=== PATIENT | male | born 1985 | race Caucasian/White ===

== ENCOUNTER 2018-08-09 11:41 | Outpatient (CLI) | payer MEDICAID, SELFPAY ==
--- NOTE | 2018-08-09 12:56 | DI.RAD_ITS ---
SYMPTOMS/DIAGNOSIS: ACUTE BRONCHITIS WITH MILD BRONCHOSPASM, J20.9 PA AND LATERAL CHEST: The heart is normal in size. The lungs are clear. The mediastinal structures and pleura appear intact. CONCLUSION: Normal chest.
== END 2018-08-09 12:01 ==
PROVIDERS: PCP Family Medicine; Visit Provider Nurse Practitioner Family
DX: J20.9 Acute bronchitis, unspecified (principal)
CPT/HCPCS: 71046

== ENCOUNTER 2018-08-10 04:05 | Emergency (ER) | payer MEDICAID, SELFPAY ==
[2018-08-10] VITALS (25 sets, daily range): BP systolic 89–186; BP diastolic 42–112; PULSE 75–117; RESP 13–47; TEMP 35.4–36.6; O2SAT 69–100
--- NOTE | 2018-08-10 04:15 | DI.COMBO_ITS ---
SYMPTOM/DIAGNOSIS: SOB, SEVERE RESP DISTRESS PE CHEST CT: CT angiography was performed with multi slice acquisition and multi planar and 3D reconstruction. CT scan of the chest was performed according to the pulmonary embolus protocol. No priors for comparison. There is no evidence of a pulmonary embolus. The thoracic aorta is of normal caliber. No evidence of thoracic aortic dissection or aneurysm. Heart size is within normal limits. No significant pericardial effusion is seen. No evidence of right ventricular dysfunction is present. No significant mediastinal or hilar adenopathy, pleural effusion or pneumothorax is identified. Note is made of pneumomediastinum. There is an endotracheal tube in good position above the lyric. There is a nasogastric tube which is coiled in the distal esophagus, the tip of the catheter is directed cephalad and lies at the level of the thoracic inlet. There is a reticular nodular infiltrate seen in the right lower lobe. Upper abdominal images are unremarkable. The bones are intact. IMPRESSION: 1. No evidence of a pulmonary embolus, thoracic aortic dissection or aneurysm. 2. Pneumomediastinum. 3. Nasogastric tube coiled in the distal stomach with the tip at the level of the thoracic inlet. 4. Reticular nodular infiltrate seen in the right lower lobe. This may represent small airway disease, infection or inflammation. PORTABLE AP CHEST: Comparison is made with 08/09/18. Heart size is within normal limits as are the pulmonary vasculature. There is a small amount of air seen around the cardiac silhouette consistent with pneumopericardium. The lungs are clear. No effusions or pneumothoraces are identified. IMPRESSION: Pneumopericardium. Please refer to the CT scan of the chest performed the same day.
[2018-08-10] MEDS: Albuterol 2.5 MG/3 ML INH SOLN VIAL UPD ×2 (04:16→05:18)
[2018-08-10 04:39] LABS: ALT 120 U/L (12-78); AST 35 U/L (15-37); Alkaline Phosphatase 77 U/L (46-116); Anion Gap 11.5 mmol/L (3-11); BUN 6 mg/dL (7-18); Bilirubin, Total 0.5 mg/dL (0.2-1.0); CO2 28.5 mmol/L (21.0-32.0); CREATININE 1.07 mg/dL (0.70-1.30); Calcium 8.5 mg/dL (8.5-10.1); Chloride 101 mmol/L (98-107); Glucose 338 mg/dL (70-100); Lactate-non-spesis 3.2 mmol/L (0.6-1.4); Potassium 3.6 mmol/L (3.5-5.1); Sodium 141 mmol/L (136-145); Total Protein 7.8 g/dL (6.4-8.2)
[2018-08-10 04:40] LABS: Troponin I < 0.02 ng/mL (0.00-0.06)
[2018-08-10 04:45] LABS: Abs Immature Grans 0.11 k/cumm (0.0-0.09); Basophils % 0.3; Eosinophils % 2.9; HCT 37.4 % (40.0-50.0); HGB 13.8 g/dL (13.5-17.5); Immature Grans % 0.5; Lymphocytes % 19.9; Mean Corpuscular Hemoglobin 32.7 pg (27.0-33.0); Mean Corpuscular Volume 88.6 fL (80-95); Mean Platelet Volume 10.3 fL (8.0-11.0); Monocytes % 7.5; Neutrophils % 68.9; Platelet Count 497 x1000/uL (130-400); RBC 4.22 m/cumm (4.50-6.00); White Blood Cell Count 22.72 k/cumm (4.4-10.8)
[2018-08-10] MEDS: Ketamine 500 MG/10 ML VIAL 110 MG IVP (04:45)
[2018-08-10] MEDS: PROPOFOL 1,000 MG/100 ML BTL 8 MG (04:46)
[2018-08-10 04:48] LABS: Absolute Basophil Count 0.07 k/cumm (0.0-0.2); Absolute Eosinophil Count 0.66 k/cumm (0.0-0.7); Absolute Lymphocyte Count 4.52 k/cumm (1.2-3.4); Absolute Neutrophil Count 15.65 k/cumm (1.2-6.7)
[2018-08-10 04:49] LABS: Mean Corp. HGB Concentration 36.9 g/dL (32.0-36.0)
[2018-08-10] MEDS: Normal Saline Flush 10 ML SYR (05:03)
[2018-08-10] MEDS: methylPREDNISolone SUCC 125 MG VIAL (05:04)
[2018-08-10 05:06] LABS: NT-proBNP 117 pg/mL; TSH (W/Ref FT4) 0.27 uIU/mL (0.358-3.74)
[2018-08-10] MEDS: Albuterol HFA 8 GM 60 PUFF INH IH (05:20)
[2018-08-10 05:21] LABS: FREE T4 1.09 ng/dL (0.76-1.46)
--- NOTE | 2018-08-10 05:28 | DI.VRAD_ITS ---
EXAM: XR Chest, 1 View CLINICAL HISTORY: 33 years old, male; Signs and symptoms; Shortness of breath TECHNIQUE: Frontal view of the chest. COMPARISON: CR XR CHEST 2V PA LATERAL 08/09/2018 12:56 PM FINDINGS: Lungs: Unremarkable. No consolidation. Pleural space: Unremarkable. No pneumothorax. Heart: Unremarkable. No cardiomegaly. Mediastinum: Unremarkable. Bones/joints: Unremarkable. IMPRESSION: Normal chest x-ray. Dictated and Authenticated by: Prakash Fernández MD. Ordering:INO PENA MD
[2018-08-10] MEDS: CEFEPIME 2 GM in Normal Saline 100 ML IVPB (05:44)
--- NOTE | 2018-08-10 05:50 | ED.GENADUL_ITS ---
Discharge Plan Disposition Patient Disposition: [facility] Condition: Critical Discharge Details Chief Complaint: SOB Clinical Impression: Mediastinitis, Acute hypercapnic respiratory failure Primary Care Provider: Raghav Rojo ED Provider: Jose Luis Polk Home Meds and New Rx's Prescriptions: No Action azithromycin 250 mg Tablet 250 mg PO DAILY RF: 0 prednisone 20 mg Tablet 20 mg PO DAILY RF: 0 albuterol sulfate [ProAir HFA] 90 mcg/actuation Hfa Aerosol Inhaler 2 puff INHALATION Q6H PRNRF: 0 lisinopril 40 mg Tablet 40 mg PO DAILY RF: 0 kskvykuyralh-ytmc-gegof acid [Centrum] 18-400 mg-mcg Tablet 1 tab PO DAILY RF: 0 omega 6-oda-ios-fish oil [Fish Oil] 1,000 mg (120 mg-180 mg) Capsule 2 cap PO DAILY RF: 0 Discharge Data Discharge Date/Time-TO BE ENTERED AT DEPARTURE: 08/10/18 07:14 Medical Decision Making 33-year-old male seen immediately on arrival. Patient arrives in critical condition, in respiratory distress. Patient noted to be tachypneic and hypoxic and cyanotic. Tachycardic and hypertensive. Patient complaining of severe shortness of breath as well as some chest discomfort. Lung sounds tight without wheeze. Patient noted recent bronchitis being treated with azithromycin, albuterol inhaler, and prednisone. Oxygen administered by nonrebreather and IV access obtained. Oxygenation improved to the low 90s, but the patient became quickly more obtunded and responsive only to deep painful stimuli. Patient not protecting airway. Patient intubated to protect airway and given respiratory failure. Patient intubated with ketamine and rocuronium using direct layer laryngoscopy on first attempt easily and without complication. Portable chest x-ray reviewed and interpreted by me: Question curly B-lines, radiology interpreted as negative. ECG was reviewed and interpreted by me: Sinus rhythm 93 bpm, frequent ectopic ventricular beats, nondiagnostic. RT consulted. Continued albuterol inline nebs. Solumedrol 125mg given given. Labs reviewed and leukocytosis noted, lactate elevated, suspect sepsis. Will give cefepime 2g. Vent adjusted adjusted 600/15/100/10peep. I called and spoke with [facility] [place] Dr. Roman will accept patient. CT of the chest to assess for PE while awaiting [facility] transport. 6:30 -- VBG at 4:40 pH7.06. CO2 92. Will obtain ABG. CT of the chest interpreted by radiology: Pneumomediastinum, NG tube curled in distal esophagus with tip extending cranially to the level of the thoracic inlet. Minimal micronodular infiltrates in the right lower lobe suspicious for small airway disease spot infectious etiology. Will remove NG. 6:45 --Suspected diagnosis of acute mediastinitis with hypercarbic respiratory failure I called and updated Dr. Roman re: course. He recommended broadening antibiotic coverage to include vancomycin and Zosyn. HPI General Mode of arrival: ambulatory . Date/Time Provider Initiated Documentation: 08/10/18 04:10 . Limitations to Documentation: no limitations . Information obtained by: patient . HPI Narrative: Patient arrives by private vehicle, ambulating into the emergency department with respiratory distress. History and review of systems Limited secondary to acuity of condition and respiratory distress. Pa Patient does note he was recently being treated for bronchitis with albuterol, azithromycin, and prednisone. Patient noted chest discomfort and nursing. Related Data Home Medications Medication Instructions Recorded Confirmed albuterol sulfate [ProAir HFA] 2 puff INHALATION Q6H PRN 08/10/18 08/10/18 azithromycin 250 mg PO DAILY 08/10/18 08/10/18 lisinopril 40 mg PO DAILY 08/10/18 08/10/18 uyplpmubnixm-icvc-imtra acid 1 tab PO DAILY 08/10/18 08/10/18 [Centrum] omega 3-mip-zlv-fish oil [Fish Oil] 2 cap PO DAILY 08/10/18 08/10/18 prednisone 20 mg PO DAILY 08/10/18 08/10/18 Allergies Allergy/AdvReac Type Severity Reaction Status Date / Time No Known Allergies Allergy Unverified 08/10/18 05:29 General Stated Complaint: SOB AMRITA: 1 Review of Systems Review of Systems Unable to obtain a complete review of systems secondary to the acuity of condition and respiratory distress. Patient does note shortness of breath and some chest discomfort Exam Const General: in distress severe and respiratory Nutritional Appearance: obese Orientation: confused Limitations: altered mental status [facility] Head: normocephalic and atraumatic Mouth: moist mucous membranes Eyes Conjunctivae: normal conjunctivae Sclera: normal sclerae Pupils: PERRL and pupil size (4mm) bilaterally Neck Neck: trachea midline and supple Resp Effort & Inspection: labored, respiratory distress, retractions and tachypneic Auscultation: diminished lung sounds bilaterally and wheezes expiratory wheezes (faint) Cardio Jugular venous pressure: no JVD Rate: tachycardic Rhythm: regular rhythm GI Palpation: soft, not firm, no guarding, no masses, not rigid and nontender Skin General skin exam: other (cyanosis face) Neuro General: alert, awake and confused Extrem General: no edema Course Vital Signs Temperature 35.4 C L 08/10/18 04:18 Pulse 117 H 08/10/18 04:18 Respiratory Rate 32 H 08/10/18 04:18 Pulse Oximetry 69 L 08/10/18 04:18 Temperature 35.4 C L 08/10/18 04:18 Pulse 117 H 08/10/18 04:18 Respiratory Rate 32 H 08/10/18 04:18 Pulse Oximetry 69 L 08/10/18 04:18 Oxygen Delivery Method Room Air 08/10/18 04:18 Oxygen Flow Rate 0 08/10/18 04:18 Pain Level 0 08/10/18 04:18 Comment 08/10/18 04:18 Lab/Test Results Lab/Test Results: Laboratory Tests Range/Units 08/10/18 08/10/18 08/10/18 04:16 04:16 04:16 WBC (4.4-10.8) k/cumm 22.72 H RBC (4.50-6.00) m/cumm 4.22 L Hgb (13.5-17.5) g/dL 13.8 Hct (40.0-50.0) % 37.4 L MCV (80-95) fL 88.6 MCH (27.0-33.0) pg 32.7 MCHC (32.0-36.0) g/dL 36.9 H RDW (11.8-14.1) % 17.0 H Plt Count (130-400) x1000/uL 497 H MPV (8.0-11.0) fL 10.3 Immature Gran % 0.5 Neutrophils % 68.9 Lymphocytes % 19.9 Monocytes % 7.5 Eosinophils % 2.9 Basophils % 0.3 Absolute Neutrophils (1.2-6.7) k/cumm 15.65 H Absolute Lymphocytes (1.2-3.4) k/cumm 4.52 H Absolute Monocytes (0.11-0.7) k/cumm 1.70 H Absolute Eosinophils (0.0-0.7) k/cumm 0.66 Absolute Basophils (0.0-0.2) k/cumm 0.07 Sodium (136-145) mmol/L 141 Potassium (3.5-5.1) mmol/L 3.6 Chloride (98-107) mmol/L 101 Carbon Dioxide (21.0-32.0) mmol/L 28.5 Anion Gap (3-11) mmol/L 11.5 H BUN (7-18) mg/dL 6 L Creatinine (0.70-1.30) mg/dL 1.07 Estimated GFR/1.73 m2 (mL/min/1.73m2) >= 60.00 Glucose (70-100) mg/dL 338 H Lactate (0.6-1.4) mmol/L Calcium (8.5-10.1) mg/dL 8.5 Total Bilirubin (0.2-1.0) mg/dL 0.5 AST (15-37) U/L 35 ALT (12-78) U/L 120 H Alkaline Phosphatase (46-116) U/L 77 Troponin I (0.00-0.06) ng/mL < 0.02 NT-Pro-B Natriuret Pep ( - 299) pg/mL 117 Total Protein (6.4-8.2) g/dL 7.8 Albumin (3.4-5.0) g/dL 4.0 TSH (0.358-3.74) uIU/mL 0.27 L Range/Units 08/10/18 04:16 WBC (4.4-10.8) k/cumm RBC (4.50-6.00) m/cumm Hgb (13.5-17.5) g/dL Hct (40.0-50.0) % MCV (80-95) fL MCH (27.0-33.0) pg MCHC (32.0-36.0) g/dL RDW (11.8-14.1) % Plt Count (130-400) x1000/uL MPV (8.0-11.0) fL Immature Gran % Neutrophils % Lymphocytes % Monocytes % Eosinophils % Basophils % Absolute Neutrophils (1.2-6.7) k/cumm Absolute Lymphocytes (1.2-3.4) k/cumm Absolute Monocytes (0.11-0.7) k/cumm Absolute Eosinophils (0.0-0.7) k/cumm Absolute Basophils (0.0-0.2) k/cumm Sodium (136-145) mmol/L Potassium (3.5-5.1) mmol/L Chloride (98-107) mmol/L Carbon Dioxide (21.0-32.0) mmol/L Anion Gap (3-11) mmol/L BUN (7-18) mg/dL Creatinine (0.70-1.30) mg/dL Estimated GFR/1.73 m2 (mL/min/1.73m2) Glucose (70-100) mg/dL Lactate (0.6-1.4) mmol/L 3.2 H Calcium (8.5-10.1) mg/dL Total Bilirubin (0.2-1.0) mg/dL AST (15-37) U/L ALT (12-78) U/L Alkaline Phosphatase (46-116) U/L Troponin I (0.00-0.06) ng/mL NT-Pro-B Natriuret Pep ( - 299) pg/mL Total Protein (6.4-8.2) g/dL Albumin (3.4-5.0) g/dL TSH (0.358-3.74) uIU/mL Critical Care Time Critical Care Time: Yes Total Critical Care Time: 85 Attestation: I spent greater than 85 minutes addressing this patient's immediate life threats
[2018-08-10 06:19] LABS: *AMPHETAMINES SCREEN URINE Negative (Negative); *BARBITURATES SCREEN URINE Negative (Negative); *BENZODIAZEPINES SCREEN URINE Negative (Negative); Cannabinoids THC POSITIVE (Negative); Cocaine Screen,Urine Negative (Negative); METHADONE URINE SCREEN Negative (Negative); OPIATES URINE SCREEN Negative (Negative)
[2018-08-10] MEDS: Omnipaque 350 MG/ML 100 ML BTL IJ (06:19)
[2018-08-10 06:22] LABS: Tricyclic Antidepressants Negative (Negative)
[2018-08-10 06:23] LABS: pO2 (Venous) 87 mm/Hg (28-44)
[2018-08-10 06:24] LABS: HCO3 (Venous) 26 mmol/L (22-28)
[2018-08-10 06:26] LABS: O2 Sat (Venous) 93 % (70-80); TCO2 (Venous) 25 mmol/L (22-29)
[2018-08-10 06:29] LABS: pH (Venous) 7.06 (7.32-7.43)
--- NOTE | 2018-08-10 06:29 | DI.VRAD_ITS ---
EXAM: CT Angiography Chest With Intravenous Contrast CLINICAL HISTORY: 33 years old, male; Signs and symptoms; Other: Severe resp distress; Patient HX: Unknown history TECHNIQUE: Axial computed tomographic angiography images of the chest with intravenous contrast using pulmonary embolism protocol. All CT scans at this facility use at least one of these dose optimization techniques: automated exposure control; mA and/or kV adjustment per patient size (includes targeted exams where dose is matched to clinical indication); or iterative reconstruction. MIP reconstructed images were created and reviewed. Coronal and sagittal reformatted images were created and reviewed. CONTRAST: 100 mL of Omnipaque 350 administered intravenously. COMPARISON: SC XR PORTABLE CHEST AP 08/10/2018 4:19 AM FINDINGS: Pulmonary arteries: Unremarkable. No pulmonary embolism. Aorta: No acute findings. No thoracic aortic aneurysm. Lungs: Minimal micronodular infiltrates of the right lower lobe, suspicious for small airway disease spot infectious etiology. No mass. Pleural space: Unremarkable. No significant effusion. No pneumothorax. Heart: Unremarkable. No cardiomegaly. No significant pericardial effusion. No evidence of RV dysfunction. Mediastinum: Pneumomediastinum. Bones/joints: No acute fracture. No dislocation. Soft tissues: Unremarkable. Lymph nodes: Unremarkable. No enlarged lymph nodes. Liver: No hepatic steatosis. Tubes, lines and devices: NG tube curled in distal esophagus with tip extending cranially to the level of the thoracic inlet. IMPRESSION: 1. Pneumomediastinum. 2. NG tube curled in distal esophagus with tip extending cranially to the level of the thoracic inlet. 3. Minimal micronodular infiltrates of the right lower lobe, suspicious for small airway disease spot infectious etiology. Dictated and Authenticated by: Prakash Fernández MD. Ordering:INO PENA MD
[2018-08-10 06:30] LABS: pCO2 (Venous) 92 mm/Hg (34-47)
[2018-08-10] MEDS: PIPERACILLIN/TAZO 4.5 GM in Normal Saline 100 ML IVPB (06:40)
[2018-08-10] MEDS: fentaNYL 250 MCG/5 ML VIAL (06:44)
[2018-08-10 06:47] LABS: BE -3.4 mmol/L (-3-3); HCO3 25 mmol/L (22-28); pO2 103 mmHg (83-108); sO2 98 % (94-98); tCO2 24 mmol/L (22-29)
[2018-08-10 06:48] LABS: pCO2 64 mmHg (34-47)
[2018-08-10 06:49] LABS: Site Right Radial
--- NOTE | 2018-08-10 07:13 | NUR.NOTE ---
Nursing Note: left message for Adiranne Orellana- mother listed on demographics. VM left to call hospital. [facility] has left pt's belongings which are bagged and labeled, including wallet with DL and CCards- no perales present. Additionally, pants, brown t shirt, black sweatshirt , cell phone, 3 rx bottles, 1 inhaler. Will secure behind desk.
--- NOTE | 2018-08-10 07:29 | NUR.NOTE ---
Nursing Note: 0450: Rocuronium 100mg given IVP Left AC Ketamine 110mg given IVP left AC
--- NOTE | 2018-08-10 08:04 | NUR.NOTE ---
Nursing Note: Pt arrived, was roomed in room 2- found at 69% RA. Began high flow O2 via NRB. in room. ECG obtained- reviewed by MD. IV x 2 placed (LAC, RAC #18 each). Pt's SaO2 levels increased, though pt became unresponsive. In order to protect airway, pt was intubated at approx 0445 by MD Polk with respiratory and 2 RN assist. Ventilator utilized and managed by RT. Intubation as described by MN RN - 110 mg Ketamine and 100 mg Rocuronium. Started on propofol after successful insertion of 7.5 ETT 22@ teeth. Pt maintained on this, managed by RT for vent and anesthesia (responded to call in). [facility] Report given, pt transferred.
== END 2018-08-10 07:14 | disposition short-term general hospital (02) ==
PROVIDERS: Emergency Provider Student in an Organized Health Care Education/Training Program; PCP Family Medicine
DX: J98.51 Mediastinitis (principal); J96.02 Acute respiratory failure with hypercapnia; I10 Essential (primary) hypertension
CPT/HCPCS: 31500; 36415; 71275; 80053; 80307; 82805; 93005; 94640; 96365; 96367; 96375; 99291; 99292; 71045; 83605; 83880; 84439; 84443; 84484; 85025; 93010; J2543; J2930; J3010; J3490; J7613

== ENCOUNTER 2018-09-03 08:59 | Emergency (ER) | payer MEDICAID, SELFPAY ==
[2018-09-03 09:33] VITALS: BP 145/106; PULSE 92; RESP 18; TEMP 36.7; O2SAT 96
--- NOTE | 2018-09-03 10:13 | DI.RAD_ITS ---
SYMPTOM/DIAGNOSIS: COUGH, SHORTNESS OF BREATH PA AND LATERAL CHEST: The heart is normal in size. The lungs are clear. The mediastinal structures and pleura appear intact. CONCLUSION: Normal chest. No evidence of acute cardiopulmonary disease.
--- NOTE | 2018-09-03 10:13 | W.ED.GENAD ---
Discharge Plan Disposition Patient Disposition: HOME Condition: Good Discharge Details Chief Complaint: RespSymp Clinical Impression: Bilateral wheezing Primary Care Provider: Nataly Conklin ED Provider: Prakash Garcia Home Meds and New Rx's Prescriptions: New prednisone 20 mg tablet 60 mg PO DAILY 4 Days Qty: 12 RF: 0 Continue albuterol sulfate [ProAir HFA] 90 mcg/actuation Hfa Aerosol Inhaler 2 puff INHALATION Q6H PRNRF: 0 lisinopril 40 mg Tablet 40 mg PO DAILY RF: 0 budesonide-formoterol [Symbicort] 160-4.5 mcg/actuation Hfa Aerosol Inhaler 2 puff Inhalation BID RF: 0 Discharge Instructions Additional Instructions: you had wheezing on exam and were treated with steoids and a nebulizer. Follow up with your primary care provider next week especially if symptoms continue return to the emergency department for severe pain or worsening difficulty breathing Medical Decision Making 33 yo male with hx of htn who required intubation and transfer to [facility] [place] for undiagnosed asthma exacerbation and pneumonedistinum at the end of jul, comes in with shortness of breath and dry cough for a week. Denies fevers or chest pain, is in no distress on exam speaking in full sentences. Has no crepitus of chest wall, does have bilateral wheezing. No hypoxia or tachycardia, wells low and perc negative so odubt PE. Will treat as asthma exacerbation and obtain xray patient feels much better after neb and steroids, speaking in full sentences, awaiting xray xray negative on my read, remains stable and only has mild wheezing at the bases bilaterally. will d/c with prednisone, advised f/u with pcp next week and return precautions given Differential Diagnosis asthma, pneumonia, bronchitis Medical Records Medical records reviewed: Yes I reviewed the patient's medical records. Imaging Data Radiologic Study: Attestation: I personally reviewed and interpreted this imaging study as follows: Imaging: X-Ray My impression: no acute findings HPI General Mode of arrival: ambulatory. Date/Time Provider Initiated Documentation: 09/03/18 10:07. Limitations to Documentation: no limitations. Information obtained by: patient. History of Present Illness 33 year old M presents to the emergency department with the chief complaint of shortness of breath, described as mild, Patient started experiencing this week(s) (1) and it has been constant. No relieving factors improve symptom(s), No exacerbating factors reported . Patient did receive the following treatments prior to arrival, none Related Data Home Medications Medication Instructions Recorded Confirmed albuterol sulfate [ProAir HFA] 2 puff INHALATION Q6H PRN 08/10/18 09/03/18 lisinopril 40 mg PO DAILY 08/10/18 09/03/18 budesonide-formoterol [Symbicort] 2 puff INHALATION BID 09/03/18 09/03/18 prednisone 60 mg PO DAILY 4 Days #12 tab 09/03/18 Previous Rx's Medication Instructions Recorded prednisone 60 mg PO DAILY 4 Days #12 tab 09/03/18 Allergies Allergy/AdvReac Type Severity Reaction Status Date / Time No Known Allergies Allergy Unverified 09/03/18 09:40 General Stated Complaint: RespSymp AMRITA: 3 Review of Systems Review of Systems All systems reviewed & are unremarkable except as noted in HPI and below Constitutional Denies chills, Denies fever(s) and Denies weakness Eyes Denies loss of vision ENT Denies change in voice Cardiovascular Denies chest pain Gastrointestinal Denies abdominal pain, Denies nausea and Denies vomiting Genitourinary Denies dysuria Musculoskeletal Denies joint swelling Integumentary/Breasts Denies rash Neurologic Denies loss of vision and Denies weakness Psychiatric Denies depression Endocrine Denies cold intolerance and Denies heat intolerance Allergic/Immunologic Denies urticaria [facility] Social History Smoking/Tobacco Use Status: Never Exam Const General: no acute distress Orientation: alert HENMT Head: normal to inspection Ears: external ears normal General nose exam: external nose normal Mouth: moist mucous membranes Eyes General: appearance normal, both eyes and all related structures Neck Neck: normal visual inspection Resp Effort & Inspection: normal respiratory effort, able to speak in complete sentences and audible wheezes Cardio Rate: regular rate Skin General skin exam: no rashes or lesions noted Neuro General: alert and oriented x3 Extrem General: normal to inspection Psych Mental Status: mental status grossly normal Course Vital Signs Temperature 36.7 C 09/03/18 09:33 Pulse 92 H 09/03/18 09:33 Respiratory Rate 18 09/03/18 09:33 Blood Pressure 145/106 H 09/03/18 09:33 Pulse Oximetry 96 09/03/18 09:33 Temperature 36.7 C 09/03/18 09:33 Temperature Source Skin 09/03/18 09:33 Pulse 92 H 09/03/18 09:33 Respiratory Rate 18 09/03/18 09:33 Respiratory Effort 09/03/18 09:36 Respiratory Depth Normal 09/03/18 09:36 Blood Pressure 145/106 H 09/03/18 09:33 Blood Pressure Position Sitting 09/03/18 09:33 Pulse Oximetry 96 09/03/18 09:33 Oxygen Delivery Method Room Air 09/03/18 09:33 Oxygen Flow Rate 0 09/03/18 09:33 Pain Level 0 09/03/18 09:33
[2018-09-03] MEDS: predniSONE 20 MG TAB 60 MG PO (10:31)
--- NOTE | 2018-09-03 10:32 | ED.GENADUL_ITS ---
Discharge Plan Disposition Patient Disposition: HOME Condition: Good Discharge Details Chief Complaint: RespSymp Clinical Impression: Bilateral wheezing Primary Care Provider: Nataly Conklin ED Provider: Prakash Garcia Home Meds and New Rx's Prescriptions: New prednisone 20 mg tablet 60 mg PO DAILY 4 Days Qty: 12 RF: 0 Continue albuterol sulfate [ProAir HFA] 90 mcg/actuation Hfa Aerosol Inhaler 2 puff INHALATION Q6H PRNRF: 0 lisinopril 40 mg Tablet 40 mg PO DAILY RF: 0 budesonide-formoterol [Symbicort] 160-4.5 mcg/actuation Hfa Aerosol Inhaler 2 puff Inhalation BID RF: 0 Discharge Instructions Additional Instructions: you had wheezing on exam and were treated with steoids and a nebulizer. Follow up with your primary care provider next week especially if symptoms continue return to the emergency department for severe pain or worsening difficulty breathing Medical Decision Making 33 yo male with hx of htn who required intubation and [place] [facility] [place]iagnosed asthma exacerbation and pneumonedistinum at the end of jul, comes in with shortness of breath and dry cough for a week. Denies fevers or chest pain, is in no distress on exam speaking in full sentences. Has no crepitus of chest wall, does have bilateral wheezing. No hypoxia or tachycardia, wells low and perc negative so odubt PE. Will treat as asthma exacerbation and obtain xray patient feels much better after neb and steroids, speaking in full sentences, awaiting xray xray negative on my read, remains stable and only has mild wheezing at the bases bilaterally. will d/c with prednisone, advised f/u with pcp next week and return precautions given Differential Diagnosis asthma, pneumonia, bronchitis Medical Records Medical records reviewed: Yes I reviewed the patient's medical records. Imaging Data Radiologic Study: Attestation: I personally reviewed and interpreted this imaging study as follows: Imaging: X-Ray My impression: no acute findings HPI General Mode of arrival: ambulatory . Date/Time Provider Initiated Documentation: 09/03/18 10:07 . Limitations to Documentation: no limitations . Information obtained by: patient . History of Present Illness 33 year old M presents to the emergency department with the chief complaint of shortness of breath, described as mild, Patient started experiencing this week(s) (1) and it has been constant. No relieving factors improve symptom(s ), No exacerbating factors reported . Patient did receive the following treatments prior to arrival, none Related Data Home Medications Medication Instructions Recorded Confirmed albuterol sulfate [ProAir HFA] 2 puff INHALATION Q6H PRN 08/10/18 09/03/18 lisinopril 40 mg PO DAILY 08/10/18 09/03/18 budesonide-formoterol [Symbicort] 2 puff INHALATION BID 09/03/18 09/03/18 prednisone 60 mg PO DAILY 4 Days #12 tab 09/03/18 Previous Rx's Medication Instructions Recorded prednisone 60 mg PO DAILY 4 Days #12 tab 09/03/18 Allergies Allergy/AdvReac Type Severity Reaction Status Date / Time No Known Allergies Allergy Unverified 09/03/18 09:40 General Stated Complaint: RespSymp AMRITA: 3 Review of Systems Review of Systems All systems reviewed & are unremarkable except as noted in HPI and below Constitutional Denies chills, Denies fever(s) and Denies weakness Eyes Denies loss of vision ENT Denies change in voice Cardiovascular Denies chest pain Gastrointestinal Denies abdominal pain, Denies nausea and Denies vomiting Genitourinary Denies dysuria Musculoskeletal Denies joint swelling Integumentary/Breasts Denies rash Neurologic Denies loss of vision and Denies weakness Psychiatric Denies depression Endocrine Denies cold intolerance and Denies heat intolerance Allergic/Immunologic Denies urticaria [facility] Social History Smoking/Tobacco Use Status: Never Exam Const General: no acute distress Orientation: alert HENMT Head: normal to inspection Ears: external ears normal General nose exam: external nose normal Mouth: moist mucous membranes Eyes General: appearance normal, both eyes and all related structures Neck Neck: normal visual inspection Resp Effort & Inspection: normal respiratory effort, able to speak in complete sentences and audible wheezes Cardio Rate: regular rate Skin General skin exam: no rashes or lesions noted Neuro General: alert and oriented x3 Extrem General: normal to inspection Psych Mental Status: mental status grossly normal Course Vital Signs Temperature 36.7 C 09/03/18 09:33 Pulse 92 H 09/03/18 09:33 Respiratory Rate 18 09/03/18 09:33 Blood Pressure 145/106 H 09/03/18 09:33 Pulse Oximetry 96 09/03/18 09:33 Temperature 36.7 C 09/03/18 09:33 Temperature Source Skin 09/03/18 09:33 Pulse 92 H 09/03/18 09:33 Respiratory Rate 18 09/03/18 09:33 Respiratory Effort 09/03/18 09:36 Respiratory Depth Normal 09/03/18 09:36 Blood Pressure 145/106 H 09/03/18 09:33 Blood Pressure Position Sitting 09/03/18 09:33 Pulse Oximetry 96 09/03/18 09:33 Oxygen Delivery Method Room Air 09/03/18 09:33 Oxygen Flow Rate 0 09/03/18 09:33 Pain Level 0 09/03/18 09:33
[2018-09-03 10:33] VITALS: RESP 4
[2018-09-03] MEDS: Albuterol/Ipratropium 3 ML UPD VIAL UPD (10:33)
[2018-09-03 12:03] VITALS: BP 151/83; PULSE 92; RESP 18; TEMP 36.7; O2SAT 96
== END 2018-09-03 12:04 | disposition home or self-care (01) ==
PROVIDERS: Emergency Provider Emergency Medicine; PCP Nurse Practitioner Family
DX: J45.901 Unspecified asthma with (acute) exacerbation (principal); I10 Essential (primary) hypertension
CPT/HCPCS: 94640; 99283; 71046; J7512; J7620

== ENCOUNTER 2019-01-07 07:56 | Outpatient (REF) | payer MEDICAID, SELFPAY ==
[2019-01-07 13:18] LABS: Anion Gap 9.3 mmol/L (3-11); BUN 15 mg/dL (7-18); CO2 28.7 mmol/L (21.0-32.0); CREATININE 0.84 mg/dL (0.70-1.30); Chloride 104 mmol/L (98-107); Cholesterol 159 mg/dL (50-200); Glucose 104 mg/dL (70-100); HDL Cholesterol 54 mg/dL (40-60); LDL CHOLESTEROL 94 mg/dL (<100); Potassium 4.9 mmol/L (3.5-5.1); Sodium 142 mmol/L (136-145); Triglyceride 54 mg/dL (30-150)
[2019-01-07 13:23] LABS: Calcium 9.2 mg/dL (8.5-10.1)
== END 2019-01-07 08:16 ==
LOC: NCHCN 07:56
PROVIDERS: PCP Nurse Practitioner Family; Visit Provider Nurse Practitioner Family
DX: I10 Essential (primary) hypertension (principal); E78.5 Hyperlipidemia, unspecified
CPT/HCPCS: 80048; 80061; 83721

== ENCOUNTER 2021-02-01 23:14 | Outpatient (REF) | payer MEDICAID, SELFPAY ==
[2021-02-01 19:13] LABS: Anion Gap 11.1 mmol/L (3-11); BUN 15 mg/dL (7-18); CO2 24.9 mmol/L (21.0-32.0); CREATININE 0.9 mg/dL (0.70-1.30); Calcium 8.8 mg/dL (8.5-10.1); Calculated LDL 110 mg/dL (<100); Chloride 106 mmol/L (98-107); Cholesterol 177 mg/dL (<200); Glucose 95 mg/dL (74-106); HDL Cholesterol 49 mg/dL (40-60); Potassium 4.3 mmol/L (3.5-5.1); Sodium 142 mmol/L (136-145); TSH (W/Ref FT4) 0.76 uIU/mL (0.36-3.74); Triglyceride 93 mg/dL (<150)
== END 2021-02-01 23:15 | disposition home or self-care (01) ==
LOC: NCHCN 23:14
PROVIDERS: PCP Nurse Practitioner Family; Visit Provider Nurse Practitioner Family
DX: I10 Essential (primary) hypertension (principal); F43.23 Adjustment disorder with mixed anxiety and depressed mood
CPT/HCPCS: 80048; 80061; 84443

== ENCOUNTER 2021-03-03 03:28 | Outpatient (CLI) | payer MEDICAID, SELFPAY ==
--- NOTE | 2021-03-03 14:00 | NS.NUTBLAN_ITS ---
Efraín was referred to Medical Nutrition Therapy for weight management. 6'2 330 lbs BMI 42. Goal wt: 290-300 lbs. Diet recall indicates skips breakfast and lunch and tends to eat a big meal at night. Very active during day, Does cardio and weight lifting 3-4 times weekly. Most recent labs indicate mildly elevated LDL (110 mg/dl). Session today focused on how to follow a lower carb, higher protein meal plan for weight loss. Reviewed strategies to increase metabolic rate and burn body fat while building muscle mass. Encouraged Efraín to eat 3-4 times daily and to focus on lean protein, complex carbs and non starchy vegetables. Encouraged 5 days of cardio for 30 min, 3 days of weight lifting 30 min. Provided macronutrient goals and meal plans. Goal: 4-5 lbs weight loss per month until goal weight. No follow up planned at this time. Will follow up prn.
== END 2021-03-03 03:29 | disposition home or self-care (01) ==
LOC: DS 03:29
PROVIDERS: PCP Nurse Practitioner Family; Visit Provider Dietitian, Registered
DX: E66.3 Overweight (principal); Z68.41 Body mass index [BMI] 40.0-44.9, adult; Z71.3 Dietary counseling and surveillance
CPT/HCPCS: 97802

== ENCOUNTER 2022-01-05 15:15 | Outpatient (REF) | payer MEDICAID, SELFPAY ==
[2022-01-05 17:06] LABS: Anion Gap 8.7 mmol/L (3-11); BUN 15 mg/dL (7-18); CO2 25.3 mmol/L (21.0-32.0); CREATININE 0.9 mg/dL (0.70-1.30); Calcium 8.8 mg/dL (8.5-10.1); Chloride 106 mmol/L (98-107); Glucose 99 mg/dL (74-106); Potassium 4.7 mmol/L (3.5-5.1); Sodium 140 mmol/L (136-145)
== END 2022-01-05 15:16 | disposition home or self-care (01) ==
LOC: NCHCN 15:15
PROVIDERS: PCP Nurse Practitioner Family; Visit Provider Nurse Practitioner Family
DX: Z00.00 Encounter for general adult medical examination without abnormal findings (principal)
CPT/HCPCS: 80048

== ENCOUNTER 2022-10-24 19:54 | Outpatient (REF) | payer MEDICAID, SELFPAY ==
[2022-10-24 20:19] LABS: Anion Gap 8.1 mmol/L (3-11); BUN 16 mg/dL (7-18); CO2 27.9 mmol/L (21.0-32.0); CREATININE 0.9 mg/dL (0.70-1.30); Calcium 8.9 mg/dL (8.5-10.1); Calculated LDL 140 mg/dL (<100); Chloride 102 mmol/L (98-107); Cholesterol 212 mg/dL (<200); Estimated GFR 114.22 (mL/min/1.73m2); Glucose 108 mg/dL (74-106); HDL Cholesterol 53 mg/dL (40-60); Potassium 4.5 mmol/L (3.5-5.1); Sodium 138 mmol/L (136-145); TSH (W/Ref FT4) 0.82 uIU/mL (0.36-3.74); Triglyceride 95 mg/dL (<150)
== END 2022-10-24 19:55 | disposition home or self-care (01) ==
LOC: NCHCN 19:54
PROVIDERS: PCP Nurse Practitioner Family; Visit Provider Nurse Practitioner Family
DX: I10 Essential (primary) hypertension (principal); Z83.49 Family history of other endocrine, nutritional and metabolic diseases
CPT/HCPCS: 80048; 80061; 84443

== ENCOUNTER → 2023-11-14 15:53 | Outpatient (CLI) | payer MEDICAID, SELFPAY ==
--- NOTE | 2023-11-14 15:44 | DI.RAD_ITS ---
Exam(s) XR ANKLE RT COMPLETE XR FOOT RT COMPLETE EXAM: XR ANKLE RT COMPLETE and XR foot RT complete CLINICAL HISTORY: PAIN RT ANKLE JOINT, M25.571. TECHNIQUE: 2D digital imaging was performed of the right foot and ankle. Six images were obtained. AP, lateral and oblique views were obtained. COMPARISON: No priors for comparison. FINDINGS: BONES: No acute fracture is present. No bony destructive lesion is seen. JOINTS: The ankle mortise is normally aligned. There is mild spurring anteriorly at the ankle joint. There are mild degenerative changes seen in the tarsal bones. There is a small spur at the dorsal a spect of the head of the 1st metatarsal bone. SOFT TISSUE: There are tiny well corticated density seen around the ankle and on the dorsum of the hi ndfoot which appear chronic. There is mild soft tissue swelling around the ankle. IMPRESSION: 1. Degenerative changes of the foot and ankle as described. 2. Soft tissue swelling around the ankle. DATA REPOSITORY: RADIATION DOSE DELIVERED:
== END ==
PROVIDERS: PCP Nurse Practitioner Family; Visit Provider Nurse Practitioner Family
DX: M25.571 Pain in right ankle and joints of right foot (principal)
CPT/HCPCS: 73610; 73630

== ENCOUNTER 2024-01-17 15:47 | Outpatient (CLI) | payer BC, SELFPAY ==
--- NOTE | 2024-01-17 09:57 | DI.RAD_ITS ---
Exam(s) XR ANKLE RT 2V EXAM: XR ANKLE RT 2V CLINICAL HISTORY: Right ankle pain. TECHNIQUE: 2D digital imaging was performed. Three views. COMPARISON: CR XR ANKLE RT COMPLETE from 11/14/2023 FINDINGS: BONES: No acute fracture is present. No bony destructive lesion is seen. Plantar calcaneal spur. Sp urring at anterior aspect of the distal tibia as well as posterior talus. Spurring at medial talus b eneath the level of the malleolus. JOINTS: The ankle mortise is normally aligned. Spurring at the talonavicular joint. SOFT TISSUE: Home multiple small calcifications are again noted posterior to the tibiotalar joint. D ensities also seen beneath the lateral malleolus and dorsal to talus. IMPRESSION: Stable degenerative changes. DATA REPOSITORY: RADIATION DOSE DELIVERED:
== END 2024-01-17 15:48 | disposition home or self-care (01) ==
LOC: DIORS 15:48
PROVIDERS: PCP Nurse Practitioner Family; Visit Provider Student in an Organized Health Care Education/Training Program
DX: M25.571 Pain in right ankle and joints of right foot (principal)
CPT/HCPCS: 73600

== ENCOUNTER → 2024-01-31 01:41 | Outpatient (CLI) | payer BC, SELFPAY ==
--- NOTE | 2024-01-31 08:00 | DI.MRI_ITS ---
Exam(s) MR LOWER JOINT RT WO EXAM: MR LOWER JOINT RT WO CLINICAL HISTORY: PAIN,impingement rt ankle joint, m25.871 TECHNIQUE: Multiplanar multisequence MRI was performed without intravenous contrast. COMPARISON: CR XR ANKLE RT COMPLETE from 11/14/2023 CR XR ANKLE RT 2V from 01/17/2024 FINDINGS: BONES/JOINTS: No fracture or contusion pattern. No bone lesions identified. There are degenerative ch anges seen at the tibial talar joint. There also degenerative changes seen at the articulation of th e sustentaculum megan and the medial talus. There is marrow edema and subchondral cysts seen in the rene stentacular megan. Small subchondral cysts and marrow edema is seen in the adjacent medial talus. Mi ld marrow edema is also seen at the talonavicular joint in the articulation of several of the tarsome tatarsal joints. There is an ankle joint effusion with synovial thickening. There are few small loos e bodies seen within the joint space posteriorly. LIGAMENTS: The tibiofibular and calcaneofibular ligaments are intact. The talofibular ligaments are i ntact. The deltoid ligament is intact. The syndesmosis is unremarkable. Sinus tarsi is normal. MUSCULOTENDINOUS STRUCTURES: Achilles tendon: Unremarkable. Plantar fascia: There is mild hyperintense signal seen in the plantar fascia near its insertion site onto the calcaneus consistent with fasciitis. Anterior Extensor tendons: Unremarkable. Posterior Tibialis: Unremarkable. Flexor Digitorum longus: Unremarkable. Flexor Hallucis longus: Unremarkable. Peroneus longus: Unremarkable. Peroneus brevis:Unremarkable. SOFT TISSUES: Unremarkable. OTHER FINDINGS: None. IMPRESSION: 1. Arthrosis of the ankle with the joint effusion and synovial thickening. There also appear to be so me loose bodies within the joint space posteriorly. 2. Degenerative changes seen in the foot and ankle with findings particularly seen at the articulatio n of the of sustentacular tale I and the medial talus. 3. Findings suggestive of plantar fasciitis. 4. No evidence of a tendon or ligament tear. DATA REPOSITORY:
== END ==
PROVIDERS: PCP Nurse Practitioner Family; Visit Provider Student in an Organized Health Care Education/Training Program
DX: M25.871 Other specified joint disorders, right ankle and foot (principal); M19.071 Primary osteoarthritis, right ankle and foot; M25.471 Effusion, right ankle
CPT/HCPCS: 73721

== ENCOUNTER 2024-02-21 15:48 | Outpatient (REF) | payer BC, SELFPAY ==
[2024-02-21 19:10] LABS: ALT 46 U/L (16-63); AST 25 U/L (15-37); Albumin 4.3 g/dL (3.4-5.0); Alkaline Phosphatase 57 U/L (46-116); Anion Gap 9.1 mmol/L (3-11); BUN 13 mg/dL (7-18); Bilirubin, Total 0.5 mg/dL (0.2-1.0); CO2 27.9 mmol/L (21.0-32.0); CREATININE 0.9 mg/dL (0.70-1.30); Calcium 9.5 mg/dL (8.5-10.1); Chloride 104 mmol/L (98-107); Estimated GFR 113.51 (mL/min/1.73m2); Glucose 98 mg/dL (74-106); Potassium 4.4 mmol/L (3.5-5.1); Sodium 141 mmol/L (136-145); Total Protein 7.6 g/dL (6.4-8.2)
== END 2024-02-21 15:49 | disposition home or self-care (01) ==
LOC: NCHCN 15:48
PROVIDERS: PCP Nurse Practitioner Family; Visit Provider Nurse Practitioner Family
DX: Z00.00 Encounter for general adult medical examination without abnormal findings (principal)
CPT/HCPCS: 80053

== ENCOUNTER 2024-08-10 13:44 | Emergency (ER) | payer BC, SELFPAY ==
[2024-08-10 13:46] VITALS: BP 153/106; PULSE 77; RESP 15; TEMP 37.1; O2SAT 97
[2024-08-10 13:49] VITALS: BP 153/106; PULSE 77; RESP 15; TEMP 37.1; O2SAT 97
--- NOTE | 2024-08-10 14:00 | DI.CT_ITS ---
Exam(s) CT ABDOMEN PELVIS W EXAM: CT ABDOMEN PELVIS W CLINICAL HISTORY: prostatic and rectal pain w/o external abnormality. TECHNIQUE: Imaging Protocol: Axial computed tomography images with coronal and sagittal reformatted images were created and reviewed CONTRAST MATERIAL: Intravenous: Omnipaque-350 100cc Oral: None FINDINGS: VISUALIZED LUNG BASES: No nodules nor pleural effusions evident. ABDOMEN: There is no ascites. LIVER: There are no focal hepatic lesions evident. No dilated intrahepatic ducts. GALLBLADDER/BILIARY: No obvious gallbladder pathology. CBD is not dilated. PANCREAS: No evidence of pancreatic mass nor dilatation of the pancreatic duct. SPLEEN: Spleen size upper normal. Craniocaudal length is 13 cm. Splenic lesions seen. Splenic and portal veins are patent. ADRENALS: There are no significant adrenal masses. KIDNEYS:No cysts evident. No solid renal masses. No calculi nor hydronephrosis.. ABDOMINAL AORTA: Abdominal aorta is not enlarged. LYMPH NODES:There is no retroperitoneal nor paraaortic adenopathy. ABDOMINAL WALL: There is a fat only containing umbilical hernia. GI: There is no evidence of bowel obstruction, free air, nor abscess. PELVIS: GI: No evidence of appendicitis.No evidence of sigmoid diverticular disease. Normal appearing fat pl anes in the perineum and around the rectum/rectosigmoid, as per request. LYMPH NODES: There is no intrapelvic nor inguinal adenopathy. REPRODUCTIVE: Prostate size normal. Seminal vesicles unremarkable. URINARY BLADDER: No calculi nor obvious masses evident OSSEOUS: No fractures nor significant osseous lesions. Multilevel Schmorl's node endplate invaginati on spur but no fractures IMPRESSION: 1. No significant findings in the abdomen pelvis. There is no perianal nor perirectal streaking, giv en the symptoms here. 2. No significant findings. RADIATION DOSE DELIVERED: 1,230.59mGy.cm Total DLP DATA REPOSITORY: All CT scans at this facility are submitted to the National Radiology Data Registry (NRDR) Dose Index Registry (DIR) with the [employer] (ACR). RADIATION OPTIMIZATION: All CT scans at this facility use at least one of these dose optimization te chniques: automated exposure control; mA and/or kV adjustment per patient size (includes targeted exa ms where dose is matched to clinical indication); or iterative reconstruction.
[2024-08-10 14:04] VITALS: RESP 20
[2024-08-10] MEDS: Ketorolac 15 MG/ML VIAL IVP (14:30)
--- NOTE | 2024-08-10 14:39 | ED.GENADUL_ITS ---
Discharge Plan Disposition Patient Disposition: Home Condition: Good Discharge Details Clinical Impression: Pain, rectal Primary Care Provider: RO GARDNER ED Provider: Emile Orozco Home Meds and New Rx's Prescriptions: New hydrocortisone acetate [Anusol-HC] 25 mg suppository 25 mg NV DAILY Qty: 12 0RF No Action dextroamphetamine-amphetamine [Adderall XR] 20 mg capsule,extended release 24hr 20 mg PO DAILY dextroamphetamine sulfate 15 mg tablet 15 mg PO DAILY valsartan 160 mg tablet 160 mg PO DAILY valsartan 40 mg tablet 40 mg PO DAILY Rx Instructions: to be taken with the 160mg tab valsartan 320 mg tablet 320 mg PO DAILY Patient Comments: TAKE ONE TABLET BY MOUTH EVERY DAY Discharge Instructions Instructions: Hemorrhoids ED Additional Instructions: At this time the CAT scan and laboratory workup does not show any evidence of infection. There is concern that there may be some hemorrhoids and they are causing the symptoms. I do not see any evidence of significant infection at this time. Please take the suppository as directed. Please take [id number] stool softeners or Colace daily. Please keep your stool soft and try to stay off the toilet for long periods of time. Please follow-up closely with surgery. We have placed a referral for them. They will contact you for an appointment time. If you notice any worsening of your symptoms, or any new symptoms such as vomiting, diarrhea, fever, chills, shortness of breath, chest pain, numbness, weakness, or fainting , please return immediately to the emergency department for reevaluation. Please follow up with your primary care provider as soon as possible for reassessment and reevaluation. As always, it was a pleasure participating in your medical care today. Referrals: RO GARDNER, ANILA [Primary Care Provider] - Toni Alcantara MD [ [facility] STAFF PHYSICIAN] - Mary Jane Chau DO [OSTEOPATHIC DOCTOR] - [facility] General Date/Time Provider Initiated Documentation: 08/10/24 13:59 . [facility] Narrative: 39-year-old male with a past medical history of hypertension was a prediabetic presents today for evaluation of rectal/prostate pain. Patient states 3 days ago he developed some mild achiness and discomfort just between his rectum and his scrotum. He did have some chills but denies fever. He states that the pain came on relatively suddenly and has gradually been getting worse. Minimally improved with NSAIDs. No burning with urination. No pain with bowel movements. He denies any pain or abnormalities with ejaculation. Last ejaculation was yesterday. He states that it feels like there is something of a golf ball size in that area. He denies any anal or rectal intercourse. He denies any urethral penetration. He denies any history of prostatic cancer. He denies any previous surgeries. No other complaints at this time. No other modifying factors. No history of STIs. Related Data Home Medications ?Medication ?Instructions ?Recorded ?Confirmed dextroamphetamine sulfate 15 mg 15 mg PO DAILY 12/04/23 08/10/24 tablet valsartan 160 mg tablet 160 mg PO DAILY 12/04/23 08/10/24 valsartan 40 mg tablet 40 mg PO DAILY 12/04/23 08/10/24 dextroamphetamine-amphetamine ER 20 mg PO DAILY 01/17/24 08/10/24 20 mg 24hr capsule,extend release (Adderall XR) hydrocortisone acetate 25 mg 25 mg NV DAILY #12 ea 08/10/24 rectal suppository (Anusol-HC) valsartan 320 mg tablet 320 mg PO DAILY 08/10/24 08/10/24 Previous Rx's ?Medication ?Instructions ?Recorded hydrocortisone acetate 25 mg 25 mg NV DAILY #12 ea 08/10/24 rectal suppository (Anusol-HC) Allergies Allergy/AdvReac Type Severity Reaction Status Date / Time No Known Allergies Allergy Unverified 08/10/24 13:50 General Stated Complaint: Urinary AMRITA: 3 Review of Systems All systems reviewed & are unremarkable except as noted in HPI and below Exam Narrative Exam Narrative: 1.Const: Well-nourished, Well-developed, appearing stated age 2.Eyes: PERRL, no conjunctival injection, and symmetrical lids. 3.ENT: Atraumatic external nose and ears. Moist MM. Neck: Symmetric, trachea midline, No thyromegaly. 4.CVS: +S1/S2, Peripheral pulses 2+ and equal in all extremities. Brisk capillary refill in all extremities. 5.RESP: Unlabored respiratory effort. Clear to auscultation bilaterally. No wheezes rales or rhonchi 6.GI: Soft, Nontender/Nondistended, No hepatosplenomegaly. No guarding or rebound. Rectal exam: Rectal and genital exam was performed with male nurse [place] at bedside. No testicular pain or tenderness. Normal cremasteric reflex. No urethral pain discharge or tenderness. No large hemorrhoids or perirectal abscess or palpable mass. 7.MSK: Normocephalic/Atraumatic, Extremities w/o deformity or ttp No cyanosis or clubbing, Normal movement of all extremities 8.Skin: Warm, Dry. No rashes or lesions. 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 Sensation grossly intact, no focal neurologic deficits. 10.Psych: (AAO) x3. Appropriate mood and affect Course Vital Signs Vital signs: Vital Signs Temperature 37.1 C 08/10/24 13:46 Pulse 77 08/10/24 13:46 Respiratory Rate 15 08/10/24 13:46 Blood Pressure 153/106 H 08/10/24 13:46 Pulse Oximetry 97 08/10/24 13:46 Temperature 37.1 C 08/10/24 13:49 Pulse 77 08/10/24 13:49 Respiratory Rate 20 08/10/24 14:04 Respiratory Effort Normal 08/10/24 14:04 Respiratory Depth Normal 08/10/24 14:04 Respiratory Pattern Normal 08/10/24 14:04 Blood Pressure 153/106 H 08/10/24 13:49 Blood Pressure Position Sitting 08/10/24 13:49 Pulse Oximetry 97 08/10/24 13:49 Oxygen Delivery Method Room Air 08/10/24 13:49 Oxygen Flow Rate 0 08/10/24 13:46 Pain Level 7 08/10/24 14:04 Lab/Test Results Lab/Test Results: 08/10/24 14:15 Blood Blood Culture - Pending 08/10/24 14:15 Blood Blood Culture - Pending Medical Decision Making 39-year-old male with a past medical history of hypertension was a prediabetic presents today for evaluation of rectal/prostate pain. Patient states 3 days ago he developed some mild achiness and discomfort just between his rectum and his scrotum. He did have some chills but denies fever. He states that the pain came on relatively suddenly and has gradually been getting worse. Minimally improved with NSAIDs. No burning with urination. No pain with bowel movements. He denies any pain or abnormalities with ejaculation. Last ejaculation was yesterday. He states that it feels like there is something of a golf ball size in that area. He denies any anal or rectal intercourse. He denies any urethral penetration. He denies any history of prostatic cancer. He denies any previous surgeries. No other complaints at this time. No other modifying factors. No history of STIs. Exam is very reassuring. No testicular or scrotal pain or tenderness. No penile pain or tenderness. Rectal exam demonstrates no perirectal abscess mass inflammation or redness. Patient states that the pain is much deeper. Differential includes prostatic mass, prostatitis, potential rectal mass. I am hesitant to perform palpated prostate exam out of concern for potential infectious prostatitis and the concern for seeding. We will get CT imaging to rule out mass cancer or abscess. We will get a UA, check blood work and blood cultures, give NSAID therapy for pain control, monitor closely and reassess. Symptoms inconsistent at this time based on clinical assessment and history of Trace's gangrene, testicular torsion, testicular abscess. [address] scan negative for acute process. Laboratory workup is returned notably reassuring, no white count bandemia or left shift renal dysfunction or other abnormality on urinalysis. Inflammatory markers are otherwise negative. Symptoms appearing consistent with bacteremia secondary to prostatitis. I do feel that rectal exam is appropriate at this time. CT scan shows no perirectal or perianal inflammatory changes whatsoever. Rectal exam was performed with nurse at bedside. Notably tense internal anal sphincter. In the anterior component of the rectal wall there does feel to be a very small/minimal pouch versus 2 parallel hemorrhoids creating a small anterior vascular section. CT and labs do not show evidence suggestive of proctitis or other abnormality. Concern for potential hemorrhoids. Although it is slightly atypical. Will give Anusol suppository here and prescription. Recommend NSAID therapy and follow-up outpatient with surgery if symptoms are persistent. Patient otherwise stable. Discussed red flags which to return. I have extensively reviewed the treatment plan and discharge instructions with the patient. I have addressed all patient concerns at this time. The patient was made aware of what symptoms to monitor for that would warrant a return to the emergency department. Discussed the plan with the patient, they demonstrate verbal understanding and agreement with our assessment and plan at this time. The documentation in this chart was dictated using [employer] dictation software. Please excuse any dictation errors. FINDINGS: Liver: Normal. No mass. Gallbladder and biliary ducts: Normal. No calcified stones. No ductal dilation. Pancreas: Normal. No ductal dilation. Spleen: Normal. No splenomegaly. Adrenal glands: Normal. No mass. Kidneys and ureters: Normal. No hydronephrosis. Stomach and bowel: No perirectal or perianal inflammatory changes. No bowel wall thickening. Negative for bowel obstruction. Appendix: No evidence of appendicitis. Intraperitoneal space: Unremarkable. No free air. No significant fluid collection. Vasculature: Unremarkable. No abdominal aortic aneurysm. Lymph nodes: Unremarkable. No enlarged lymph nodes. Urinary bladder: Unremarkable as visualized. Reproductive: Unremarkable as visualized. Bones/joints: Unremarkable. No acute fracture. Soft tissues: Unremarkable. IMPRESSION: No perirectal or perianal inflammatory changes. No bowel wall thickening. Thank you for allowing us to participate in the care of your patient. 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 (Acute) Impingement of right ankle joint (Acute) Severe persistent asthma (Acute) Prediabetes (Acute) Medical History Essential hypertension ADHD Hyperlipidemia Social History Smoking/Tobacco Use Status: Never Smoking risk assessment performed?: Yes Drug use: Never Do you feel safe in your relationship?: Yes PAWSS Have you Been Recently Intoxicated or Drunk Within the Last 30 days?: No Have you Ever Experienced Previous Episodes of Alcohol Withdrawal?: No Have you ever Experienced Withdrawal Seizures?: No Have you ever Experienced Delirium Tremens(DT)s?: No Have you ever undergone Alcohol Rehabilitation Treatment (i.e, inpt ot outpatient treatment programs)?: No Have you ever Experienced Blackouts?: No Have you ever Combined Alcohol with other Downers within the last 90 days?: No Have you ever Combined Alcohol with any other Substance of Abuse during the last 90 days?: No Positive Blood Alcohol level on Presentation? [PCS.BAL]: No Evidence of Increased Autonomic Activity (i.e. HR>120, tremor, sweating, agitation, nausea)?: No Result: 0
[2024-08-10 14:49] LABS: Abs Immature Grans 0.01 10^3/uL (0.0-0.06); Absolute Basophil Count 0.03 10^3/uL (0.0-0.2); Absolute Eosinophil Count 0.07 10^3/uL (0.0-0.7); Absolute Lymphocyte Count 1.65 10^3/uL (1.2-3.4); Absolute Monocyte Count 0.41 10^3/uL (0.1-0.8); Absolute Neutrophil Count 5.82 10^3/uL (1.2-6.7); Basophils % 0.4 %; Eosinophils % 0.9 %; HCT 42.9 % (40.0-50.0); HGB 14.2 g/dL (13.5-17.5); Immature Grans % 0.1 %; Lymphocytes % 20.7 %; MCH 28.1 pg (27.0-33.0); MCHC 33.1 % (32.0-36.0); MCV 85 fL (80-95); MPV 10.2 fL (8.0-11.0); Monocytes % 5.1 %; Neutrophils % 72.8 %; Platelet Count 279 10^3/uL (130-400); RBC 5.05 10^6/uL (4.36-5.78); RDW 13.2 % (11.8-14.1); WBC 7.99 10^3/uL (4.4-10.8)
[2024-08-10 14:51] LABS: Bilirubin Negative (Negative); Blood Negative (Negative); Clarity Clear (Clear); Glucose Negative (Negative); Ketones Negative (Negative); Leukocyte Esterase Negative (Negative); Nitrite Negative (Negative); Specific Gravity 1.025 (1.005-1.025); Urobilinogen 0.2 mg/dL (Up to 0.2); pH 5.5 (5-8)
[2024-08-10] MEDS: Omnipaque 350 MG/ML 100 ML BTL IJ (15:02)
[2024-08-10] MEDS: Normal Saline - Diluent 50 ML VIAL IJ (15:03)
[2024-08-10 15:11] LABS: ALT 46 U/L (16-63); AST 24 U/L (15-37); Albumin 4.3 g/dL (3.4-5.0); Alkaline Phosphatase 67 U/L (46-116); Anion Gap 10.8 mmol/L (3-11); BUN 14 mg/dL (7-18); Bilirubin, Total 0.58 mg/dL (0.2-1.0); CO2 27.2 mmol/L (21.0-32.0); CREATININE 0.9 mg/dL (0.70-1.30); Calcium 9.3 mg/dL (8.5-10.1); Chloride 104 mmol/L (98-107); Estimated GFR 112.81 (mL/min/1.73m2); Glucose 94 mg/dL (74-106); Potassium 3.8 mmol/L (3.5-5.1); Sodium 142 mmol/L (136-145)
[2024-08-10 15:51] LABS: Procalcitonin < 0.1 ng/mL
--- NOTE | 2024-08-10 16:01 | DI.VRAD_ITS ---
PROCEDURE INFORMATION: Exam: CT Abdomen And Pelvis With Contrast Exam date and time: 08/10/2024 2:47 PM Age: 39 years old Clinical indication: Other: Prostatic and rectal pain w/o external abnormality TECHNIQUE: Imaging protocol: Computed tomography of the abdomen and pelvis with contrast. Radiation optimization: All CT scans at this facility use at least one of these dose optimization techniques: automated exposure control; mA and/or kV adjustment per patient size (includes targeted exams where dose is matched to clinical indication); or iterative reconstruction. Contrast material: OMNIPAQUE 350; Contrast volume: 100 ml; Contrast route: INTRAVENOUS (IV); COMPARISON: MR LOWER JOINT RT WO 01/31/2024 10:41 AM FINDINGS: Liver: Normal. No mass. Gallbladder and biliary ducts: Normal. No calcified stones. No ductal dilation. Pancreas: Normal. No ductal dilation. Spleen: Normal. No splenomegaly. Adrenal glands: Normal. No mass. Kidneys and ureters: Normal. No hydronephrosis. Stomach and bowel: No perirectal or perianal inflammatory changes. No bowel wall thickening. Negative for bowel obstruction. Appendix: No evidence of appendicitis. Intraperitoneal space: Unremarkable. No free air. No significant fluid collection. Vasculature: Unremarkable. No abdominal aortic aneurysm. Lymph nodes: Unremarkable. No enlarged lymph nodes. Urinary bladder: Unremarkable as visualized. Reproductive: Unremarkable as visualized. Bones/joints: Unremarkable. No acute fracture. Soft tissues: Unremarkable. IMPRESSION: No perirectal or perianal inflammatory changes. No bowel wall thickening. Dictated and Authenticated by: Varsha Elliott MD. Ordering:STEPHANIE Baptiste MD
[2024-08-10 17:08] VITALS: BP 143/84; PULSE 82; RESP 18; TEMP 36.6; O2SAT 98
[2024-08-10] MEDS: Hydrocortisone 25 MG SUPP PR (17:20)
--- NOTE | 2024-08-13 08:45 | NUR.NOTE ---
Access chart to determine PCP to send prior authorization for hydrocortisone acetate 25mg suppositories to them. Faxed to PCP. Nursing Note:
== END 2024-08-10 17:21 | disposition home or self-care (01) ==
PROVIDERS: Emergency Provider Student in an Organized Health Care Education/Training Program; PCP Nurse Practitioner Family
DX: K62.89 Other specified diseases of anus and rectum (principal)
CPT/HCPCS: 80053; 84145; 87040; 96374; 99285; 74177; 81003; 83605; 85025; 99284; J1885; J3490

== ENCOUNTER 2024-08-21 12:58 | Inpatient (IN) | payer BC, SELFPAY ==
[2024-08-21 13:00] VITALS: BP 153/101; PULSE 73; RESP 20; TEMP 36.7; O2SAT 100
--- NOTE | 2024-08-21 13:04 | W.PM.HP.N ---
Date of service: 08/21/24 Time of Service: 13:04 Assessment and Plan Assessment and plan (1) Prediabetes: Status: Acute Assessment and plan: a1c- pd (2) BMI 45.0-49.9, adult: Status: Acute (3) Tessa-rectal abscess: Status: Acute Assessment and plan: abx pain control supportive care I&D in the am 20 mins spent in direct pt care and 20 in non face to face time (4) Essential hypertension: (5) Hyperlipidemia: (6) ADHD: History of Present Illness Narrative: Pt is doing OK this evening. He is comfortable. we will plan surgery in am for I&D of abscess. we d/w what he could expect during the procedure/ recovery time and risks. Risks of surgery include but not limited to: Bleeding, infection, pneumonia, blood clots, complications of anesthesia, damage just to sphincters including stenosis or loss of control of bowels, need for continued dressing change and packing reaction to medications, need for repeat procedure, and other on for told complications. From clinic notes earlier today: The patient is a 39-year-old individual who is here today for a follow-up from the ER, complaining of rectal pain. They report experiencing rectal pain, which they describe as tolerable. They have had three bowel movements today but feel that they have not fully emptied their bowels. They noticed bright red blood in their stool yesterday, a symptom that began a day or two after their ER visit. This bleeding occurs every few days. Over the past year, they have been experiencing constipation and straining during bowel movements. Despite maintaining a diet rich in fruits and vegetables and drinking plenty of water, these symptoms persist. They are currently on Adderall and valsartan, the latter of which they started taking about a year ago after switching from lisinopril. They report no fever or chills. They have no known allergies to medications and occasionally use THC products. They had a broken arm when they were a child. Unsure if there is hardware present. No problems w/ anesthesia. ED Note: 08/10/24 13:59. HPI Narrative: 39-year-old male with a past medical history of hypertension was a prediabetic presents today for evaluation of rectal/prostate pain. Patient states 3 days ago he developed some mild achiness and discomfort just between his rectum and his scrotum. He did have some chills but denies fever. He states that the pain came on relatively suddenly and has gradually been getting worse. Minimally improved with NSAIDs. No burning with urination. No pain with bowel movements. He denies any pain or abnormalities with ejaculation. Last ejaculation was yesterday. He states that it feels like there is something of a golf ball size in that area. He denies any anal or rectal intercourse. He denies any urethral penetration. He denies any history of prostatic cancer. He denies any previous surgeries. No other complaints at this time. No other modifying factors. No history of STIs. 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 (Acute) Impingement of right ankle joint (Acute) Severe persistent asthma (Acute) Prediabetes (Acute) Medical History Essential hypertension ADHD Hyperlipidemia Social History Smoking/Tobacco Use Status: Never Smoking risk assessment performed?: Yes Drug use: Never Housing: house Do you feel safe in your relationship?: Yes Meds Allergies and Home Medications Allergies Allergy/AdvReac Type Severity Reaction Status Date / Time No Known Allergies Allergy Unverified 08/21/24 10:19 Home Medications ?Medication ?Instructions ?Recorded ?Confirmed ?Type valsartan 320 mg tablet 320 mg PO DAILY 08/10/24 08/21/24 History dextroamphetamine-amphetamine 10 10 mg PO DAILY PRN 08/21/24 08/21/24 History mg tablet (Adderall) dextroamphetamine-amphetamine ER 10 mg PO DAILY PRN 08/21/24 08/21/24 History 10 mg 24hr capsule,extend release Exam Const Other: L: cta b/l H: r/r/r rectal exam- purulent d/c area of fullness/redness at 12oclock position. Results Labs 08/21/24 13:43 Time Spent Time spent with Patient: 40-54 minutes Time was spent: preparing to see the patient(eg.review tests), obtaining and/or reviewing separately otained hiistory, ordering medications,tests, procedures, referring, communicating with other health home health care respiratory therapist, indepentently interpreting results, counseling the patient, care coordination and other
[2024-08-21 13:25] VITALS: BP 153/101; PULSE 73; RESP 16; TEMP 36.7; O2SAT 100
--- OUTSIDE RECORDS SUMMARY | 2024-08-21 13:27 | XMS_ITS | Encounter Summary ---
Author Organization [facility] [place] [address] Care Team Providers Care Front Line Supervisor Name Role Phone Nataly Conklin CHAVA Primary Care Provider [phone] Encounter Details Date Type Department Care Team (Late st Contact Info) Description 11/14/2023 12:05 AM EST Ancillary Procedure Radiology Library at [facility] [place] [id number] Radha Quiles APRN [address] [place] [address] [place] [address] Social History Tobacco Use Types Packs/Day Years Used Date Smoking Tobacco: Never Smokeless Tobacco: Never Alcohol Use Standard Drinks/Week Comments No 0 (1 standard drink = 0.6 oz pur e alcohol) Sex and Gender Information Value Date Recorded Sex Assigned at Not on file Gender Identity Not on file Sexual Orientation Not on file documented as of this encounter Plan of Treatment Not on file documented as of this encounter Procedures Procedure Name Priority Date/Time Associated Diagnosis Comments FILM LIBRARY STORAGE ONLY DX FOOT Routine 11/14/2023 12:05 AM EST documented in this encounter Results * Film Library- Storage Only DX Foot (11/14/2023 12:05 AM EST) Narrative JOSE F - 02/14/2024 3:31 PM EDT This exam is auto-finalizing. It's purpose is for storage only. Radha Quiles APRN [facility] FILM LIBRARY ORD ERABLES [place] [place] documented in this encounter Visit Diagnoses Not on filedocumented in this encounter Care Teams Front Line Supervisor Relationship Specialty Start Date End Date Nataly Conklin, ENTERPRISE ARCHITECT MANAGER [address] [place] [address] PCP - General Family Medicine 08/10/18 01/27/24 documented as of this encounter
--- OUTSIDE RECORDS SUMMARY | 2024-08-21 13:27 | XMS_ITS | Encounter Summary ---
Author Organization [facility] Address [facility] [place] [address] Care Team Providers Care Defensive Secondary Coach Name Role Phone Nataly Conklin APRN Primary Care Provider [phone] Reason for Visit * Reason Comments Referral * Consultation (Routine) - Closed Specialty Diagnoses / Procedures Referred By Tova munoz Referred To Contact Pulmonology Diagnoses Severe persistent asthma with status asthmaticus Toni Westbrook MD [facility] [place] [address] [facility] [address] [place] [address] Referral ID Status Reason Start Date Expiration Date V isits Requested Visits Authorized [id number] Closed Specialty Service Requested 08/13/2018 08/13/2019 1 1 Encounter Details Date Type Department Care Team (Late st Contact Info) Description 09/10/2018 10:00 AM EST Office [place] [address] Sarah Mejía MD [facility] [place] [address] Severe persistent asthma, unspecified whether complicated Social History Tobacco Use Types Packs/Day Years Used Date Smoking Tobacco: Never Smokeless Tobacco: Never Alcohol Use Standard Drinks/Week Comments No 0 (1 standard drink = 0.6 oz pur e alcohol) Sex and Gender Information Value Date Recorded Sex Assigned at Not on file Gender Identity Not on file Sexual Orientation Not on file documented as of this encounter Last Filed Vital Signs Vital Sign Reading Time Taken Comments Blood Pressure 138/86 09/10/2018 9:19 AM EST Pulse 76 09/10/2018 9:19 AM EST Temperature - - Respiratory Rate 18 09/10/2018 9:19 AM EST Oxygen Saturation 98% 09/10/2018 9:19 AM EST Inhaled Oxygen Concentration - - Weight 140.2 kg (309 lb) 09/10/2018 9:19 AM EST Height 186.7 cm (6' 1.5) 09/10/2018 9:19 AM EST Body Mass Index 40.21 09/10/2018 9:19 AM EST documented in this encounter Progress Notes * Sarah Mejía MD - 09/10/2018 10:00 AM EST Images from the original note were not included. Pulmonary Clinic Consult Note Reason for Consult: I was asked by Nataly Conklin APRN to evaluate this patient for asthma management I have personally interviewed and examined the patient, reviewed history, radiographic studies( if any) and laboratory data(if any). HPI: This is a 33 y.o. male, never smoker, was referred to me for management of asthma. He was hospitalized for hypoxemic/hypercarbic respiratory failure presumed to be status asthmaticusfrom 08/10/2018 to 08/13/2018. This event was preceded by, it appeared to be, viral upper respiratory illness for 2-3 weeks. Sx started as diarrhea and stomach upset. GI sx improved however, this wasfollowed by dyspnea, wheezing, some cough but not much sputum. Patient was having a cough, sputum pr oduction and dyspnea. He was first treated with albuterol, prednisone( startingat 40mg daily per patient) and azithromycin, however symptoms progressed and ultimately patient was hospitalized. Prior to this event, he did not have a diagnosis of asthma. During the hospitalization, he required endotracheal intubation and mechanical ventilation. Chest x-ray and CT scan of the chest showed a pneumomediastinum(note: To my eyes, the CT scan also demonstrated minor lung base bronchiolar infiltrate, heterogenous lung attenuation suggesting for air trapping in the lung base atelectasis.). He quickly weaned to room air after extubation. Respiratory PCR panel was all negative. A similar event, with chest congestion and wheezing x 2-3 days, happened again about a week ago, for which he went to [facility] ED and was treated with nebulizer and 60mg prednisone x 5 days with clear subjective benefit and resolution of sx. Currently, he is feeling OK, though does not think he has recovered yet. No h/o allergies or childhood asthma. No childhood respiratory illness. 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 Denies any inhalation of unusual substance. 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 The patient has AHR to cold air but not much to perfume, odor, sprays. The patient has nocturnal sx The patient has no h/o naso sinusal disorders. The patient has no significant family hx of lung diseases. He had a pulmonary function testing today. It demonstrated a normal spirometry and low FENO of 7. He has been on twice daily Symbicort 80/4.5 2 puffs without a spacer. Yes/No remark Past hospitalization Mechanical ventilation Environmental allergy Rhinitis/sinusitis Asa sensitivity smoking pets Childhood asthma Obesity Eosinophilia ( ) Eos > 0.3 IgE elevation ( ) IgE 30-700 FeNO elevation A1AT ANCA Asp F IgG CF sweat CL testing Family history of lung diseases Yes/No remark Nocturnal symptoms Exercise induced symptoms Frequent ANAHI use ( >2/wk) Rhinitis/sinusitis sx Airway sensitivity Prednisone in last 6 months yes note Albuterol MDI Combivent Respimat Duoneb Albuterol neb Budesonide neb Formoterol neb Asmanex Qvar Flovent Pulmicort Arnuity Ellipta Advair Symbicort Dulera Breo Ellipta Spiriva Tudorza Incruse Ellipta Anoro Ellipta Stiolto Problem List: Patient Active Problem List Diagnosis Date Noted ??? Acute respiratory failure 08/13/2018 ??? Pneumomediastinum 08/13/2018 ??? Essential hypertension 08/12/2018 ??? Asthma with status asthmaticus 08/10/2018 ??? 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 HTN (hypertension) FHx: Family History Problem Relation Age of Onset ??? Asthma Son Social Hx: Social History Tobacco Use ??? Smoking status: Never Smoker Substance Use Topics ??? Alcohol use: No Frequency: Never ??? 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 Cat and dog in the house. Allergy: No Known Allergies Medications: Outpatient Medications Marked as Taking for the 09/10/18 encounter (Office Visit) with Sarah Mejía MD Medication Sig Dispense Refill ??? albuterol 90 mcg/actuation HFA Aerosol Inhaler Inhale 2 puffs into the lungs every 4 hours as needed for Wheezing or Shortness of Breath. Use with spacer 1 Inhaler 1 ??? budesonide-formoterol (SYMBICORT) 80-4.5 mcg/actuation HFA Aerosol Inhaler Inhale 2 puffs into the lungs 2 times daily. 1 Inhaler 12 ??? lisinopril (PRINIVIL;ZESTRIL) 40 mg Tablet Take 40 mg by mouth daily. 0 ROS: x: positive. [ ] Shortness of breath [ ] Abdominal pain or bloating [ ] Frequent or chronic cough [ ] Weight gain or loss [ ] Coughing up blood [ ] Chest pain [ ] Nose, sinus, mouth, throat problems [ ] Palpitations or flutter [ ] Fevers or severe chills [ ] Swelling of hands feet ankles [ ] Night sweats [ ] Convulsions or seizures [ ] Enlarged or swollen lymph glands [ ] Frequent or severe headache [ ] Skin disease or rash [ ] Fainting or loss of consciousness [ ] Easy bruising or bleeding [ ] Extreme fatigue or weakness [ ] Significant joint pains or stiffness [ ] Depression [ ] Changes in bowel habits [ ] Changes in sleep pattern [ ] Changes in appetite [x ] All unmarked were reviewed and found negative. [ ] other system: Vitals and Physical Exam: BP 138/86 Pulse 76 Resp 18 Ht 186.7 cm (6' 1.5) Wt (!) 140.2 kg (309 lb) SpO2 98% BMI 40.21 kg/m?? Gen: comfortable. Normal breathing pattern and rate. HEENT: Pupils equal and round. EOMI, no pallor no icteric sclera on conjunctiva No thrush Neck: No stridor No cervical LAP Chest: CTA without wheezing/rhonchi/crackles Symmetric excursion. Cor: RRR, S1S2, No MRG. Abd: ND Extrem: no C/C/E. Labs/Tests: Diagnostic studies: -CXR: -CT: 08/10/2018 FINDINGS: Pulmonary arteries: The main pulmonary artery is normal in caliber. No filling defects seen in the pulmonary arteries. No septal bowing or reflux of contrast to suggest right heart strain. ?? Other cardiovascular structures: The heart is normal in size. No pericardial effusion. The thoracic aorta is normal in caliber. Motion artifact limits evaluation of the aortic root. The SMA and celiac origins are widely patent. ?? Pulmonary parenchyma: There are small nodular opacities seen in the dependent right lower lobe. Nonspecific hazy opacities are seen in the medial upper lobes. Airways: An endotracheal tube is seen in the midthoracic trachea. The large airways are clear. There is some mild distal small airway wall thickening. Pleura: No effusion or pneumothorax. Lymph nodes: No adenopathy by size criteria. Other mediastinal structures: An enteric tube is seen which has an acute angulation in the distal esophagus with the tip directed retrograde. There is pneumomediastinum with air extending craniad surrounding the trachea and esophagus to the level of the visualized thyroid. Air can be also seen extending to surround the left bronchi and the heart. Upper abdomen: No significant findings. Skeletal structures: No significant findings. ?? IMPRESSION 1. No pulmonary embolism identified. 2. There are nodular opacities seen in the right lower lobe concerning for a nonspecific infectious or inflammatory process. 3. There is some mild thickening of the distal airways which could be from an inflammatory or infectious bronchitis. 4. There is pneumomediastinum. 5. The enteric tube is positioned with the tip directed retrograde in the esophagus. Recommend repositioning. -PFTs: date FVC FEV1 FEV/FVC VC TLC RV RV/TLC Dsb SpO2 FENO 09/10/2018 5.57 92 4.37 89 79 7 -ECHO: -Serology: -PET: -Biopsy: -Other: Labs Summary: -suspected severe persistent asthma -recent acute exacerbation required mechanical ventilation in July 2018 Impression/recommendation: -33-year-old man never been a smoker, was referred to me for management of recently diagnosed presumed asthma. He had never had any respiratory problem until the past July, when he developed a presumed viral illness over a course of 2 weeks, started as GI symptoms followed by severe respiratory illness for which subsequently he developed chest congestion, dyspnea and wheezing resulted in hypercarbic hypoxemic respiratory failure, requiring mechanical ventilation with ICU admission. He was treated with bronchodilator (continuous albuterol neb) and systemic steroid with recovery. Note CT scan was negative for pulmonary emboli. It showed very mild bronchial infiltrate at the lung bases and some bronchial wall thickening, otherwise the lungs were unremarkable. Respiratory PCR panel was negative. -After discharge, he had been slowly recovering, however about a week ago, he developed another respiratory flare and he was treated at the local emergency room with a prednisone with relief of sx. -Pulmonary function testing was performed today, demonstrated a normal spirometry, SPO2 and a low FENO at 7. -My interview did not reveal any recent environmental changes to potentially trigger an asthma development. -Overall, I agree the sx and response to systemic steroid therapy, as well as CT and PFT findings are reasonably consistent with the diagnosis of asthma. 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 Gonzalez's lung also responds to steroid but I think this seems less likely the case. He has recently had systemic steroid therapy and this is probably not a great timing for any serological test. -For now, I will continue to treat him for suspected severe persistent asthma. He has been on Symbicort 80/4.5 2 puffs twice daily. He is very compliant, however unfortunately not using a proper technique with a spacer. Increasing dosage and improving the technique should give him a better control.If he does not respond to this properly, we will need to expand our differential diagnosis. Plan 1) increase Symbicort 160/4.5 2 puffs twice daily via spacer 2) comprehensive inhaler training by Mis Bourne RRT today. 3) Peak flow to see if he could catch a drop before start feeling any sx. 4) He will keep a supply of prednisone course. 5) f/u in 4-6 weeks. 70 mins were spent in a face to face conversation with the patient (and accompanying family members, if present) regarding my impressions and recommendations and providing counseling. All the questions were answered. . Separately, I have spent an additional time in reviewing charts/records/labs/tests, or discussion with other health care providers. This does NOT include the time spent in ( ) Smoking cessation counseling (x severe persistent asthma severe persistent asthma) inhaler technique demonstration and teaching. ( checked if applicable) - I personally reviewed ( x ) radiographic images. ( x ) pulmonary function testing DATA ( x ) Laboratory DATA ( apply if checked ) Thank you very much for participating in the care of this patient. Please contact us at [phone] for any further questions or requests. * Mis Bourne RT - 09/10/2018 10:00 AM EST MDI/DPI instruction for Efraín Sharma: Inspiratory Flows Resistance via Incheck dial Peak Inspiratory Flow Rate in LPM Low resistance ( MDI/Respimat): 1) 120+ -Instructed in MDI with valved holding chamber technique: Efraín Sharma Able to demonstrate technique correctly, Inspiratory flow after instruction: 40-60 lpm - Valved holding chamber provided to Efraín Sharma to utilize with Symbicort and albuterol HFA inhalers. Reviewed importance of priming initially and re-priming MDI HFA if not used within 2 weeks. Reviewed importance of rinsing the mouth after the Symbicort. Reviewed cleaning instructions for valved holding chamber. Reviewed order of inhalers: Albuterol HFA 90 mcg 2 puffs every 4-6 hours as needed Symbicort 160/4.5 mcg 2 puffs every 12 hours Reviewed difference between rescue and controller medications and he verbalized understanding. Peak Flow Monitoring: Introduced Peak Flow monitoring to Efraín Sharma Initial personal best peak flow: 470 lpm. Initial peak flow zones utilizing personal best peak flow of 470 lpm. Green zone> 375 lpm Yellow zone: 235-375 lpm = plan to start albuterol every 4-6 hours as needed, if notes that the peak flow is trending down despite utilizing albuterol HFA notify [facility] Pulmonary Red Zone: < 235 lpm, take prednisone and call [facility] pulmonary immediately. -reviewed initial peak flow zones and Efraín Sharma verbalized understanding. Plan to do peak flow monitoring ( 3 trials -recording the best of the 3 trials) in the morning after his inhalers And then in the evening after his inhalers. BREATHING EXERCISES: Introduced concept of Pursed lip breathing to Efraín Sharma He was able to demonstrate pursed lip breathing at rest. Plan to practice this at rest and then utilize when dyspneic. documented in this encounter Plan of Treatment Not on file documented as of this encounter Visit Diagnoses Diagnosis Severe persistent asthma, unspecified whether complicated documented in this encounter Care Teams Defensive Secondary Coach Relationship Specialty Start Date End Date Nataly Conklin, BAND TUMBLER [address] [place] [address] PCP - General Family Medicine 08/10/18 01/27/24 documented as of this encounter
--- OUTSIDE RECORDS SUMMARY | 2024-08-21 13:27 | XMS_ITS | Encounter Summary ---
Author Organization [facility] Address [facility] [place] [address] Care Team Providers Care Practice Director Name Role Phone Radha Quiles CHAVA Primary Care Provider [phone] Reason for Referral * Consultation (Routine) - Authorized Specialty Diagnoses / Procedures Referred By Tova munoz Referred To Contact Orthopaedics Diagnoses Pain in right ankle and joints of right foot Other specified joint disorders, right ankle and foot Flat foot (pes planus) (acquired), right foot OR Jason Tan MD [address] [place] [address] Casey Thomason MD [facility] [place] [address] Referral ID Status Reason Start Date Expiration Date Visits Requested Visits Authorized [id number] Authorized Consult, Test & Treat PCP Updated and/or Approved 01/22/2024 01/21/2025 6 6 Encounter Details Date Type Department Care Team (Latest Contact Info) Description 01/28/2024 Transcribe Orders eDH Incoming Referrals [phone] Jason Kan MD [address] [place], [place] [id number] Pain in right ankle and joints of right foot; Other specified joint disorders, right ankle and foot; Flat foot (pes planus) (acquired), right foot Social History Tobacco Use Types Packs/Day Years Used Date Smoking Tobacco: Never Smokeless Tobacco: Never Alcohol Use Standard Drinks/Week Comments No 0 (1 standard drink = 0.6 oz pur e alcohol) Sex and Gender Information Value Date Recorded Sex Assigned at Not on file Gender Identity Not on file Sexual Orientation Not on file documented as of this encounter Plan of Treatment Scheduled Referrals Name Type Priority Associated Diagnoses Order Schedule Referral to Orthopaedics Outpatient Referral Routine Pain in right ankle and joints of right foot Other specified joint disorders, right ankle and foot Flat foot (pes planus) (acquired), right foot Ordered: 01/28/2024 documented as of this encounter Visit Diagnoses Diagnosis Pain in right ankle and joints of right foot Other specified joint disorders, right ankle and foot Flat foot (pes planus) (acquired), right foot documented in this encounter Care Teams Practice Director Relationship Specialty Start Date End Date Radha Quiles, [employer] [address] [place] [address] PCP - General Family Medicine 01/28/24 documented as of this encounter
--- OUTSIDE RECORDS SUMMARY | 2024-08-21 13:27 | XMS_ITS | Data Portability ---
Author Organization [place] [facility], [facility] [place] [address] Care Team Providers Care Truss Driver Helper Name Role Phone JOSE RODRIGUEZ Dentist RO QUILES Primary Care Provider Assessment Encounter Date Assessment Date Assessment LastModified by Organization Details LastModified Time 11/14/2023 11/14/2023 Note - Harshil will be changing medical insurance providers. We may need to adjust medications based on insurance coverage. Not available 11/14/2023 17:22:02 Plan of Treatment Reminders Order Date Submit Date Provider Last Modified By Organization Details Last Modified Time Details Appointments Follow Up 2023 10:20A M Ro Quiles Not available Not available Not available Follow Up 2024 08:30A M Ro Quiles Not available Not available Not available Lab hemoglobi n A1C, fingersti ck 2023 024 [facility], [address], [place], [address], 02/23/2024 11:00:07 CMP, serum or plasma - 1 mint tube collected from right ac. pt tolerated well. 2023 024 [facility] (Registration ), [address] [place] [address] , [place], [address], 02/21/2024 20:46:18 Referral None recorded. Procedures None recorded. Surgeries None recorded. Imaging XR, ankle, 3 or more view - Right Ankle 2023 024 [facility] (Radiology), [address] [place] [address] [place], [address], 11/28/2023 11:51:20 XR, foot, 3 or more view - Right Foot 2023 024 [facility] (Radiology), [address] [place] [address] [place], [address], 11/28/2023 11:51:20 Medication Orders valsartan 320 mg tablet 2023 024 [id number], [address] [place], [address], 06/09/2024 13:50:03 Patient TargetsNo targets recorded. Patient Instructions Encounter Date Encounter Id Patient Instructions Last Modified By Organization Details Last Modified Time 11/14/2023 [id number] 6 month follow up for your annual exam. Ankle xray's today. Next step will be to consider Physical therapy vs podiatry vs ortho vs continued home strengthening. Protect from further injury. Keep me posted on prescription prices and we can adjust as needed. Follow up with sleep medicine. Let me know if refills of your Vyvanse. Call with questions. [email or web address] Not available 11/14/2023 14:49:24 02/21/2024 [id number] diet [email or web address] Not available 02/22 11:00:06 3 month follow up for blood pressure check and medication review. You may investigate GLP options - go to the manufacturers website for Wegovy and Zepbound. Let me know if you want a prescription. Work with Crystal on your medications - Investigate returning to generic Vyvanse? Trying Wellbutrin + naltrexone combination? If you're going to decrease adderall, do you start another non-stimulate therapy? Would help sending scripts to [facility]? Continue to maximize sleep. Do not eat distracted. Continue with exercise for strengthening and conditioning + mood. [email or web address] Not available 02/23/2024 11:00:20 06/09/2024 [id number] 6 month follow up for blood pressure check and medication review. VALSARTAN increased to 320 mg daily. Continue to monitor to monitor your blood pressure daily. Ideally, blood pressure goal = 120-140 systolic. You may investigate GLP options - go to the manufacturers website for Wegovy and Zepbound. Let me know if you want a prescription. Work with Crystal on your medications - Investigate returning to generic Vyvanse? Continue to maximize sleep. Do not eat distracted. Continue with exercise for strengthening and conditioning + mood. [email or web address] Not available 06/09/2024 13:59:06 Reason for Referral None Reported. Results Created Date Observation Date Name Description Value Unit Range Abnormal Flag Note LastModifiedBy Organization Detail LastModifiedTime 02/21/2002/21/2024 COMPR EHENS ASHIA METAB OLIC PANEL calcium 9.5 mg/dL 8.5-10 .1 normal Not Available [address] [place], [address] 02/21/2024 19:12:41 02/21/2002/21/2024 COMPR EHENS ASHIA METAB OLIC PANEL glucose 98 mg/dL 74-106 normal Not Available [facility] [address] [place], [address] 02/21/2024 19:12:41 02/21/2002/21/2024 COMPR EHENS ASHIA METAB OLIC PANEL BUN 13 mg/dL 7-18 normal Not Available Art [address] [place], [address] 02/21/2024 19:12:41 02/21/2002/21/2024 COMPR EHENS ASHIA METAB OLIC PANEL creatinine 0.9 mg/dL 0.70-1 .30 normal Not Available [address] [place], [address] 02/21/2024 19:12:41 02/21/2002/21/2024 COMPR EHENS ASHIA METAB OLIC PANEL estimated GFR 113.51 mL/min /1.73m 2 The eGFR is calcu lated from a serum creat inine using the CKD-E PI 2020 equat ion. Other varia bles requi red for the equat ion are gende r and age; this equat ion does not inclu de a race coeff icien t. This equat ion has simil ar overa ll perfo rmanc e to previ ous equat ions excep t value s may diffe r, in parti cular , in patie nts with highe r value s of eGFR and young er-ag ed adult s. Not Available [address] [place], [address] 02/21/2024 19:12:41 02/21/20 24 02/21/2024 COMPR EHENS ASHIA METAB OLIC PANEL total protein 7.6 g/dL 6.4-8. 2 normal Not Available [address] [place], [address] 02/21/2024 19:12:41 02/21/20 24 02/21/2024 COMPR EHENS ASHIA METAB OLIC PANEL albumin 4.3 g/dL 3.4-5. 0 normal Not Available [address] [place], [address] 02/21/2024 19:12:41 02/21/20 24 02/21/2024 COMPR EHENS ASHIA METAB OLIC PANEL bilirubin, total 0.5 mg/dL 0.2-1. 0 normal Not Available [address] [place], [address] 02/21/2024 19:12:41 02/21/20 24 02/21/2024 COMPR EHENS ASHIA METAB OLIC PANEL alk phos 57 U/L 46-116 normal Not Available [address] [place], [address] 02/21/2024 19:12:41 02/21/20 24 02/21/2024 COMPR EHENS ASHIA METAB OLIC PANEL sodium 141 mmol/ L 136-14 5 normal Not Available [address] [place], [address] 02/21/2024 19:12:41 02/21/20 24 02/21/2024 COMPR EHENS ASHIA METAB OLIC PANEL potassium 4.4 mmol/ L 3.5-5. 1 normal Not Available [address] [place], [address] 02/21/2024 19:12:41 02/21/20 24 02/21/2024 COMPR EHENS ASHIA METAB OLIC PANEL chloride 104 mmol/ L 98-107 normal Not Available [address] [place], [address] 02/21/2024 19:12:41 02/21/20 24 02/21/2024 COMPR EHENS ASHIA METAB OLIC PANEL CO2 27.9 mmol/ L 21.0-3 2.0 normal Not Available [address] [place], [address] 02/21/2024 19:12:41 02/21/20 24 02/21/2024 COMPR EHENS ASHIA METAB OLIC PANEL anion gap 9.1 mmol/ L 3-11 normal Not Available [address] [place], [address] 02/21/2024 19:12:41 02/21/20 24 02/21/2024 COMPR EHENS ASHIA METAB OLIC PANEL AST 25 U/L 15-37 normal Not Available [facility] [address] [place], [address] 02/21/2024 19:12:41 02/21/20 24 02/21/2024 COMPR EHENS ASHIA METAB OLIC PANEL ALT 46 U/L 16-63 normal Not Available [facility] [address] [place], [address] 02/21/2024 19:12:41 02/21/20 24 02/21/2024 hemog lobin A1C, finge rstic k hemoglobin A1C 5.5 % <5.7 colle cted in offic e Not Available [facility] [address], [place], [address], 02/21/2024 14:41:44 08/10/20 24 08/15/2024 BLOOD CULTU RE ( AGE => 12 YRS) blood culture ( age => 12 yrs) Blood Cultu re ( Age => 12 Yrs) NO GROWT H 120 HOURS Not Available [address] [place], [address] 08/15/2024 17:16:15 08/10/2007 0808/10/2024 PROCA LCITO ALEXANDRA procalcitoni n < 0.1 NG/mL PCT Value (ng/m L): Inter preta tion: <0.5 Low risk for sever e sepsi s/sep tic shock >or=0 .5 and <2.0 Sever e sepsi s/sep tic shock is possi ble >or=2 .0 High risk for sever e sepsi s/sep tic shock Note: Decis ions regar ding antib iotic thera py shoul d NOT be based solel y on proca lcito alexandra donald ntrat ions. A proca lcito alexandra donald ntrat ion of <0.5 ng/mL does not entir stephanie exclu de syste elisa bacte rial infec tion/ sepsi s. Corre latio n with the full clini shirley, imagi ng, and labor atory findi ngs is requi red for a compl ete sepsi s evalu ation . Addit ional ly, eleva veronica proca lcito alexandra donald ntrat ions may not alway s be relat ed to syste elisa bacte rial infec tion and can be seen in the setti ng of sever e balderrama , major traum a, major surge ry, pancr eatit is, bowel ische justyn, asept ic syste elisa shock (anap hylac tic, hemor rhagi c, or cardi ogeni c), renal insuf ficie ncy, medul rolando thyro id cance r, small cell lung cance r, drugs stimu latin g pro-i nflam mator y cytok luciano, invas ashia funga l infec tions , Kawas mitch disea se, among other cause s. Not Available [facility] [address] [place], [address] 08/10/2024 15:53:29 08/10/20 24 08/10/2024 COMPR EHENS ASHIA METAB OLIC PANEL calcium 9.3 mg/dL 8.5-10 .1 normal Not Available [facility] [address] [place], [address] 08/10/2024 15:14:25 08/10/20 24 08/10/2024 COMPR EHENS ASHIA METAB OLIC PANEL glucose 94 mg/dL 74-106 normal Not Available [facility] [address] [place], [address] 08/10/2024 15:14:25 08/10/2008/10/2024 COMPR EHENS ASHIA METAB OLIC PANEL BUN 14 mg/dL 7-18 normal Not Available [facility] [address] [place], [address] 08/10/2024 15:14:25 08/10/2008/10/2024 COMPR EHENS ASHIA METAB OLIC PANEL creatinine 0.9 mg/dL 0.70-1 .30 normal Not Available [address] [place], [address] 08/10/2024 15:14:25 08/10/2008/10/2024 COMPR EHENS ASHIA METAB OLIC PANEL estimated GFR 112.81 mL/min /1.73M 2 The eGFR is calcu lated from a serum creat inine using the CKD-E PI 2020 equat ion. Other varia bles requi red for the equat ion are gende r and age; this equat ion does not inclu de a race coeff icien t. This equat ion has simil ar overa ll perfo rmanc e to previ ous equat ions excep t value s may diffe r, in parti cular , in patie nts with highe r value s of eGFR and young er-ag ed adult s. Not Available [address] [place], [address] 08/10/2024 15:14:25 08/10/2008/10/2024 COMPR EHENS ASHIA METAB OLIC PANEL total protein 8.0 g/dL 6.4-8. 2 normal Not Available [address] [place], [address] 08/10/2024 15:14:25 08/10/20 24 08/10/2024 COMPR EHENS ASHIA METAB OLIC PANEL albumin 4.3 g/dL 3.4-5. 0 normal Not Available [address] [place], [address] 08/10/2024 15:14:25 08/10/20 24 08/10/2024 COMPR EHENS ASHIA METAB OLIC PANEL bilirubin, total 0.58 mg/dL 0.2-1. 0 normal Not Available [address] [place], [address] 08/10/2024 15:14:25 08/10/20 24 08/10/2024 COMPR EHENS ASHIA METAB OLIC PANEL alk phos 67 U/L 46-116 normal Not Available [address] [place], [address] 08/10/2024 15:14:25 08/10/20 24 08/10/2024 COMPR EHENS ASHIA METAB OLIC PANEL sodium 142 mmol/ L 136-14 5 normal Not Available [address] [place], [address] 08/10/2024 15:14:25 08/10/20 24 08/10/2024 COMPR EHENS ASHIA METAB OLIC PANEL potassium 3.8 mmol/ L 3.5-5. 1 normal Not Available [address] [place], [address] 08/10/2024 15:14:25 08/10/2008/10/2024 COMPR EHENS ASHIA METAB OLIC PANEL chloride 104 mmol/ L 98-107 normal Not Available [address] [place], [address] 08/10/2024 15:14:25 08/10/20 24 08/10/2024 COMPR EHENS ASHIA METAB OLIC PANEL CO2 27.2 mmol/ L 21.0-3 2.0 normal Not Available [address] [place], [address] 08/10/2024 15:14:25 08/10/20 24 08/10/2024 COMPR EHENS ASHIA METAB OLIC PANEL anion gap 10.8 mmol/ L 3-11 normal Not Available [address] [place], [address] 08/10/2024 15:14:25 08/10/20 24 08/10/2024 COMPR EHENS ASHIA METAB OLIC PANEL AST 24 U/L 15-37 normal Not Available [facility] [address] [place], [address] 08/10/2024 15:14:25 08/10/2008/10/2024 COMPR EHENS ASHIA METAB OLIC PANEL ALT 46 U/L 16-63 normal Not Available [facility] [address] [place], [address] 08/10/2024 15:14:25 08/10/20 24 08/10/2024 LACTA TE lactate 1.40 mmol/ L 0.9-1. 7 normal Not Available [address] [place], [address] 08/10/2024 14:55:25 08/10/2008/10/2024 COMPL ETE BLOOD COUNT W/DIF F WBC 7.99 10_3/ uL 4.4-10 .8 normal Not Available [address] [place], [address] 08/10/2024 14:55:23 08/10/2008/10/2024 COMPL ETE BLOOD COUNT W/DIF F RBC 5.05 10_6/ uL 4.36-5 .78 normal Not Available [address] [place], [address] 08/10/2024 14:55:23 08/10/2008/10/2024 COMPL ETE BLOOD COUNT W/DIF F HGB 14.2 g/dL 13.5-1 7.5 normal Not Available [address] [place], [address] 08/10/2024 14:55:23 08/10/2008/10/2024 COMPL ETE BLOOD COUNT W/DIF F HCT 42.9 % 40.0-5 0.0 normal Not Available [address] [place], [address] 08/10/2024 14:55:23 08/10/2008/10/2024 COMPL ETE BLOOD COUNT W/DIF F MCV 85 fL 80-95 normal Not Available [facility] [address] [place], [address] 08/10/2024 14:55:23 08/10/2008/10/2024 COMPL ETE BLOOD COUNT W/DIF F MCH 28.1 pg 27.0-3 3.0 normal Not Available [address] [place], [address] 08/10/2024 14:55:23 08/10/2008/10/2024 COMPL ETE BLOOD COUNT W/DIF F MCHC 33.1 % 32.0-3 6.0 normal Not Available [address] [place], [address] 08/10/2024 14:55:23 08/10/2008/10/2024 COMPL ETE BLOOD COUNT W/DIF F RDW 13.2 % 11.8-1 4.1 normal Not Available [address] [place], [address] 08/10/2024 14:55:23 08/10/20 24 08/10/2024 COMPL ETE BLOOD COUNT W/DIF F platelet count 279 10_3/ uL 130-40 0 normal Not Available [address] [place], [address] 08/10/2024 14:55:23 08/10/20 24 08/10/2024 COMPL ETE BLOOD COUNT W/DIF F MPV 10.2 fL 8.0-11 .0 normal Not Available [address] [place], [address] 08/10/2024 14:55:23 08/10/20 24 08/10/2024 COMPL ETE BLOOD COUNT W/DIF F neutrophils % 72.8 % Not Available [address] [place], [address] 08/10/2024 14:55:23 08/10/2008/10/2024 COMPL ETE BLOOD COUNT W/DIF F lymphocytes % 20.7 % Not Available [address] [place], [address] 08/10/2024 14:55:23 08/10/20 24 08/10/2024 COMPL ETE BLOOD COUNT W/DIF F monocytes % 5.1 % Not Available [address] [place], [address] 08/10/2024 14:55:23 08/10/20 24 08/10/2024 COMPL ETE BLOOD COUNT W/DIF F eosinophils % 0.9 % Not Available [address] [place], [address] 08/10/2024 14:55:23 08/10/20 24 08/10/2024 COMPL ETE BLOOD COUNT W/DIF F basophils % 0.4 % Not Available [address] [place], [address] 08/10/2024 14:55:23 08/10/20 24 08/10/2024 COMPL ETE BLOOD COUNT W/DIF F immature grans % 0.1 % Not Available [address] [place], [address] 08/10/2024 14:55:23 08/10/20 24 08/10/2024 COMPL ETE BLOOD COUNT W/DIF F nucleated RBC 0.0 % 0.0-0. 3 normal Not Available [address] [place], [address] 08/10/2024 14:55:23 08/10/20 24 08/10/2024 COMPL ETE BLOOD COUNT W/DIF F absolute neutrophil count 5.82 10_3/ uL 1.2-6. 7 normal Not Available [address] [place], [address] 08/10/2024 14:55:23 08/10/20 24 08/10/2024 COMPL ETE BLOOD COUNT W/DIF F absolute lymphocyte count 1.65 10_3/ uL 1.2-3. 4 normal Not Available [address] [place], [address] 08/10/2024 14:55:23 08/10/20 24 08/10/2024 COMPL ETE BLOOD COUNT W/DIF F absolute monocyte count 0.41 10_3/ uL 0.1-0. 8 normal Not Available [address] [place], [address] 08/10/2024 14:55:23 08/10/20 24 08/10/2024 COMPL ETE BLOOD COUNT W/DIF F absolute eosinophil count 0.07 10_3/ uL 0.0-0. 7 normal Not Available [address] [place], [address] 08/10/2024 14:55:23 08/10/20 24 08/10/2024 COMPL ETE BLOOD COUNT W/DIF F absolute basophil count 0.03 10_3/ uL 0.0-0. 2 normal Not Available [address] [place], [address] 08/10/2024 14:55:23 08/10/20 24 08/14/2024 BLOOD CULTU RE ( AGE => 12 YRS) blood culture ( age => 12 yrs) Blood Cultu re ( Age => 12 Yrs) NO GROWT H 96 HOURS Not Available [address] [place], [address] 08/14/2024 16:43:44 08/10/2008/13/2024 BLOOD CULTU RE ( AGE => 12 YRS) blood culture ( age => 12 yrs) Blood Cultu re ( Age => 12 Yrs) NO GROWT H 72 HOURS Not Available [address] [place], [address] 08/13/2024 16:43:27 08/10/20 24 08/12/2024 BLOOD CULTU RE ( AGE => 12 YRS) blood culture ( age => 12 yrs) Blood Cultu re ( Age => 12 Yrs) NO GROWT H 48 HOURS Not Available [address] [place], [address] 08/12/2024 16:42:57 08/10/2008/11/2024 BLOOD CULTU RE ( AGE => 12 YRS) blood culture ( age => 12 yrs) Blood Cultu re ( Age => 12 Yrs) NO GROWT H 24 HOURS Not Available [address] [place], [address] 08/11/2024 16:42:14 08/10/20 24 08/15/2024 BLOOD CULTU RE ( AGE => 12 YRS) blood culture ( age => 12 yrs) Blood Cultu re ( Age => 12 Yrs) NO GROWT H 120 HOURS Not Available [address] [place], [address] 08/15/2024 17:16:14 08/10/2008/14/2024 BLOOD CULTU RE ( AGE => 12 YRS) blood culture ( age => 12 yrs) Blood Cultu re ( Age => 12 Yrs) NO GROWT H 96 HOURS Not Available [address] [place], [address] 08/14/2024 16:43:42 08/10/2008/13/2024 BLOOD CULTU RE ( AGE => 12 YRS) blood culture ( age => 12 yrs) Blood Cultu re ( Age => 12 Yrs) NO GROWT H 72 HOURS Not Available [address] [place], [address] 08/13/2024 16:43:29 08/10/2008/12/2024 BLOOD CULTU RE ( AGE => 12 YRS) blood culture ( age => 12 yrs) Blood Cultu re ( Age => 12 Yrs) NO GROWT H 48 HOURS Not Available [address] [place], [address] 08/12/2024 16:43:52 08/10/2008/11/2024 BLOOD CULTU RE ( AGE => 12 YRS) blood culture ( age => 12 yrs) Blood Cultu re ( Age => 12 Yrs) NO GROWT H 24 HOURS Not Available [address] [place], [address] 08/11/2024 16:42:10 08/10/2008/10/2024 URINA LYSIS color Yellow yellow Not Available [facility] [address] [place], [address] 08/10/2024 15:05:24 08/10/2008/10/2024 URINA LYSIS clarity Clear clear Not Available [facility] [address] [place], [address] 08/10/2024 15:05:24 08/10/2008/10/2024 URINA LYSIS specific gravity 1.025 1.005- 1.025 normal Not Available [address] [place], [address] 08/10/2024 15:05:24 08/10/2008/10/2024 URINA LYSIS pH 5.5 5-8 normal Not Available [address] [place], [address] 08/10/2024 15:05:24 08/10/20 24 08/10/2024 URINA LYSIS leukocyte esterase Negati ve negati ve Not Available [address] [place], [address] 08/10/2024 15:05:24 08/10/2008/10/2024 URINA LYSIS nitrite Negati ve negati ve Not Available [address] [place], [address] 08/10/2024 15:05:24 08/10/20 24 08/10/2024 URINA LYSIS protein Negati ve mg/dL neg-tr lacie Not Available [address] [place], [address] 08/10/2024 15:05:24 08/10/2008/10/2024 URINA LYSIS glucose Negati ve mg/dL negati ve Not Available [address] [place], [address] 08/10/2024 15:05:24 08/10/20 24 08/10/2024 URINA LYSIS ketones Negati ve mg/dL negati ve Not Available [address] [place], [address] 08/10/2024 15:05:24 08/10/2008/10/2024 URINA LYSIS urobilinogen 0.2 mg/dL up to 0.2 Not Available [address] [place], [address] 08/10/2024 15:05:24 08/10/2008/10/2024 URINA LYSIS bilirubin Negati ve negati ve Not Available [address] [place], [address] 08/10/2024 15:05:24 08/10/20 24 08/10/2024 URINA LYSIS blood Negati ve negati ve Not Available [facility] [address], [place], [address] 08/10/2024 15:05:24 11/14/19 24 11/14/2023 x-ray imagi ng repor t Patigiovany munoz Name: Vijay Mendez Unit #: [id number] Loc: DI Orderi ng Provid er: RO QUILES ALLEY WORKER Accoun t #: [id number] Status : REG CLI Primar y Care Provid er: RO QUILES ALLEY WORKER Date of Exam: 10/17 11/07 Sex: M Admiss ion Date: : 1984 Age: 38 Exam(s ) XR ANKLE RT COMPLE TE XR FOOT RT COMPLE TE EXAM: XR ANKLE RT COMPLE TE and XR foot RT comple te CLINIC AL HISTOR Y: PAIN RT ANKLE JOINT, M25.57 1. TECHNI QUE: 2D digita l imagin g was perfor med of the right foot and ankle. Six images were obtain ed. AP, latera l and obliqu e views were obtain ed. COMPAR [place]ER[place]: No priors for compar berlin. FINDIN GS: BONES: No acute fractu re is presen t. No bony destru ctive lesion is seen. JOINTS : The ankle mortis e is normal ly aligne d. There is mild spurri ng anteri herberth at the ankle joint. There are mild degene rative change s seen in the tarsal bones. There is a small spur at the dorsal aspect of the head of the 1st metata rsal bone. SOFT TISSUE : There are tiny well cortic ated densit y seen around the ankle and on the dorsum of the hindfo ot which appear chroni c. There is mild soft tissue swelli ng around the ankle. IMPRES PRISCILA: 1. Degene rative change s of the foot and ankle as descri bed. 2. Soft tissue swelli ng around the ankle. DATA REPOSI TORY: RADIAT ION DOSE DELIVE RED: John Paule d By: RO QUILES NP CC: ------ ------ ------ ------ ------ ------ ------ ------ ------ ------ ------ ------ - Dictat ed By: Orlando Alcantara M.D. 1827 Transc ribed By: Orlando Alcantara 1827 This is privil eged, confid ential inform ation intend ed only for the provid er named. Any use or distri bution by any person other than this provid er is strict ly prohib ited. If you receiv e this report in error, please notify us immedi masterly at and return the origin al report to us at the addres s above. Thank- you. [facility] [address] [place], [address] 11/27/2023 09:43:47 11/14/1911/14/2023 x-ray imagi ng repor t Patien t Name: Vijay Mendez Unit #: [id number] Loc: DI Orderi ng Provid er: RO QUILES ALLEY WORKER Accoun t #: [id number] Status : REG CLI Primar y Care Provid er: RO QUILES ALLEY WORKER Date of Exam: 10/17 11/07 Sex: M Admiss ion Date: : 1984 Age: 38 Exam(s ) XR ANKLE RT COMPLE TE XR FOOT RT COMPLE TE EXAM: XR ANKLE RT COMPLE TE and XR foot RT comple te CLINIC AL HISTOR Y: PAIN RT ANKLE JOINT, M25.57 1. TECHNI QUE: 2D digita l imagin g was perfor med of the right foot and ankle. Six images were obtain ed. AP, latera l and obliqu e views were obtain ed. COMPAR [place]: No priors for compar berlin. FINDIN GS: BONES: No acute fractu re is presen t. No bony destru ctive lesion is seen. JOINTS : The ankle mortis e is normal ly aligne d. There is mild spurri ng anteri herberth at the ankle joint. There are mild degene rative change s seen in the tarsal bones. There is a small spur at the dorsal aspect of the head of the 1st metata rsal bone. SOFT TISSUE : There are tiny well cortic ated densit y seen around the ankle and on the dorsum of the hindfo ot which appear chroni c. There is mild soft tissue swelli ng around the ankle. IMPRES PRISCILA: 1. Degene rative change s of the foot and ankle as descri bed. 2. Soft tissue swelli ng around the ankle. DATA REPOSI TORY: RADIAT ION DOSE DELIVE RED: Ordere d By: RO [employer] WORK[employer] CC: ------ ------ ------ ------ ------ ------ ------ ------ ------ ------ ------ ------ - Dictat ed By: Orlando Alcantara M.D. 1827 Transc ribed By: Orlando Alcantara 1827 This is privil eged, confid ential inform ation intend ed only for the provid er named. Any use or distri bution by any person other than this provid er is strict ly prohib ited. If you receiv e this report in error, please notify us immedi ately at [phone] and return the origin al report to us at the addres s above. Thank- you. [facility] [id number] [facility] [address], [place], [address] 11/27/2023 09:43:48 01/07/20 24 12/20/2023 polys omnog brayan No observ ation record ed. [email or web address] [facility] [address] [place] [address] [address], [place], [address], 01/07/2024 10:37:08 01/18/20 24 01/17/2024 x-ray imagi ng repor t Pita t Name: Vijay Mendez isael Unit #: [id number] Loc: DIORS Orderi ng Provid er: Cameron Petty M.D. Accoun t #: [id number] Status : PRE CLI Primar y Care Provid er: RO QUILES ALLEY WORKER Date of Exam: 02/05 Sex: M Admiss ion Date: : 1984 Age: 38 Exam(s ) XR ANKLE RT 2V EXAM: XR ANKLE RT 2V CLINIC AL HISTOR Y: Right ankle pain. TECHNI QUE: 2D digita l imagin g was perfor med. Three views. COMPAR BERLIN: CR XR ANKLE RT COMPLE TE from 2023 FINDIN GS: BONES: No acute fractu re is presen t. No bony destru ctive lesion is seen. Planta r calcan eal spur. Spurri ng at anteri or aspect of the distal tibia as well as note specialist ior talus. Spurri ng at medial talus beneat h the level of the malleo lana. JOINTS : The ankle mortis e is normal ly aligne d. Spurri ng at the talona vicula r joint. SOFT TISSUE : Home multip le small calcif icatio ns are again noted note specialist ior to the tibiot alar joint. Densit ies also seen beneat h the latera l malleo lana and dorsal to talus. IMPRES PRISCILA: Stable degene rative change s. DATA REPOSI TORY: RADIAT ION DOSE DELIVE RED: Ordere d By: Janet smith,Cameron Magallanes M.D. CC: ------ ------ ------ ------ ------ ------ ------ ------ ------ ------ ------ ------ - Dictat ed By: Hamilton Silverman 1336 1336 Transc ribed By: Al Johnson 1336 This is privil eged, confid ential inform ation intend ed only for the provid er named. Any use or distri bution by any person other than this provid er is strict ly prohib ited. If you receiv e this report in error, please notify us immedi masterly at and return the origin al report to us at the addres s above. Thank- you. [email or web address] [facility] [address] [facility] [place], [address] 01/18/2024 11:08:24 01/31/20 24 01/31/2024 MRI imagi ng rhea t Pita munoz Name: Vijay Mendez Unit #: [id number] Loc: DI Orderi ng Provid er: Cameron Petty M.D. 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 COMPAR BERLIN: CR XR ANKLE RT COMPLE TE from 2023 CR XR ANKLE RT 2V from 2023 FINDIN GS: BONES/ JOINTS : No fractu re or contus ion patter n. No bone lesion s identi fied. There are degene rative change s seen at the tibial talar joint. There also degene rative change s seen at the articu lation of the susten taculu m megan and the medial talus. There is marrow edema and subcho ndral cysts seen in the susten tacula r megan. Small subcho ndral cysts and marrow edema is seen in the adjace nt medial talus. Mild marrow edema is also seen at the talona vicula r joint in the articu lation of severa l of the tarsom etatar kendra joints . There is an ankle joint effusi on with synovi al thicke johana. There are few small loose bodies seen within the joint space note specialist iorly. LIGAME NTS: The tibiof ibular and calcan eofibu lar ligame nts are intact . The talofi bular ligame nts are intact . The deltoi d ligame nt is intact . The syndes mosis is unrema rkable . Sinus tarsi is normal . MUSCUL OTENDI NOUS STRUCT URES: Achill es tendon : Unrema rkable . Planta r fascia : There is mild hyperi ntense signal seen in the planta r fascia near its insert ion site onto the calcan eus consis tent with fascii tis. Anteri or Extens or tendon s: Unrema rkable . Medical Record Technician ior Tibial is: Unrema rkable . Flexor Digito rum longus : Unrema rkable . Flexor Halluc is longus : Unrema rkable . Perone us longus : Unrema rkable . Perone us brevis :Unrem arkabl e. SOFT TISSUE S: Unrema rkable . OTHER FINDIN GS: None. IMPRES PRISCILA: 1. Arthro sis of the ankle with the joint effusi on and synovi al thicke johana. There also appear to be some loose bodies within the joint space note specialist iorly. 2. Degene rative change s seen in the foot and ankle with findin gs partic ularly seen at the articu lation of the of susten tacula r tale I and the medial talus. 3. Findin gs sugges tive of planta r fascii tis. 4. No eviden ce of a tendon or ligame nt tear. DATA REPOSI TORY: Ordere d By: Cameron Petty M.D. CC: LYRIC SOOD,ALICJA PIPER ------ ------ ------ ------ ------ ------ ------ ------ ------ ------ ------ ------ - Dictat ed By: Orlando Alcantara M.D. 1142 1142 Transc ribed By: Orlando Alcantara 1142 This is privil eged, confid ential inform ation intend ed only for the provid er named. Any use or distri bution by any person other than this provid er is strict ly prohib ited. If you receiv e this report in error, please notify us immedi ately at and return the origin al report to us at the addres s above. Thank- you. 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 Radiat ion optimi zation : All CT scans at this facili ty use at least one of these dose optimi zation techni ques: automa veronica exposu re contro l; mA and/or kV adjust ment per patien t size (inclu ban target ed exams where dose is matche d to clinic al indica tion); or iterat ashia recons tructi on. Contra st materi al: OMNIPA QUE 350; Contra st volume : 100 ml; Contra st route: INTRAV ENOUS (IV); COMPAR BERLIN: MR LOWER JOINT RT WO 024 10:41 AM FINDIN GS: Liver: Normal . No mass. Gallbl adder and biliar y ducts: Normal . No calcif ied stones . No ductal dilati on. Pancre as: Normal . No ductal dilati on. Spleen : Normal . No spleno megaly . Adrena l glands : Normal . No mass. Kidney s and ureter s: Normal . No hydron ephros is. Stomac h and bowel: No perire ctal or perian al inflam matory change s. No bowel wall thicke johana. Negati ve for bowel obstru ction. Append ix: No eviden ce of append icitis . Intrap eriton eal space: Unrema rkable . No free air. No signif icant fluid collec tion. Vascul ature: Unrema rkable . No abdomi nal aortic aneury sm. Lymph nodes: Unrema rkable . No enlarg ed lymph nodes. Urinar y bladde r: Unrema rkable as visual ized. Reprod uctive : Unrema rkable as visual ized. Bones/ joints : Unrema rkable . No acute fractu re. Soft tissue s: Unrema rkable . IMPRES PRISCILA: No perire ctal or perian al inflam matory change s. No bowel wall thicke johana. Dictat ed and Authen ticate d by: Katie kirkland MD. Orderi ng:P.Juan M Baptiste MD Access ion#=[id number] Ordere d By: CC: ------ ------ ------ ------ ------ ------ ------ ------ ------ ------ ------ ------ ---- Dictat ed By: Report s vrad 1447 1601 Transc ribed By: Di Merge 1447 This is privil eged, confid ential inform ation intend ed only for the provid er named. Any use or distri bution by any person other than this provid er is strict ly prohib ited. If you receiv e this report in error, please notify us immedi ately at [phone] and return the origin al report to us at the addres s above. Thank- you. 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 TECHNI QUE: Imagin g Protoc ol: Axial comput ed tomogr aphy images with ackerman l and sagitt al reform atted images were create d and review ed CONTRA ST MATERI AL: Intrav enous: Omnipa que-35 0 100cc Oral: None FINDIN GS: VISUAL IZED LUNG BASES: No nodule s nor pleura l effusi ons eviden t. ABDOME N: There is no ascite s. LIVER: There are no focal hepati c lesion s eviden t. No dilate d intrah epatic ducts. GALLBL ADDER/ BILIAR Y: No obviou s gallbl adder pathol ogy. CBD is not dilate d. PANCRE : No eviden ce of pancre atic mass nor dilata tion of the pancre atic duct. SPLEEN : Spleen size upper normal . Cranio caudal length is 13 cm. Spleni c lesion s seen. Spleni c and portal veins are patent . ADRENA LS: There are no signif icant adrena l masses . KIDNEY S:No cysts eviden t. No solid renal masses . No calcul i nor hydron ephros is.. ABDOMI NAL AORTA: Abdomi nal aorta is not enlarg ed. LYMPH NODES: There is no retrop eriton eal nor paraao rtic adenop athy. ABDOMI NAL WALL: There is a fat only contai johana umbili shirley hernia . GI: There is no eviden ce of bowel obstru ction, free air, nor absces s. PELVIS : GI: No eviden ce of append icitis .No eviden ce of sigmoi d divert icular diseas e. Normal appear ing fat planes in the perine um and around the rectum /recto sigmoi d, as per reques t. LYMPH NODES: There is no intrap elvic nor inguin al adenop athy. REPROD UCTIVE : Prosta te size normal . Semina l vesicl es unrema rkable . URINAR Y BLADDE R: No calcul i nor obviou s masses eviden t OSSEOU S: No fractu res nor signif icant osseou s lesion s. Multil evel Schmor l's node endpla te invagi nation spur but no fractu res IMPRES PRISCILA: 1. No signif icant findin gs in the abdome n pelvis . There is no perian al nor perire ctal streak ing, given the sympto ms here. 2. No signif icant findin gs. RADIAT ION DOSE DELIVE RED: 1,230. 59mGy. cm Total DLP DATA REPOSI TORY: All CT scans at this facili ty are submit veronica to the [place] Rad[place]gy Data Regist [place] (NRDR) Dose Index Regist ry (DIR) with the [place] mere sh[place] of Radiol ogy (ACR). RADIAT ION OPTIMI ZATION : All CT scans at this facili ty use at least one of these dose optimi zation techni ques: automa veronica exposu re contro l; mA and/or kV adjust ment per patien t size (inclu ban target ed exams where dose is matche d to clinic al indica tion); or iterat ashia recons tructi on. 1027-0 008: Total DLP = 0.00 mGy-cm Ordere d By: Darlene Orozco DO CC: ------ ------ ------ ------ ------ ------ ------ ------ ------ ------ ------ ------ ---- Dictat ed By: Yash Rae M.D. 1932 Transc ribed By: Butch SOOD,Kailey piper 1932 This is privil eged, confid ential inform ation intend ed only for the provid er named. Any use or distri bution by any person other than this provid er is strict ly prohib ited. If you receiv e this report in error, please notify us immedi ately at and return the origin al report to us at the addres s above. Thank- you. INTERFACE [facility] [address] [facility] [place], [address] 08/10/2024 19:38:41 08/21/20 24 08/21/2024 CT imagi ng repor t Patien t Name: Vijay Mendez Unit #: [id number] Loc: DI Orderi ng Provid er: Ochoa Hanna DO Accoun t #: [id number] Status : REG CLI Primar y Care Provid er: RO QUILES NP Date of Exam: 05/07 Sex: M : 1984 Age: 39 Exam(s ) a CT:CT pelvis w Exam(s ) CT PELVIC W EXAM: CT PELVIC W CLINIC AL HISTOR Y: perire ctal absces s, K61.1 TECHNI QUE: Imagin g Protoc ol: Axial comput ed tomogr aphy images with ackerman l and sagitt al reform atted images were create d and review ed CONTRA ST MATERI AL: Intrav enous: Omnipa que [address] volume :100 mL Oral: No COMPAR BERLIN: CT CT ABDOME N PELVIS W from 2023 FINDIN GS: PELVIS : Abdomi nal Aorta: Abdomi nal portio n non-di lated. Bowel: No obstru ction or bowel wall thicke johana. Append ix is unrema rkable . Perito lexie Cavity : No ascite s, collec tion or mesent bahman inflam matory respon se. No free air. Soft Tissue s: There is a small fat contai johana umbili shirley hernia . No draina ble fluid collec tion is seen in the perire ctal soft tissue s. There is mild infilt ration of the perire ctal soft tissue s. Bladde r: Symmet joshua disten tion, no gross wall thicke johana. Reprod uctive Organs : Unrema rkable as visual ized. Lymph Nodes: Within normal limits . Bones: Within normal limits . IMPRES PRISCILA: 1. Mild infilt ration in the perire ctal soft tissue s withou t a draina ble fluid collec tion. 2. Findin gs were discus sed with Dr. Mich prado on 024. RADIAT ION DOSE DELIVE RED: 661.91 mGy.cm Total DLP 661.91 mGy.cm Total DLP DATA REPOSI TORY: All CT scans at this facili ty are submit veronica to the [facility] al Radiol ogy Data Regist ry (NRDR) Dose Index Regist ry (DIR) with the [place] mere shrestha of Radiol ogy (ACR). RADIAT ION OPTIMI ZATION : All CT scans at this facili ty use at least one of these dose optimi zation techni ques: automa veronica exposu re contro l; mA and/or kV adjust ment per patien t size (inclu ban target ed exams where dose is matche d to clinic al indica tion); or iterat ashia recons tructi on. 7-0 017: Total DLP = 0.00 mGy-cm Ordere d By: Ochoa Hanna DO CC: ------ ------ ------ ------ ------ ------ ------ ------ ------ ------ ------ ------ ---- Dictat ed By: Orlando Alcantara M.D. 1256 1256 Transc ribed By: Orlando Alcantara 1256 This is privil eged, confid ential inform ation intend ed only for the provid er named. Any use or distri bution by any person other than this provid er is strict ly prohib ited. If you receiv e this report in error, please notify us immedi ately at and return the origin al report to us at the addres s above. Thank- you. INTERFACE [address] [place], [address] 08/21/2024 13:00:51 Result Notes None recorded. Problems Name Problem SNOMED Code Status Onset Date Resolution Date Notes Provider Name and Address Organization Details Recorded Time Tommy marmolejo Completed 201610/01/2017 09/17/20 17 - Comments only - Nataly Conklin APRN - Tdap and flu vaccine given today. Schedule d PE with fasting labs prior. Problem Code: Z71.89; Problem Code Type: ICD-10; Not Available [facility] 3 04:49:47 Adult health examinat ion Completed 201606/09/[address], [place], [address] , [facility] 4 14:13:13 Essentia l hyperten priscila 66502468 Active [address], [place], [address] , [facility] 4 17:22:11 Body mass index 40+ - severely obese 447020990 Active [address], [place], [address] , [facility] 4 17:22:08 Hyperlip idemia 11409859 Active [address], [place], [address] , [facility] 4 17:22:15 Diarrhea 59136709 Completed 201708/20/2018 08/08/20 18 - Comments only - Nataly Conklin APRN - Mostly resolved . Continue to slowly advance diet as tolerate d. Maintain good hydratio n. Problem Code: R19.7; Problem Code Type: ICD-10; Not Available [facility] 3 04:49:48 Prediabe lynette 652669711 Active [address], [place], [address] , [facility] 4 17:22:18 Low back pain 530485386 Completed 202108/07/2023 Problem Code: M54.50; Problem Code Type: ICD-10; Not Available [facility] 4 05:37:32 Arthralg ia of the ankle and/or foot 802362027 Completed 202108/07/2023 Problem Code: M25.571; Problem Code Type: ICD-10; Not Available [facility] 4 05:37:32 Left lower quadrant pain 041451777 Completed 202108/07/2023 Problem Code: R10.32; Problem Code Type: ICD-10; Not Available [facility] 4 05:37:32 Elbow joint pain 842951288 Completed 202211/14/2023 [address], [place], [address] , [facility] 4 17:22:33 Pain in left foot 91658589295 9107 Completed 202208/07/2023 Problem Code: M79.672; Problem Code Type: ICD-10; Not Available [facility] 4 05:37:32 Abdomina l distensi on, gaseous 513915139 Completed 202208/07/2023 Problem Code: R14.0; Problem Code Type: ICD-10; Not Available [facility] 4 05:37:31 Family history of endocrin e disorder s 517807118 Completed 202206/09/[address], [place], [address] , [facility] 4 14:13:12 Attentio n deficit hyperact ivity disorder 331735092 Active [address], [place], [address] , [facility] 4 17:22:05 Seasonal allergic rhinitis 160102098 Active [address], [place], [address] , [facility] 4 17:22:21 Pain of right shoulder joint 69454640959 794547 Active 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 4 14:13:18 Acute bronchit is 04613302 Completed 201709/16/2018 Problem Code: J20.9; Problem Code Type: ICD-10; Not Available [facility] 3 04:49:51 Adjustme nt disorder with mixed anxiety and depresse d mood 367246604 Completed 201702/01/2021 Problem Code: F43.23; Problem Code Type: ICD-10; Not Available [facility] 3 04:49:51 Hypergly cemia 34203326 Completed 201712/11/2019 Problem Code: R73.9; Problem Code Type: ICD-10; Not Available [facility] 3 04:49:52 Blood glucose outside referenc e range 689833591 Completed 201907/11/2023 Problem Code: R73.09; Problem Code Type: ICD-10; Not Available [facility] 3 04:49:52 Pain in thoracic spine 439572122 Completed 201701/14/2019 Problem Code: M54.9; Problem Code Type: ICD-10; Not Available [facility] 3 04:49:52 Elevated blood-pr essure reading without diagnosi s of hyperten priscila 831254993 Completed 201607/11/2023 09/17/20 17 - Comments only - Nataly Conklin APRN - Will work on weight loss, as well as reducing intake of caffeine and salt. Will start ACEI if BP remains elevated at upcoming visit. Problem Code: R03.0; Problem Code Type: ICD-10; Not Available [facility] 3 04:49:52 Obesity 331816063 Completed 201607/11/2023 08/08/20 18 - Unchange d - Nataly Conklin APRN - See above. Pt declines referral to nutritio nist. Expresse s good understa nding of healthy diet and exercise habits, just needs to be more consiste nt. Problem Code: E66.9; Problem Code Type: ICD-10; Not Available [facility] 3 04:49:53 Cognitiv e deficit in attentio n 92977071132 9100 Completed 202202/23/2023 Problem Code: R41.840; Problem Code Type: ICD-10; Not Available [facility] 3 04:49:53 Pain of right ankle joint 86890032002 663297 Active [address], [facility] [address] , [facility] 4 12:52:38 Pain in right foot 97756389459 9107 Active [address], [facility] [address] , [facility] 4 14:13:16 Sleep pattern disturba nce 27999388 Active [address], [facility] [address] , [facility] 4 17:18:12 Liver enzymes level above referenc e range 673201393 Active [address], [facility] [address] , [facility] 4 13:40:08 Obstruct ashia sleep apnea syndrome 26618025 Active 2023 CPAP (started ) [address], [facility] [address] , [facility] 4 10:57:27 Mild intermit tent asthma 029336268 Active [address], [facility] [address] , [facility] 10:58:16 Problem Notes None recorded. Procedures Surgical History None recorded. Imaging Results Imaging Date Name Status LastModified by Organization Details LastModified Time 11/14/2023 x-ray imaging report completed [address] [place], [address] 11/27/2023 09:43:47 11/14/2023 x-ray imaging report completed [address] [place], [address] 11/27/2023 09:43:48 12/20/2023 polysomnogram completed [email or web address] [facility] [address] [place] [address] Dr Manuel Fernandez, [place], [address], 01/07/2024 10:37:08 01/17/2024 x-ray imaging report completed [address] [place], [address] 01/18/2024 11:08:24 01/31/2024 MRI imaging report completed [address] [place], [address] 01/31/2024 15:44:54 08/10/2024 vrad report completed [address] [place], [address] 08/10/2024 19:23:31 08/10/2024 CT imaging report completed [address] [place], [address] 08/10/2024 19:38:41 08/21/2024 CT imaging report completed [address] [place], [address] 08/21/2024 13:00:51 Procedure Notes None recorded. Medical Equipment None Reported. Allergies No known drug allergies Medications Name Sig Start Date Stop Date Status Note LastModified by Organization Details LastModified Time prednisone 10 mg tablet 4 tabs x 3 days, 3 tabs x 3 days, 2 tabs x 3 days and 1 tab x 3 days For emergenci es 12/16 completed Not Available Not Available Not Available azithromyci n 250 mg tablet Take 2 by mouth now, then take 1 by mouth daily x 4 days 08/11 completed Not Available Not Available Not Available methylpheni date 10 mg tablet Take 1 tablet by mouth once a day as directed 1-2 tabs in the afternoon as needed for focus/con centratio n 03/06 completed Not Available Not Available Not Available naltrexone 50 mg tablet TAKE ONE-HALF TABLET BY MOUTH TWICE A DAY 06/09 completed Not Available Not Available Not Available lisinopril 20 mg tablet Take 1 tab by mouth daily 2017 active Not Available Not Available Not Avai lable prednisone 20 mg tablet take 3 tablets PO QD 09/07 completed [facility] Not Available Not Available Not Available dextroamphe tamine-amph etamine 10 mg tablet TAKE ONE TABLET BY MOUTH EVERY DAY IN THE AFTERNOON NEEDED active Not Available Not Available No t Available hydrocortis one acetate 25 mg rectal suppository active Not Available Not Available Not Available dextroamphe tamine-amph etamine ER 20 mg 24hr capsule,ext end release TAKE ONE CAPSULE BY MOUTH EVERY MORNING (SWALLOW WHOLE) 06/09 completed Not Available Not Available Not Available valsartan 320 mg tablet TAKE ONE TABLET BY MOUTH EVERY DAY active Not Available Not Available No t Available dextroamphe tamine-amph etamine 15 mg tablet TAKE ONE TABLET BY MOUTH EVERY DAY 06/09 completed Not Available Not Available Not Available lisinopril 30 mg tablet Take 1 tab by mouth daily 2017 active Not Available Not Available Not Avai lable dextroamphe tamine-amph etamine ER 10 mg 24hr capsule,ext end release TAKE ONE CAPSULE BY MOUTH EVERY MORNING (SWALLOW WHOLE) active Not Available Not Available No t Available lisinopril 40 mg tablet Take 1 tablet by mouth once a day 03/08 completed Not Available Not Available Not Available valsartan 160 mg tablet TAKE ONE TABLET BY MOUTH EVERY DAY 06/09 completed Not Available Not Available Not Available valsartan 40 mg tablet TAKE ONE TABLET BY MOUTH EVERY DAY WITH 160MG 06/09 completed Not Available Not Available Not Available bupropion HCl XL 150 mg 24 hr tablet, extended release TAKE ONE TABLET BY MOUTH EVERY MORNING (SWALLOW WHOLE) 06/09 completed Not Available Not Available Not Available ProAir HFA 90 mcg/actuati on aerosol inhaler Inhale 1-2 puff by mouth every four to six hours as needed 02/20 completed Not Available Not Available Not Available cholecalcif shade (vitamin D3) 25 mcg (1,000 unit) tablet 5000 mcg once a day 06/09 completed Not Available Not Available Not Available Symbicort 160 mcg-4.5 mcg/actuati on HFA aerosol inhaler 2 inhalatio n by mouth twice daily 2017 active Not Available Not Available Not Avai lable Vyvanse 30 mg capsule 1 capsule by mouth once a day 04/18 completed Not Available Not Available Not Available Symbicort 80 mcg-4.5 mcg/actuati on HFA aerosol inhaler 2 inhalatio ns by mouth twice daily 2017 active Not Available Not Available Not Avai lable Vyvanse 50 mg capsule TAKE ONE CAPSULE BY MOUTH EVERY MORNING 02/20 completed Not Available Not Available Not Available Vyvanse 20 mg capsule 1 capsule by mouth once a day 02/23 completed Not Available Not Available Not Available lisdexamfet amine 40 mg capsule TAKE ONE CAPSULE BY MOUTH EVERY MORNING 02/20 completed Not Available Not Available Not Available Fish Oil 360 mg-1,200 mg capsule take 2 caps daily 2017 active Not Available Not Available Not Avai lable Mounjaro 2.5 mg/0.5 mL subcutaneou s pen injector 06/09 completed Not Available Not Available Not Available Centrum Adults 2016 active Not Available Not Available Not Avai lable Vitals Date Recorded Body height Body mass index (BMI) Body weight Body temperature Oxygen saturation Oxygen saturation in Arterial blood by Pulse oximetry Heart rate Systolic blood pressure Diastolic blood pressure Provider Name and Address Organization Details Last Updated DateTime 4 186.69 cm 43.8 kg/m2 203067. 44 g 98.8 [degF] 98 % 98 % 96 /min 152 mm[Hg] 90 mm[Hg] Usha Cali [place] [facility] 14:12:13 Date Recorded Body height Body mass index (BMI) Body weight Body temperature Heart rate Oxygen saturation Oxygen saturation in Arterial blood by Pulse oximetry Systolic blood pressure Diastolic blood pressure Provider Name and Address Organization Details Last Updated DateTime 4 186.69 cm 44.9 kg/m2 027756. 47 g 97.6 [degF] 102 /min 98 % 98 % 148 mm[Hg] 98 mm[Hg] Usha Cali MA [facility] 13:34:04 Date Recorded Systolic blood pressure Diastolic blood pressure Provider Name and Address Organization Details Last Updated DateTime 02/21/2024 138 mm[Hg] 94 mm[Hg] TYLER COHEN [address], [facility] [address] 02/21/2024 14:16:39 Date Recorded Body height Body mass index (BMI) Body weight Body temperature Oxygen saturation Oxygen saturation in Arterial blood by Pulse oximetry Heart rate Systolic blood pressure Diastolic blood pressure Provider Name and Address Organization Details Last Updated DateTime 4 186.69 cm 45.4 kg/m2 338308. 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 (Female Patients Only) No Information not available 02/21/2024 How Often Does Anyone, Including Family, Physically Hurt You? Never [email or web address] Information not available 02/21/2024 How Often Does Anyone, Including Family, Insult Or Talk Down To You? Never Information no t available 02/21/2024 How Often Does Anyone, Including Family, Threaten You With Harm? Never [email or web address] Information not available 02/21/2024 How Often Does Anyone, Including Family, Scream Or Curse At You? Never [email or web address] Information not available 02/21/2024 Within The Past 12 Months, You Worried That Your Food Would Run Out Before You Got Money To Buy More. Never True [email or web address] Information n ot available 02/21/2024 Within The Past 12 Months, The Food You Bought Just Didn't Last And You Didn't Have Money To Get More. Never True [email or web address] Information n ot available 02/21/2024 How Hard Is It For You To Pay For The Very Basics Like Food, Housing, Medical Care, And Heating? Would You Say It Is: Not Hard At All [email or web address] Information not available 02/21/2024 In The Past 12 Months, Has Lack Of Reliable Transportation Kept You From Medical Appointments, Meetings, Work Or From Getting Things Needed For Daily Living? No [email or web address] Information not available 02/21/2024 What Is Your Housing Situation Today? I Have Housing. [email or web address] Information not available 02/21/2024 How Often In The Past Year Have You Used Marijuana (including Smoking, Vaping, Dabbing, Or Edibles)? 2-4 Times Per Month [email or web address] Information not available 02/21/2024 How Often In The Past Year Have You Used Prescription Medications That Were Not Prescribed To You? Never [email or web address] Information n ot available 02/21/2024 How Often In The Past Year Have You Taken Your Own Prescription Medication More Than The Way It Was Prescribed Or For Different Reasons Than Its Intended Purpose? Never [email or web address] Information no t available 02/21/2024 How Often In The Past Year Have You Used Other Drugs (for Example, Heroin, Cocaine, Meth, Salvia, Inhalants)? Never [email or web address] Information not available 02/21/2024 Have You Ever Used IV Drugs? No Information not available 02/21/2024 Date Of Most Recent SBINS 02/21/2024 [email or web address] Information not available 02/21/2024 What Was The Date Of Your Most Recent Tobacco Screening? 02/21/2024 Information not available 02/21/2024 Has Tobacco Cessation Counseling Been Provided? No [email or web address] Information not available 02/21/2024 Do You Or Have You Ever Used Any Other Forms Of Tobacco Or Nicotine? No [email or web address] Information not available 02/21/2024 Sex: Male Functional Status None recorded. Mental Status None recorded. Family History Relationship Description Onset Age of this Age Resolved Age Notes LastModified by Organization Details LastModified Time Father Family history of Hypercholest erolemia [email or web address] Not available 2022 03:58:51 Father Family history of Hypertension [email or web address] Not available 07/2023 03:58:51 Father Family history of heart failure [email or web address] Not available 2022 03:58:51 Father Family history of hyperthyroid ism [email or web address] Not available 2022 03:58:51 Mother Family history of hyperthyroid ism [email or web address] Not available 2022 03:58:51 Mother Family history of breast cancer 1 gene mutation [email or web address] Not available 2022 03:58:51 Medical History No medical history recorded. Immunizations Vaccine Type Date Status Provider Name and Address Organization Details Recorded Time Tdap 09/17/2017 completed Not Available [facility] 04:06:59 Influenza, split virus, quadrivalent, PF 07/17/2019 completed Not Available [facility] 08/24/2023 04:07:00 Influenza, split virus, quadrivalent, PF 09/15/2022 completed Not Available [facility] 08/24/2023 04:07:01 Influenza, split virus, quadrivalent, preservative 09/17/2017 completed Not Available [facility] 08/24/2023 04:07:02 SARS-COV-2 (COVID-19) vaccine, UNSPECIFIED 02/13/2021 completed Not Available [facility] 08/24/2023 04:07:04 SARS-COV-2 (COVID-19) vaccine, UNSPECIFIED 03/13/2021 completed Not Available [facility] 08/24/2023 04:07:04 pneumococcal polysaccharide PPV23 12/16/2018 completed Not Available [facility] 2022 04:07:05 influenza, unspecified formulation 08/13/2018 completed Not Available [facility] 08/24/2023 04:07:06 Influenza, split virus, quadrivalent, PF 08/07/2023 completed Not Available [facility] 10/26/2023 05:33:26 Past Encounters Encounter ID Performer Location Encounter Start Date Encounter Closed Date Diagnosis/Indication Diagnosis SNOMED-CT Code Diagnosis ICD10 Code [id number] RO QUILES [facility] [address] [place] [address] 11/14/2023 13:46:11 11/14/2023 15:10:09 Pain of right ankle joint 3570607483 2837885 M25.571 Pain in right foot 51364 26842 22701 M79.671 Essential hypertension 06873158 I10 Sleep erma [place] disturbance 03038753 G47.9 Prediabetes 273865226 R7 3.03 Hyperlipidemia 77112084 E78.5 Attention deficit hyperactivity disorder 060534067 F90.9 [id number] RO QUILES [facility] [address] [place] [address] 02/21/2024 13:20:38 02/21/2024 14:42:57 Pain of right ankle joint 8239694336 4741247 M25.571 Essential hypertension 68394654 I10 Prediabetes 112291998 R7 3.03 Hyperlipidemia 02652545 E78.5 Attention deficit hyperactivity disorder 329291373 F90.9 Body mass index 40+ - severely obese 820863585 Z68.41 [facility] 234736430 Z00.00 Liver enzy mes level above reference range 294957786 R74.01 [id number] RO QUILES [facility] [address] [place] [address] 06/09/2024 13:17:14 06/09/2024 14:07:52 Body mass index 40+ - severely obese 705276361 Z68.41 Essential hypertension 80082548 I10 Prediabetes 179280442 R7 3.03 Hyperlipidemia 33685760 E78.5 Attention deficit hyperactivity disorder 808503390 F90.9 Liver enzy mes level above reference range 650927917 R74.01 Obstructiv e sleep apnea syndrome 33373176 G47.33 Health Concerns Section Related Observation LastModified by Organization Detai ls LastModified Time None Recorded Concern Status LastModified by Organization Details LastModified Time None Recorded Advance Directives Directive None Recorded Payers Encounter Date Sequence Insurance Name Policy Number Policy Anne Covered Member ID Anne Member ID Guarantor Name 11/14/2023 1 [facility] (MEDICAID) Harshil Prado Edith [id number] Harshil Sharma 02/21/2024 1 [place] [facility] [id number] Harshil Johan Edith [id number] Harshil Sharma 06/09/2024 1 [place] [facility] [id number] Harshil Prado Edith [id number] Harshil Prado Edith Notes Date Note Type Note Provider Name and Address Organization Details Recorded Time 11/14/2023 text/html HPI Notes: Harshil presents to [facility] today for 3-month follow-up. Medical history includes ADHD, prediabetes, hypertension, hyperlipidemia, asthma. Acute complaint right ankle pain, status post slip trip yesterday evening. TYLER COHEN [address], [place], [address], [facility]. 11/14/2023 17:23:07 02/21/2024 text/html HPI Notes: Harshil presents to [facility] today for his annual preventative wellness exam. Medical history includes ADHD, prediabetes, hypertension, hyperlipidemia, GISSEL on Cpap, asthma. 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 Lives with partner and 2 children. Enjoys outdoor activity. No tobacco use history. No cannabis use. Infrequent alcohol use. TYLER COHEN [address], [place], [address], [facility]. 02/23/2024 11:01:31 06/09/2024 text/html HPI Notes: Harshil presents to [facility] today for follow up on blood pressure. Blood pressure remains moderatly elevated today. Medical history includes ADHD, prediabetes, hypertension, hyperlipidemia, GISSEL on Cpap, asthma. 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 Lives with partner and 2 children. Enjoys outdoor activity. No tobacco use history. No cannabis use. Infrequent alcohol use. RO QUILES, TYLER [address], [place], [address], [facility], [facility]. 06/09/2024 14:13:39
--- OUTSIDE RECORDS SUMMARY | 2024-08-21 13:27 | XMS_ITS | Encounter Summary ---
Author Organization [facility] Address [facility] [place] [address] Care Team Providers Care Laboratory Asst Name Role Phone Radha Quiles CHAVA Primary Care Provider [phone] Reason for Referral * Diagnostic Test (Routine) - Authorized Specialty Diagnoses / Procedures Referred By Tova munoz Referred To Contact Radiology Diagnoses Pain of right lower extremity Procedures XR Fluoro Guided Joint Injection Medium Right Image Guided MSK Joint/Tendon Injection/Aspiration (Generic) Casey Thomason MD [facility] [place] [address] Referral ID Status Reason Start Date Expiration Date Visits Requested Visits Authorized [id number] Authorized Specialty Service Requested 02/28/2024 08/30/2025 1 1 Reason for Visit * Reason Comments Establish Care RIGHT FOOT AND ANKLE PAIN DOI * Consultation (Routine) - Authorized Specialty Diagnoses / Procedures Referred By Tova munoz Referred To Contact Orthopaedics Diagnoses Pain in right ankle and joints of right foot Other specified joint disorders, right ankle and foot Flat foot (pes planus) (acquired), right foot OR Jason Tan MD [address] [place] [address] Casey Thomason MD [facility] [place] [address] Referral ID Status Reason Start Date Expiration Date Visits Requested Visits Authorized [id number] Authorized Consult, Test & Treat PCP Updated and/or Approved 01/22/2024 01/21/2025 6 6 Encounter Details Date Type Department Care Team (Late st Contact Info) Description 02/28/2024 3:20 PM EDT [place] [address] Casey Thomason MD [facility] DR [place]THOPA[place] [address] Pain of right lower extremity; Arthritis of right subtalar joint Social History Tobacco Use Types Packs/Day Years Used Date Smoking Tobacco: Never Smokeless Tobacco: Never Tobacco Cessation:Counseling Given: Not Answered Alcohol Use Standard Drinks/Week Comments Yes 12 (1 standard drink = 0.6 oz pu re alcohol) 1-2 a day Sex and Gender Information Value Date Recorded Sex Assigned at Not on file Gender Identity Not on file Sexual Orientation Not on file documented as of this encounter Last Filed Vital Signs Vital Sign Reading Time Taken Comments Blood Pressure - - Pulse - - Temperature - - Respiratory Rate - - Oxygen Saturation - - Inhaled Oxygen Concentration - - Weight 154.2 kg (340 lb) 02/28/2024 3:32 PM EDT Height 188 cm (6' 2) 02/28/2024 3:32 PM EDT Body Mass Index 43.65 02/28/2024 3:32 PM EDT documented in this encounter Progress Notes * Casey Thomason MD - 02/28/2024 3:20 PM EDT Chief complaint: Posterior hindfoot pain History of present illness: Efraín Sharma is a 38 y.o. year-old male who has a long history of right ankle and foot pain. He describes previous injuries but nothing resulting in the need for immobilization or surgery. He works on his feet and finds that he gets predominantly posterior medial pain with extended standing or walking. He denies instability. He denies previous interventions. He pointsto the posterior medial aspect of his ankle as the primary source of pain. Current BMI 43. He denies catching or locking of his ankle. 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 History of blood clots or bleeding disorders: Denies Denies history of cardiac, lung, kidney, liver disease or diabetes Medications: cholecalciferoL (Vitamin D3) 1,000 unit tablet dextroamphetamine-amphetamine (Adderall) 10 mg tablet tirzepatide (Mounjaro) 2.5 mg/0.5 mL Pen Injector valsartan (Diovan) 160 mg tablet valsartan (Diovan) 40 mg tablet predniSONE (DELTASONE) 10 mg Tablet budesonide-formoterol (SYMBICORT) 160-4.5 mcg/actuation HFA Aerosol Inhaler albuterol 90 mcg/actuation HFA Aerosol Inhaler lisinopril (PRINIVIL;ZESTRIL) 40 mg Tablet Allergies: No Known Allergies Social history: Social History Tobacco Use Smoking status: Never Smokeless tobacco: Never Substance Use Topics Alcohol use: Yes Alcohol/week: 12.0 standard drinks of alcohol Types: 12 Drinks containing 0.5 oz of alcohol per week Comment: 1-2 a day Occupation: Works for a [employer] company Review of systems: No chest pain or shortness of breath at baseline No fevers, night sweats or chills Vital signs: Temp: -- Physical Exam: No Apparent distress Examination of the right foot and ankle reveals mild pes planovalgus. He is able to double leg heelrise. He has decreased ankle dorsiflexion on the right but no pain with palpation along the anterior joint line. Primary location of pain is just posterior and medial to the medial malleolus. Forced ankle plantarflexion does not reproduce pain. Ankle dorsiflexion with great toe extension does reprod uce discomfort with palpation along the posterior medial ankle. Imaging: Personal review of the patient's imaging reveals: X-rays show signs of pes planovalgus with a decreased talar pitch. Large anterior distal tibial andtalar neck osteophytes. An MRI of the ankle shows inflammation in the tibiotalar joints and the aforementioned and bone spurs. There is significance cystic arthritic changes of the medial facet of the subtalar joint around the sustentaculum megan. There are what appear to be loose bodies and inflammation surrounding the FHL tendon and in the posterior potential space around the posterior process of the talus. Assessment: 38 y.o. year-old male with right hindfoot pain potentially coming from 3 predominant sources: #1 the large anterior tibiotalar osteophytes he has, #2 the subtalar cystic degenerative changes in the sustentaculum megan, and #3 loose bodies in the posterior recess of his hindfoot adjacent to his FHL tendon. Plan: We discussed treatment options moving forward. His ankle appears to be the least uncomfortable of these potential pain generators. We agreed to move forward with a fluoroscopically guided injection of steroid and local anesthetic into his subtalar joint. If this helped significantly with his pain the cystic changes in his subtalar joint may be the predominant culprit. Resection of the middle facet of the subtalar joint would be an option, but given his pes planovalgus, I would consider atleast subtalar fusion should the subtalar joint appears to be his primary pain generator. He also has loose bodies in the posterior recesses of his ankle/adjacent to his FHL tendon. These are likely e xtra-articular but could be causing discomfort and he does endorse catching and locking. If response to his injection is equivocal, and he continues with pain, I would consider a posterior ankle scope and removal of these loose bodies as it would be a quick recovery and may help with a large portion of his pain. Last on the list would be addressing his tibiotalar osteophytes, but only if he develops anterior ankle pain. He was in agreement with this stepwise plan. Follow up: After his fluoroscopically guided injection. I asked him to record his pain to hours, 2 days, and 2 weeks after the injection. This plan was discussed with the patient and they are in agreement. All of the patient's questions were answered. The above dictation was made with voice recognition software documented in this encounter Plan of Treatment Scheduled Orders Name Type Priority Associated Diagnoses Orde r Schedule XR Fluoro Guided Joint Injection Medium Right Imaging Routine Pain of right lower extremity Expected: 02/28/2024, Expires: 08/29/2024 documented as of this encounter Visit Diagnoses Diagnosis Pain of right lower extremity Arthritis of right subtalar joint documented in this encounter Care Teams Laboratory Asst Relationship Specialty Start Date End Date Radha Quiles, OSCILLOGRAPH TECHNICIAN [address] [place] [address] PCP - General Family Medicine 01/28/24 documented as of this encounter
--- OUTSIDE RECORDS SUMMARY | 2024-08-21 13:27 | XMS_ITS | Encounter Summary ---
Author Organization [facility] [place] [address] Care Team Providers Care Fishing Tackle Repairer Name Role Phone Radha Quiles APRN Primary Care Provider [phone] Encounter Details Date Type Department Care Team (Late st Contact Info) Description 02/28/2024 [place] [address] Neda Cervantes, [place] [facility] [place] [place] [address] Social History Tobacco Use Types Packs/Day Years Used Date Smoking Tobacco: Never Smokeless Tobacco: Never Alcohol Use Standard Drinks/Week Comments Yes 12 (1 standard drink = 0.6 oz pu re alcohol) 1-2 a day Sex and Gender Information Value Date Recorded Sex Assigned at Not on file Gender Identity Not on file Sexual Orientation Not on file documented as of this encounter Plan of Treatment Not on file documented as of this encounter Visit Diagnoses Not on filedocumented in this encounter Care Teams Fishing Tackle Repairer Relationship Specialty Start Date End Date [place] [address] PCP - General Family Medicine 01/28/24 documented as of this encounter
--- OUTSIDE RECORDS SUMMARY | 2024-08-21 13:27 | XMS_ITS | Encounter Summary ---
Author Organization [facility] [place] [address] Care Team Providers Care Manufacturing Helper Name Role Phone Nataly Conklin CHAVA Primary Care Provider Encounter Details Date Type Department Care Team (Late st Contact Info) Description 11/14/2023 Ancillary Procedure Radiology [facility] at [facility] [place] [address] Radha Quiles APRN [address] [place] [address] [place], [place] [address] Social History Tobacco Use Types Packs/Day Years [...] Diagnosis Comments FILM LIBRARY STORAGE ONLY DX ANKLE Routine 11/14/2023 12:00 AM EST documented in this encounter Results * Film Library- Storage Only DX Ankle (11/14/2023 12:00 AM EST) Narrative RAJ KOHLER - 02/14/2024 3:31 PM EDT This exam is auto-finalizing. It's purpose is for storage only. Radha Quiles APRN [place] FILM LIBRARY ORD ERABLES [place] [place] documented in this encounter Visit Diagnoses Not on filedocumented in this encounter Care Teams Manufacturing Helper Relationship Specialty Start Date End Date Nataly Conklin, COUNSELING SERVICES MANAGER [address] [place] [address] PCP - General Family Medicine 08/10/18 01/27/24 documented as of this encounter
--- OUTSIDE RECORDS SUMMARY | 2024-08-21 13:27 | XMS_ITS | Clinical Summary ---
[facility] Organization [facility] Address [facility] [place] [address] Care Team Providers Care Check Weigher Name Role Phone Radha Quiles CHAVA Primary Care Provider [phone] Allergies No known active allergies Medications Medication Sig Dispensed Refills Start Date End Date Status lisinopril (PRINIVIL;ZESTRIL) 40 mg Tablet Take 40 mg by mouth daily. 0 08/06/2018 Active albuterol 90 mcg/actuation HFA Aerosol Inhaler Inhale 2 puffs into the lungs every 4 hours as needed for Wheezing or Shortness of Breath. Use with spacer 1 Inhaler 1 08/13/2018 Active Additional Information Patient not taking.Reported on 02/28/2024 predniSONE (DELTASONE) 10 mg Tablet Take 1 tablet by mouth daily. Take 4 tabs for 3 days, 3 tabs for 3 days, 2 tabs for 4 days, 1 tab for 4 days. 40 tablet 1 09/10/2018 Active Additional Information Patient not taking.Reported on 10/28/2018 budesonide-formoter ol (SYMBICORT) 160-4.5 mcg/actuation HFA Aerosol Inhaler Inhale 2 puffs into the lungs 2 times daily. 1 Inhaler 5 09/10/2018 Active Additional Information Patient not taking.Reported on 02/28/2024 cholecalciferoL (Vitamin D3) 1,000 unit tablet 5000 mcg once a day 02/01/2021 Acti ve dextroamphetamine-a mphetamine (Adderall) 10 mg tablet TAKE ONE TABLET BY MOUTH IN THE AFTERNOON NEEDED 02/25/2024 Active tirzepatide (Mounjaro) 2.5 mg/0.5 mL Pen Injector Active valsartan (Diovan) 160 mg tablet Take 1 tablet by mouth daily. 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 Immunizations Name Administration Dates Next Due Influenza Quadrivalent, Preservative Free 2017 Family History Medical History Relation Comments Asthma Son Diabetes Neg Hx Relation Status Comments Son Social History Tobacco Use Types Packs/Day Years Used Date Smoking Tobacco: Never Smokeless Tobacco: Never Tobacco Cessation:Counseling Given: Not Answered Alcohol Use Standard Drinks/Week Comments Yes 12 (1 standard drink = 0.6 oz pu re alcohol) 1-2 a day Sex and Gender Information Value Date Recorded Sex Assigned at Not on file Gender Identity Not on file Sexual Orientation Not on file Last Filed Vital Signs Vital Sign Reading Time Taken Comments Blood Pressure 134/86 10/28/2018 8:32 AM EST Pulse 68 10/28/2018 8:32 AM EST Temperature 36.9 ??C (98.4 ??F) 08/13/2018 1:21 PM ED T Respiratory Rate 18 09/10/2018 9:19 AM EST Oxygen Saturation 98% 10/28/2018 8:32 AM EST Inhaled Oxygen Concentration - - Weight 154.2 kg (340 lb) 02/28/2024 3:32 PM EDT Height 188 cm (6' 2) 02/28/2024 3:32 PM EDT Body Mass Index 43.65 02/28/2024 3:32 PM EDT Plan of Treatment Health Maintenance Due Date Last Done Comments Pneumococcal Vaccine: At-Risk 5-64yrs (1 of 2 - PCV) 0 1993 HIV screen 2005 Hepatitis C Screening 2005 Lipid Screening 2005 Hepatitis B vaccine (0-59 yrs) (1) 2006 Tetanus/Diphtheria/Pertussis Vaccines (1 - Tdap) 07/09 Covid-19 Vaccine (1 - season) 2024 Influenza (Flu) vaccine (1 o f 1 - Influenza standard series) 06/15/2024 08/13/2018 Advance Directives * Full Code (Latest Code Status on File) Date Activated Date Inactivated Comments 08/12/2018 3:42 PM 08/13/2018 4:15 PM Question Answer Comments Does patient have capacity to make decision: Yes * Full Code Date Activated Date Inactivated Comments 08/10/2018 8:39 AM 08/12/2018 3:42 PM Question Answer Comments Does patient have capacity to make decision: No Code Status decision being made per: Attending o f Record Care Teams Check Weigher Relationship Specialty Start Date End Date Radha Quiles, BOWL TOPPER [place] [facility] [address] PCP - General Family Medicine 01/28/24
--- OUTSIDE RECORDS SUMMARY | 2024-08-21 13:27 | XMS_ITS | Encounter Summary ---
Author Organization [facility] Address [facility] [place] [address] Care Team Providers Care Orthopedics Teacher Name Role Phone Nataly Conklin APRN Primary Care Provider [phone] Reason for Visit * Reason Comments Follow-up Encounter Details Date Type Department Care Team (Latest Contact Info) Description 10/28/2018 8:30 AM EST Office [place] [phone] Sarah Mejía MD [facility] [place] [address] Severe persistent asthma, uncomplicated Social History Tobacco Use Types Packs/Day Years [...] Pulse 68 10/28/2018 8:32 AM EST Temperature - - Respiratory Rate - - Oxygen Saturation 98% 10/28/2018 8:32 AM EST Inhaled Oxygen Concentration - - Weight 139.7 kg (308 lb) 10/28/2018 8:32 AM EST Height 188 cm (6' 2) 10/28/2018 8:32 AM EST Body Mass Index 39.54 10/28/2018 8:32 AM EST documented in this encounter Progress Notes * Sarah Mejía MD - 10/28/2018 8:30 AM EST Images from the original note were not included. CLINIC Follow up Note Original consult: 09/10/2018 Last visit: 09/10/2018 I have personally interviewed and examined the patient, reviewed history, radiographic studies( if any) and laboratory data(if any). 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 male, here presents for a scheduled follow-up visit. The following is a summary from the previous visit. -33-year-old man never been a smoker, was [...] changes to potentially trigger an asthma development. ?? -Overall, I agree the sx and response to systemic steroid therapy, as well as CT and PFT findings are reasonably consistent with the diagnosis of asthma. 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 Gonzalez's lung also responds to steroid but I think this seems less likely the case. He has recently had systemic steroid therapyand this is probably not a great timing [...] will need to expand our differential diagnosis. ?? Plan 1) increase Symbicort 160/4.5 2 puffs twice daily via spacer 2) comprehensive inhaler training by Mis Bourne RRT today. 3) Peak flow to see if he could catch a drop before start feeling any sx. 4) He will keep a supply of prednisone course. 5) f/u in 4-6 weeks. Today's visit; -He has been doing very well. No albuterol use. ACT is 25 -measured PEFR and then stopped because they were very stable. They were always around 500-600. -on symbicort 160 When he forgot to take for a couple of days, then he felt the difference, he said PMHx: Patient Active Problem List Diagnosis Code ??? 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 Asthma with status asthmaticus J45.902 ??? Essential hypertension I10 ??? Acute respiratory failure J96.00 ??? Pneumomediastinum J98.2 Social Hx: Social History Tobacco Use ??? Smoking status: Never Smoker ??? Smokeless tobacco: Never Used Substance Use Topics ??? Alcohol use: No Frequency: Never ??? Drug use: Not on file Allergy: No Known Allergies Medications: Outpatient Medications Marked as Taking for the 10/28/18 encounter (Office Visit) with Sarah Mejía MD Medication Sig Dispense Refill ??? budesonide-formoterol (SYMBICORT) 160-4.5 mcg/actuation HFA Aerosol Inhaler Inhale 2 puffs intothe lungs 2 times daily. 1 Inhaler 5 ??? albuterol 90 mcg/actuation HFA Aerosol Inhaler Inhale 2 puffs into the lungs every 4 hours as needed for Wheezing or Shortness of Breath. Use with spacer 1 Inhaler 1 ??? lisinopril (PRINIVIL;ZESTRIL) 40 mg Tablet Take 40 mg by mouth daily. 0 Vitals and Physical Exam: BP 134/86 Pulse 68 Ht 188 cm (6' 2) Wt (!) 139.7 kg (308 lb) SpO2 98% BMI 39.54 kg/m?? Gen: comfortable. Normal breathing pattern and rate. HEENT: No pallor, no icteric sclerae. No thrush Neck: No stridor. Chest: CTA without wheezing/rhonchi/crackles Symmetric excursion. Cor: RRR, S1S2, No MRG. Abd: ND Extrem: no C/C/E. ACT 25 Diagnostic studies: -CXR: -CT: 08/10/2018 FINDINGS: Pulmonary [...] midthoracic trachea. The large airways are clear. ??There is some mild distal small airway wall [...] structures: No significant findings. ?? IMPRESSION 1. ??No pulmonary embolism identified. 2. ??There are nodular opacities seen in the right lower lobe concerning for a nonspecific infectious or inflammatory process. 3. ??There is some mild thickening of the distal airways which could be from an inflammatory or infectious bronchitis. 4. ??There is pneumomediastinum. 5. ??The enteric tube is positioned with the tip directed retrograde in the esophagus. Recommend repositioning. ? -PFTs: date FVC FEV1 FEV/FVC VC TLC RV RV/TLC Dsb SpO2 FENO 09/10/2018 5.57 92 4.37 89 79 ? 7 ? -ECHO: -Serology: -PET: -Biopsy: -Other: ?? Labs ?? 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 He has h/o ICU admission and mechanical ventilation for asthma ( 07/2018) -Since the last visit, he has done extremely well. ACT is 25. No albuterol use on Symbicort 160 -no change necessary. -will have him back in 6 months. ( March. 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 If any worsening, will obtain both RAST and HP panel. -He has supply of prednisone for emergency. -advised him to continue to measure PEFR to see if it is effective for earlier detection of acute exacerbation. Sick Protocol -Start scheduled albuterol HFA or Duoneb 4-6 times daily. If albuterol is not effective OR if albuterol is needed more than q4h for the first 24 hours OR no improvement, continued albuterol needs or worse after 24-48 hours while on scheduled albuterol CONSIDER BELOW or GO TO ED. ( ) Prednisone 30mg x 4 days, 20 mg x 4 days, 10mg x 4 days. ( x ) Prednisone 40mg x 3 days( 60mg x for severe cases), 30 mg x 3 days, 20mg x 3 days, 10mg x 3days. ( ) Prednisone 30mg x 5 days. One of ( x )Not necessary unless sx of infection. ( ) azithromycin 5 days, ( ) Doxycycline 100 mg twice daily for 7 days ( ) Augmentin 500 mg three times daily for 7 days ( ) Levofloxacin 500 mg daily for 7 days. ( ) Bactrim DS 1 tab twice daily for 7 days. 28 mins were spent in a face to face conversation with the patient (and accompanying family members, if present) regarding my impressions and recommendations and providing counseling. All the questions were answered. . Separately, I have spent an additional time in reviewing charts/records/labs/tests, or discussion with other health care providers. This above does NOT include the time spent in ( ) Smoking cessation counseling ( ) inhaler technique demonstration and teaching. ( checked if applicable) - I personally reviewed ( ) radiographic images. ( ) pulmonary function testing DATA ( ) Laboratory DATA ( apply if checked ) documented in this encounter Plan of Treatment Not on file documented as of this encounter Visit Diagnoses Diagnosis Severe persistent asthma, uncomplicated Unspecified asthma documented in this encounter Care Teams Orthopedics Teacher Relationship Specialty Start Date End Date Nataly Conklin, TAR DISTRIBUTOR OPERATOR [address] [place] [address] PCP - General Family Medicine 08/10/18 01/27/24 documented as of this encounter
--- OUTSIDE RECORDS SUMMARY | 2024-08-21 13:27 | XMS_ITS | Encounter Summary ---
[facility] [place] [address] Care Team Providers Care Drapery Rod Assembler Name Role Phone Radha Quiles APRN Primary Care Provider [phone] Encounter Details Date Type Department Care Team (Latest Contact Info) Description 02/28/2024 Travel Social History Tobacco Use Types Packs/Day Years [...] on filedocumented in this encounter Care Teams Drapery Rod Assembler Relationship Specialty Start Date End Date Radha Qu[place] [address] [place] [address] PCP - General Family Medicine 01/28/24 documented as of this encounter
--- OUTSIDE RECORDS SUMMARY | 2024-08-21 13:27 | XMS_ITS | Encounter Summary ---
Author Organization [facility] [place] [address] Care Team Providers Care Retail Stocker Name Role Phone Nataly Conklin APRN Primary Care Provider [phone] Encounter Details Date Type Department Care Team (Late st Contact Info) Description 09/09/2018 Orders [place] [address] Sarah Mejía MD [facility] [place] [address] Severe persistent asthma with status asthmaticus Social History Tobacco Use Types Packs/Day Years Used Date Smoking Tobacco: Never Alcohol Use Standard Drinks/Week Comments No 0 (1 standard drink = 0.6 oz pur e alcohol) Sex and Gender Information Value Date Recorded Sex Assigned at Not on file Gender Identity Not on file Sexual Orientation Not on file documented as of this encounter Plan of Treatment Not on file documented as of this encounter Results * Pulmonary Function Testing (09/10/2018 11:59 PM EST) Narrative Eric Lock MD - 09/10/2018 11:59 PM EST Eric Lock MD ? 09/16/2018 ??3:35 PM A. SPIROMETRY Is within normal limits B.The FeNO in ppb for this patient at today's visit was: 7ppb Fraction of Exhaled Nitric Oxide (FeNO) Measurement ?? Nitric oxide (NO) is recognized as a biomarker for eosinophilic airway inflammation, as is generally the case in asthma.?? Measuring NO in exhaled breath can help determine whether non-specific respiratory symptoms of wheezing, dyspnea, and cough are due to asthma.?? However, there are several important limitations of using this test to diagnose and treat asthma.?? Guidelines from a 2011 [place] Thoracic Society (ATS) executive summary on the clinical use of FeNO are listed. ?? Diagnostic Use: A FeNO <25 ppb suggests that eosinophilic airway inflammation, and by inference, clinical responsiveness to corticosteroids, is less likely. A FeNO >50 ppb indicates that eosinophilic airway inflammation and responsiveness to corticosteroids in symptomatic patients are both likely. FeNO levels between 25 and 50 ppb should be interpreted cautiously and in context. Persistent and/or high allergen exposure is a factor associated with higher FeNO levels (>50 ppb). The presence or absence of respiratory symptoms is an important consideration when interpreting FeNO. ?? Monitoring Response: A minimally important decrease in FeNO is defined as >20% for values >50 ppb or more than 10 ppb for values <50 ppb from one visit to the next. A reduction of an elevated FeNO of >20% occurring 2-6 weeks after anti-inflammatory treatment initiation is consistent with therapeutic efficacy. ?? Sarah Mejía MD PFT ORDERABLES documented in this encounter Visit Diagnoses Diagnosis Severe persistent asthma with status asthmaticus Unspecified asthma, with status asthmaticus Severe persistent asthma with status asthmaticus Unspecified asthma, with status asthmaticus documented in this encounter Care Teams Retail Stocker Relationship Specialty Start Date End Date Nataly Conklin APRN [address] [place] [address] PCP - General Family Medicine 08/10/18 01/27/24 documented as of this encounter
--- OUTSIDE RECORDS SUMMARY | 2024-08-21 13:27 | XMS_ITS | Encounter Summary ---
Author Organization [facility] Address [facility] [place] [address] Care Team Providers Care Senior Data Quality Analyst Name Role Phone Nataly Conklin APRN Primary Care Provider [phone] Encounter Details Date Type Department Care Team (Latest Contact Info) Description 09/10/2018 8:40 AM EST - 09/10/2018 11:59 PM EST Hospital Encounter Pulmonology at [facility] [place] [phone] Severe persistent asthma with status asthmaticus Discharge Disposition: Home Social History Tobacco Use Types Packs/Day Years Used Date Smoking Tobacco: Never Smokeless Tobacco: Never Alcohol Use Standard Drinks/Week Comments No 0 (1 standard drink = 0.6 oz pur e alcohol) Sex and Gender Information Value Date Recorded Sex Assigned at Not on file Gender Identity Not on file Sexual Orientation Not on file documented as of this encounter Medications at Time of Discharge Medication Sig Dispensed Refills Start Date End Date predniSONE (DELTASONE) 10 mg Tablet Take 1 tablet by mouth daily. Take 4 tabs for 3 days, 3 tabs for 3 days, 2 tabs for 4 days, 1 tab for 4 days. 40 tablet 1 09/10/2018 budesonide-formoterol (SYMBICORT) 160-4.5 mcg/actuation HFA Aerosol Inhaler Inhale 2 puffs into the lungs 2 times daily. 1 Inhaler 5 09/10/2018 albuterol 90 mcg/actuation HFA Aerosol Inhaler Inhale 2 puffs into the lungs every 4 hours as needed for Wheezing or Shortness of Breath. Use with spacer 1 Inhaler 1 08/13/2018 lisinopril (PRINIVIL;ZESTRIL) 40 mg Tablet Take 40 mg by mouth daily. 0 08/06/2018 documented as of this encounter Procedure Notes * Eric Lock MD - 09/10/2018 11:59 PM ESTAssociated Order(s): PULMONARY FUNCTION TEST A. SPIROMETRY Is within normal limits B.The [...] and treat asthma.?? Guidelines from a 2011 AmericanThoracic Society (ATS) executive summary on the clinical [...] FeNO of >20% occurring 2-6 weeks after anti- inflammatory treatment initiation is consistent with therapeutic efficacy. ?? documented in this encounter Miscellaneous Notes * Addendum Note - Eric Lock MD - 09/10/2018 11:59 PM ESTEncounter addended by: Eric Lock MD on: 09/16/2018 3:36 PM Actions taken: Charge Capture section accepted, Sign clinical note documented in this encounter Plan of Treatment Not on file documented as of this encounter Procedures Procedure Name Priority Date/Time Associated Diagnosis Comments COMMON PULMONARY FUNCTION TEST Routine 09/10/2018 11:59 PM EST Severe persistent asthma with status asthmaticus documented in this encounter Results * Pulmonary Function Testing [...] and treat asthma.?? Guidelines from a 2011 [place] Thoracic Society (ATS) executive summary on the [...] asthmaticus documented in this encounter Care Teams Senior Data Quality Analyst Relationship Specialty Start Date End Date Nataly Conklin APRN [address] [place] [address] PCP - General Family Medicine 08/10/18 01/27/24 documented as of this encounter
--- OUTSIDE RECORDS SUMMARY | 2024-08-21 13:27 | XMS_ITS | Encounter Summary ---
Author Organization [facility] [place] [address] Care Team Providers Care Finishing And Shipping Supervisor Name Role Phone Radha Quiles APRN Primary Care Provider [phone] Encounter Details Date Type Department Care Team (Late st Contact Info) Description 01/31/2024 3:10 PM EDT Ancillary Procedure Radiology Library at [facility] [place] [address] Radha Quiles APRN [address] [place] [address] [place] [address] Social History Tobacco Use Types Packs/Day Years [...] Associated Diagnosis Comments FILM LIBRARY STORAGE ONLY MR ANKLE Routine 01/31/2024 3:07 PM EDT documented in this encounter Results * Film Library- Storage Only MR Ankle (01/31/2024 3:07 PM EDT) Narrative RAJ KOHLER - 01/31/2024 3:07 PM EDT This exam is auto-finalizing. It's purpose is for storage only. Radha Quiles APRN IMG FILM LIBRARY ORD ERABLES [place] documented in this encounter Visit Diagnoses Not on filedocumented in this encounter Care Teams Finishing And Shipping Supervisor Relationship Specialty Start Date End Date Radha Quiles, DISH MAKER [place] [address] PCP - General Family Medicine 01/28/24 documented as of this encounter
--- OUTSIDE RECORDS SUMMARY | 2024-08-21 13:27 | XMS_ITS | Encounter Summary ---
Author Organization [facility] Address [facility] [place] [address] Care Team Providers Care Deputy County Clerk Name Role Phone Radha Quiles COVERSTITCH ELASTIC ATTACHER Primary Care Provider [phone] Reason for Visit * Reason Onset Date Comments Appointment 02/28/2024 Encounter Details Date Type Department Care Team (Late st Contact Info) Description 02/28/2024 Telephone [place] [phone] Casey Thomason MD [facility] [place] [address] Appointment Social History Tobacco Use Types Packs/Day Years Used Date Smoking Tobacco: Never Smokeless Tobacco: Never Alcohol Use Standard Drinks/Week Comments Yes 12 (1 standard drink = 0.6 oz pu re alcohol) 1-2 a day Sex and Gender Information Value Date Recorded Sex Assigned at Not on file Gender Identity Not on file Sexual Orientation Not on file documented as of this encounter Miscellaneous Notes * Telephone Encounter - Genesis Calloway - 02/28/2024 4:04 PM EDT Answered the safety questions for RIGHT FOOT / ANKLE IMAGE GUIDED INJECTION and sent for batch. documented in this encounter Plan of Treatment Not on file documented as of this encounter Visit Diagnoses Not on filedocumented in this encounter Care Teams Deputy County Clerk Relationship Specialty Start Date End Date Radha Quiles [place] [address] PCP - General Family Medicine 01/28/24 documented as of this encounter
--- OUTSIDE RECORDS SUMMARY | 2024-08-21 13:27 | XMS_ITS | Encounter Summary ---
Author Organization [facility] [place] [address] Care Team Providers Care Streetsweeper Operator Name Role Phone Nataly Conklin CHAVA Primary Care Provider Encounter Details Date Type Department Care Team (Late st Contact Info) Description 01/17/2024 Ancillary Procedure Radiology Library at [facility] [place] [address] Radha Quiles APRN [address] [place] [address] [place], [place] [address] Social History Tobacco Use Types Packs/Day Years [...] FILM LIBRARY STORAGE ONLY DX ANKLE Routine 01/17/2024 12:00 AM EDT documented in this encounter Results * Film Library- Storage Only DX Ankle (01/17/2024 12:00 AM EDT) Narrative RAJ KOHLER - 02/14/2024 3:31 PM EDT This exam is auto-finalizing. It's purpose is for storage only. Radha Quiles APRN [place] FILM LIBRARY ORD ERABLES [place] documented in this encounter Visit Diagnoses Not on filedocumented in this encounter Care Teams Streetsweeper Operator Relationship Specialty Start Date End Date Nataly Conklin, PANEL INSTALLER [address] [place] [address] PCP - General Family Medicine 08/10/18 01/27/24 documented as of this encounter
--- OUTSIDE RECORDS SUMMARY | 2024-08-21 13:27 | XMS_ITS | Encounter Summary ---
Author Organization [facility] [address] Care Team Providers Care Real Estate Valuer Name Role Phone Nataly Conklin APRN Primary Care Provider [phone] Encounter Details Date Type Department Care Team (Late st Contact Info) Description 08/27/2018 Telephone [facility] at [facility] [phone] Kaylen Carpenter Social History Tobacco Use Types Packs/Day Years Used Date Smoking Tobacco: Never Alcohol Use Standard Drinks/Week Comments No 0 (1 standard drink = 0.6 oz pur e alcohol) Sex and Gender Information Value Date Recorded Sex Assigned at Not on file Gender Identity Not on file Sexual Orientation Not on file documented as of this encounter Miscellaneous Notes * Telephone Encounter - Kaylen Carpenter - 08/27/2018 8:32 AM EST Telephone call from nic [place]. Scheduled patient for new patient josse. Mailed itn w/ new patient packet documented in this encounter Plan of Treatment Not on file documented as of this encounter Visit Diagnoses Not on filedocumented in this encounter Care Teams Real Estate Valuer Relationship Specialty Start Date End Date Nataly Conklin APRN [address] [place] [address] PCP - General Family Medicine 08/10/18 01/27/24 documented as of this encounter
--- OUTSIDE RECORDS SUMMARY | 2024-08-21 13:28 | XMS_ITS | Encounter Summary ---
Author Organization [facility] Address [facility] [place] [address] Care Team Providers Care Leak Detection Engineer Name Role Phone Doug Mayfield DO Primary Care Provider [phone] Encounter Details Date Type Department Care Team (Latest Contact Info) Description 08/09/2018 - 08/09/2018 11:59 PM EDT Hospital Encounter Radiology Library at [facility] [place] [address] Rick Roman Jr., MD [facility] [place] [address] Discharge Disposition: Home Social History Tobacco Use Types Packs/Day Years Used Date Smoking Tobacco: Never Assessed Sex and Gender Information Value Date Recorded Sex Assigned at Not on file Gender Identity Not on file Sexual Orientation Not on file documented as of this encounter Medications at Time of Discharge Medication Sig Dispensed Refills Start Date End Date lisinopril (PRINIVIL;ZESTRIL) 40 mg Tablet Take 40 mg by mouth daily. 0 08/06/2018 documented as of this encounter Plan of Treatment Not on file documented as of this encounter Procedures Procedure Name Priority Date/Time Associated Diagnosis Comments FILM LIBRARY STORAGE ONLY DX CHEST Routine 08/09/2018 12:00 AM EDT documented in this encounter Results * Film Library- Storage Only DX Chest (08/09/2018 12:00 AM EDT) Narrative RAD - 08/10/2018 6:45 AM EDT This exam is for storage only and is auto-finalizing. Rick Roman Jr., MD IMG FILM LIBRARY ORDERABLES [facility] [place], [place] documented in this encounter Visit Diagnoses Not on filedocumented in this encounter Care Teams Leak Detection Engineer Relationship Specialty Start Date End Date Doug Mayfield, DO [address] [place] [address] PCP - General 09/06/10 08/09/18 documented as of this encounter
--- OUTSIDE RECORDS SUMMARY | 2024-08-21 13:28 | XMS_ITS | Encounter Summary ---
Author Organization [facility] Address [facility] [place] [address] Care Team Providers Care Irs Agent Name Role Phone Nataly Conklin APRN Primary Care Provider [phone] Encounter Details Date Type Department Care Team (Latest Contact Info) Description 08/10/2018 6:46 AM EDT - 08/10/2018 6:49 AM EDT Hospital Encounter Radiology Library at [facility] [place] [address] Rick Roman Jr., MD [facility] [place] [address] Discharge Disposition: Home Social History Tobacco Use [...] Sig Dispensed Refills Start Date End Date albuterol 90 mcg/actuation HFA Aerosol Inhaler Inhale 2 puffs into the lungs every 4 hours as needed for Wheezing or Shortness of Breath. Use with spacer 1 Inhaler 1 08/13/2018 lisinopril (PRINIVIL;ZESTRIL) 40 mg Tablet Take 40 mg by mouth daily. 0 08/06/2018 predniSONE (DELTASONE) 10 mg Tablet Take 40 mg by mouth daily for 2 days (start 08/14),Then take 30 mg for 2 days,Then take 20 mg for 2 days,Then take 10 mg for 2 days. 20 tablet 08/13/2018 09/10/2018 budesonide-formoterol (SYMBICORT) 80-4.5 mcg/actuation HFA Aerosol Inhaler Inhale 2 puffs into the lungs 2 times daily. 1 Inhaler 12 08/13/2018 09/10/2018 documented as of this encounter Plan of Treatment Not on file documented as of this encounter Procedures Procedure Name Priority Date/Time Associated Diagnosis Comments FILM LIBRARY STORAGE ONLY DX CHEST Routine 08/10/2018 6:46 AM EDT documented in this encounter Results * Film Library- Storage Only DX Chest (08/10/2018 6:46 AM EDT) Narrative [facility] - 08/10/2018 6:46 AM EDT This exam is for storage only and is auto-finalizing. Rick Roman Jr., MD [facility] FILM LIBRARY ORDERABLES Performing Organization Address City/State/[facility] Co de Phone Number [place], [place] documented in this encounter Visit Diagnoses Not on filedocumented in this encounter Care Teams Irs Agent Relationship Specialty Start Date End Date Nataly Conklin APRN [address] [place] [address] PCP - General Family Medicine 08/10/18 01/27/24 documented as of this encounter
--- OUTSIDE RECORDS SUMMARY | 2024-08-21 13:28 | XMS_ITS | Encounter Summary ---
Author Organization [facility] Address [facility] [place] [address] Care Team Providers Care Manager Mail Name Role Phone Nataly Conklin APRN Primary Care Provider [phone] Encounter Details Date Type Department Care Team (Latest Contact Info) Description 08/10/2018 6:42 AM EDT - 08/10/2018 6:45 AM EDT Hospital Encounter Radiology Library at [facility] [place] [address] Rick Roman Jr., MD [facility] [place] [address] Discharge Disposition: Home Social History Tobacco Use [...] Associated Diagnosis Comments FILM LIBRARY STORAGE ONLY CT CHEST Routine 08/10/2018 6:42 AM EDT documented in this encounter Results * Film Library- Storage Only CT Chest (08/10/2018 6:42 AM EDT) Narrative [facility] - 08/10/2018 6:42 AM EDT This exam is for storage only and is auto-finalizing. Rick Roman Jr., MD [facility] FILM LIBRARY ORDERABLES Performing Organization Address City/State/[facility] Co de Phone Number [place], [place] documented in this encounter Visit Diagnoses Not on filedocumented in this encounter Care Teams Manager Mail Relationship Specialty Start Date End Date Nataly Conklin APRN [address] [place] [address] PCP - General Family Medicine 08/10/18 01/27/24 documented as of this encounter
--- OUTSIDE RECORDS SUMMARY | 2024-08-21 13:28 | XMS_ITS | Encounter Summary ---
Author Organization [facility] Address [facility] [place] [address] Care Team Providers Care Dental Intern Name Role Phone Nataly Conklin APRN Primary Care Provider [phone] Encounter Details Date Type Department Care Team (Latest Contact Info) Description 08/10/2018 6:50 AM EDT - 08/10/2018 6:52 AM EDT Hospital Encounter Radiology Library at [facility] [place] [address] Rick Roman Jr., MD [facility] [place] [address] Discharge Disposition: Home Social History Tobacco Use [...] Procedure Name Priority Date/Time Associated Diagnosis Comments REQUEST FOR 2ND READ CT CHEST Routine 08/10/2018 6:50 AM EDT documented in this encounter Results * Request For 2nd Read CT Chest (08/10/2018 6:50 AM EDT) Anatomical Region Laterality Modality Chest SO Impressions 08/10/2018 7:43 AM EDT 1. ??No pulmonary embolism identified. 2. ??There are nodular opacities seen in the right lower lobe concerning for a nonspecific infectious or inflammatory process. 3. ??There is some mild thickening of the distal airways which could be from an inflammatory or infectious bronchitis. 4. ??There is pneumomediastinum. 5. ??The enteric tube is positioned with the tip directed retrograde in the esophagus. Recommend repositioning. Narrative 08/10/2018 7:43 AM EDT EXAMINATION: REQUEST FOR 2ND READ CT CHEST CLINICAL HISTORY: PE? lung parenchymal disease? Young male with acute hypoxemic resp failure; What Modality is the exam? CT Scan; Body Part (please add comments as necessary): Chest with PE protocol; I believe a reinterpretation of this exam may alter care of Patient. Yes TECHNIQUE: This is a reinterpretation of an outside CTA of the chest originally obtained at [facility]. MIPs were reviewed. COMPARISON: None FINDINGS: Pulmonary arteries: The main pulmonary artery is normal in caliber. No filling defects seen in the pulmonary arteries. No septal bowing or reflux of contrast to suggest right heart strain. Other cardiovascular structures: The heart is normal in size. No pericardial effusion. The thoracic aorta is normal in caliber. Motion artifact limits evaluation of the aortic root. The SMA and celiac origins are widely patent. Pulmonary parenchyma: There are small nodular opacities [...] significant findings. Skeletal structures: No significant findings. Procedure Note Becky Vivas MD - 08/10/2018 EXAMINATION: REQUEST FOR 2ND READ CT CHEST CLINICAL HISTORY: PE? lung parenchymal disease? Young male with acutehypoxemic resp failure; What Modality is the exam? CT Scan; Body Part (please addcomments as necessary): Chest with PE protocol; I believe a reinterpretation ofthis exam may alter care of Patient. Yes TECHNIQUE: This is a reinterpretation of an outside CTA of the chest originallyobtained at [facility]. MIPs were reviewed. COMPARISON: None FINDINGS: Pulmonary arteries: The main pulmonary artery is normal in caliber. Nofilling defects seen in the pulmonary arteries. No septal bowing or reflux ofcontrast to suggest right heart strain. Other cardiovascular structures: The heart is normal in size. Nopericardial effusion. The thoracic aorta is normal in caliber. Motion artifactlimits evaluation of the aortic root. The SMA and celiac origins are widelypatent. Pulmonary parenchyma: There are small nodular opacities seen in thedependent right lower lobe. Nonspecific hazy opacities are seen in the medial upperlobes. Airways: An endotracheal tube is seen in the midthoracic trachea. Thelarge airways are clear. There is some mild distal small airway wallthickening. Pleura: No effusion or pneumothorax. Lymph nodes: No adenopathy by size criteria. Other mediastinal structures: An enteric tube is seen which has an acute angulation in the distal esophagus with the tip directed retrograde. Thereis pneumomediastinum with air extending craniad surrounding the trachea and esophagus to the level of the visualized thyroid. Air can be also seenextending to surround the left bronchi and the heart. Upper abdomen: No significant findings. Skeletal structures: No significant findings. IMPRESSION 1. No pulmonary embolism identified. 2. There are nodular opacities seen in the right lower lobe concerningfor a nonspecific infectious or inflammatory process. 3. There is some mild thickening of the distal airways which could befrom an inflammatory or infectious bronchitis. 4. There is pneumomediastinum. 5. The enteric tube is positioned with the tip directed retrograde inthe esophagus. Recommend repositioning. Rick Roman Jr., MD IMG OUTSIDE INTE RPRETATION ORDERABLES documented in this encounter Visit Diagnoses Not on filedocumented in this encounter Care Teams Dental Intern Relationship Specialty Start Date End Date Nataly Conklin, [place] [address] [place] [address] PCP - General Family Medicine 08/10/18 01/27/24 documented as of this encounter
--- OUTSIDE RECORDS SUMMARY | 2024-08-21 13:28 | XMS_ITS | Encounter Summary ---
Author Organization [facility] Address [facility] [place] [address] Care Team Providers Care Family Preservation Caseworker Name Role Phone Nataly Conklin APRN Primary Care Provider [phone] Reason for Visit * Auth/Cert Specialty Diagnoses / Procedures Referred By Tova munoz Referred To Contact Diagnoses Respiratory Failure Procedures [place] [employer] Referral ID Status Reason Start Date Expiration Date Visits Re quested Visits Authorized [id number] 1 1 Encounter Details Date Type Department Care Team (Latest Contact Info) Description 08/10/2018 6:53 AM EDT - 08/10/2018 7:57 AM EDT Hospital En[place] [id number] Rick Roman Jr., MD [facility] [place] [address] Discharge Disposition: Other Short Term General Hospital Social History Tobacco Use Types Packs/Day Years [...] on filedocumented in this encounter Care Teams Family Preservation Caseworker Relationship Specialty Start Date End Date Nataly Conklin, CHAVA [address] [place] [address] PCP - General Family Medicine 08/10/18 01/27/24 documented as of this encounter
--- OUTSIDE RECORDS SUMMARY | 2024-08-21 13:28 | XMS_ITS | Encounter Summary ---
Author Organization [facility] [place] [address] Care Team Providers Care It Systems Manager Name Role Phone Nataly Conklin APRN Primary Care Provider [phone] Reason for Referral * Consultation (Routine) - Closed Specialty Diagnoses / Procedures Referred By Tova munoz Referred To Contact Pulmonology Diagnoses Severe persistent asthma with status asthmaticus Toni Westbrook MD [facility] [place] [address] [facility] Pulmonology [address] [place] [phone] Referral ID Status Reason Start Date Expiration Date V isits Requested Visits Authorized [id number] Closed Specialty Service Requested 08/13/2018 08/13/2019 1 1 Reason for Visit * Auth/Cert Specialty Diagnoses / Procedures Referred By Tova munoz Referred To Contact Diagnoses Asthma RESP FAILURE Procedures EMERGENCY IPI Referral ID Status Reason Start Date Expiration Date Visits Re quested Visits Authorized [id number] 1 1 Encounter Details Date Type Department Care Team (Latest Contact Info) Description 08/10/2018 7:58 AM EDT - 08/13/2018 2:10 PM EDT Hospital Encounter [address] [place] [address] Rick Roman Jr., MD [facility] [place] [address] Rachel Eugene MD [facility] [place] [address] [place] [address] [place] [address] Severe asthma with acute exacerbation, unspecified whether persistent; Severe persistent asthma with status asthmaticus Discharge [...] Sign Reading Time Taken Comments Blood Pressure 146/93 08/13/2018 1:21 PM EDT Pulse 96 08/13/2018 1:21 PM EDT Temperature 36.9 ??C (98.4 ??F) 08/13/2018 1:21 PM ED T Respiratory Rate 20 08/13/2018 1:21 PM EDT Oxygen Saturation 96% 08/13/2018 1:21 PM EDT Inhaled Oxygen Concentration - - Weight 137.9 kg (304 lb 0.2 oz) 08/10/2018 8:50 AM EDT Height 180 cm (5' 10.87) 08/10/2018 8:30 AM EDT Body Mass Index 42.56 08/10/2018 8:30 AM EDT documented in this encounter Discharge Summaries * Toni Westbrook MD - 08/13/2018 1:52 PM EDT Discharge Summary Patient Name: Efraín Sharma Patient Age: 33 y.o. Language: Honduran Race: White Ethnicity: Not nor Admit date: 08/10/2018 Discharge date and time: 14:00 Attending Physician: Toni Westbrook MD Discharge Physician: aaron Follow-up Recommendations for Providers: Please follow elevated Blood pressure - Pulmonary to follow up asthma flare - no known history No f/u needed from thoracic for pneumomediastinum symbicort added to RX regimen with steroid taper. Inpatient Provider Contact Information: For questions regarding this document or issues relating to this hospitalization on the Medical Service, please contact your inpatient physician through the [facility] [employer] . Issues afterhours and on weekends will be handled by the Hospitalist staff on-call. Discharge Diagnoses (Hospital Problems) and Secondary Diagnoses (Chronic Problems): Active Hospital Problems Diagnosis ??? Acute respiratory failure ??? Pneumomediastinum ??? Essential hypertension ??? Asthma with status asthmaticus Resolved Hospital Problems No resolved problems to display. Active Non-Hospital Problems Diagnosis ??? Chromosome abnormality Operations/Major Procedures: History of Presentation: History of Present Illness/Hospital Course Efraín Sharma is a 33 y.o. male with PMH of HTN who was transferred to [facility] from OSH with acute hypoxic/hypercarbic respiratory failure presumed to be status asthmaticus. Patient does not have a diagnosis asthma prior to this event. Patient reports having URI sxs for the past 2-3 weeks IMMIGRATION PARALEGAL inlcuding Cough, sputum production, dyspnea. He reports his sxs progressed and he was prescribed albuterol inhaler and azithromycin by his PCP for presumed bronchitis. On the day of his fifth dose, patient became extremely dyspneic and presented to the ED at outside hospital. He was found to be hypoxic 86% and appeared cyanotic and was subsequently intubated. Chest x-ray and CT scan of the chest showed pne umomediastinum. He was subsequently transferred to [facility] ICU for further care. He required brief period of paralysis due to dyssynchrony with mechanical ventilation and large amount of sedation. This led to hypotension requiring pressor support. Patient's vasopressors and sedation were weaned off and he was subsequently extubated. He was also on continuous albuterol nebulizer which was titrated off on the evening of 08/11/2018. Once extubated quickly wean to room air. He was treated prophylatically with ceftriaxone and doxycycline - stopped on discharge. Pneumomediastinum - of unknown etiology, possibly from intubation trauma - seen by thoracic service- will be on soft diet for 2 weeks. Gastrograffin study with no air leak. No thoracic follow up needed. Asthma flare - Treated as per above, perhaps triggered by viral illness preceding admission - will follow up with pulmonology as outpatient. CT, PFTs ,will be scheduled. Vital Signs at Discharge: BP: (!) 146/93, Heart Rate: 96, Temp: 36.9 ??C (98.4 ??F), Resp: 20, Height: 180 cm (5' 10.87) (08/10/18 0830) Weight: (!) 137.9 kg (304 lb 0.2 oz) (08/10/18 0850) Functional and Cognitive Status: Baseline and stable Important Studies and Lab Data: Labs: Recent Labs 08/13/18 0857 08/12/18 0345 08/11/18 0200 WBC 14.0* 17.2* 20.7* HGB 11.9* 10.8* 11.3* HCT 35.8* 32.1* 33.9* PLATELET 250 254 409* Recent Labs 08/13/18 0857 08/12/18 0345 08/11/18 1253 NA 143 148* 143 K 4.3 4.5 3.4* CL 105 109* 107 CO2 25 26 25 BUN 23* 17 12 CREATININE 0.74* 0.75* 0.88 Recent Labs 08/12/18 0345 08/11/18 0200 08/10/18 0850 AST 23 16 29 ALT 57* 65* 80* ALKPHOS 54 58 64 BILITOT 0.3 0.2 0.6 Recent Labs 08/13/18 0857 08/12/18 0345 08/11/18 1253 08/10/18 1605 CALCIUM 8.7 8.2* 7.9* < > 7.7* PHOS 2.6 -- 1.7* -- 5.0* < > = values in this interval not displayed. No results for input(s): PT, INR, PTT in the last 168 hours. Recent Labs 08/10/18 0850 CK 348* 348* TROPONINT <0.01 Studies: Diagnostics: CT chest 08/10/18: 1. ??No pulmonary embolism identified. 2. ??There are nodular opacities seen in the right lower lobe concerning for a nonspecific infectious or inflammatory process. 3. ??There is some mild thickening of the distal airways which could be from an inflammatory or infectious bronchitis. 4. ??There is pneumomediastinum. 5. ??The enteric tube is positioned with the tip directed retrograde in the esophagus. Recommend repositioning. Discharge Conditions/Prognosis: Stable full recovery expected. Discharge to: home Updated Allergies/ADRs: No Known Allergies Immunizations Given this Hospitalization: Immunization History Administered Date(s) Administered ??? Influenza Vaccine PF, Quadrivalent 08/13/2018 Discharge Medications: Your Medications New Medications Dose Details albuterol 90 mcg/actuation Hfaa Inhale 2 puffs into the lungs every 4 hours as needed for Wheezing or Shortness of Breath. Use withspacer 2 puff Quantity: 1 Inhaler Refills: 1 budesonide-formoterol 80-4.5 mcg/actuation Hfaa Commonly known as: SYMBICORT Inhale 2 puffs into the lungs 2 times daily. 2 puff Quantity: 1 Inhaler Refills: 12 predniSONE 10 mg Tab Commonly known as: DELTASONE Take 40 mg by mouth daily for 2 days (start 08/14),Then take 30 mg for 2 days,Then take 20 mg for 2days,Then take 10 mg for 2 days. Quantity: 20 tablet Refills: 0 Continued medications, unchanged Dose Details lisinopril 40 mg Tab Commonly known as: PRINIVIL;ZESTRIL Take 40 mg by mouth daily. 40 mg Refills: 0 Smoking Status at Discharge: Social History Tobacco Use Smoking Status Never Smoker Instructions Given to Patient at Discharge: Patient Instructions Instruction after leaving the hospital Why you were hospitalized: Asthma flare of unknown etiology Call your doctor or seek medical attention if you develop the following: Trouble breathing or shortness of breath, wheezing, chest pain, fevers, confusion, or as needed. Activity level: advance as tolerated Diet: soft diet for 2 weeks. Driving: no new restrictions Specific instructions related to your condition: Ok to use your albuterol inhaler every 2 puffs 1hours in an emergency and call your pcp of 911 for help If needing your albuterol more than every 4 hours please call your pcp. Your Inpatient Doctor(s) at [facility]: Aaron General Instructions None Discharge References/Attachments None documented in this encounter Discharge Instructions * Patient Instructions* Toni Westbrook MD - 08/13/2018 1:37 PM EDT Instruction after leaving the hospital Why you were hospitalized: Asthma flare of unknown etiology Call your doctor or seek medical attention if you develop the following: Trouble breathing or shortness of breath, wheezing, chest pain, fevers, confusion, or as needed. Activity level: advance as tolerated Diet: soft diet for 2 weeks. Driving: no new restrictions Specific instructions related to your condition: Ok to use your albuterol inhaler every 2 puffs 1hours in an emergency and call your pcp of 911 for help If needing your albuterol more than every 4 hours please call your pcp. Your Inpatient Doctor(s) at [facility]: Aaron Please follow up with your PCP in next 3-5 days - we will contact their office Pulmonology follow up to be scheduled in 6 weeks. documented in this encounter Medications at Time of Discharge [...] 08/13/2018 09/10/2018 documented as of this encounter Progress Notes * Toni Westbrook MD - 08/13/2018 2:06 PM EDT Hospital Medicine - Attending Day of Discharge Documentation Discharge diagnosis Active Hospital Problems Diagnosis ??? Acute respiratory failure ??? Pneumomediastinum ??? Essential hypertension ??? Asthma with status asthmaticus Resolved Hospital Problems No resolved problems to display. Secondary Issues Active Non-Hospital Problems Diagnosis ??? Chromosome abnormality I have personally seen and examined the patient and they are ready for discharge. I spent >30 minutes (Day of Discharge Code 45893) involved in the final examination of the patient, discussion of the hospital stay, instructions for continuing care to all relevant caregivers, and preparation of discharge records, prescriptions and referral forms. Plans ? Discharge to home ? Follow-up scheduled with pulm/pcp ? Please see the Discharge Summary for complete details of any medication changes and additional plans. * Carol Scott RN - 08/13/2018 2:02 PM EDT Patient Name: Efraín Sharma Patient Age: 33 y.o. Birthdate: 1985 Admit date: 08/10/2018 Attending Physician: Toni Westbrook MD Pt discharged home. IVs d/c'd. Belongings packed. Discharge instructions reviewed. Pt verbalized understanding. Ambulated out of hospital w mother. * Dwight Mendoza - 08/13/2018 1:09 PM EDT Images from the original note were not included. INPATIENT PULMONOLOGY FOLLOW-UP NOTE SECTION OF PULMONARY/CRITICAL CARE MEDICINE Patient Name: Efraín Sharma : 1985 Medical Record: [id number] Date of Service: 08/13/2018 Hospital Day # Hospital Day: 4 24Hr Events: Moved to floor Diet advanced to regular Passed swallow eval, diet advanced Sats in high 90s on room air Subjective: Breathing well. Hoarseness of voice improving. Able to ambulate to bathroom without difficulty. Review of Systems: Pertinent findings from 12 point ROS listed above in subjective. Objective: Physical Exam: BP (!) 146/93 (BP Location (NBP): Right arm, Patient Position: Sitting) Pulse 96 Temp 36.9 ??C (98.4 ??F) (Oral) Resp 20 Ht 180 cm (5' 10.87) Wt (!) 137.9 kg (304 lb 0.2 oz) SpO2 96% BMI 42.56 kg/m?? Temp (24hrs), Av.9 ??C (98.4 ??F), Min:36.3 ??C (97.3 ??F), Max:37.2 ??C (99 ??F) Intake/Output Summary (Last 24 hours) at 08/13/2018 1339 Last data filed at 08/13/2018 0956 Gross per 24 hour Intake 1325 ml Output -- Net 1325 ml General: This is a 33 y.o. male, NAD, sitting up in chair, voice is mildly hoarse HEENT: Moist mucous membranes Neck: Supple Lymphatics: No obvious cervical lymphadenopathy Cardiovascular: Nl s1/s2, rrr, no murmurs Respiratory: Scattered wheezes throughout lung dillard. Normal respiratory effort on room air Musculoskeletal: Normal bulk and tone Extremities: no LE edema noted, no clubbing Integument: No rash. Neurologic: Alert and oriented, moves all extremities appropriately, no obvious focal deficits Psychologic: Normal mood and affect. Allergies: Patient has no known allergies. Medications: Scheduled Meds: ??? [START ON 08/14/2018] predniSONE 40 mg Oral Daily ??? albuterol 2.5 mg Nebulization Q4H CHRIS ??? lisinopril 40 mg Oral Daily ??? senna-docusate 2 tablet Oral BID ??? insulin lispro 1-4 Units Subcutaneous TID AC ??? enoxaparin 40 mg Subcutaneous 2 times per day ??? cefTRIAXone 2 g Intravenous Q24H ??? sodium chloride 0.9 % 5 mL Intravenous Q12H ??? doxycycline 100 mg Intravenous Q12H ??? oxymetazoline 2 spray Each Nare Once Continuous Infusions: PRN Meds: ondansetron OR ondansetron, simethicone, albuterol, sodium chloride 0.9 %, lidocaine,dextrose 50% OR glucagon (human recombinant) Labs: Lab Results Component Value Date WBC 14.0 (H) 08/13/2018 RBC 4.33 (L) 08/13/2018 HGB 11.9 (L) 08/13/2018 HCT 35.8 (L) 08/13/2018 MCV 82.7 (L) 08/13/2018 MCH 27.5 08/13/2018 MCHC 33.2 08/13/2018 PLATELET 250 08/13/2018 RDWCV 13.8 08/13/2018 LFT's No results found for: ALKPHOS, AST, ALBUMIN, BILIDIR, BILITOT, ALT, PROT LFT's No results found for: ALKPHOS, AST, ALBUMIN, BILIDIR, BILITOT, ALT, PROT Coags No results found for: INR, PT, PTT Recent Labs 08/13/18 0857 GLUCOSE 109 ABG (Arterial Blood Gas) No results found for: PHART, PO2ART, SVD2NRV Microbiology: Procedure Component Value Units Date/Time Urine culture [[id number]] Collected: 08/10/18 1542 Lab Status: Final result Specimen: Indwelling Catheter Urine Updated: 08/11/18 1443 Urine Culture No growth (Less than 1,000 cfu/ml). Blood culture [[id number]] Collected: 08/10/18 1001 Lab Status: Preliminary result Specimen: Blood Updated: 08/12/18 1501 Blood Culture No growth at 2 days. Respiratory Panel PCR [[id number]] Collected: 08/10/18 0848 Lab Status: Final result Specimen: Nasopharyngeal Swab Updated: 08/10/18 1058 Resp Panel Source METALS ANALYST Swab Resp Panel PCR Negative Comment: Respiratory Panels are performed on the [employer], using multiplexed PCR nucleic acid detection. ??Negative results do not preclude respiratory infection and should not be used as the sole basis for diagnosis, treatment or other management decisions. Adenovirus Not Detected Coronavirus HKU1 Not Detected Coronavirus NL63 Not Detected Coronavirus 229E Not Detected Coronavirus OC43 Not Detected Human Metapneumovirus Not Detected Human Rhino/Enterovirus Not Detected Influenza A Not Detected Influenza B Not Detected Parainfluenza 1 Not Detected Parainfluenza 2 Not Detected Parainfluenza 3 Not Detected Parainfluenza 4 Not Detected Respiratory Syncytial Virus Not Detected Bordetella pertussis Not Detected Chlamydophila pneumoniae Not Detected Mycoplasma pneumoniae Not Detected Lower Respiratory Culture Tracheal Aspirate [[id number]] Collected: 08/10/18 0844 Lab Status: Final result Specimen: Tracheal Aspirate Updated: 08/12/18 0949 Lower Respiratory Culture Rare mixed bacterial morphotypes suggestive of normal upper respiratory luan Gram Stain -- Moderate Neutrophils seen No squamous epithelial cells seen Few mixed bacterial morphotypes suggestive of normal upper respiratory luan Diagnostics: CT chest 08/10/18: 1. ??No pulmonary embolism identified. 2. ??There are nodular opacities seen in the right lower lobe concerning for a nonspecific infectious or inflammatory process. 3. ??There is some mild thickening of the distal airways which could be from an inflammatory or infectious bronchitis. 4. ??There is pneumomediastinum. 5. ??The enteric tube is positioned with the tip directed retrograde in the esophagus. Recommend repositioning. Assessment: Efraín Sharma??is a 33 YO??male??with??no significant PMHx and no history of asthma who was transferred from [facility] with acute onset hypercapnic respiratory distress, and found to have pneumomediastinum. Has remains stable on room air since extubation yesterday without event. His hoarseness is improving this morning, suggesting improvement of his pneumomediastinum. Etiology remains unclear, and possibilities include spontaneous pneumomediastinum (perhaps from a prior bleb/cyst that burst) vs excessive coughing in the setting of possible asthma exacerbation. Pneumomediastinum may have been caused by traumatic intubation, as proximal trachea was unable to be evaluated on bronchoscopy. It is unclear whether the pneumomediastinum lead to the respiratory distress or vice versa. He remains stable but his improvement with treatment for asthma exacerbation warrants ongoing management with steroids and nebulizers. We would recommend discharge with Symbicort and rescue inhaler and plan to follow up with pulmonology outpatient in 4-[address] and PFTs, with possible o utpatient bronch to evaluate for proximal trachea damage if his pneumomediastinum persists. Recommendations: ?? Taper steroids over 5-7 days ?? Discharge on Symbicort in addition to as-needed albuterol inhaler ?? Follow-up with pulm in 4-[address] and PFTs, with possible bronch if his pneumomediastinum persists. Thank you for this consult. We will sign off at this time. Please do not hesitate to contact us with any additional questions. Dwight Mendoza MD PGY-1, 08/13/2018, 1:39 PM Pulmonary Medicine Pager: [phone] Associated attestation - Eric Lock MD - 08/16/2018 10:44 AM EDT I have seen the patient and reviewed the resident's above history and I agree with the details as written.?The assessment and plan were formulated in discussion with me and I agree with them as documented. Eric Lock MD, [facility] Pulmonary and Critical Care 2210 * Jhoana Sparks, PT - 08/13/2018 11:02 AM EDT PT NOTE Pt admitted 08/10/18 with respiratory failure and needed brief intubation/ventilator use. Pt now onthe medicine floor. Spoke with RN who states pt is moving in room inde[pendently. Nurse plans to get him in the halls and check his SPO2. Likely no PT needs. Nurse to page PT to complete an evaluation, if the need arises. * Radha Oliver RN - 08/12/2018 11:33 PM EDT Efraín arrived to floor from ICU 4N on bed ~2300. A&Ox4. VSS on RA. Denies pain, SOB, numbness/tingling, dizziness, nausea. Assessment as charted. All belongings accounted for. Meds and chart accompanied with patient. No acute events. Able to make needs known. Will CTM. * Mook Castro MD - 08/12/2018 6:28 AM EDT Critical Care Blue Team Resident Note Admit date: Hospital day: Service: Attending 08/10/2018 2 ICU Blue Team Pager [phone] Mook Castro MD Patient info: Name: Efraín Sharma : 1985 ID: 33 y.o. male admitted for severe asthma attack in setting of 2-3 week URI symptoms requiring invasive ventilation, paralytics for vent disynchrony and continuous albuterol . Hospital course is complicated by respiratory and metabolic acidosis requiring sodium acetate drip. Current Active Issues Active Hospital Problems Diagnosis ??? Asthma Resolved Hospital Problems No resolved problems to display. 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 albuterol 2.5 mg Nebulization Q4H CHRIS ??? cefTRIAXone 2 g Intravenous Q24H ??? sodium chloride 0.9 % 5 mL Intravenous Q12H ??? acetaminophen 1,000 mg Oral Q8H CHRIS Or ??? acetaminophen 1,000 mg Oral Q8H CHRIS Or ??? acetaminophen 975 mg Rectal Q8H CHRIS ??? doxycycline 100 mg Intravenous Q12H ??? white petrolatum-mineral oil Both Eyes BID ??? methylPREDNISolone 40 mg Intravenous Q6H ??? heparin (Porcine) 7,500 Units Subcutaneous Q8H CHRIS ??? insulin lispro 1-4 Units Subcutaneous Q4H CHRIS ??? oxymetazoline 2 spray Each Nare Once Continuous Infusions: ??? sodium chloride 0.9% 125 mL/hr (08/11/18 2221) PRN Meds: albuterol, sodium chloride 0.9 %, lidocaine, dextrose 50% OR glucagon (human recombinant) Physical Exam Vitals: Last value Range last 24 hrs Temperature Temp: 37.1 ??C (98.8 ??F) Temp: [36.5 ??C (97.7 ??F)-37.5 ??C (99.5 ??F)] Heart Rate Heart Rate: 89 Heart Rate: [89-129] Blood Pressure BP: 127/77 BP: (127-144)/(72-90) Respiratory Rate Resp: 21 Resp: [9-28] SpO2 SpO2: 93 % SpO2: [93 %-98 %] GEN: NAD lying in bed HEENT/neck: NC/AT, EOMI, moist mucous membranes, Lungs:scattered expiratory wheezing; prolonged expiratory phase Heart: tachycardic, regular rhythm, no MGR appreciable through rhonchi Abdomen: obese, +bs, soft, nondistended Extremities: wwp, no edema, clubbing or cyanosis Skin: no rashes Neuro: grossly nonfocal Ins/Outs: Intake/Output Summary (Last 24 hours) at 08/12/2018 0628 Last data filed at 08/12/2018 0400 Gross per 24 hour Intake 2694 ml Output 620 ml Net 2074 ml Lines: PIV's only Pertinent Labs in Last 24 Hours and Micro CBC: Recent Labs 08/12/18 0345 08/11/18 0200 08/10/18 0850 WBC 17.2* 20.7* 16.1* HGB 10.8* 11.3* 12.2* PLATELET 254 409* 307 Chemistry: Recent Labs 08/12/18 0345 08/11/18 1253 08/11/18 0200 NA 148* 143 145 K 4.5 3.4* 3.3* CL 109* 107 107 CO2 26 25 24 BUN 17 12 10 CREATININE 0.75* 0.88 1.06 GLUCOSE 128 136 192 Recent Labs 08/12/18 0345 08/11/18 1253 08/11/18 0200 08/10/18 1605 08/10/18 0850 CALCIUM 8.2* 7.9* 7.9* 7.7* 8.0* MAGNESIUM -- 0.85 -- -- 0.98 PHOS -- 1.7* -- 5.0* -- LFT's: Recent Labs 08/12/18 0345 08/11/18 0200 08/10/18 0850 BILITOT 0.3 0.2 0.6 ALBUMIN 3.3 3.4 3.7 ALKPHOS 54 58 64 ALT 57* 65* 80* AST 23 16 29 Cardiac enzymes: Recent Labs 08/10/18 0850 TROPONINT <0.01 CK 348* 348* Radiology/Studies in Last 24 Hours CXR 08/11 IMPRESSION ?? Status post removal of ET tube and NG tube with low lung volumes and bilateral pulmonary opacity as above. Assessment: In summary, this is a 33 y.o. male with no major past medical history or history of asthma admittedfor acute hypoxic and hypercarbic respiratory failure in the setting of severe asthma attack and URI symptoms for past 2-3 weeks. Hospital course initially complicated by vent desynchrony requiring paralyzation with cisatracurium- requiring sedation to RASS -5 that contributed to hypotension that required pressor support with norepinephrine. Additional complications of profound respiratory and metabolic acidosis that required sodium acetate drip at 150ml.hr. Within the first 24 hours patients ABG improved significantly, paralyzation was turned off, and patient awoke with only some mild confusion. On rounds yesterday he passed an SBT and was extubated. Continuous albuterol was titrated off and now on q4hr scheduled nebulizers. Overall patient is much improved, he is awaiting a barium swallow this AM to evaluate for a esophageal leak, but otherwise is stable for transfer to hospital medicine Plan: Neurologic -off sedation/paralaysis -CAM ICU negative Cardiac #hypotension-resolved - likely sedative induced as well as increased thoracic pressure - normotensive to hypertensive since extubation; will need HTN follow-up on discharge #tachycardia -likely albuterol induced, currently titrating down continuous to scheduled by end of day -on telemetry Respiratory #severe asthma #community acquired pneumonia -extubated on rounds to [facility] without complication, transitioned to room air overnight -continue albuterol nebulizers q4hr scheduled with PRNs -d/c IV methylprednisone q6hr, start 50mg prednisone oral; likely prolonged taper will f/u with pulmonary. -viral PCR negative - continue doxycycline BID and start ceftriaxone 2g/24hr (2g pharmacy recs) for two more days - lives in [facility] area, would like to see a food technology teacher on discharge, either here at [facility] or in [facility]; consult to pulm today. #pneumomediastinum -barium (omnipaque) swallow 08/12 to evaluate esophagus - thoracic surgery following - diet when cleared Infectious #vanc trough elevated -trough at 40.2 this AM -d/c'ed -rest as above in respiratory Metabolic #hyperglycemia -likely steroid induced -will continue to monitor Renal/Electrolytes #metabolic acidosis #hypokalemia -resolved GI/Nutrition - NPO -omnipaque esophogram today - healthy diet when cleared MICU Polymer Chemist Checklist Diet: NPO diet (Give Meds) Physical Therapy: consulted Nutrition: Healthy diet DVT PPX: 7500 units Heparin TID GI PPX: not indicated Code status: Full Code Dispo: transfer to hospital medicine Summary of Major Changes in Plan Barium swallow this AM, healthy diet when cleared. Consult to pulm today. PT consulted, transfer [facility] today. Jory Christian M.D. Internal Medicine PGY1 ICU BLUE TEAM Pager [phone] Attending Note Please see Dr. Christian's note for details of the patient history of presentation and data. I have discussed, reviewed and agree with the documented history, physical findings, assessment and plan of care. I have examined the patient myself and personally reviewed all studies. Additions to the history, physical exam, assessment and plan include the following: Extubated yesterday and now on RA. Nebs changed to scheduled from continuous. Treating for CAP w/ 5days of ceftriaxone and doxycycline. Pulm consulted for ongoing asthma management. Pt can be transferred to the floor today. I certify that the patient requires: [x] inpatient care status due to acute asthma exacerbation and community acquired pneumonia [] Observation Care * Rola Gibbons RT - 08/11/2018 6:27 PM EDT Current Settings: RA sating mid 90s Breath Sounds: expiratory wheezes, inspiraotry wheezes Secretions: small-mod white-yellow, thick Assessment / Events: Received intubated on PS 10/+8 45% titrated to 8/8 40% on continuous [id number]/hr. MD placed on SBT, passed.. Extubated to HFNC 35lpm 35% Decreased alb to discontinue, tolerated well, placed on room air. Giving scheduled albuterol nebs with improved breath sounds, no complaint of SOB Plan: Inhaled Medications: alb Q2 * Jory Christian MD - 08/11/2018 6:50 AM EDT Critical Care Blue Team Resident Note Admit date: Hospital day: Service: Attending 08/10/2018 1 ICU Blue Team Pager [phone] Rachel Eugene MD Patient info: Name: Efraín Sharma : 1985 ID: 33 y.o. male admitted for severe asthma attack in setting of 2-3 week URI symptoms requiring invasive ventilation, paralytics for vent disynchrony and continuous albuterol . Hospital course is complicated by respiratory and metabolic acidosis requiring sodium acetate drip. Current Active Issues Active Hospital Problems Diagnosis ??? Asthma Resolved Hospital Problems No resolved problems to display. Major 24 Hour Events: -weaned off cisatracurium over night, along with norepinephrine -remains on continuous nebulizer and sodium acetate at 150ml/hr -midazolam at 5mg/hr and fentanyl at 200mcg/hr -improving ABG overnight to 7.31/45/74/45% Lactate 2.37 at 0400; next one at 0800 Inpatient Medications: Scheduled Meds: ??? chlorhexidine 15 mL Oral BID ??? sodium chloride 0.9 % 5 mL Intravenous Q12H ??? acetaminophen 1,000 mg Oral Q8H CHRIS Or ??? acetaminophen 1,000 mg Oral Q8H CHRIS Or ??? acetaminophen 975 mg Rectal Q8H CHRIS ??? doxycycline 100 mg Intravenous Q12H ??? white petrolatum-mineral oil Both Eyes BID ??? methylPREDNISolone 40 mg Intravenous Q6H ??? famotidine 20 mg Oral BID ??? heparin (Porcine) 7,500 Units Subcutaneous Q8H CHRIS ??? ceFEPime 2 g Intravenous Q8H ??? vancomycin 1,750 mg Intravenous Q8H ??? Vancomycin Level - MAR Order Reminder NOT APPLICABLE Once ??? insulin lispro 1-4 Units Subcutaneous Q4H CHRIS ??? oxymetazoline 2 spray Each Nare Once Continuous Infusions: ??? albuterol solution 100 mg/60 mL for CONTINUOUS nebulization 10 mg/hr (08/11/18 0446) ??? PHENYLephrine in NS (PF) 0 mcg/min (08/10/181957) ??? midazolam in normal saline 5 mg/hr (08/11/18 0230) ??? NORepinephrine Stopped (08/11/18 0635) ??? fentaNYL 200 mcg/hr (08/11/18 0011) ??? vasopressin (VASOSTRICT) infusion (septic shock) PRN Meds: sodium chloride 0.9 %, lidocaine, midazolam in normal saline AND midazolam, Assess AND [COMPLETED] fentaNYL AND fentaNYL AND fentaNYL, dextrose 50% OR glucagon (human recombinant), potassium chloride Physical Exam Vitals: Last value Range last 24 hrs Temperature Temp: 36.8 ??C (98.2 ??F) Temp: [34.4 ??C (93.9 ??F)-37.9 ??C (100.2 ??F)] Heart Rate Heart Rate: (!) 124 Heart Rate: [69-128] Blood Pressure BP: (!) 85/40(team aware) BP: (75-102)/(40-64) Respiratory Rate Resp: 10 Resp: [9-19] SpO2 SpO2: 96 % SpO2: [90 %-100 %] GEN: RASS -2 HEENT/neck: right IJ in place Lungs: coarse rhonchi throughout with scattered inspiratory and expiratory wheezing; prolonged expiratory phase at least 2X inspiratory Heart: tachycardic, regular rhythm, no MGR appreciable through rhonchi Abdomen: hypoactive BS Extremities: wwp, no edema, clubbing or cyanosis Skin: no rashes Neuro: awakes to voice, nods appropriately to questioning, moving all extremities spontaneously. Ins/Outs: Intake/Output Summary (Last 24 hours) at 08/11/2018 0650 Last data filed at 08/11/2018 0600 Gross per 24 hour Intake 6687.1 ml Output 1485 ml Net 5202.1 ml Ventilator Settings Mode PEEP PS RR TV FIO2 MV PS/CPAP 8 10 10 700 45% Lines: ETT 08/10 NG/OGT 08/10 Central lines Arterial line 08/10 Herr 08/10 Pertinent Labs in Last 24 Hours and Micro CBC: Recent Labs 08/11/18 0200 08/10/18 0850 WBC 20.7* 16.1* HGB 11.3* 12.2* PLATELET 409* 307 Chemistry: Recent Labs 08/11/18 0200 08/10/18 2048 08/10/18 1605 08/10/18 0850 NA 145 -- 144 142 K 3.3* 3.7 2.9* 4.4 CL 107 -- 104 106 CO2 24 -- 16* 28 BUN 10 -- 11 7* CREATININE 1.06 -- 1.39 0.95 GLUCOSE 192 -- 309* -- Recent Labs 08/11/18 0200 08/10/18 1605 08/10/18 0850 CALCIUM 7.9* 7.7* 8.0* MAGNESIUM -- -- 0.98 PHOS -- 5.0* -- LFT's: Recent Labs 08/11/18 0200 08/10/18 0850 BILITOT 0.2 0.6 ALBUMIN 3.4 3.7 ALKPHOS 58 64 ALT 65* 80* AST 16 29 Coags: No results for input(s): PT, INR, PTT, FIBRINOGEN, DDIMER in the last 168 hours. Invalid input(s): THROMBIN TIME Cardiac enzymes: Recent Labs 08/10/18 0850 TROPONINT <0.01 CK 348* 348* Radiology/Studies in Last 24 Hours CXR 08/11 IMPRESSION ?? Status post removal of ET tube and NG tube with low lung volumes and bilateral pulmonary opacity as above. Assessment: In summary, this is a 33 y.o. male with no major past medical history or history of asthma admittedfor acute hypoxic and hypercarbic respiratory failure in the setting of severe asthma attack and URI symptoms for past 2-3 weeks. Hospital course initially complicated by vent desynchrony requiring paralyzation with cisatracurium- requiring sedation to RASS -5 that contributed to hypotension that required pressor support with norepinephrine. Additional complications of profound respiratory and metabolic acidosis that required sodium acetate drip at 150ml.hr. Overnight patients ABG's improved, paralyzation was turned off, and patient is now awake and responding appropriately and passed an SBT on round. He will be extubated to hi-flow nasal cannula and will remain on continuous albuterol for now that roseann be titrated off over the course of the day. Plan: Neurologic -off sedation/paralaysis -CAM ICU negative Cardiac #hypotension-resolved - likely sedative induced as well as increased thoracic pressure - pressors weaned off over night - normotensive this AM #tachycardia -likely albuterol induced, currently titrating down continuous to scheduled by end of day -on telemetry Respiratory #severe asthma #community acquired pneumonia -extubated on rounds to [facility] without complication -titrating continuous nebulizers off to scheduled; 10mg/hr-->7.5mg/hr-->5mg/hr to q2hr scheduled, then q4hr scheduled with PRN's. -continue IV methylprednisolone 60mg today; transition to oral prednisone for prolonged taper -viral PCR negative - d/c vancomycin and cefepime - continue doxycycline BID and start ceftriaxone 2g/24hr (2g pharmacy recs) - lives in [facility], would like to see a food technology teacher on discharge, either there or [place] [facility] [place] #pneumomediastinum -barium swallow 08/12 to evaluate esophagus - thoracic surgery following Infectious #vanc trough elevated -trough at 40.2 this AM -d/c'ed -rest as above in respiratory Metabolic #hyperglycemia -likely steroid induced -will continue to monitor Renal/Electrolytes #metabolic acidosis #hypokalemia -likely in setting of continuous albuterol -d/c herr GI/Nutrition -bedside swallow with nursing - will start on liquid diet to start MICU Polymer Chemist Checklist Diet: NPO diet (Give Meds) Physical Therapy: consulted Occupational Therapy: consulted Nutrition: Will start diet after bedside swallow DVT PPX: 7500 units Heparin TID GI PPX: dc famotidine Code status: Full Code Dispo: ICU; likely to hospital medicine on Sunday Summary of Major Changes in Plan Extubated on rounds, tapering off continuous albuterol to scheduled, de- escalating antibiotics fromvanc/cefepime/doxy to ceftriaxone/doxycycline. No CT chest today, will have barium swallow tomorrowto evaluate esophagus. Jory Christian M.D. ICU BLUE TEAM Pager [phone] Associated attestation - Rachel Eugene MD - 08/11/2018 1:28 PM EDT I have seen the patient and reviewed the resident's above history and I agree with the details as written. The assessment and plan were formulated in discussion with me and I agree with them as documented. * Susannah Blair RN - 08/11/2018 5:19 AM EDT I fully performed an complete nursing assessment on this patient at 1999 on 08/10, and agree with the assessment charted at 1999 on 08/10/18. * Jo Meyer CONFERENCE SERVICES DIRECTOR - 08/11/2018 2:08 AM EDT AMV Protocol: Yes SBT Protocol: Yes SBT: Not performed. Patient on continuous albuterol. Vent Settings: Servo I Ventilator Mode: PS/CPAP PEEP Set: 8 FiO2: (S) 50 % PSV: (S) 12 Ventilator Measurements: Resp: 14 Vt Spontaneous: Ve: 9.3 SpO2: 96 % EtCO2: 53 mmHg Airway: 7.5 @ 23 cm at the Teeth. Skin Integrity: WDL Nebulized Medications: Albuterol Breath Sounds: expiratory wheezes Secretions: scant Assessment / Events / Plan of the Day: Patient had bedside bronchoscopy performed. Transitioned to PSV afterwards. PEEP increased from 0 to 8. Patient is tolerating PSV well. JO MEYER RRT * Rachel Eugene MD - 08/10/2018 5:48 PM EDT Critical Care Attending Note Author RACHEL EUGENE MD This patient was seen and examined on critical care rounds. Active Problems: Acute hypercarbic resp failure Acute resp and metabolic acidosis Pneumomediastinum Physical Exam Last value Range last 24 hrs Temperature Temp: 35.9 ??C (96.6 ??F) Temp: [34.4 ??C (93.9 ??F)-35.9 ??C (96.6 ??F)] Heart Rate Heart Rate: (!) 105 Heart Rate: [69-105] Blood Pressure BP: (!) 85/40(team aware) BP: (75-102)/(40-64) Respiratory Rate Resp: 12 Resp: [12-19] SpO2 SpO2: 93 % SpO2: [90 %-100 %] Admit Weight 137.9 kg Body mass index is 42.56 kg/m??. General: Obese man on vent HEENT: +ETT Respiratory: Prolonged exhalation bilat Cardiac: S1 S2 Abdominal: obese Extremities: No edema No mottling Neuro: RASS -5 and now on NMBA +pupils bilat; Intake/Output Summary (Last 24 hours) at 08/10/2018 1748 Last data filed at 08/10/2018 1729 Gross per 24 hour Intake 2608 ml Output 560 ml Net 2048 ml Infusions: Norepi Versed Fentanyl Respiratory Support: VC 600 12 0 PEEP 40% Laboratory/Imaging/Diagnostics (these have been reviewed by me): CT scan of chest-scattered GGO and small ptx and medistinal air 24 hour events: Intubated and transferred here Assessment, Management, and Decision Makin33 year old with acute bronchospastic asthma exacerbation (no prior asthma history) secondary to viral syndrome Lactic acidosis-suspected PIS (was on 100/mcg/kg when transferred here) Volume depletion-s/p IVF resus and now PPV = 7 and IVC not collapsible on echo Suspected septic shock on pressors and antibiotics though I think his hypotension is largely secondary to autopeep and volume depletion and sedation Propofol d/c'd and versed started Fentanyl increased Continue albuterol IV solumedrol ICU housekeeping - Analgosedation: - Wake up and wean and mobilize: - Thromboprophylaxis: - Vent Bundle: - Ulcer ppx: - Feeding: - Glycemic control: - Bowel regimen : - Indwelling cath/lines - De-escalate abx : - Skin: - PT: -Goals of Care: I certify that the patient requires inpatient care status as outlined in CMS Guidelines and based on current medical issues, as outlined above. Is this patient critically ill? Is there a high potential of sudden, clinically significant, or life threatening deterioration? Yes Is there a need for direct personal assessment and management to treat/prevent multiple vital organfailure/deterioration? Yes The Critical Care Team is managing these illnesses: Acidosis Respiratory Metabolic Lactic Respiratory Failure Acute with hypercapnia I personally performed 145 minutes of aggregate critical care time exclusive of procedures and teaching. This includes time spent during direct patient evaluation and reassessment, interpreting diagnostic tests, directing life and/or organ supporting interventions and documentation on the unit. Rachel Eugene MD * Edith Machado RCP - 08/10/2018 4:40 PM EDT AMV Protocol: Yes SBT Protocol: Yes Vent Settings: Servo I Ventilator Mode: SIMV Vol + PS Tidal Volume Set: (S) 550 Resp Rate Set: 12 PEEP Set: 0 FiO2: 50 % PSV: 10 Ventilator Measurements: Resp: 19 Vt Exhaled: 400 PIP: 13 Vt Spontaneous: MAP: 1.4 Plateau Press: Ve: 8.2 PEEP: SpO2: 97 % EtCO2: 51 mmHg Airway: 7.5 @ 23 cm at the Teeth. Skin Integrity: WDL Nebulized Medications: Albuterol Breath Sounds: expiratory wheezes Secretions: small amount of thick yellow secretions. Assessment / Events / Plan of the Day: Pt received from the outside hospital intubated on SIMV 420/20/5/60% fiO2. Setting changed to 450/12/0/50% fiO2. ABG Settings changed to SIMV 550/12/0/50%. Continuous Albuterol neb running at 10 mcg/hr. Vent settings SIMV 600 (8cc/per/kg/IBW) 10/0/40% FiO2. ABG 7.05/54/82/14.9. RR increased to 12. Continue to wean as tolerated. EDITH MACHADO RCP documented in this encounter H&P Notes * River Garcia, DO - 08/12/2018 2:00 PM EDT Inpatient Hospital Medicine - Admission Note Problem List: Active Hospital Problems Diagnosis ??? Asthma Resolved Hospital Problems No resolved problems to display. 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 male with PMH of HTN who was [facility] with acute hypoxic/hypercarbic respiratory failure presumed to be status asthmaticus. Patient does not have a diagnosis asthma prior to this event. Patient reports having URI sxs for the past 2-3 weeks IMMIGRATION PARALEGAL inlcuding Cough, sputum production, dyspnea. He reports his sxs progressed and he was prescribed albuterol inhaler and azithromycin by his PCP for presumed bronchitis. On the day of his fifth dose, patient became extremely dyspneic and presented to the ED at outside hospital. He was found to be hypoxic 86% and appeared cyanotic and was subsequently intubated. Chest x-ray and CT scan of the chest showed pne umomediastinum. He was subsequently transferred to [facility] ICU for further care. He required brief period of paralysis due to dyssynchrony with mechanical ventilation and large amount of sedation. This led to hypotension requiring pressor support. Patient's vasopressors and sedation were weaned off yesterday morning and he was subsequently extubated. He was also on continuous albuterol nebulizer which was titrated off on the evening of 08/11/2018. He has been on room air since then and tolerating albuterol nebulizers every 4 hours. Patient has remained stable on room air since yesterday and is appropriate for transfer to medical floor. Patient was seen and examined. He appears comfortable sitting in chair. He still having intermittent cough with sputum production. Denies any dyspnea, chest pain, N/V, F/C, abd pain, lightheadedness,dysuria, hematuria, LE swelling. Review of Systems: Review of Systems Constitutional: Negative for chills, fatigue and fever. HENT: Positive for sore throat and voice change (hoarseness). Negative for congestion. Eyes: Negative for visual disturbance. Respiratory: Positive for cough and wheezing. Negative for choking and shortness of breath. Cardiovascular: Negative for chest pain, palpitations and leg swelling. Gastrointestinal: Negative for abdominal pain, diarrhea, nausea and vomiting. Genitourinary: Negative for dysuria, frequency and hematuria. Musculoskeletal: Negative for arthralgias, gait problem and joint swelling. Skin: Negative for color change. Neurological: Negative for dizziness, speech difficulty, light-headedness and headaches. Psychiatric/Behavioral: Negative for agitation and confusion. Past Medical and Surgical History: Past Medical History: Diagnosis Date ??? HTN (hypertension) History reviewed. No pertinent surgical history. Prior To Admission Medications: Medications Prior to Admission Medication Sig Dispense Refill Last Dose ??? terbinafine (LAMISIL) 250 mg tablet 250MG, PO, Once daily Allergies: No Known Allergies Family History: Family History Problem Relation Age of Onset ??? Asthma Son Social History and Habits: Social History Socioeconomic History ??? Marital status: Single Spouse name: Not on file ??? Number of children: Not on file ??? Years of education: Not on file ??? Highest education level: Not on file Social Needs ??? Financial resource strain: Not on file ??? Food insecurity - worry: Not on file ??? Food insecurity - inability: Not on file ??? Transportation needs - medical: Not on file ??? Transportation needs - non-medical: Not on file Occupational History ??? Not on file Tobacco Use ??? Smoking status: Never Smoker Substance and Sexual Activity ??? Alcohol use: No Frequency: Never ??? Drug use: Not on file ??? Sexual activity: Not on file Other Topics Concern ??? Not on file Social History Narrative [place]. 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 Physical Exam: Last Set of Vitals and range of vitals over past 24 hours: Last value Range last 24 hrs Temperature Temp: 36.8 ??C (98.2 ??F) Temp: [36.8 ??C (98.2 ??F)-37.5 ??C (99.5 ??F)] Heart Rate Heart Rate: (!) 103 Heart Rate: [85-128] Blood Pressure BP: (!) 159/117 BP: (127-167)/(72-117) Respiratory Rate Resp: 22 Resp: [16-28] SpO2 SpO2: 95 % SpO2: [93 %-97 %] Body mass index is 42.56 kg/m??. Physical Exam Constitutional: He is oriented to person, place, and time. He appears well- developed and well-nourished. No distress. HENT: Head: Normocephalic and atraumatic. Mouth/Throat: Oropharynx is clear and moist. No oropharyngeal exudate. Eyes: EOM are normal. Pupils are equal, round, and reactive to light. No scleral icterus. Neck: Neck supple. No JVD present. Slight crepitus Cardiovascular: Normal rate, regular rhythm and normal heart sounds. Exam reveals no friction rub. No murmur heard. Pulmonary/Chest: Effort normal. No respiratory distress. He has wheezes (diffuse insp and exp wheezing). He has no rales. Abdominal: Soft. Bowel sounds are normal. He exhibits no distension. There is no tenderness. There is no guarding. Musculoskeletal: Normal range of motion. He exhibits no edema or tenderness. Lymphadenopathy: He has no cervical adenopathy. Neurological: He is alert and oriented to person, place, and time. No cranial nerve deficit. Coordination normal. Skin: Skin is warm and dry. Capillary refill takes less than 2 seconds. Psychiatric: He has a normal mood and affect. Laboratory (Last 24 Hours): Recent Results (from the past 24 hour(s)) POCT Glucose Result Value Ref Range POC Glucose 125 65 - 199 mg/dL POCT Glucose Result Value Ref Range POC Glucose 127 65 - 199 mg/dL POCT Glucose Result Value Ref Range POC Glucose 129 65 - 199 mg/dL Comprehensive metabolic panel (non-fasting) Result Value Ref Range Glucose Lvl 128 65 - 199 mg/dL BUN 17 10 - 20 mg/dL Creatinine 0.75 (L) 0.80 - 1.50 mg/dL Sodium 148 (H) 135 - 145 mmol/L Potassium 4.5 3.5 - 5.0 mmol/L Chloride 109 (H) 98 - 107 mmol/L CO2 26 22 - 31 mmol/L Anion Gap 13 5 - 15 mmol/L Calcium 8.2 (L) 8.5 - 10.5 mg/dL Total Protein 5.9 (L) 6.1 - 8.0 gm/dL Albumin 3.3 3.2 - 5.2 gm/dL AST 23 0 - 39 unit/L ALT 57 (H) 0 - 55 unit/L Alk Phos 54 40 - 120 unit/L Total Bilirubin 0.3 0.2 - 1.3 mg/dL eGFR 122 >=60 mL/min/1.73 m?? eGFR 142 >=60 mL/min/1.73 m?? Hemogram Result Value Ref Range WBC 17.2 (H) 4.0 - 9.5 x10(3)/mcL RBC 3.80 (L) 4.58 - 5.54 x10(6)/mcL Hemoglobin 10.8 (L) 13.7 - 16.5 gm/dL Hematocrit 32.1 (L) 40.5 - 48.5 % MCV 84.5 82.9 - 93.1 fL MCH 28.4 27.5 - 32.1 pg MCHC 33.6 32.0 - 35.7 gm/dL Platelets 254 145 - 357 x10(3)/mcL RDWSD 45.0 36.0 - 45.0 fL RDWCV 14.6 (H) 11.4 - 13.8 % MPV 10.7 7.6 - 12.9 fL nRBC % Auto 0.0 % nRBC Abs Auto 0.000 0.000 - 0.000 x10(3)/mcL Differential, Automated Result Value Ref Range Neutrophils % 89.8 % Neutr Abs (ANC) 15.50 (H) 1.70 - 6.10 x10(3)/mcL Lymphocytes % 5.7 % Lymphocytes Abs 1.0 0.9 - 3.2 x10(3)/mcL Monocytes % 3.5 % Monocyte Abs 0.6 0.3 - 0.9 x10(3)/mcL Eosinophils % 0.0 % Eosinophils Abs 0.0 0.0 - 0.4 x10(3)/mcL Basophils % 0.2 % Basophils Abs 0.0 0.0 - 0.1 x10(3)/mcL Immature Gran % 0.80 % Zeina Gran Abs 0.14 (H) 0.00 - 0.04 x10(3)/mcL Scan, Peripheral Blood Result Value Ref Range Plat Estimate Normal RBC Morphology Normal RBC Agglutination Present POCT Glucose Result Value Ref Range POC Glucose 133 65 - 199 mg/dL POCT Glucose Result Value Ref Range POC Glucose 134 65 - 199 mg/dL POCT Glucose Result Value Ref Range POC Glucose 125 65 - 199 mg/dL Microbiology: Microbiology Results (Last 30 days) Procedure Component Value Units Date/Time Urine culture [[id number]] Collected: 08/10/18 1542 Lab Status: Final result Specimen: Indwelling Catheter Urine Updated: 08/11/18 1443 Urine Culture No growth (Less than 1,000 cfu/ml). Blood culture [[id number]] Collected: 08/10/18 1001 Lab Status: Preliminary result Specimen: Blood Updated: 08/11/18 1501 Blood Culture No growth at 1 day. Respiratory Panel PCR [[id number]] Collected: 08/10/18 0848 Lab Status: Final result Specimen: Nasopharyngeal Swab Updated: 08/10/18 1058 Resp Panel Source METALS ANALYST Swab Resp Panel PCR Negative Comment: Respiratory Panels are performed on the [employer], using multiplexed PCR nucleic acid detection. Negative results do not preclude respiratory infection and should not be used as the sole basis for diagnosis, treatment or other management decisions. Adenovirus Not Detected Coronavirus HKU1 Not Detected Coronavirus NL63 Not Detected Coronavirus 229E Not Detected Coronavirus OC43 Not Detected Human Metapneumovirus Not Detected Human Rhino/Enterovirus Not Detected Influenza A Not Detected Influenza B Not Detected Parainfluenza 1 Not Detected Parainfluenza 2 Not Detected Parainfluenza 3 Not Detected Parainfluenza 4 Not Detected Respiratory Syncytial Virus Not Detected Bordetella pertussis Not Detected Chlamydophila pneumoniae Not Detected Mycoplasma pneumoniae Not Detected Lower Respiratory Culture Tracheal Aspirate [[id number]] Collected: 08/10/18 0844 Lab Status: Final result Specimen: Tracheal Aspirate Updated: 08/12/1849 Lower Respiratory Culture Rare mixed bacterial morphotypes suggestive of normal upper respiratory luan Gram Stain -- Moderate Neutrophils seen No squamous epithelial cells seen Few mixed bacterial morphotypes suggestive of normal upper respiratory luan Radiology: Xr Abdomen 1 View (generic) Result Date: 08/10/2018 EXAMINATION: XR ABDOMEN 1 VIEW (GENERIC) CLINICAL HISTORY: OG tube placement TECHNIQUE: A single APview of the abdomen was obtained. COMPARISON: None FINDINGS: ETT is midtrachea . Esophageal temperature probe in the upper esophagus. Enteric tube tip Left upper abdomen. Lung bases limited but visual ized portion,clear. Limited radiograph for OG tube placement enteric tip below the left hemidiaphragm. Xr Fluoro Barium Swallow Result Date: 08/12/2018 EXAMINATION: XR FLUORO BARIUM SWALLOW CLINICAL HISTORY: pneumomediastinum in setting of severe asthma requiring intubation TECHNIQUE: A semiupright inspector grain mill products radiograph of the chest was obtained. A single contrast swallow was performed with Omnipaque in the supine (30 degree upright) and QUAN prone positions. This was followed by single contrast swallow of thin barium in the supine (30 degree upright)and QUAN prone positions. A postcontrast semiupright radiograph of the chest was also obtained. Fluoro time: 0.15 minutes COMPARISON: Chest radiograph 08/11/2018. Chest CT 08/10/2018. 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 No pneumothorax or pleural effusions. Normal cardiomediastinal silhouette and bilateral marilia. There is a small amount of subcutaneous emphysema within the right lateral neck, consistent with history of known pneumomediastinum. Nonobstructive bowel gas pattern within the visualized upper abdomen. Swallow study: The esophagus is normal in course and caliber, and is well distended on single contrast views with both Omnipaque and barium. Very small hiatal hernia. Esophageal peristalsis is normal. There is a small amount of residual contrast in the esophagus with the patient in supine position which clears with prompted dry swallow. No evidence of leak. Postcontrast radiograph of the chest: There is oral contrast opacificationof the stomach fundus. No evidence of leak. 1. No evidence of esophageal leak. 2. Subcutaneous emphysema in the right lateral neck, consistent with history of known pneumomediastinum. 3. Very small hiatal hernia. I have personally reviewed theimage(s) and the residents interpretation and agree with the findings, Whitney Willams at 08/12/2018 12:35 PM Request For 2nd Read Ct Chest Result Date: 08/10/2018 EXAMINATION: REQUEST FOR 2ND READ CT CHEST CLINICAL HISTORY: PE? lung parenchymal disease? Young male with acute hypoxemic resp failure; What Modality is the exam? CT Scan; Body Part (please add comments as necessary): Chest with PE protocol; I believe a reinterpretation of this exam may alter careof Patient. Yes TECHNIQUE: This is a reinterpretation of an outside CTA of the chest originally obtained at [facility]. MIPs were reviewed. COMPARISON: None FINDINGS: Pulmonary arteries: The main pulmonary artery is normal in caliber. No filling defects seen in the pulmonary arteries. No septal bowing or reflux of contrast to suggest right heart strain. Other cardiovascular structures: The heart is normal in size. No pericardial effusion. The thoracic aorta is normalin caliber. Motion artifact limits evaluation of the [...] retrograde. There is pneumomediastinum with air extending craniadsurrounding the trachea and esophagus to the level of the visualized thyroid. Air can be also seen extending to surround the left bronchi and the heart. Upper abdomen: No significant findings. Skeletal structures: No significant findings. 1. No pulmonary embolism identified. 2. There are nodular opacities seen in the right lower lobe concerning for a nonspecific infectious or inflammatory process. 3. There is some mild thickening of the distal airways which could be from an inflammatory or infectious bronchitis. 4. There is pneumomediastinum. 5. The enteric tube is positioned with the tip directed retrograde in the esophagus. Recommend repositioning. Film Library- Storage Only Ct Chest Result Date: 08/10/2018 This exam is for storage only and is auto-finalizing. Film Library- Storage Only Dx Chest Result Date: 08/10/2018 This exam is for storage only and is auto-finalizing. Film Library- Storage Only Dx Chest Result Date: 08/10/2018 This exam is for storage only and is auto-finalizing. Xr Chest Pa Or Ap 1 View Result Date: 08/11/2018 EXAMINATION: XR CHEST PA OR AP 1 VIEW CLINICAL HISTORY: severe asthma, suspected pneumonia with increased secretions; now extubated TECHNIQUE: AP portable chest COMPARISON: 08/10/2018. FINDINGS: Since the previous study of 08/10/2018, the patient is been extubated and the NG tube removed. A right IJ catheter remains in the SVC. Lung volumes are low. The heart is normal in size. There is patchy bilateral perihilar opacity and vascular marginal blurring. This pattern is very nonspecific and couldrepresent anything from infection to aspiration to pulmonary edema /fluid overload. No pleural effusion or pneumothorax. The mediastinal air seen yesterday is no longer visible although subcutaneous e mphysema is still visible in the right lower neck. Status post removal of ET tube and NG tube with low lung volumes and bilateral pulmonary opacity asabove. Xr Chest Pa Or Ap 1 View Result Date: 08/10/2018 EXAMINATION: XR CHEST PA OR AP 1 VIEW CLINICAL HISTORY: S/P Central line placement. Please assess TECHNIQUE: AP 30 degree upright portable chest x-ray COMPARISON: 08/10/2018. FINDINGS: Since the previous study, a right IJ catheter is been placed with the tip in the proximal to mid SVC. No change inposition of the ET tube or NG tube. There is an esophageal probe present. The cardiomediastinal silhouette is normal in size. There is a small amount of pneumomediastinum seen along the left heart border. The lungs are clear. No pleural effusion or pneumothorax. 1. Status post right IJ central line with tip in proximal SVC. No evidence of pneumothorax. 2. Small amount of pneumomediastinum. This was previously reported on the chest CT from earlier in the day. Xr Chest Pa Or Ap 1 View Result Date: 08/10/2018 EXAMINATION: XR CHEST PA OR AP 1 VIEW CLINICAL HISTORY: Likely acute asthma exacerbation. Had ? of pneumothorax. Also track pneumomediastinum TECHNIQUE: AP semiupright 35 degrees chest radiograph COMPARISON: CT chest 08/10/2018, 08/10/2018 radiograph FINDINGS: ET tube, appropriately positioned. She'll temp probe upper esophagus and enteric tube tip below the diaphragm. No pneumothorax or large the mediastinum. Small amount of air tracks within the right neck. Small amount of pneumopericardium is present. Prior nodular opacities on CT not well seen.. No focal opacity identified. Peribronchial peribronchial thickening consistent with patient's known asthma No pneumothorax or large amount of pneumomediastinum. Small pneumopericardium. Peribronchial thickening may suggest bronchitis or asthma. No mediastinal shift. I have personally reviewed the image(s)and the residents interpretation and agree with the findings, Rachele Rodriguez MD at 08/10/2018 10:58 AM Other Studies: Assessment/Plan: Active Hospital Problems Diagnosis ??? Asthma Resolved Hospital Problems No resolved problems to display. Efraín Sharma is a 33 y.o. male with PMH of HTN who was [place] [facility] with acute hypoxic/hypercarbic respiratory failure presumed to be status asthmaticus Plan: #Acute hypoxic hypercarbic respiratory failure #Presumed status asthmaticus #Pneumomediastinum -no known h/o asthma diagnosis -s/p mechanical vent extubated on 08/11/2018 -s/p paralysis -currently stable on room air -cultures NGTD -viral panel negative -continue with scheduled albuterol nebs q4 hours, will wean elizabeth if tolerating -Prednisone 50mg QD, taper over 5-7 days -c/w CTX and doxy for now -Pulmonary and Thoracic surgery following, appreciate recs -Grastrograffin swallow study neg for esophageal leaks -advanced to clear liq diet today, plan for soft diet for 2 weeks starting tomorrow -repeat CT scan in 4-6 weeks, follow up with pulm for PFTs and possible repeat bronch -will need ICS on discharge #HTN -c/w home dose lisinopril 40mg QD #abnormal UA -elevated RBC and WBC on admission, culture negative -unclear significance as the patient had herr at that time -will need to repeat outpatient in 2-4 weeks to evaluate for hematuria ?? Admit to medical floor ?? If currently a smoker - advised about smoking cessation and will provide smoking cessation material and support. ?? Pneumovax and Influenza Immunizations given as needed. ?? IV access: PIV ?? DVT PPX: levonox ?? PT/OT required: yes ?? Diet: clear liq Full Code A copy of this document will be sent to the patient's Primary Care Physician and/or Referring Physician. River Garcia DO Internal Medicine 08/12/2018 2:00 PM * Bronson Montenegro X - 08/10/2018 6:45 AM EDT Critical Care HISTORY & PHYSICAL EXAM Date of Admission: 08/10/2018 ( Hospital Day 0 days ) Responsible Attending: Rachel Eugene MD PCP: Raghav Rojo MD PCP#: [phone] CC: SOB, Hypoxia Patient Active Problem List Diagnosis Code ??? 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 Asthma J45.909 History of Present Illness: Efraín Sharma is a 33 y.o. male with no significant PMHx and no history of asthma who presented to [facility] last night with acute onset hypoxia and found to have likely an asthma exacerbation. Patient's parents report that he had been feeling ill for the past 2-3 weeks with a possible stomach bug with concurrent upper respiratory symptoms including SOB and dyspnea and sputum production. He had previously received Azithromycin, Prednisone and Albuterol Inhaler without significant improvement in symptoms. He was notably hypoxic to 86% and cyanotic upon presentation to OSH ED. He had mild improvement in SpO2 with non-rebreather, but rapidly became obtunded. Noted to be responsive to painful stimuli only. Breath sounds were reportedly ???tight?? . The patient was subsequently intubated, SpO2 improved to 98% with mechanical ventilation. CXR was read as normal at OSH, though CT showed nodular opacities suggestive of an infectious or inflammatory process and pneumomediastinum. WBC noted to be 22, troponin negative. He was treated with solumedrol 125mg x1, nebulized albuterol, and cefepime x1. Vital signs prior to transfer: HR 91, ET 57, BP 138/72, SpO2 98% Since transfer, due to vent dyssynchrony, he has been paralyzed and sedated with a combination of propofol, fentanyl and versed. He has been paralyzed with nimbex as well ROS: ?? GENERAL ?? HEENT ?? COR ?? PULM X All negative X All negative ??X All negative ?? All negative ?? Weight loss ?? Headache Chest Pain ?? Non-productive cough ?? Weight gain ?? Vision change ?? Palpitations X?? Productive cough ?? Fevers ?? Sinus congestion ?? Orthopnea ??X Wheezing ?? Chills ?? Hoarseness ?? Leg edema ?? Hemoptysis ?? Night sweats ?? Epistaxis ?? Paroxysmal nocturnal dyspnea ?? Pleuritic pain ?? Fatigue ? Syncope X?? SOB ? Claudication ??X BASURTO ? MSK ?? RENAL ?? ENDO ?? GI X All negative X All negative X All negative All negative ?? Arthralgias ?? Frequency ?? Heat intolerance ?? Blood in stool ?? Myalgias ?? Urgency ?? Cold intolerance ?? Dysphagia ?? Weakness ?? Hematuria ?? Polydipsia ?? Odynophagia ?? Stiffness ?? Flank pain ?? Polyphagia ?? Abdominal discomfort ? Dysuria ?? Cushingoid ?? Constipation ? Foamy urine ?X Diarrhea ? Discharge ? Nausea/Vomiting ? LYMPH ?? SKIN ?? NEURO ?? PSYCH X All negative X All negative X All negative X All negative ?? Swollen nodes ?? Rash ?? Seizures ?? Depressed affect ?? Tender nodes ?? Ulcers ?? Tremors ?? Occupational stress ?? Diffuse nodes ?? Bruising ?? Spasticity ?? Anxiety ?? Local nodes ?? Tanned skin ?? Focal weakness ?? Insomnia ?? Night sweats ?? Telangiectasias ?? Diplopia ? Paresthesias ? Dizziness ? Past Medical History: No diagnosed conditions No history of asthma in childhood Past Surgical History: No diagnosed conditions Medications: No current facility-administered medications on file prior to encounter. Current Outpatient Medications on File Prior to Encounter Medication Sig Dispense Refill ??? terbinafine (LAMISIL) 250 mg tablet 250MG, PO, Once daily Allergies: No Known Allergies Family History: Family History Problem Relation Age of Onset ??? Asthma Son Social History: Social History Socioeconomic History ??? Marital status: Single Spouse name: Not on file ??? Number of children: Not on file ??? Years of education: Not on file ??? Highest education level: Not on file Social Needs ??? Financial resource strain: Not on file ??? Food insecurity - worry: Not on file ??? Food insecurity - inability: Not on file ??? Transportation needs - medical: Not on file ??? Transportation needs - non-medical: Not on file Occupational History ??? Not on file Tobacco Use ??? Smoking status: Never Smoker Substance and Sexual Activity ??? Alcohol use: No Frequency: Never ??? Drug use: Not on file ??? Sexual activity: Not on file Other Topics Concern ??? Not on file Social History Narrative ??? Not on file Physical Exam: Vitals: Most Recent Vitals: 08/10/18 1800 BP: Pulse: (!) 111 Resp: 12 Temp: 36.4 ??C (97.5 ??F) SpO2: 94% General: Intubated and sedated HEENT: No oral lesions, ETT in place Neck: Supple, normal ROM, no JVD appreciated Heart: RRR, normal S1 and S2; no m/r/g apparent Lungs: Poor air movement, diffuse wheezing throughout all lung dillard Abdomen: Soft, BS+ NT, ND, no bruits, no rebound or guarding, no organomegaly Extremities: Full ROM; no cyanosis, edema, or clubbing; pulses 2+ bilaterally Neuro: Intubated and sedated, RASS -5 Skin: Warm, dry; no rashes or lesions Lines: ETT, Herr, OGT, RIJ, L A-line EKG: NSR, QTc of 493. No significant ST-T changes CT Chest: IMPRESSION 1. No pulmonary embolism identified. 2. [...] directed retrograde in the esophagus. Recommend repositioning. Assessment: Efraín Sharma is a 33 y.o. male with no significant PMHx and no history of asthma who presented to [facility] last night with acute onset hypoxia and found to have likely an asthma exacerbation. Interestingly, patient does not have history of atopy, allergies or asthma. However, he certainly is presenting as if he had an asthma exacerbation. Questions surround what could have trigger this event, including viral bronchitis and/or bacterial pneumonia. His viral PCR studies have been negative, though this does not fully exclude a viral etiology. It is interesting that his parents are both Veterinarians and he has hay exposure as well. Will cover for bacterial pneumonia given septic physiology. Patient is now sedated and paralyzed owing to vent dyssynchrony. Due to extreme requirements, this is likely the cause of his hypotension. However, due to pneumomediastinum, will consult thoracic surgery as its possible that esophageal perforation could have set off his course of events and could explain profound hypotension in the setting of intubation and PEEP. Finally, patient is being treated appropriately for an asthma exacerbation with continuous albuterol, solumedrol and broad-spectrum antibiotics. We are hopeful with bronchodilators, mechanical ventilation and steroids that patient will be able to be quickly weaned off the ventilator. Plan: Neuro: # Sedation # Paralyzation - Goal RASS of -5 - Fentanyl and Midazolam to achieve goal RASS - Nimbex to achieve vent synchrony Pulm: # Likely Asthma Exacerbation - Continuous albuterol nebulizers - Solumedrol 40mg Q6 - 2nd read of CT chest from OSH Cardiovascular: # Hypotension, likely sedation related - Norepi as needed to achieve MAP > 65 - Vasopressin as next agent - Consider formal TTE to rule out valvular or ischemic disease - S/P 3L NS - Sodium Acetate @ 150cc/hr # Pneumomediastinum - Consult to thoracic surgery in regards Renal: # Hypotension as above # Severe Metabolic Acidosis Likely related to lactic acidosis, albuterol administration and episode of hypotension - Sodium Acetate @ 150cc/hr Gastrointestinal: # Hypokalemia Likely due to albuterol administration - S/p oral and IV repletion - K repletion protocol Heme: - No primary issues ID: # ? Bacterial bronchitis/pneumonia - Vanc/Cefepime/Doxy - Viral PCR # Routine - DVT PPx: SQ heparin - GI PPx: Famotidine - Bowel meds: None - Code Status: FULL - DOPA: Adrianne Sharma ([phone]) Bronson Montenegro M.D. Internal Medicine, PGY-3 Critical Care Blue Team, #[id number] documented in this encounter Procedure Notes * Bronson Montenegro X - 08/11/2018 11:51 AM EDTProcedure(s): INSERT ARTERIAL LINE Pre-Procedure Diagnose(s): Hypotension, unspecified hypotension type Post-Procedure Diagnose(s): Hypotension, unspecified hypotension type Arterial Line Placement Procedure Note Indication for Procedure: Arterial line was placed for invasive blood pressure monitoring. Procedure Diagnosis: Hypotension Location of Procedure: Critical Care. Risks and Benefits: The risks and benefits of this procedure were reviewed and informed consent wasobtained. Time Out: Prior to the start of the procedure, the patient's identity, intended procedure, site/side, correct patient positioning and presence of the site mook was confirmed as applicable. The medical history and chart were reviewed to rule out potential contraindications to the planned procedure. Hand Hygiene: The manager data warehousing did perform hand hygiene prior to arterial line insertion. Procedure Prep: Sterile draping was applied. Procedure Details: A 20 gauge, 2 inch catheter was placed in the left radial artery and secured with steri-strips. Tegaderm was applied. Ultrasound was used for guidance.. There were 2 attempts. Findings: There were no procedure complications. Procedure Comments: None Associated attestation - Rachel Eugene MD - 08/11/2018 1:29 PM EDT I was the attending physician supervising the resident in the above care and I was not present for the luo components of the procedure. * Varun Campos MD - 08/10/2018 10:10 PM EDT ICU Bronchoscopy Procedure Note Bronchoscopist: Varun Campos MD Attending / Power System Engineer: Valorie SOOD Location: ICU [address] [place] [address] Indication: hypoxemia Procedure Diagnosis: Hypoxic respiratory failure Anesthesia: midazolam infusion Endotracheal Medications: none Procedure: A time out was performed confirming the patient???s identity and the procedure to be performed. Consent was obtained. A fiberoptic bronchoscope was inserted via the endotracheal tube and tube placement was confirmed at 2-5 cm above the main lyric. The airway was inspected in its entirety to the segmental level and anatomy and mucosa were normal with the following exceptions: none. There were secretions present. Secretions were thick, minimal, yellow, and present mainly in the RUL, PEPE. Secretions were removed by suction and were not sent for culture. Interventions: A Bronchoalveolar lavage was not performed. Sample: none Complications: None Bronchoscopy evaluation at the the request of thoracic surgery to evaluate for possible tracheal injury that could have caused pneumomediastinum. No evidence of obvious membranous damage in the trachea below the ETT, at the level of the lyric or in either the right of left mainstem. Secretions noted in the RUL and PEPE. Suctioned. No bleeding noted. Attempted upper airway/glottic view with scope.Difficulty with visualization due to soft tissue, but no obvious signs of injury or bleeding aroundETT, vocal cords. Dr. Mcginnis from general surgery present throughout the exam. Will proceed with CT with oral contrast to evaluate for esophageal injury when appropriate. Varun Campos MD Associated attestation - Rachel Eugene MD - 08/11/2018 10:43 AM EDT I was the attending physician supervising the resident in the above care and I was present with theresident for the entire procedure. * Bronson Montenegro - 08/10/2018 11:48 AM EDTProcedure(s): CENTRAL LINE Pre-Procedure Diagnose(s): Hypotension, unspecified hypotension type Post-Procedure Diagnose(s): Hypotension, unspecified hypotension type Central Line Placement Procedure Note Items highlighted in red are State Reported items for central line compliance documentation. Procedure Diagnosis: R IJ Risks and Benefits reviewed: yes. Informed Consent obtained: yes Reason for insertion: new central line Time out performed and documented: yes Hand Hygiene performed: Yes Skin prepped with: chlorhexidine Skin prep agent completely dry at time of first puncture: yes None, patient had IV sedation Sterile drape: large sterile drape used Mask/eye shield: mask/eye shield used Large sterile gown: large sterile gown used Sterile gloves: sterile gloves used Cap worn: cap worn Ultrasound guidance used for insertion: Yes Kit type used: An 18 Ga. X 2.5 inch needle was placed in vein after blood return identified. Guidedby a 0.035 inch diameter guide wire, a 9 Fr., 3 lumen Catheter 20 cm in length catheter was inserted using the Seldinger Technique. Catheter type: CVL Tunneled/Non Tunneled: non tunneled Insertion Site: jugular (internal) Insertion Side: right Number of attempts: 2 Insertion successful: Yes Catheter sutured at the skin at: Unknown cm . Sterile dressing: Chlorhexidine Tegaderm Findings: Patient tolerated procedure well. Complications: No Complications. Chest X-ray ordered: yes Patient location at time of insertion: ICU [address] [place] [address] Procedure Comments: None Bronson Montenegro MD documented in this encounter Miscellaneous Notes * Plan of Care - Carol Scott RN - 08/13/2018 11:29 AM EDT Problem: Patient Care Overview Goal: Plan of Care Review Outcome: Ongoing (Interventions Implemented as Appropriate) 08/13/18 1123 Coping/Psychosocial Plan Of Care Reviewed With patient Plan of Care Review Progress improving OUTCOME EVALUATION NOTE: OUTCOME SUMMARY: Pt AAOx4, calm, pleasant and cooperative. No c/o pain. BP elevated (baseline per Pt/notified MD), and VSS on RA. O2 sats maintained at 94-95% while ambulating. Able to shower w out issue. Does endorse BASURTO and HR up to 120s w ambulation, but Pt reports feeling good. Tolerating advanced diet. Maintains independence and able to make needs known. Hoping to be discharged home today. No acute/new events. WCTM and notify MD of any acute events. PLAN MOVING FORWARD: Monitor O2 requirement Nebs Ambulate D/C planning INDIVIDUALIZED FALL PREVENTION INTERVENTIONS: Patient-specific fall risk factors per assessment: [current deficits]: IV, O2 sat monitor Assistance [level of assistance required for transfers and ambulation]: independent Supervision [direct monitoring required during toileting and ADLs]: independent Surveillance [continuous indirect monitoring[facility] room near nurses station, purposeful rounding Patient-specific fall prevention interventions for sensory deficits provided, if applicable: na CPG GOAL OUTCOME EVALUATION: ongoing * Plan of Care - Radha Oliver RN - 08/13/2018 4:11 AM EDT Problem: Patient Care Overview Goal: Plan of Care Review Outcome: Ongoing (Interventions Implemented as Appropriate) 08/13/18 0409 Coping/Psychosocial Plan Of Care Reviewed With patient Plan of Care Review Progress improving OUTCOME EVALUATION NOTE: OUTCOME SUMMARY: Efraín is A&Ox4, pleasant and cooperative. VSS on RA. Denies pain. Nebs administered as ordered. Independent in room. No acute events. Able to make needs known. Will CTM. PLAN MOVING FORWARD: - Monitor resp status - D/C planning INDIVIDUALIZED FALL PREVENTION INTERVENTIONS: Patient-specific fall risk factors per assessment: [current deficits]: IV sites/pole, Masimo Assistance [level of assistance required for transfers and ambulation]: Independent Supervision [direct monitoring required during toileting and ADLs]: Independent Surveillance [continuous indirect monitoring]: Eyes-on, Masimo, purposeful rounding, room near nurses' station Patient-specific fall prevention interventions for sensory deficits provided, if applicable: [X] N/A CPG GOAL OUTCOME EVALUATION: * Plan of Care - Agustín Fink RN - 08/12/2018 6:27 PM EDT Problem: Patient Care Overview Goal: Plan of Care Review Outcome: Ongoing (Interventions Implemented as Appropriate) 08/12/18 0648 08/12/18 0800 Coping/Psychosocial Plan Of Care Reviewed With -- patient Plan of Care Review Progress improving -- OUTCOME EVALUATION NOTE: OUTCOME SUMMARY: Pt A&O. VSS. Passed barium barium swallow eval. Diet progressed to clears, tolerated well. Up to chair this afternoon. Transferred to hospital medicine. PLAN MOVING FORWARD: Transfer out of ICU Continue to monitor INDIVIDUALIZED FALL PREVENTION INTERVENTIONS: Patient-specific fall risk factors per assessment: [current deficits]: Monitoring tethers Assistance [level of assistance required for transfers and ambulation]: Stand-by assist Supervision [direct monitoring required during toileting and ADLs]: Minimal Surveillance [continuous indirect monitoring]: Alarms on, audible and appropriate Patient-specific fall prevention interventions for sensory deficits provided, if applicable: [X] N/A CPG GOAL OUTCOME EVALUATION: * Consult Note - LesterkaylanJamieid - 08/12/2018 2:34 PM EDT Images from the original note were not included. INITIAL PULMONOLOGY CONSULTATION NOTE SECTION OF PULMONARY/CRITICAL CARE MEDICINE Patient Name: Efraín Sharma : 1985 Medical Record: [id number] Date of Service: 08/12/2018 Hospital Day #: Hospital Day: 3 Location: [address] Requesting Provider: Mook Castro MD Reason for Consultation: Management of asthma exacerbation and pneumomediastinum History of present illness: Efraín Sharma is a 33 y.o. male with no significant PMHx and no history of asthma who was transferred from [facility] with acute onset hypercapnic respiratory distress, and found to have pneumomediastinum. Patient has had 2-3 weeks of cough and SOB with sputum production treated as an outpatient with azithromycin, prednisone, and albuterol inhaler with minimal relief. He presented to OSH with hypoxemiato 86% and appearing cyanotic, and he acutely became obtunded requiring intubation and ventilation.CXR and CT chest showed pneumomediastinum and otherwise no notable parenchymal infiltrates or othernotable pathology. WBC was 22 at presentation. He was started on systemic steroids, ceftriaxone, doxycycline, and duonebs. Due to disynchrony he needed a brief period of paralysis with his mechanical ventilation, but afterrapid improvement in his ABGs, he was taken off paralytics, woke up, and subsequently extubated after passing SBT (earlier today). He has improved with steroids and nebulizers after short course of intubation and mechanical ventilation, and has now been extubated and is being transferred from the ICU to the hospital medicine floor. He denies any Review of Systems: A 12 point ROS was negative aside from as listed in the HPI. Past Medical/Surgical History: Past Medical History: Diagnosis Date ??? HTN (hypertension) History reviewed. No pertinent surgical history. Allergies: No Known Allergies Family History: Family History Problem Relation Age of Onset ??? Asthma Son Social History: Social History Tobacco Use ??? Smoking status: Never Smoker Substance Use Topics ??? Alcohol use: No Frequency: Never Medications: Scheduled Meds: ??? albuterol 2.5 mg Nebulization Q4H CHRIS ??? predniSONE 50 mg Oral Daily ??? lisinopril 40 mg Oral Daily ??? enoxaparin 40 mg Subcutaneous Nightly ??? senna-docusate 2 tablet Oral BID ??? insulin lispro 1-4 Units Subcutaneous TID AC ??? cefTRIAXone 2 g Intravenous Q24H ??? sodium chloride 0.9 % 5 mL Intravenous Q12H ??? doxycycline 100 mg Intravenous Q12H ??? oxymetazoline 2 spray Each Nare Once Continuous Infusions: PRN Meds: ondansetron OR ondansetron, simethicone, albuterol, sodium chloride 0.9 %, lidocaine,dextrose 50% OR glucagon (human recombinant) Labs: Lab Results Component Value Date WBC 17.2 (H) 08/12/2018 RBC 3.80 (L) 08/12/2018 HGB 10.8 (L) 08/12/2018 HCT 32.1 (L) 08/12/2018 MCV 84.5 08/12/2018 MCH 28.4 08/12/2018 MCHC 33.6 08/12/2018 PLATELET 254 08/12/2018 RDWCV 14.6 (H) 08/12/2018 LFT's Lab Results Component Value Date Alk Phos 54 08/12/2018 AST 23 08/12/2018 Albumin 3.3 08/12/2018 Total Bilirubin 0.3 08/12/2018 ALT 57 (H) 08/12/2018 Total Protein 5.9 (L) 08/12/2018 LFT's Lab Results Component Value Date Alk Phos 54 08/12/2018 AST 23 08/12/2018 Albumin 3.3 08/12/2018 Total Bilirubin 0.3 08/12/2018 ALT 57 (H) 08/12/2018 Total Protein 5.9 (L) 08/12/2018 Coags No results found for: INR, PT, PTT Recent Labs 08/12/18 0345 GLUCOSE 128 ABG (Arterial Blood Gas) No results found for: PHART, PO2ART, [id number] Objective: Last value Range last 24 hrs Temperature Temp: 36.8 ??C (98.2 ??F) Temp: [36.8 ??C (98.2 ??F)-37.5 ??C (99.5 ??F)] Heart Rate Heart Rate: (!) 101 Heart Rate: [85-116] Blood Pressure BP: (!) 162/114 BP: (127-167)/(72-117) Respiratory Rate Resp: 23 Resp: [16-28] SpO2 SpO2: 98 % SpO2: [93 %-98 %] Admit Weight 137.9 kg General: This is a 33 y.o. male, NAD, sitting up in chair, voice is hoarse HEENT: Moist mucous membranes Neck: Supple Lymphatics: No obvious cervical lymphadenopathy Cardiovascular: Nl s1/s2, rrr, no murmurs, Respiratory: Mild diffuse wheezing on forced expiration, slightly more notable on R than L, no adventitious LS, GI: soft, nt, nd, +bs, Musculoskeletal: Normal bulk and tone Extremities: no LE edema noted, no clubbing Integument: No rash. Neurologic: Alert and oriented, moves all extremities appropriately, no obvious focal deficits Psychologic: Normal mood and affect. Microbiology: Blood culture [[id number]] Collected: 08/10/18 1001 Lab Status: Preliminary result Specimen: Blood Updated: 08/12/18 1501 Blood Culture No growth at 2 days. Respiratory Panel PCR [[id number]] Collected: 08/10/18 0848 Lab Status: Final result Specimen: Nasopharyngeal Swab Updated: 08/10/18 1058 Resp Panel Source METALS ANALYST Swab Resp Panel PCR Negative Comment: Respiratory Panels are performed on the [employer], using multiplexed PCR nucleic acid detection. ??Negative results do not preclude respiratory infection and should not be used as the sole basis for diagnosis, treatment or other management decisions. Adenovirus Not Detected Coronavirus HKU1 Not Detected Coronavirus NL63 Not Detected Coronavirus 229E Not Detected Coronavirus OC43 Not Detected Human Metapneumovirus Not Detected Human Rhino/Enterovirus Not Detected Influenza A Not Detected Influenza B Not Detected Parainfluenza 1 Not Detected Parainfluenza 2 Not Detected Parainfluenza 3 Not Detected Parainfluenza 4 Not Detected Respiratory Syncytial Virus Not Detected Bordetella pertussis Not Detected Chlamydophila pneumoniae Not Detected Mycoplasma pneumoniae Not Detected Lower Respiratory Culture Tracheal Aspirate [[id number]] Collected: 08/10/18 0844 Lab Status: Final result Specimen: Tracheal Aspirate Updated: 08/12/18 0949 Lower Respiratory Culture Rare mixed bacterial morphotypes suggestive of normal upper respiratory luan Gram Stain -- Moderate Neutrophils seen No squamous epithelial cells seen Few mixed bacterial morphotypes suggestive of normal upper respiratory luan Diagnostics: CT chest 08/10/18: 1. No pulmonary embolism identified. 2. There are nodular opacities seen in the right lower lobe concerning for a nonspecific infectious or inflammatory process. 3. There is some mild thickening of the distal airways which could be from an inflammatory or infectious bronchitis. 4. There is pneumomediastinum. 5. The enteric tube is positioned with the tip directed retrograde in the esophagus. Recommend repositioning. Assessment: Efraín Sharma is a 33 y.o. male with no significant PMHx and no history of asthma who was transferred from [facility] with acute onset hypercapnic respiratory distress, and found to have pneumomediastinum. He has improved with steroids and nebulizers after short course of intubation and mechanical ventilation, and has now been extubated and is being transferred from the ICU to the hospital medicine floor. The sequence and cause-effect relationship between findings is not entirely clear. Pneumomediastinum was noted on imaging after intubation, making the differential include not only spontaneous pneumomediastinum (perhaps from a prior bleb/cyst that burst) vs excessive coughing in the setting of possible asthma exacerbation leading to pneumothorax and pneumomediastinum (given the hypercapnia, although this is not supported by his reported lack of improvement with steroids and albuterol inhaler asan outpatient). It is unclear whether the pneumomediastinum lead to the respiratory distress (whichthen led to increased work of breathing leading to hypercapnia) or vice versa. For now, his improvement with treatment for asthma exacerbation warrants ongoing management with steroids and nebulizers. His hoarseness suggests ongoing pneumomediastinum, but his overall clinical course suggests this is a stable issue at this time regardless of the etiology. Recommendations: - Taper steroids over the next 5-7 days - Discharge on Inhaled steroid in addition to as-needed albuterol - Follow-up with pulm for repeat CT and PFTs in 4-6 weeks, - May need repeat Bronch as an outpatient to evaluate proximal trachea (as outpatient) Thank you for this consult, we will continue to follow along with you. Akil Bazzi MD, 08/12/2018, 4:09 PM Pager: [phone] Associated attestation - Eric Lock MD - 08/16/2018 10:44 AM EDT I have seen the patient and reviewed the resident's above history and I agree with the details as written.?The assessment and plan were formulated in discussion with me and I agree with them as documented. Eric Lock MD, [facility] Pulmonary [facility] Critical [facility] [id number] * Initial Assessments - Tanya Adam RN - 08/12/2018 8:20 AM EDT Office of Care Management Initial Assessment TANYA ADAM RN reviewed record and discussed patient with Care Team. Source of Information: Per chart review and per personal patient interview. Introduced self/reviewed role; services accepted. Reason for Hospitalization: Per H&P: significant PMHx and no history of asthma [facility] and found to have likely an asthma exacerbation. Bronson Montenegro MD Past Medical History: Diagnosis Date ??? HTN (hypertension) History reviewed. No pertinent surgical history. Hospitalizations Within the Past 30 Days: None at [facility] nor at outside hospitals. Anticipated Length Of Stay: Not yet determined. Pt currently in ICU North room 33. Admission Status: Patient admitted under Inpatient Status. Order cosigned by Dr. Rachel Eugene on 08/10/18 @ 15:14. Current Decision-Making Capacity: Alert, oriented, pleasant. Pt currently capable of making his ownhealthcare decisions. Advance Care Planning: Not on file in eD-H. Pt is not currently interested in completing [place] ADs. Ptis a Full Code Status. If AD's have not been completed, pt's mother Adrianne Sharma would be surrogate decision maker per [place] surrogate decision making law. Any patient receiving care at [facility] must abide by [place] law. The hierarchy for surrogate decision making is: (a) Patient???s spouse, or civil union partner or common law spouse unless there is a divorce proceeding, separation agreement, or restraining order limiting that person???s relationship with the patient. (b) Any adult son or daughter of the patient. (c) Either parent of the patient. (d) Any adult brother or sister of the patient. (e) Any adult grandchild of the patient. (f) Any grandparent of the patient. (g) Any adult aunt, uncle, niece, or nephew of the patient. (h) A close friend of the patient. (i) The agent with financial power of painter chassis or a conservator appointed in accordance with RSA 464-A. (j) The guardian of the patient???s estate. Current Coping/Education/Information Needs: Pt pleased with updates from his healthcare team members to date. Current Functional Ability: Pt on room air. No IV infusions currently in place. Pt smiling, lookingwell. Functional Status Prior to Admission: Independent prior to admission. 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 Home Environment: Pt lives with his girlfriend and children. Current physical address on demographics screen belongs to his father. I will send corrected address to Johnathan. Address Phone [address] [facility] [address] [address]ICAL ADDRESS [address] Social & Family Supports/Community Resources: Adrianne Sharma (Mother) [address] [facility] [address] (W) [phone] (M) Behavioral Health History: None per H&P. None per pt's report to me. Substance Use/Abuse: Tobacco Use: No EtOH: Pt verbalized No to me. Per H&P: occasional alcohol use. Illicit Drug Use: No Other Pertinent/Service Specific Information: None Health/Prescription Coverage: Primary Insurance: MEDICAID [place] Secondary Insurance: N/A Prescription Coverage: Yes Preferred Pharmacy: [id number] [address] Not a 24 hour pharmacy; exact hours not known (Soon to be [facility]) Other: Preferred Pharmacy added to pt's Demographics screen. Primary Care Provider: Raghav Rojo MD [phone] Above named PCP not correct. Pt sees Nataly Conklin APRN at [facility], . Patient/Caregiver Goals of Treatment: To return home and to work. Potential Needs for Transition of Care: Rehab/SNF: No prior experience with inpatient rehab centers. Home Health: No previous VNA services. DME: None needed; none at home. Dialysis: No Community Resources: None Transportation: One of my parents will take me home. Other: None Anticipated Barriers to Discharge/Special Considerations: No barriers noted at this time. Assessment: Anticipate pt's discharge home without services per today's assessment. Plan: A member of the Care Management team will continue to monitor progress, follow for continuity of care and assist with transition of care planning. TANYA ADAM RN Pager: [phone] * Consult Note - Leland Bruner MD - 08/12/2018 7:39 AM EDT Thoracic Surgery Inpatient Consult Note HPI: Efraín Sharma is a 33 y.o. male with no previous PMH who presented in transfer to [facility] with respiratory failure. Thoracic Surgery has been consulted for concern of pneumomediastinum. According to Efraín's parents, Efraín has had upper respiratory infectious symptoms for the last 3 weeks for which he has seen his PCP who was concerned for bronchitis and prescribed azithromycin, an albuterol inhaler and prednisone. His symptoms continued to worsen with an ongoing dry cough prompting him to be evaluated at [facility] ED this morning who intubated him, obtained a CT, and transferred to [facility]. PMH: - HTN PSH: - negative (per parents) MEDICATIONS: No current facility-administered medications on file prior to encounter. Current Outpatient Medications on File Prior to Encounter Medication Sig Dispense Refill ??? terbinafine (LAMISIL) 250 mg tablet 250MG, PO, Once daily ALLERGIES: No Known Allergies SOCIAL HISTORY: - denies smoking history - endorses drinking etOH occasionally - denies illicit drug use - lives at home with children and girlfriend - pets include a cat, pigs, turkey PHYSICAL EXAM: VS: (Temp: [36.5 ??C (97.7 ??F)-37.5 ??C (99.5 ??F)] ) Temp: 37.1 ??C (98.8 ??F), (Heart Rate: [89-129] ) Heart Rate: 89, (BP: (127-142)/(77-90) ) BP: 127/77, (Resp: [9-28] ) Resp: 21, (SpO2: [93 %-97 %] ) SpO2: 93 % GA: laying flat in bed, pleasant, conversant CV: mildly tachycardic but regular rhythm Pulm: coarse to auscultation, mildly diffuse wheezes, nonlaboured breathing on RA Chest: no notable crepitus; dressings c/d/i from IJ ABD: not distended, soft LABS: Recent Labs 08/12/18 0345 08/11/18 0200 08/10/18 0850 WBC 17.2* 20.7* 16.1* HGB 10.8* 11.3* 12.2* HCT 32.1* 33.9* 37.1* PLATELET 254 409* 307 NEUTROABS 15.50* 18.60* 14.47* Recent Labs 08/12/18 0345 08/11/18 1253 08/11/18 0200 NA 148* 143 145 K 4.5 3.4* 3.3* CL 109* 107 107 CO2 26 25 24 BUN 17 12 10 CREATININE 0.75* 0.88 1.06 Recent Labs 08/12/18 0345 08/11/18 1253 08/11/18 0200 08/10/18 1605 08/10/18 0850 CALCIUM 8.2* 7.9* 7.9* 7.7* 8.0* MAGNESIUM -- 0.85 -- -- 0.98 PHOS -- 1.7* -- 5.0* -- Recent Labs 08/12/18 0345 08/11/18 1253 08/11/18 0200 GLUCOSE 128 136 192 Recent Labs 08/12/18 0345 08/11/18 0200 08/10/18 0850 AST 23 16 29 ALT 57* 65* 80* ALKPHOS 54 58 64 BILITOT 0.3 0.2 0.6 No results for input(s): INR, PT, PTT in the last 168 hours. Recent Labs 08/10/18 0850 CK 348* 348* MICRO: 08/10 resp viral panel: negative 08/10 trach aspirate: negative IMAGING: Barium Swallow - 08/12/18 PENDING CXR 08/11/18 Status post removal of ET tube and NG tube with low lung volumes and bilateral pulmonary opacity as above. 08/10 CT chest (OSH, 2nd read): RLL nodular opacities concerning for infectious/inflammatory process, mild thickening of distal airways, pneumomedistinum ASSESSMENT and RECOMMENDATIONS: 33M previously healthy presents with 3 weeks of worsening upper respiratory symptoms. Acute dyspneaprompted evaluation at OSH who intubated and obtained CT chest concerning for pneumomediastinum andtransferred to [facility] for further management. Thoracic Surgery consulted. bedside bronchoscopy to evaluate for upper airway injury. CT C/A/P with IV and PO contrast to evaluate for esophageal perforation was obtained from OSH records; no perforation on second read but pneumomediastinum present. Seriel CXRs were obtained while patient was intubated. He was extubated on 08/11/18 and doing well off pressors and on room air. - Pending evaluation of pneumomediastinum with gastrografin swallow study, we will have a clearer impression to direct treatment. - continue ceftriaxone and doxycyline Thoracic Surgery will continue to follow. An CHARLENE Diaz 08/12/2018 ADDENDUM Swallow study shows no leak. The following is recommended: - Clear liquid diet - If tolerated, advance to soft solids for 2 weeks before transitioning to a regular diet - Follow-up with PCP in 2 weeks - No follow-up required with thoracic surgery Plans formulated after discussion with attending, Dr. Jason Mariano. Please page [phone] if any further questions. Thoracic Surgery will sign-off. Leland Bruner MD 08/12/18 1:34 PM Associated attestation - Jason Mariano MD - 08/15/2018 12:32 PM EDT I have seen the patient and reviewed the resident's above history and I agree with the details as written. The assessment and plan were formulated in discussion with me and I agree with them as documented. Pertinent History: 33-year-old male who presented in transfer to [facility] with pneumomediastinum possibly secondary to traumatic intubation found to have no obvious defects on bronchoscopy henny negative swallow study. Pertinent Exam: Young male in no acute distress Breathing on room air No stridor or signs of respiratory distress Abdomen soft nondistended nontender Major issues addressed: Diet advancement Respiratory status Discharge plan and follow-up Plan: Patient seen and examined on a.m. rounds he is doing quite well he underwent his swallow study which I have personally reviewed this did not show any evidence of leak. It is still uncertain about whyhe developed the pneumomediastinum. It is possibly due to intubation injury although his flexible bronchoscopy was clean, he had no residual respiratory effects and was extubated quite quickly. And has been doing well. At this time he does not appear to have any undiagnosed injuries and the previous injury that he did sustain that has now healed. I would recommend diet advancement with a soft solid diet over the next 2 weeks and then he can advance to regular diet. He should follow-up with his primary care physician. He does not need a scheduled follow-up with us, however if she should have any repeat symptoms such as difficulty swallowing or shortness of breath please feel free to call my office or schedule an appointment for follow- up. It is been my pleasure taking care of Mr. Sharma,I sincerely appreciate the opportunity to participate in his care. Jason Mariano MD Thoracic Surgery * Plan of Care - Kimberly Zepeda RN - 08/12/2018 6:51 AM EDT Problem: Patient Care Overview Goal: Plan of Care Review Outcome: Ongoing (Interventions Implemented as Appropriate) 08/12/18 0648 Coping/Psychosocial Plan Of Care Reviewed With patient Plan of Care Review Progress improving OUTCOME EVALUATION NOTE: OUTCOME SUMMARY: Patient on room air, vital signs stable, and neuro intact. Denies shortness of breath or trouble breathing. Tolerated oral medication without difficulty. Pending barium swallow study. PLAN MOVING FORWARD: Possible transfer INDIVIDUALIZED FALL PREVENTION INTERVENTIONS: Patient-specific fall risk factors per assessment: [current deficits]: Nonskid socks while out of bed, side rails up, bed alarms on. Assistance [level of assistance required for transfers and ambulation]: 1 person assist Supervision [direct monitoring required during toileting and ADLs]: Minimal Surveillance [continuous indirect monitoring]: ICU monitoring Patient-specific fall prevention interventions for sensory deficits provided, if applicable: [X] N/A CPG GOAL OUTCOME EVALUATION: * Plan of Care - Tanner Marrero RN - 08/11/2018 5:12 AM EDT Problem: Patient Care Overview Goal: Plan of Care Review 08/11/18 0512 Coping/Psychosocial Plan Of Care Reviewed With patient;mother Plan of Care Review Progress progress toward functional goals is gradual Comments: OUTCOME EVALUATION NOTE: OUTCOME SUMMARY: Patient remains on ventilator support throughout the evening shift. Initially was on paralytic and moderately sedated. Dr. Eugene and medical team performed bedside bronchoscopy. Post procedure, nimbex held. Patient tolerated procedure without complications. Mother updated with patient prognosis. Awakening more since removal of paralytic. Responds to verbal commands. Purposeful movements. Coarse breath sounds with expiratory wheezes. Patient receiving continuous albuterol neb treatment. Tachycardic with increasing temperature towards 99-100 degrees F. Requiring levophed gtt for hypotension. Maintaining MAP greater than 60 mmHg. Replacing PLAN MOVING FORWARD: Continue to attempt to wean patient on ventilator. Making progress with reducing pressor therapy. Replacing potassium electrolyte. Continue serial ABGs and potassium levels. INDIVIDUALIZED FALL PREVENTION INTERVENTIONS: Patient-specific fall risk factors per assessment: [current deficits]: Continue to follow fall riskprecautions Assistance [level of assistance required for transfers and ambulation]: Assist with repositioning and splinting while on bedrest. Supervision [direct monitoring required during toileting and ADLs]: Monitor toileting and ADL needs. Surveillance [continuous indirect monitoring]: Continue to monitor labs Patient-specific fall prevention interventions for sensory deficits provided, if applicable: Yes CPG GOAL OUTCOME EVALUATION: * Consult Note - Vonnie Nevarez MD - 08/10/2018 5:30 PM EDT Thoracic Surgery Inpatient Consult Note HPI: Efraín Sharma is a 33 y.o. male with no previous PMH who presented in transfer to [facility] with respiratory failure. Thoracic Surgery has been consulted for concern of pneumomediastinum. According to Efraín's parents, Efraín has had upper respiratory infectious symptoms for the last 3 weeks for which he has seen his PCP who was concerned for bronchitis and prescribed azithromycin, an albuterol inhaler and prednisone. His symptoms continued to worsen with an ongoing dry cough prompting him to be evaluated at [facility] ED this morning who intubated him, obtained a CT, and transferred to [facility]. PMH: - HTN PSH: - negative (per parents) MEDICATIONS: No current facility-administered medications on file prior to encounter. Current Outpatient Medications on File Prior to Encounter Medication Sig Dispense Refill ??? terbinafine (LAMISIL) 250 mg tablet 250MG, PO, Once daily ALLERGIES: No Known Allergies SOCIAL HISTORY: - denies smoking history - endorses drinking etOH occasionally - denies illicit drug use - lives at home with children and girlfriend - pets include a cat, pigs, turkey PHYSICAL EXAM: VS: (Temp: [34.4 ??C (93.9 ??F)-35.9 ??C (96.6 ??F)] ) Temp: 35.9 ??C (96.6 ??F), (Heart Rate: [69-105] ) Heart Rate: (!) 105, (BP: (75-102)/(40-64) ) BP: (!) 85/40(team aware), (Resp: [12-19] ) Resp: 12, (SpO2: [90 %-100 %] ) SpO2: 93 % GA: intubated and sedated, and paralyzed CV: mildly tachycardic, currently requiring levo @26 Pulm: mechanical breath sounds, diffuse wheezes, currently ventilated on SIMV mode Chest: no notable crepitus ABD: not distended, soft LABS: Recent Labs 08/10/18 0850 WBC 16.1* HGB 12.2* HCT 37.1* PLATELET 307 NEUTROABS 14.47* Recent Labs 08/10/18 1605 08/10/18 0850 NA 144 142 K 2.9* 4.4 CL 104 106 CO2 16* 28 BUN 11 7* CREATININE 1.39 0.95 Recent Labs 08/10/18 1605 08/10/18 0850 CALCIUM 7.7* 8.0* MAGNESIUM -- 0.98 Recent Labs 08/10/18 1605 GLUCOSE 309* Recent Labs 08/10/18 0850 AST 29 ALT 80* ALKPHOS 64 BILITOT 0.6 No results for input(s): INR, PT, PTT in the last 168 hours. Recent Labs 08/10/18 0850 CK 348* 348* MICRO: 08/10 resp viral panel: negative 08/10 trach aspirate: negative IMAGIN/27 CT chest ([facility], 2nd read): RLL nodular opacities concerning for infectious/inflammatory process, mild thickening of distal airways, pneumomedistinum ASSESSMENT and RECOMMENDATIONS: 33M previously healthy presents with 3 weeks of worsening upper respiratory symptoms. Acute dyspneaprompted evaluation at OSH who intubated and obtained CT chest concerning for pneumomediastinum andtransferred [place] [facility] [place]. Thoracic Surgery consulted. - bedside bronchoscopy to evaluate for upper airway injury - continue abx, add fluconazole - continue aggressive IVFR - continue trending lactate - CT C/A/P with IV and PO contrast to evaluate for esophageal perforation Thoracic Surgery will continue to follow. Vonnie Nevarez MD 08/10/2018 Associated attestation - Jason Mariano MD - 08/11/2018 5:49 PM EDT I have seen the patient and reviewed the resident's above history and I agree with the details as written. The assessment and plan were formulated in discussion with me and I agree with them as documented. Pertinent History: 33-year-old male transported to [facility] medical ICU with respiratory failure pleaserefer to the resident note for full history. Of note his family reports no history of vigorous nausea or vomiting. Pertinent Exam: Young male in no acute distress Extubated with high flow nasal cannula Participatory in exam Chest expansion bilaterally symmetric No evidence of stridor Major issues addressed: Possibility of esophageal injury Improved respiratory status N.p.o. status Plan: Patient seen on a.m. Rounds. In brief this is a 33-year-old male with no previous past medical history who presented in transfer to [facility] medical ICU with respiratory failure. Reportedly he has been having breathing difficulty episodes on and off for the last 3 weeks. There was concern for bronchitis or pneumonia. He was prescribed azithromycin for this however his symptoms did not improve and subsequently continue to worsen. He presented to an outside hospital where he was found to be in respiratory distress and underwent intubation. They then subsequently obtained a CT scan which demonstrated pneumomediastinum particularly around his upper trachea and then extending down to his lower trachea and his left mainstem bronchus of note so this area was also aroundhis esophagus. Notably his parents state that he has not had any recent nausea or vomiting. He was brought to our ICU with these findings and we were subsequently consulted. The differential for his issues is large but could include tracheal injury from intubation, tracheal or bronchitis injury from rigorous coughing, or esophageal perforation either from coughing or repeated Valsalva maneuvers. We recommended obtaining a flexible bronchoscopy which was performed by the medical ICU colleagues this did not demonstrate any tracheal injuries. Notably we were present during his bronchoscopy. He was since extubated and was on high flow nasal cannula and seems to be improving dramatically. His pressors have been weaned to off and he is able to ventilate himself well without the breathing tube. This, in combination with the findings on the bronchoscopy makes a tracheal or bronchi injury less likely. There is still the possibility of an esophageal injury and for this we have recommended that he remain n.p.o. and undergo a Gastrografin swallow study with our radiology colleagues tomorrow. Would recommend having him start with Gastrografin given concern for leak and then give barium to definitively rule out a leak. If this is negative we may advance his diet in the interim we would recommend continuing antibiotics as you are doing. I am quite pleased with his progress and am hopeful that his studies will continue to be negative and that he will eventually be discharged from the hospital. We sincerely appreciate this consult, wewill continue to follow him closely. Jason Mariano MD Thoracic Surgery * Consult Note - Nay Daly, [facility] - 08/10/2018 2:27 PM EDT Clinical Pharmacist Note-Vanc Efraín Sharma [id number] Efraín Sharma is a 33 y.o. male is being monitored due to antibiotic therapy which includes intravenous vancomycin. Regimen: Vancomycin 3000 mg load followed by 1750 mg every 8 hours Indication: empiric coverage Day of Therapy: 1 Targeted Goal Range: 15 - 20 mcg/mL Pharmacokinetic information: Wt Readings from Last 1 Encounters: 08/10/18 (!) 137.9 kg (304 lb 0.2 oz) Ht Readings from Last 1 Encounters: 08/10/18 180 cm (5' 10.87) Labs: Vancomycin: No results found for requested labs within last 720 hours. Creatinine clearance: 08/10/2018: Creatinine 0.95 mg/dL (Ref range: 0.80 - 1.50 mg/dL) Recommendations: Per transfer docs, no vancomycin given prior to admission. Loaded patient with 25 mg/kg dose followed by 1750 mg IV every 8 hours. Based on patient age and weight, will opt to check a early level tomorrow morning to assess clearance vs. Accumulation. Level tomorrow morning is not footwear sales representative of steady state. NAY DALY RPH documented in this encounter Plan of Treatment Scheduled Referrals Name Type Priority Associated Diagnoses Orde r Schedule Referral to Pulmonology Outpatient Referral Routine Severe persistent asthma with status asthmaticus Ordered: 08/13/2018 documented as of this encounter Procedures Procedure Name Priority Date/Time Associated Diagnosis Comments POCT GLUCOSE Routine 08/13/2018 11:57 AM EDT HEMOGRAM Routine 08/13/2018 8:57 AM EDT PHOSPHORUS Routine 08/13/2018 8:57 AM EDT MAGNESIUM Routine 08/13/2018 8:57 AM EDT BASIC METABOLIC PANEL Routine 08/13/2018 8:57 AM EDT POCT GLUCOSE Routine 08/13/2018 6:44 AM EDT POCT GLUCOSE Routine 08/12/2018 4:32 PM EDT POCT GLUCOSE Routine 08/12/2018 12:36 PM EDT XR FLUORO BARIUM SWALLOW (SINGLE CONTRAST) Routine 08/12/2018 10:40 AM EDT POCT GLUCOSE Routine 08/12/2018 7:42 AM EDT POCT GLUCOSE Routine 08/12/2018 3:48 AM EDT SCAN, PERIPHERAL BLOOD Routine 8 3:45 AM EDT HEMOGRAM Routine 08/12/2018 3:45 AM EDT DIFFERENTIAL, AUTOMATED Routine 08/12/20 18 3:45 AM EDT CBC (WITH DIFF) Routine 08/12/2018 3:45 AM EDT COMPREHENSIVE METABOLIC PANEL Routine 08/12/2018 3:45 AM EDT CONSTRUCTION EQUIPMENT TECHNICIAN SCAN 08/12/2018 12:00 AM EDT POCT GLUCOSE Routine 08/11/2018 11:06 PM EDT POCT GLUCOSE Routine 08/11/2018 7:40 PM EDT POCT GLUCOSE Routine 08/11/2018 4:23 PM EDT BLOOD GAS ARTERIAL POC Routine 8 12:54 PM EDT LACTATE, WHOLE BLOOD Routine 08/11/2018 12:53 PM EDT PHOSPHORUS Routine 08/11/2018 12:53 PM EDT MAGNESIUM Routine 08/11/2018 12:53 PM EDT BASIC METABOLIC PANEL Routine 08/11/2018 12:53 PM EDT POCT GLUCOSE Routine 08/11/2018 12:38 PM EDT XR CHEST ONE VIEW Routine 08/11/2018 9:4 0 AM EDT POCT GLUCOSE Routine 08/11/2018 7:59 AM EDT VANCOMYCIN, TROUGH Timed 08/11/2018 7: 15 AM EDT BLOOD GAS ARTERIAL POC Routine 8 4:06 AM EDT POCT GLUCOSE Routine 08/11/2018 3:49 AM EDT SCAN, PERIPHERAL BLOOD Routine 8 2:00 AM EDT HEMOGRAM Routine 08/11/2018 2:00 AM EDT DIFFERENTIAL, AUTOMATED Routine 08/11/20 18 2:00 AM EDT CBC (WITH DIFF) Routine 08/11/2018 2:00 AM EDT COMPREHENSIVE METABOLIC PANEL Routine 08/11/2018 2:00 AM EDT POCT GLUCOSE Routine 08/11/2018 12:30 AM EDT BLOOD GAS ARTERIAL POC Routine 8 11:08 PM EDT POCT GLUCOSE Routine 08/10/2018 10:35 PM EDT BLOOD GAS ARTERIAL POC Routine 8 8:51 PM EDT POTASSIUM STAT 08/10/2018 8:48 PM EDT POCT GLUCOSE Routine 08/10/2018 8:03 PM EDT BLOOD GAS ARTERIAL POC Routine 8 6:28 PM EDT BLOOD GAS ARTERIAL POC Routine 8 4:32 PM EDT BETA HYDROXYBUTYRATE STAT 08/10/2018 4:05 PM EDT LACTATE, WHOLE BLOOD STAT 08/10/2018 4:05 PM EDT PHOSPHORUS STAT 08/10/2018 4:05 PM EDT BASIC METABOLIC PANEL STAT 08/10/2018 4:05 PM EDT XR CHEST ONE VIEW STAT 08/10/2018 3:4 5 PM EDT URINALYSIS MICROSCOPIC EXAM STAT 08/10/2018 3:42 PM EDT URINALYSIS WITH REFLEX CULTURE STAT 08/10/2018 3:42 PM EDT URINE CULTURE STAT 08/10/2018 3:42 PM EDT BLOOD GAS ARTERIAL POC Routine 8 12:57 PM EDT BLOOD CULTURE STAT 08/10/2018 10:01 AM EDT XR ABDOMEN 1 VIEW STAT 08/10/2018 9:3 3 AM EDT XR CHEST ONE VIEW STAT 08/10/2018 9:3 3 AM EDT ANTIBODY SCREEN MANUAL Routine 8 9:30 AM EDT AB COMMENT Routine 08/10/2018 9:30 AM EDT ANTIBODY IDENTIFICATION Routine 08/10/20 18 9:30 AM EDT BLOOD GAS ARTERIAL ([facility]) Routine 08/10/2018 9:13 AM EDT EKG 12-LEAD STAT 08/10/2018 9:05 AM EDT Severe asthma with acute exacerbation, unspecified whether persistent ABORH RECHECK STATUS STAT 08/10/2018 9:04 AM EDT ABO/RH TYPING STAT 08/10/2018 9:04 AM EDT ANTIBODY SCREEN STAT 08/10/2018 9:04 AM EDT TYPE AND SCREEN ([facility]/ALBERTO) STAT 08/10/2018 9:04 AM EDT CMP W/FASTING GLUCOSE STAT 08/10/2018 8:50 AM EDT HEMOGRAM STAT 08/10/2018 8:50 AM EDT DIFFERENTIAL, AUTOMATED STAT 08/10/20 18 8:50 AM EDT CARDIAC ENZYMES ([facility]) STAT 08/10/2018 8:50 AM EDT CBC (WITH DIFF) STAT 08/10/2018 8:50 AM EDT TRIGLYCERIDE Routine 08/10/2018 8:50 AM EDT MAGNESIUM STAT 08/10/2018 8:50 AM EDT CK Routine 08/10/2018 8:50 AM EDT RESPIRATORY PANEL PCR STAT 08/10/2018 8:48 AM EDT LOWER RESPIRATORY CULTURE STAT 08/10/2018 8:44 AM EDT POCT GLUCOSE Routine 08/10/2018 8:11 AM EDT REQUEST FOR 2ND READ CT CHEST Routine 08/10/2018 6:50 AM EDT documented in this encounter Results * POCT Glucose (08/13/2018 11:57 AM EDT) Glucose, POC 109 65 - 199 mg/dL [facility] Comment: Supplemental ranges: <140 mg/dL before meals <180 mg/dL all other times of the day Blood specimen (specimen) 08/13/2018 11:57 AM EDT 08/13/2018 11:57 AM EDT Toni Westbrook MD POINT OF CARE TEST O RDERABLES [facility] [place] [address] * (ABNORMAL) Hemogram (08/13/2018 8:57 AM EDT) White Blood Cell 14.0(H) 4.0 - 9.5 x10(3)/mc L [facility] Red Blood Cell 4.33(L) 4.58 - 5.54 x10(6)/mc L [facility] Comment:Cold Agglutinin pres ent-corrected results. Hemoglobin 11.9(L) 13.7 - 16.5 gm/dL [facility] Hematocrit 35.8(L) 40.5 - 48.5 % [facility] Mean Cell Volume 82.7(L) 82.9 - 93.1 fL [facility] Mean Cell Hemoglobin 27.5 27.5 - 32.1 pg [facility] Mean Cell Hemoglobin Concentration 33.2 32.0 - 35.7 gm/dL [facility] Platelet 250 145 - 357 x10(3)/mc L [facility] RDW Standard Deviation 42.4 36.0 - 45.0 fL [facility] RDW coefficient of variation 13.8 11.4 - 13.8 % [facility] Mean Platelet Volume 10.8 7.6 - 12.9 fL [facility] NRBC% auto 0.0 % [facility] NRBC Absolute 0.000 0.000 - 0.000 x10(3)/mc L [facility] Blood specimen (specimen) 08/13/2018 8:57 AM EDT 08/13/2018 9:12 AM EDT Narrative Resulting Agency Comment Spec In Lab River Garcia DO HEMATOLOGY ORDERABLE S [facility] [place] [address] * (ABNORMAL) Basic Metabolic Panel (non-fasting) (08/13/2018 8:57 AM EDT) Glucose 109 65 - 199 mg/dL [facility] Comment:Diabetes: >=200 mg/d L plus symptoms Blood Urea Nitrogen 23(H) 10 - 20 mg/dL [facility] Creatinine 0.74(L) 0.80 - 1.50 mg/dL [facility] Sodium 143 135 - 145 mmol/L [facility] Potassium 4.3 3.5 - 5.0 mmol/L [facility] Comment: Please note: ??Patients with WBC >100,000 may have falsely elevated Potassium levels. ??For accurate Potassium quantification in these patients send serum separator tube (gold top) for subsequent determinations. ??Contact the Clinical Chemistry Laboratory if there are any questions. Chloride 105 98 - 107 mmol/L [facility] Carbon Dioxide 25 22 - 31 mmol/L [facility] Anion Gap 13 5 - 15 mmol/L [facility] Calcium 8.7 8.5 - 10.5 mg/dL [facility] Est Glomerular Filtration Rate 123 >=60 mL/min/1. 73 m?? [facility] Comment: The eGFR was calculated using the CKD-EPI equation. As with all creatinine based estimates of kidney function, eGFR values calculated with the CKD-EPI equation are not accurate in patients with acute kidney failure, extremes of body mass or the acutely ill. http://[employer]/[facility]MCnkf eGFR 142 >=60 mL/min/1. 73 m?? [facility] Comment: The eGFR was calculated using the CKD-EPI equation. As with all creatinine based estimates of kidney function, eGFR values calculated with the CKD-EPI equation are not accurate in patients with acute kidney failure, extremes of body mass or the acutely ill. http://[employer]/[facility]MCnkf Blood specimen (specimen) 08/13/2018 8:57 AM EDT 08/13/2018 9:12 AM EDT Narrative Resulting Agency Comment Spec In Lab River Garcia DO CHEMISTRY ORDERABLES [facility] [place] [address] * Phosphorus (08/13/2018 8:57 AM EDT) Phosphorus 2.6 2.5 - 4.5 mg/dL [facility] Blood specimen (specimen) 08/13/2018 8:57 AM EDT 08/13/2018 9:12 AM EDT Narrative Resulting Agency Comment Spec In Lab River Garcia DO CHEMISTRY ORDERABLES Performing Organization Address [facility] [address]/[facility] Co de Phone Number [facility] [place] [address] * Magnesium (08/13/2018 8:57 AM EDT) Magnesium 1.00 0.69 - 1.07 mmol/L [facility] Blood specimen (specimen) 08/13/2018 8:57 AM EDT 08/13/2018 9:12 AM EDT Narrative Resulting Agency Comment Spec In Lab River Garcia DO CHEMISTRY ORDERABLES Performing Organization Address [facility] de Phone Number [facility] [place] [address] * POCT Glucose (08/13/2018 6:44 AM EDT) Glucose, POC 105 65 - 199 mg/dL [facility] Comment: Supplemental ranges: <140 mg/dL before meals <180 mg/dL all other times of the day Blood specimen (specimen) 08/13/2018 6:44 AM EDT 08/13/2018 6:44 AM EDT Mook Castro MD POINT OF CARE TEST O RDTC Performing Organization Address [facility] de Phone Number [facility] [place] [address] * POCT Glucose (08/12/2018 4:32 PM EDT) Glucose, POC 130 65 - 199 mg/dL [facility] Comment: Supplemental ranges: <140 mg/dL before meals <180 mg/dL all other times of the day Blood specimen (specimen) 08/12/2018 4:32 PM EDT 08/12/2018 4:32 PM EDT Mook Castro MD POINT OF CARE TEST O JAMES Performing Organization Address City/[facility] [address]/ZIP Co de Phone Number [facility] [place] [address] * POCT Glucose (08/12/2018 12:36 PM EDT) Glucose, POC 125 65 - 199 mg/dL [facility] Comment: Supplemental ranges: <140 mg/dL before meals <180 mg/dL all other times of the day Blood specimen (specimen) 08/12/2018 12:36 PM EDT 08/12/2018 12:36 PM EDT Mook Castro MD POINT OF CARE TEST O JAMES Performing Organization Address [facility] [address]/[facility] Co de Phone Number [facility] [place] [address] * XR Fluoro Barium Swallow (08/12/2018 10:40 AM EDT) Anatomical Region Laterality Modality N/A Radio Fluoroscop y Impressions 08/12/2018 12:35 PM EDT 1. ??No evidence of esophageal leak. 2. ??Subcutaneous emphysema in the right lateral neck, consistent with history of known pneumomediastinum. 3. ??Very small hiatal hernia. I have personally reviewed the image(s) and the residents interpretation and agree with the findings, Whitney Willams at 08/12/2018 12:35 PM Narrative 08/12/2018 12:35 PM EDT EXAMINATION: XR FLUORO BARIUM SWALLOW CLINICAL HISTORY: pneumomediastinum in setting of severe asthma requiring intubation TECHNIQUE: A semiupright inspector grain mill products radiograph of the chest was obtained. A single contrast swallow was performed with Omnipaque in the supine (30 degree upright) and QUAN prone positions. This was followed by single contrast swallow of thin barium in the supine (30 degree upright) and QUAN prone positions. A postcontrast semiupright radiograph of the chest was also obtained. Fluoro time: 0.15 minutes COMPARISON: Chest radiograph 08/11/2018. Chest CT 08/10/2018. 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 No pneumothorax or pleural effusions. Normal cardiomediastinal silhouette and bilateral marilia. There is a small amount of subcutaneous emphysema within the right lateral neck, consistent with history of known pneumomediastinum. Nonobstructive bowel gas pattern within the visualized upper abdomen. Swallow study: The esophagus is normal in course and caliber, and is well distended on single contrast views with both Omnipaque and barium. Very small hiatal hernia. Esophageal peristalsis is normal. There is a small amount of residual contrast in the esophagus with the patient in supine position which clears with prompted dry swallow. No evidence of leak. Postcontrast radiograph of the chest: There is oral contrast opacification of the stomach fundus. No evidence of leak. Procedure Note Whitney Olvera MD - 08/12/2018 EXAMINATION: XR FLUORO BARIUM SWALLOW CLINICAL HISTORY: pneumomediastinum in setting of severe asthmarequiring intubation TECHNIQUE: A semiupright inspector grain mill products radiograph of the chest was obtained. A single contrast swallow was performed with Omnipaque in the supine (30degree upright) and QUAN prone positions. This was followed by single contrastswallow of thin barium in the supine (30 degree upright) and QUAN prone positions. A postcontrast semiupright radiograph of the chest was also obtained. Fluoro time: 0.15 minutes COMPARISON: Chest radiograph 08/11/2018. Chest CT 08/10/2018. 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 No pneumothorax or pleural effusions. Normal cardiomediastinal silhouette and bilateral marilia. There is a small amount of subcutaneous emphysema within the right lateralneck, consistent with history of known pneumomediastinum. Nonobstructive bowel gas pattern within the visualized upper abdomen. Swallow study: The esophagus is normal in course and caliber, and is well distended onsingle contrast views with both Omnipaque and barium. Very small hiatal hernia. Esophageal peristalsis is normal. There is a small amount of residualcontrast in the esophagus with the patient in supine position which clears withprompted dry swallow. No evidence of leak. Postcontrast radiograph of the chest: There is oral contrast opacification of the stomach fundus. No evidence of leak. IMPRESSION 1. No evidence of esophageal leak. 2. Subcutaneous emphysema in the right lateral neck, consistent withhistory of known pneumomediastinum. 3. Very small hiatal hernia. I have personally reviewed the image(s) and the residents interpretationand agree with the findings, Whitney Willams at 08/12/2018 12:35PM Electronically signed by: Whitney Willams, Radiology, at1 12:35 PM Rachel Eugene MD IMG FLUORO ORDERABLE S * POCT Glucose (08/12/2018 7:42 AM EDT) Glucose, POC 134 65 - 199 mg/dL [facility] Comment: Supplemental ranges: <140 mg/dL before meals <180 mg/dL all other times of the day Blood specimen (specimen) 08/12/2018 7:42 AM EDT 08/12/2018 7:42 AM EDT Mook Castro MD POINT OF CARE TEST O JAMES Performing Organization Address City/[facility] [address]/ZIP Co de Phone Number [facility] [place] [address] * POCT Glucose (08/12/2018 3:48 AM EDT) Glucose, POC 133 65 - 199 mg/dL [facility] Comment: Supplemental ranges: <140 mg/dL before meals <180 mg/dL all other times of the day Blood specimen (specimen) 08/12/2018 3:48 AM EDT 08/12/2018 3:48 AM EDT Rachel Eugene MD POINT OF CARE TEST O JAMES Performing Organization Address City/[facility] [address]/ZIP Co de Phone Number [facility] [place] [address] * Scan, Peripheral Blood (08/12/2018 3:45 AM EDT) Plat estimate Normal [facility] RBC Morphology Normal [facility] RBC Agglutination Present MA RY [facility] Blood specimen (specimen) 08/12/2018 3:45 AM EDT 08/12/2018 3:58 AM EDT Narrative Resulting Agency Comment Spec In Lab Bronson Antony MD HEMATOLOGY ORDERABLE S [facility] [place] [address] * (ABNORMAL) Differential, Automated (08/12/2018 3:45 AM EDT) Neutrophil % 89.8 % [facility] Neutrophil Absolute 15.50(H) 1.70 - 6.10 x10(3)/mc L [facility] Lymph % 5.7 % [facility] Lymphocytes Abs 1.0 0.9 - 3.2 x10(3)/ L [facility] Monocyte % 3.5 % [facility] Monocyte Abs 0.6 0.3 - 0.9 x10(3)/ L [facility] Eos % 0.0 % [facility] Eosinophils Abs 0.0 0.0 - 0.4 x10(3)/ L [facility] Basophil % 0.2 % [facility] Baso Absolute 0.0 0.0 - 0.1 x10(3)/ L [facility] Immature Gran % 0.80 % [facility] Comment: Immature granulocytes(IG's)percentage and absolute count will include metamyelocytes, myelocytes, and promyelocytes. Blood smears from CBCs yielding IG's will be scanned manually for concordance. If this scan disagrees with the automated IG or if promyelocytes are noted, a manual differential will be performed. Immature Gran Absolute 0.14(H) 0.00 - 0.04 x10(3)/mc L [facility] Blood specimen (specimen) 08/12/2018 3:45 AM EDT 08/12/2018 3:58 AM EDT Narrative Resulting Agency Comment Spec In Lab Bronson Antony MD HEMATOLOGY ORDERABLE S [facility] [place] [address] * (ABNORMAL) Hemogram (08/12/2018 3:45 AM EDT) White Blood Cell 17.2(H) 4.0 - 9.5 x10(3)/mc L [facility] Red Blood Cell 3.80(L) 4.58 - 5.54 x10(6)/mc L [facility] Comment: Cold Agglutinin present-corrected results. Interpret results with Caution. Specimen rerun and specimen ID confirmed. Hemoglobin 10.8(L) 13.7 - 16.5 gm/dL [facility] Hematocrit 32.1(L) 40.5 - 48.5 % [facility] Mean Cell Volume 84.5 82.9 - 93.1 fL [facility] Mean Cell Hemoglobin 28.4 27.5 - 32.1 pg [facility] Mean Cell Hemoglobin Concentration 33.6 32.0 - 35.7 gm/dL [facility] Platelet 254 145 - 357 x10(3)/mc L [facility] RDW Standard Deviation 45.0 36.0 - 45.0 fL [facility] RDW coefficient of variation 14.6(H) 11.4 - 13.8 % [facility] Mean Platelet Volume 10.7 7.6 - 12.9 fL [facility] NRBC% auto 0.0 % [facility] NRBC Absolute 0.000 0.000 - 0.000 x10(3)/ L [facility] Blood specimen (specimen) 08/12/2018 3:45 AM EDT 08/12/2018 3:58 AM EDT Narrative Resulting Agency Comment Spec In Lab Bronson Antony MD HEMATOLOGY ORDERABLE S [facility] [place] [address] * (ABNORMAL) Comprehensive metabolic panel (non-fasting) (08/12/2018 3:45 AM EDT) Glucose 128 65 - 199 mg/dL [facility] Comment:Diabetes: >=200 mg/d L plus symptoms Blood Urea Nitrogen 17 10 - 20 mg/dL [facility] Creatinine 0.75(L) 0.80 - 1.50 mg/dL [facility] Sodium 148(H) 135 - 145 mmol/L [facility] Comment:result rechecked-carissa Potassium 4.5 3.5 - 5.0 mmol/L [facility] Comment: result rechecked-carissa Please note: ??Patients with WBC >100,000 may have falsely elevated Potassium levels. ??For accurate Potassium quantification in these patients send serum separator tube (gold top) for subsequent determinations. ??Contact the Clinical Chemistry Laboratory if there are any questions. Chloride 109(H) 98 - 107 mmol/L [facility] Comment:result rechecked-carissa Carbon Dioxide 26 22 - 31 mmol/L [facility] Anion Gap 13 5 - 15 mmol/L [facility] Calcium 8.2(L) 8.5 - 10.5 mg/dL [facility] Protein, Total 5.9(L) 6.1 - 8.0 gm/dL [facility] Albumin 3.3 3.2 - 5.2 gm/dL [facility] Aspartate Aminotransferase 23 0 - 39 unit/L [facility] Alanine Aminotransferase 57(H) 0 - 55 unit/L [facility] Alkaline Phosphatase 54 40 - 120 unit/L [facility] Bilirubin, Total 0.3 0.2 - 1.3 mg/dL [facility] Est Glomerular Filtration Rate 122 >=60 mL/min/1. 73 m?? [facility] Comment: The eGFR was calculated using the CKD-EPI equation. As with all creatinine based estimates of kidney function, eGFR values calculated with the CKD-EPI equation are not accurate in patients with acute kidney failure, extremes of body mass or the acutely ill. [email or web address] eGFR 142 >=60 mL/min/1. 73 m?? [facility] Comment: The eGFR was calculated using the CKD-EPI equation. As with all creatinine based estimates of kidney function, eGFR values calculated with the CKD-EPI equation are not accurate in patients with acute kidney failure, extremes of body mass or the acutely ill. [email or web address] Blood specimen (specimen) 08/12/2018 3:45 AM EDT 08/12/2018 3:58 AM EDT Narrative Resulting Agency Comment Spec In Lab Rachel Eugene MD CHEMISTRY ORDERABLES Performing Organization Address [facility] [address]/[facility] de Phone Number [facility] [place] [address] * SCAN DOC: CONSTRUCTION EQUIPMENT TECHNICIAN (08/12/2018 12:00 AM EDT) Anatomical Region Laterality Modality Other Narrative 08/12/2018 12:00 AM EDT Ordered by an unspecified provider. Scanning Provider MEDIA MGR SCAN EXT O RDR/RSLT * POCT Glucose (08/11/2018 11:06 PM EDT) Glucose, POC 129 65 - 199 mg/dL [facility] Comment: Supplemental ranges: <140 mg/dL before meals <180 mg/dL all other times of the day Blood specimen (specimen) 08/11/2018 11:06 PM EDT 08/11/2018 11:06 PM EDT Rachel Eugene MD POINT OF CARE TEST O RDERABLES Performing Organization Address [facility] [address]/[facility] Co de Phone Number [facility] [place] [address] * POCT Glucose (08/11/2018 7:40 PM EDT) Glucose, POC 127 65 - 199 mg/dL [facility] Comment: Supplemental ranges: <140 mg/dL before meals <180 mg/dL all other times of the day Blood specimen (specimen) 08/11/2018 7:40 PM EDT 08/11/2018 7:40 PM EDT Rachel Eugene MD POINT OF CARE TEST O JAMES Performing Organization Address [facility] [address]/[facility] de Phone Number [facility] [place] [address] * POCT Glucose (08/11/2018 4:23 PM EDT) Glucose, POC 125 65 - 199 mg/dL [facility] Comment: Supplemental ranges: <140 mg/dL before meals <180 mg/dL all other times of the day Blood specimen (specimen) 08/11/2018 4:23 PM EDT 08/11/2018 4:23 PM EDT Rachel Eugene MD POINT OF CARE TEST O JAMES Performing Organization Address [facility] [address]/[facility] de Phone Number [facility] [place] [address] * (ABNORMAL) BLOOD GAS 2 ARTERIAL (08/11/2018 12:54 PM EDT) pH, Arterial 7.43 7.35 - 7.45 [facility] PCO2, Arterial 39 35 - 45 mmHg [facility] PO2, Arterial 67(L) 85 - 104 mmHg [facility] Bicarbonate, Arterial 24.7 20.0 - 26.0 mmol/L [facility] Base Excess, Arterial 0.3 -3.0 - 3.0 mmol/L [facility] Hgb Blood Gas 11.3(L) 13.7 - 16.5 gm/dL [facility] Oxyhemoglobin, Arterial 93.2(L) 94.0 - 97.0 % [facility] Carboxyhemoglob in, Arterial 0.3 % [facility] Comment: Nonsmokers: 0.5-1.5% COHB Smokers: Variable, but usually less than 10% Toxic: 20-30% COHB Lethal: Greater than 60% COHB Methemoglobin, Arterial 0.7 <=1.5 % [facility] Na Whole Blood 141 135 - 145 mmol/L [facility] K Whole Blood 3.4(L) 3.5 - 5.0 mmol/L [facility] Comment: Please note: Patients with WBC >100,000 may have falsely elevated Potassium levels. Contact the Clinical Chemistry Laboratory if there are any questions. ICa Whole Blood 1.11(L) 1.15 - 1.33 mmol/L [facility] Comment: Note: ??Total bilirubin higher than 20 mg/dL may lead to falsely low ionized calcium. CL Whole Blood 106 98 - 107 mmol/L [facility] Gluc Whole Bld 135 65 - 199 mg/dL [facility] Comment:Diabetes: >=200 mg/d L plus symptoms. Lactate WB 1.5 0.5 - 2.2 mmol/L [facility] FIO2 Art 30 % [facility] PF Ratio Art 223 [facility] Blood specimen (specimen) 08/11/2018 12:54 PM EDT 08/11/2018 12:54 PM EDT Rachel Eugene MD POINT OF CARE TEST O RDERABLES [facility] [place] [address] * Lactate, whole blood, send to lab (Leb/CGP) (08/11/2018 12:53 PM EDT) Lactate WB 1.8 0.5 - 2.2 mmol/L [facility] Blood specimen (specimen) 08/11/2018 12:53 PM EDT 08/11/2018 1:02 PM EDT Narrative Resulting Agency Comment Spec In Lab Rachel Eugene MD CHEMISTRY ORDERABLES Performing Organization Address City/[facility] [address]/ZIP Co de Phone Number [facility] [place] [address] * (ABNORMAL) Phosphorus (08/11/2018 12:53 PM EDT) Phosphorus 1.7(L) 2.5 - 4.5 mg/dL [facility] Blood specimen (specimen) 08/11/2018 12:53 PM EDT 08/11/2018 1:03 PM EDT Narrative Resulting Agency Comment Spec In Lab Rachel Eugene MD CHEMISTRY ORDERABLES Performing Organization Address [facility] [address]/ZIP Co de Phone Number [facility] [place] [address] * Magnesium (08/11/2018 12:53 PM EDT) Magnesium 0.85 0.69 - 1.07 mmol/L [facility] Blood specimen (specimen) 08/11/2018 12:53 PM EDT 08/11/2018 1:03 PM EDT Narrative Resulting Agency Comment Spec In Lab Rachel Eugene MD CHEMISTRY ORDERABLES Performing Organization Address [facility] [address] [facility] Co de Phone Number [facility] [place] [address] * (ABNORMAL) Basic Metabolic Panel (non-fasting) (08/11/2018 12:53 PM EDT) Glucose 136 65 - 199 mg/dL [facility] Comment:Diabetes: >=200 mg/d L plus symptoms Blood Urea Nitrogen 12 10 - 20 mg/dL [facility] Creatinine 0.88 0.80 - 1.50 mg/dL [facility] Sodium 143 135 - 145 mmol/L [facility] Potassium 3.4(L) 3.5 - 5.0 mmol/L [facility] Comment: Please note: ??Patients with WBC >100,000 may have falsely elevated Potassium levels. ??For accurate Potassium quantification in these patients send serum separator tube (gold top) for subsequent determinations. ??Contact the Clinical Chemistry Laboratory if there are any questions. Chloride 107 98 - 107 mmol/L [facility] Carbon Dioxide 25 22 - 31 mmol/L [facility] Anion Gap 11 5 - 15 mmol/L [facility] Calcium 7.9(L) 8.5 - 10.5 mg/dL [facility] Est Glomerular Filtration Rate 114 >=60 mL/min/1. 73 m?? [facility] Comment: The eGFR was calculated using the CKD-EPI equation. As with all creatinine based estimates of kidney function, eGFR values calculated with the CKD-EPI equation are not accurate in patients with acute kidney failure, extremes of body mass or the acutely ill. [email or web address] eGFR 133 >=60 mL/min/1. 73 m?? [facility] Comment: The eGFR was calculated using the CKD-EPI equation. As with all creatinine based estimates of kidney function, eGFR values calculated with the CKD-EPI equation are not accurate in patients with acute kidney failure, extremes of body mass or the acutely ill. [email or web address] Blood specimen (specimen) 08/11/2018 12:53 PM EDT 08/11/2018 1:03 PM EDT Narrative Resulting Agency Comment Spec In Lab Rachel Eugene MD CHEMISTRY ORDERABLES [facility] [place] [address] * POCT Glucose (08/11/2018 12:38 PM EDT) Glucose, POC 135 65 - 199 mg/dL [facility] Comment: Supplemental ranges: <140 mg/dL before meals <180 mg/dL all other times of the day Blood specimen (specimen) 08/11/2018 12:38 PM EDT 08/11/2018 12:38 PM EDT Rachel Eugene MD POINT OF CARE TEST O RDERABLES [facility] [place] [address] * XR Chest PA or AP 1 view (08/11/2018 9:40 AM EDT) Anatomical Region Laterality Modality Chest N/A Digital Radiogra phy Impressions 08/11/2018 10:17 AM EDT Status post removal of ET tube and NG tube with low lung volumes and bilateral pulmonary opacity as above. Narrative 08/11/2018 10:17 AM EDT EXAMINATION: XR CHEST PA OR AP 1 VIEW CLINICAL HISTORY: severe asthma, suspected pneumonia with increased secretions; now extubated TECHNIQUE: AP portable chest COMPARISON: 08/10/2018. FINDINGS: Since the previous study of 08/10/2018, the patient is been extubated and the NG tube removed. A right IJ catheter remains in the SVC. Lung volumes are low. The heart is normal in size. There is patchy bilateral perihilar opacity and vascular marginal blurring. This pattern is very nonspecific and could represent anything from infection to aspiration to pulmonary edema /fluid overload. No pleural effusion or pneumothorax. The mediastinal air seen yesterday is no longer visible although subcutaneous emphysema is still visible in the right lower neck. Procedure Note Tom Hanna MD - 08/11/2018 EXAMINATION: XR CHEST PA OR AP 1 VIEW CLINICAL HISTORY: severe asthma, suspected pneumonia with increasedsecretions; now extubated TECHNIQUE: AP portable chest COMPARISON: 08/10/2018. FINDINGS: Since the previous study of 08/10/2018, the patient is been extubated andthe NG tube removed. A right IJ catheter remains in the SVC. Lung volumes arelow. The heart is normal in size. There is patchy bilateral perihilar opacity and vascular marginal blurring. This pattern is very nonspecific and couldrepresent anything from infection to aspiration to pulmonary edema /fluid overload.No pleural effusion or pneumothorax. The mediastinal air seen yesterday isno longer visible although subcutaneous emphysema is still visible in theright lower neck. IMPRESSION Status post removal of ET tube and NG tube with low lung volumes andbilateral pulmonary opacity as above. 10:17 AM Rachel Eugene MD IMG DX ORDERABLES * POCT Glucose (08/11/2018 7:59 AM EDT) Glucose, POC 160 65 - 199 mg/dL [facility] Comment: Supplemental ranges: <140 mg/dL before meals <180 mg/dL all other times of the day Blood specimen (specimen) 08/11/2018 7:59 AM EDT 08/11/2018 7:59 AM EDT Toni Westbrook MD POINT OF CARE TEST O RDERABLES Performing Organization Address [facility] [address] [facility] Co de Phone Number [facility] [place] [address] * (ABNORMAL) Vancomycin, trough (08/11/2018 7:15 AM EDT) Vancomycin, Trough 40.2(Crit ical) mg/L [facility] Comment: Called by: NIKKI, Read back by: Opal Knox, Date/Time:08/11/18 08:04. Therapeutic range for complicated infections such as bacteremia, endocarditis, osteomyelitis, meningitis, and hospital-acquired pneumonia caused by S. aureus: 15-20 mg/L Therapeutic range for other indications: 10-15 mg/L Toxic: >20 mg/L Reference: Vancomycin Therapeutic Monitoring: Review and Recommendations from the ASHP, IDSA and SIDP Task Force. ??Am J [employer]. 2009; 66:82-98 Blood specimen (specimen) 08/11/2018 7:15 AM EDT 08/11/2018 7:28 AM EDT Narrative Resulting Agency Comment Spec In Lab Rachel Eugene MD CHEMISTRY ORDERABLES Performing Organization Address [facility] [address]/[facility] Co de Phone Number [facility] [place] [address] * (ABNORMAL) BLOOD GAS 2 ARTERIAL (08/11/2018 4:06 AM EDT) pH, Arterial 7.35(L) 7.35 - 7.45 [facility] PCO2, Arterial 45 35 - 45 mmHg [facility] PO2, Arterial 74(L) 85 - 104 mmHg [facility] Bicarbonate, Arterial 24.0 20.0 - 26.0 mmol/L [facility] Base Excess, Arterial -1.7 -3.0 - 3.0 mmol/L [facility] Hgb Blood Gas 12.0(L) 13.7 - 16.5 gm/dL [facility] Oxyhemoglobin, Arterial 93.9(L) 94.0 - 97.0 % [facility] Carboxyhemoglob in, Arterial 0.3 % [facility] Comment: Nonsmokers: 0.5-1.5% COHB Smokers: Variable, but usually less than 10% Toxic: 20-30% COHB Lethal: Greater than 60% COHB Methemoglobin, Arterial 0.7 <=1.5 % [facility] Na Whole Blood 142 135 - 145 mmol/L [facility] K Whole Blood 3.3(L) 3.5 - 5.0 mmol/L [facility] Comment: Please note: Patients with WBC >100,000 may have falsely elevated Potassium levels. Contact the Clinical Chemistry Laboratory if there are any questions. ICa Whole Blood 1.12(L) 1.15 - 1.33 mmol/L [facility] Comment: Note: ??Total bilirubin higher than 20 mg/dL may lead to falsely low ionized calcium. CL Whole Blood 108(H) 98 - 107 mmol/L [facility] Gluc Whole Bld 192 65 - 199 mg/dL [facility] Comment:Diabetes: >=200 mg/d L plus symptoms. Lactate WB 2.4(H) 0.5 - 2.2 mmol/L [facility] FIO2 Art 50 % [facility] PF Ratio Art 148 [facility] Blood specimen (specimen) 08/11/2018 4:06 AM EDT 08/11/2018 4:06 AM EDT Rachel Eugene MD POINT OF CARE TEST O RDERABLES Performing Organization Address [facility] [address]/ZIP Co de Phone Number [facility] [place] [address] * POCT Glucose (08/11/2018 3:49 AM EDT) Pathologist [facility] Glucose, POC 167 65 - 199 mg/dL [facility] Comment: Supplemental ranges: <140 mg/dL before meals <180 mg/dL all other times of the day Blood specimen (specimen) 08/11/2018 3:49 AM EDT 08/11/2018 3:49 AM EDT Rachel Eugene MD POINT OF CARE TEST O RDERABLES Performing Organization Address [facility] [address]/ZIP Co de Phone Number [facility] [place] [address] * Scan, Peripheral Blood (08/11/2018 2:00 AM EDT) Pathologist [facility] Plat estimate Normal [facility] RBC Morphology Normal [facility] Blood specimen (specimen) 08/11/2018 2:00 AM EDT 08/11/2018 2:15 AM EDT Narrative Resulting Agency Comment Spec In Lab Bronson Antony MD HEMATOLOGY ORDERABLE S Performing Organization Address [facility] [address]/ZIP Co de Phone Number [facility] [place] [address] * (ABNORMAL) Differential, Automated (08/11/2018 2:00 AM EDT) [facility] Neutrophil % 89.9 % [facility] Neutrophil Absolute 18.60(H) 1.70 - 6.10 x10(3)/mc L [facility] Lymph % 5.5 % [facility] Lymphocytes Abs 1.1 0.9 - 3.2 x10(3)/ L [facility] Monocyte % 3.6 % [facility] Monocyte Abs 0.8 0.3 - 0.9 x10(3)/ L [facility] Eos % 0.0 % [facility] Eosinophils Abs 0.0 0.0 - 0.4 x10(3)/[facility] Basophil % 0.1 % [facility] Baso Absolute 0.0 0.0 - 0.1 x10(3)/[facility] Immature Gran % 0.90 % [facility] Comment: Immature granulocytes(IG's)percentage and absolute count will include metamyelocytes, myelocytes, and promyelocytes. Blood smears from CBCs yielding IG's will be scanned manually for concordance. If this scan disagrees with the automated IG or if promyelocytes are noted, a manual differential will be performed. Immature Gran Absolute 0.18(H) 0.00 - 0.04 x10(3)/[facility] Blood specimen (specimen) 08/11/2018 2:00 AM EDT 08/11/2018 2:15 AM EDT Narrative Resulting Agency Comment Spec In Lab Bronson Antony MD HEMATOLOGY ORDERABLE S Performing Organization Address City/State/[facility] Co de Phone Number [facility] [place] [address] * (ABNORMAL) Hemogram (08/11/2018 2:00 AM EDT) White Blood Cell 20.7(H) 4.0 - 9.5 x10(3)/[facility] Red Blood Cell 4.02(L) 4.58 - 5.54 x10(6)/[facility] Hemoglobin 11.3(L) 13.7 - 16.5 gm/dL [facility] Hematocrit 33.9(L) 40.5 - 48.5 % [facility] Mean Cell Volume 84.3 82.9 - 93.1 fL [facility] Mean Cell Hemoglobin 28.1 27.5 - 32.1 pg [facility] Mean Cell Hemoglobin Concentration 33.3 32.0 - 35.7 gm/dL [facility] Platelet 409(H) 145 - 357 x10(3)/mc L [facility] RDW Standard Deviation 44.1 36.0 - 45.0 fL [facility] RDW coefficient of variation 14.3(H) 11.4 - 13.8 % [facility] Mean Platelet Volume 10.2 7.6 - 12.9 fL [facility] NRBC% auto 0.0 % [facility] NRBC Absolute 0.000 0.000 - 0.000 x10(3)/mc L [facility] Blood specimen (specimen) 08/11/2018 2:00 AM EDT 08/11/2018 2:15 AM EDT Narrative Resulting Agency Comment Spec In Lab Bronson Antony MD HEMATOLOGY ORDERABLE S [facility] [place] [address] * (ABNORMAL) Comprehensive metabolic panel (non-fasting) (08/11/2018 2:00 AM EDT) Glucose 192 65 - 199 mg/dL [facility] Comment:Diabetes: >=200 mg/d L plus symptoms Blood Urea Nitrogen 10 10 - 20 mg/dL [facility] Creatinine 1.06 0.80 - 1.50 mg/dL [facility] Sodium 145 135 - 145 mmol/L [facility] Potassium 3.3(L) 3.5 - 5.0 mmol/L [facility] Comment: Please note: ??Patients with WBC >100,000 may have falsely elevated Potassium levels. ??For accurate Potassium quantification in these patients send serum separator tube (gold top) for subsequent determinations. ??Contact the Clinical Chemistry Laboratory if there are any questions. Chloride 107 98 - 107 mmol/L [facility] Carbon Dioxide 24 22 - 31 mmol/L [facility] Anion Gap 14 5 - 15 mmol/L [facility] Calcium 7.9(L) 8.5 - 10.5 mg/dL [facility] Protein, Total 6.2 6.1 - 8.0 gm/dL [facility] Albumin 3.4 3.2 - 5.2 gm/dL [facility] Aspartate Aminotransferase 16 0 - 39 unit/L [facility] Alanine Aminotransferase 65(H) 0 - 55 unit/L [facility] Alkaline Phosphatase 58 40 - 120 unit/L [facility] Bilirubin, Total 0.2 0.2 - 1.3 mg/dL [facility] Est Glomerular Filtration Rate 93 >=60 mL/min/1. 73 m?? [facility] Comment: The eGFR was calculated using the CKD-EPI equation. As with all creatinine based estimates of kidney function, eGFR values calculated with the CKD-EPI equation are not accurate in patients with acute kidney failure, extremes of body mass or the acutely ill. [email or web address] eGFR 108 >=60 mL/min/1. 73 m?? [facility] Comment: The eGFR was calculated using the CKD-EPI equation. As with all creatinine based estimates of kidney function, eGFR values calculated with the CKD-EPI equation are not accurate in patients with acute kidney failure, extremes of body mass or the acutely ill. [email or web address] Blood specimen (specimen) 08/11/2018 2:00 AM EDT 08/11/2018 2:15 AM EDT Narrative Resulting Agency Comment Spec In Lab Rachel Eugene MD CHEMISTRY ORDERABLES [facility] [place] [address] * POCT Glucose (08/11/2018 12:30 AM EDT) Glucose, POC 194 65 - 199 mg/dL [facility] Comment: Supplemental ranges: <140 mg/dL before meals <180 mg/dL all other times of the day Blood specimen (specimen) 08/11/2018 12:30 AM EDT 08/11/2018 12:30 AM EDT Rachel Eugene MD POINT OF CARE TEST O RDERABLES [facility] [place] [address] * (ABNORMAL) BLOOD GAS 2 ARTERIAL (08/10/2018 11:08 PM EDT) pH, Arterial 7.26(Criti shirley) 7.35 - 7.45 [facility] PCO2, Arterial 43 35 - 45 mmHg [facility] PO2, Arterial 95 85 - 104 mmHg [facility] Bicarbonate, Arterial 19.2(L) 20.0 - 26.0 mmol/L [facility] Base Excess, Arterial -7.8(L) -3.0 - 3.0 mmol/L [facility] Hgb Blood Gas 11.9(L) 13.7 - 16.5 gm/dL [facility] Oxyhemoglobin, Arterial 95.8 94.0 - 97.0 % [facility] Carboxyhemoglob in, Arterial 0.1 % [facility] Comment: Nonsmokers: 0.5-1.5% COHB Smokers: Variable, but usually less than 10% Toxic: 20-30% COHB Lethal: Greater than 60% COHB Methemoglobin, Arterial 0.8 <=1.5 % [facility] Na Whole Blood 141 135 - 145 mmol/L [facility] K Whole Blood 3.4(L) 3.5 - 5.0 mmol/L [facility] Comment: Please note: Patients with WBC >100,000 may have falsely elevated Potassium levels. Contact the Clinical Chemistry Laboratory if there are any questions. ICa Whole Blood 1.13(L) 1.15 - 1.33 mmol/L [facility] Comment: Note: ??Total bilirubin higher than 20 mg/dL may lead to falsely low ionized calcium. CL Whole Blood 107 98 - 107 mmol/L [facility] Gluc Whole Bld 205(H) 65 - 199 mg/dL [facility] Comment:Diabetes: >=200 mg/d L plus symptoms. Lactate WB 3.2(H) 0.5 - 2.2 mmol/L [facility] FIO2 Art 60 % [facility] PF Ratio Art 158 [facility] Blood specimen (specimen) 08/10/2018 11:08 PM EDT 08/10/2018 11:08 PM EDT Rachel Eugene MD POINT OF CARE TEST O JAMES Performing Organization Address [facility] [address]/[facility] Co de Phone Number [facility] [place] [address] * (ABNORMAL) POCT Glucose (08/10/2018 10:35 PM EDT) Glucose, POC 206(H) 65 - 199 mg/dL [facility] Comment: Supplemental ranges: <140 mg/dL before meals <180 mg/dL all other times of the day Blood specimen (specimen) 08/10/2018 10:35 PM EDT 08/10/2018 10:35 PM EDT Rachel Eugene MD POINT OF CARE TEST O MIKEERAJENNIFER Performing Organization Address [facility] [address]/ZIP Co de Phone Number [facility] [place] [address] * (ABNORMAL) BLOOD GAS 2 ARTERIAL (08/10/2018 8:51 PM EDT) pH, Arterial 7.16(Criti shirley) 7.35 - 7.45 [facility] Comment:Noted by fretted instrument inspector. PCO2, Arterial 63(Critica l) 35 - 45 mmHg [facility] Comment:Noted by fretted instrument inspector. PO2, Arterial 74(L) 85 - 104 mmHg [facility] Bicarbonate, Arterial 21.9 20.0 - 26.0 mmol/L [facility] Base Excess, Arterial -6.7(L) -3.0 - 3.0 mmol/L [facility] Hgb Blood Gas 12.5(L) 13.7 - 16.5 gm/dL [facility] Oxyhemoglobin, Arterial 91.8(L) 94.0 - 97.0 % [facility] Carboxyhemoglob in, Arterial 0.4 % [facility] Comment: Nonsmokers: 0.5-1.5% COHB Smokers: Variable, but usually less than 10% Toxic: 20-30% COHB Lethal: Greater than 60% COHB Methemoglobin, Arterial 0.8 <=1.5 % [facility] Na Whole Blood 144 135 - 145 mmol/L [facility] K Whole Blood 3.6 3.5 - 5.0 mmol/L [facility] Comment: Please note: Patients with WBC >100,000 may have falsely elevated Potassium levels. Contact the Clinical Chemistry Laboratory if there are any questions. ICa Whole Blood 1.15(L) 1.15 - 1.33 mmol/L [facility] Comment: Note: ??Total bilirubin higher than 20 mg/dL may lead to falsely low ionized calcium. CL Whole Blood 107 98 - 107 mmol/L [facility] Gluc Whole Bld 267(H) 65 - 199 mg/dL [facility] Comment:Diabetes: >=200 mg/d L plus symptoms. Lactate WB 4.7(Critic al) 0.5 - 2.2 mmol/L [facility] Comment:Noted by fretted instrument inspector. FIO2 Art 40 % [facility] PF Ratio Art 185 [facility] Blood specimen (specimen) 08/10/2018 8:51 PM EDT 08/10/2018 8:51 PM EDT Rachel Eugene MD POINT OF CARE TEST O RDERABLES Performing Organization Address [facility] de Phone Number [facility] [place] [address] * Potassium (08/10/2018 8:48 PM EDT) [facility] Potassium 3.7 3.5 - 5.0 mmol/L [facility] Comment: Please note: ??Patients with WBC >100,000 may have falsely elevated Potassium levels. ??For accurate Potassium quantification in these patients send serum separator tube (gold top) for subsequent determinations. ??Contact the Clinical Chemistry Laboratory if there are any questions. Blood specimen (specimen) 08/10/2018 8:48 PM EDT 08/10/2018 8:52 PM EDT Narrative Resulting Agency Comment Spec In Lab Rachel Eugene MD CHEMISTRY ORDERABLES Performing Organization Address [facility] de Phone Number [facility] [place] [address] * (ABNORMAL) POCT Glucose (08/10/2018 8:03 PM EDT) [facility] Glucose, POC 269(H) 65 - 199 mg/dL [facility] Comment: Supplemental ranges: <140 mg/dL before meals <180 mg/dL all other times of the day Blood specimen (specimen) 08/10/2018 8:03 PM EDT 08/10/2018 8:03 PM EDT Rachel Eugene MD POINT OF CARE TEST O RDERABLES Performing Organization Address [facility] de Phone Number [facility] [place] [address] * (ABNORMAL) BLOOD GAS 2 ARTERIAL (08/10/2018 6:28 PM EDT) [facility] pH, Arterial 7.11(Criti shirley) 7.35 - 7.45 [facility] Comment:Noted by fretted instrument inspector. PCO2, Arterial 54(H) 35 - 45 mmHg [facility] PO2, Arterial 81(L) 85 - 104 mmHg [facility] Bicarbonate, Arterial 16.6(L) 20.0 - 26.0 mmol/L [facility] Base Excess, Arterial -12.9(L) -3.0 - 3.0 mmol/L [facility] Hgb Blood Gas 12.5(L) 13.7 - 16.5 gm/dL [facility] Oxyhemoglobin, Arterial 92.2(L) 94.0 - 97.0 % [facility] Carboxyhemoglob in, Arterial 0.6 % [facility] Comment: Nonsmokers: 0.5-1.5% COHB Smokers: Variable, but usually less than 10% Toxic: 20-30% COHB Lethal: Greater than 60% COHB Methemoglobin, Arterial 0.8 <=1.5 % [facility] Na Whole Blood 142 135 - 145 mmol/L [facility] K Whole Blood 3.3(L) 3.5 - 5.0 mmol/L [facility] Comment: Please note: Patients with WBC >100,000 may have falsely elevated Potassium levels. Contact the Clinical Chemistry Laboratory if there are any questions. ICa Whole Blood 1.16 1.15 - 1.33 mmol/L [facility] Comment: Note: ??Total bilirubin higher than 20 mg/dL may lead to falsely low ionized calcium. CL Whole Blood 107 98 - 107 mmol/L [facility] Gluc Whole Bld 286(H) 65 - 199 mg/dL [facility] Comment:Diabetes: >=200 mg/d L plus symptoms. Lactate WB 5.5(Critic al) 0.5 - 2.2 mmol/L [facility] Comment:Noted by fretted instrument inspector. FIO2 Art 40 % [facility] PF Ratio Art 202 [facility] Blood specimen (specimen) 08/10/2018 6:28 PM EDT 08/10/2018 6:28 PM EDT Rachel Eugene MD POINT OF CARE TEST O RDERABLES [facility] [place] [address] * (ABNORMAL) BLOOD GAS 2 ARTERIAL (08/10/2018 4:32 PM EDT) pH, Arterial 7.05(Criti shirley) 7.35 - 7.45 [facility] Comment:Noted by fretted instrument inspector. PCO2, Arterial 55(H) 35 - 45 mmHg [facility] PO2, Arterial 82(L) 85 - 104 mmHg [facility] Bicarbonate, Arterial 14.9(L) 20.0 - 26.0 mmol/L [facility] Base Excess, Arterial -15.6(L) -3.0 - 3.0 mmol/L [facility] Hgb Blood Gas 12.5(L) 13.7 - 16.5 gm/dL [facility] Oxyhemoglobin, Arterial 91.5(L) 94.0 - 97.0 % [facility] Carboxyhemoglob in, Arterial 0.6 % [facility] Comment: Nonsmokers: 0.5-1.5% COHB Smokers: Variable, but usually less than 10% Toxic: 20-30% COHB Lethal: Greater than 60% COHB Methemoglobin, Arterial 0.8 <=1.5 % [facility] Na Whole Blood 141 135 - 145 mmol/L [facility] K Whole Blood 3.1(L) 3.5 - 5.0 mmol/L [facility] Comment: Please note: Patients with WBC >100,000 may have falsely elevated Potassium levels. Contact the Clinical Chemistry Laboratory if there are any questions. ICa Whole Blood 1.16 1.15 - 1.33 mmol/L [facility] Comment: Note: ??Total bilirubin higher than 20 mg/dL may lead to falsely low ionized calcium. CL Whole Blood 106 98 - 107 mmol/L [facility] Gluc Whole Bld 290(H) 65 - 199 mg/dL [facility] Comment:Diabetes: >=200 mg/d L plus symptoms. Lactate WB 6.0(Critic al) 0.5 - 2.2 mmol/L [facility] Comment:Noted by fretted instrument inspector. FIO2 Art 40 % [facility] PF Ratio Art 205 [facility] Blood specimen (specimen) 08/10/2018 4:32 PM EDT 08/10/2018 4:32 PM EDT Rachel Eugene MD POINT OF CARE TEST O RDERABLES Performing Organization Address [facility] [address]/[facility] Co de Phone Number [facility] [place] [address] * Beta Hydroxybutyrate (08/10/2018 4:05 PM EDT) Beta-hydroxybu turate <0.10 0.00 - 0.30 mmol/L [facility] Comment: Reference range: ??0.00-0.30 mmo1/L, based on an overnight fast. ??Children may be higher. Blood specimen (specimen) Venous Draw / Unknown 08/10/2018 4:05 PM EDT 08/10/2018 4:32 PM EDT Narrative Resulting Agency Comment Spec In Lab Rachel Eugene MD CHEMISTRY ORDERABLES Performing Organization Address [facility] [address]/[facility] Co de Phone Number [facility] [place] [address] * (ABNORMAL) Phosphorus (08/10/2018 4:05 PM EDT) Phosphorus 5.0(H) 2.5 - 4.5 mg/dL [facility] Blood specimen (specimen) Venous Draw / Unknown 08/10/2018 4:05 PM EDT 08/10/2018 4:32 PM EDT Narrative Resulting Agency Comment Spec In Lab Rachel Eugene MD CHEMISTRY ORDERABLES Performing Organization Address City/[facility] [address]/ZIP Co de Phone Number [facility] [place] [address] * (ABNORMAL) Basic Metabolic Panel (non-fasting) (08/10/2018 4:05 PM EDT) Glucose 309(H) 65 - 199 mg/dL [facility] Comment:Diabetes: >=200 mg/d L plus symptoms Blood Urea Nitrogen 11 10 - 20 mg/dL [facility] Creatinine 1.39 0.80 - 1.50 mg/dL [facility] Sodium 144 135 - 145 mmol/L [facility] Potassium 2.9(Criti shirley) 3.5 - 5.0 mmol/L [facility] Comment: Called by: TAWANNA, Read back by: Judy Almeida, Date/Time:08/10/18 17:13. Please note: ??Patients with WBC >100,000 may have falsely elevated Potassium levels. ??For accurate Potassium quantification in these patients send serum separator tube (gold top) for subsequent determinations. ??Contact the Clinical Chemistry Laboratory if there are any questions. Chloride 104 98 - 107 mmol/L [facility] Carbon Dioxide 16(L) 22 - 31 mmol/L [facility] Anion Gap 24(H) 5 - 15 mmol/L [facility] Calcium 7.7(L) 8.5 - 10.5 mg/dL [facility] Est Glomerular Filtration Rate 67 >=60 mL/min/1. 73 m?? [facility] Comment: The eGFR was calculated using the CKD-EPI equation. As with all creatinine based estimates of kidney function, eGFR values calculated with the CKD-EPI equation are not accurate in patients with acute kidney failure, extremes of body mass or the acutely ill. http://[employer]/DHnkf eGFR 78 >=60 mL/min/1. 73 m?? [facility] Comment: The eGFR was calculated using the CKD-EPI equation. As with all creatinine based estimates of kidney function, eGFR values calculated with the CKD-EPI equation are not accurate in patients with acute kidney failure, extremes of body mass or the acutely ill. [email or web address]/DHMCnkf Blood specimen (specimen) 08/10/2018 4:05 PM EDT 08/10/2018 4:17 PM EDT Narrative Resulting Agency Comment Spec In Lab Rachel Eugene MD CHEMISTRY ORDERABLES Performing Organization Address [facility] [address]/[facility] Co de Phone Number [facility] [place] [address] * (ABNORMAL) Lactate, whole blood, send to lab (Leb/CGP) (08/10/2018 4:05 PM EDT) Lactate WB 8.1(Critic al) 0.5 - 2.2 mmol/L [facility] Comment:Called by: TAWANNA, Read back by: Prince Sanford, Date/Time:08/10/18 16:22. Blood specimen (specimen) 08/10/2018 4:05 PM EDT 08/10/2018 4:17 PM EDT Narrative Resulting Agency Comment Spec In Lab Rachel Eugene MD CHEMISTRY ORDERABLES Performing Organization Address [facility] [address]/[facility] Co de Phone Number [facility] [place] [address] * XR Chest PA or AP 1 view (08/10/2018 3:45 PM EDT) Anatomical Region Laterality Modality Chest N/A Digital Radiogra phy Impressions 08/10/2018 4:22 PM EDT 1. Status post right IJ central line with tip in proximal SVC. No evidence of pneumothorax. 2. Small amount of pneumomediastinum. This was previously reported on the chest CT from earlier in the day. Narrative 08/10/2018 4:22 PM EDT EXAMINATION: XR CHEST PA OR AP 1 VIEW CLINICAL HISTORY: S/P Central line placement. Please assess TECHNIQUE: AP 30 degree upright portable chest x-ray COMPARISON: 08/10/2018. FINDINGS: Since the previous study, a right IJ catheter is been placed with the tip in the proximal to mid SVC. No change in position of the ET tube or NG tube. There is an esophageal probe present. The cardiomediastinal silhouette is normal in size. There is a small amount of pneumomediastinum seen along the left heart border. The lungs are clear. No pleural effusion or pneumothorax. Procedure Note Tom Hanna MD - 08/10/2018 EXAMINATION: XR CHEST PA OR AP 1 VIEW CLINICAL HISTORY: S/P Central line placement. Please assess TECHNIQUE: AP 30 degree upright portable chest x-ray COMPARISON: 08/10/2018. FINDINGS: Since the previous study, a right IJ catheter is been placed with the tipin the proximal to mid SVC. No change in position of the ET tube or NG tube.There is an esophageal probe present. The cardiomediastinal silhouette is normal insize. There is a small amount of pneumomediastinum seen along the left heartborder. The lungs are clear. No pleural effusion or pneumothorax. IMPRESSION 1. Status post right IJ central line with tip in proximal SVC. No evidenceof pneumothorax. 2. Small amount of pneumomediastinum. [facility]. Rachel Eugene MD IMG DX ORDERABLES * Urine culture (08/10/2018 3:42 PM EDT) Urine Culture No growth (Less than 1,000 cfu/ml). [facility] Urine specimen obtained via indwelling urinary catheter (specimen) 08/10/2018 3:42 PM EDT 08/10/2018 5:05 PM EDT Narrative Resulting Agency Comment Spec In Lab Bronson Antony MD MICROBIOLOGY - GENER AL ORDERABLES [facility] [place] [address] * (ABNORMAL) Urinalysis Microscopic Exam (08/10/2018 3:42 PM EDT) RBC, Urine 63(H) 0 - 3 /HPF [facility] WBC, Urine 15(H) 0 - 3 /HPF [facility] Bacteria, Urine Rare(A) None /HPF [facility] Squamous Epithelial Cells Raw Data, Urine <1 <=4 /HPF [facility] Urine specimen obtained via indwelling urinary catheter (specimen) 08/10/2018 3:42 PM EDT 08/10/2018 3:55 PM EDT Narrative Resulting Agency Comment Spec In Lab Bronson Antony MD URINE ORDERABLES Performing Organization Address City/State/[facility] Co de Phone Number [facility] [place] [address] * (ABNORMAL) Urinalysis with reflex Culture (08/10/2018 3:42 PM EDT) Glucose, Urine Dipstick 50(A) Negative mg/dL [facility] Protein, Urine Dipstick 100(A) Negative mg/dL [facility] Bilirubin, Urine Dipstick Negative Negative mg/dL [facility] Comment: Clinical correlation required for positive Urine Bilirubin results as false positive may occur with some drugs and drug related products. If a false positive is suspected a serum total bilirubin should be considered if clinically indicated. Urobilinogen, Urine Dipstick Normal Normal mg/dL [facility] pH, Urn (dipstick) 5.0 5.0 - 8.0 [facility] Blood, Urine Dipstick Small(A) Negative mg/dL [facility] Ketone, Urine Dipstick Negative Negative mg/dL [facility] Nitrite, Urine Dipstick Negative Negative [facility] Leukocytes, Urine Dipstick Negative Negative [facility] Appearance, Urine Dipstick Clear Clear [facility] Specific [place] Urine Automated >1.035(H) 1.002 - 1.030 [facility] Color, Urine Dipstick Yellow Yellow [facility] Reflex to Culture Yes [facility] Urine specimen obtained via indwelling urinary catheter (specimen) 08/10/2018 3:42 PM EDT 08/10/2018 3:55 PM EDT Narrative Resulting Agency Comment Spec In Lab Rick Roman Jr., MD URINE ORDERABLES Performing Organization Address City/State/[facility] Co de Phone Number [facility] [place] [address] * (ABNORMAL) BLOOD GAS 2 ARTERIAL (08/10/2018 12:57 PM EDT) pH, Arterial 7.12(Criti shirley) 7.35 - 7.45 [facility] PCO2, Arterial 52(H) 35 - 45 mmHg [facility] PO2, Arterial 76(L) 85 - 104 mmHg [facility] Bicarbonate, Arterial 16.5(L) 20.0 - 26.0 mmol/L [facility] Base Excess, Arterial -12.8(L) -3.0 - 3.0 mmol/L [facility] Hgb Blood Gas 12.9(L) 13.7 - 16.5 gm/dL [facility] Oxyhemoglobin, Arterial 90.8(L) 94.0 - 97.0 % [facility] Carboxyhemoglob in, Arterial 0.2 % [facility] Comment: Nonsmokers: 0.5-1.5% COHB Smokers: Variable, but usually less than 10% Toxic: 20-30% COHB Lethal: Greater than 60% COHB Methemoglobin, Arterial 0.7 <=1.5 % [facility] Na Whole Blood 142 135 - 145 mmol/L [facility] K Whole Blood 2.8(Critic al) 3.5 - 5.0 mmol/L [facility] Comment: Please note: Patients with WBC >100,000 may have falsely elevated Potassium levels. Contact the Clinical Chemistry Laboratory if there are any questions. ICa Whole Blood 1.13(L) 1.15 - 1.33 mmol/L [facility] Comment: Note: ??Total bilirubin higher than 20 mg/dL may lead to falsely low ionized calcium. CL Whole Blood 106 98 - 107 mmol/L [facility] Gluc Whole Bld 266(H) 65 - 199 mg/dL [facility] Comment:Diabetes: >=200 mg/d L plus symptoms. Lactate WB 8.3(Critic al) 0.5 - 2.2 mmol/L [facility] FIO2 Art 40 % [facility] PF Ratio Art 190 [facility] Blood specimen (specimen) 08/10/2018 12:57 PM EDT 08/10/2018 12:57 PM EDT Rachel Eugene MD POINT OF CARE TEST O RDERABLES Performing Organization Address [facility] [address]/[facility] Co de Phone Number [facility] [place] [address] * Blood culture (08/10/2018 10:01 AM EDT) Blood Culture No growth at 5 days. [facility] Blood specimen (specimen) 08/10/2018 10:01 AM EDT 08/10/2018 10:52 AM EDT Comment:LH Narrative Resulting Agency Comment Spec In Lab Rick Roman Jr., MD MICROBIOLOGY - B LOOD ORDERABLES Performing Organization Address [facility] [address]/[facility] Co de Phone Number [facility] [place] [address] * XR Abdomen 1 view (Generic) (08/10/2018 9:33 AM EDT) Anatomical Region Laterality Modality Abdomen N/A Digital Radiogra phy Impressions 08/10/2018 10:22 AM EDT Limited radiograph for OG tube placement enteric tip below the left hemidiaphragm. Narrative 08/10/2018 10:22 AM EDT EXAMINATION: XR ABDOMEN 1 VIEW (GENERIC) CLINICAL HISTORY: OG tube placement TECHNIQUE: A single AP view of the abdomen was obtained. COMPARISON: None FINDINGS: ETT is ??midtrachea . ??Esophageal temperature probe in the upper esophagus. Enteric tube tip Left upper abdomen. ??Lung bases limited but visualized portion,clear. Procedure Note Rachele Rodriguez MD - 08/10/2018 EXAMINATION: XR ABDOMEN 1 VIEW (GENERIC) CLINICAL HISTORY: OG tube placement TECHNIQUE: A single AP view of the abdomen was obtained. COMPARISON: None FINDINGS: ETT is midtrachea . Esophageal temperature probe in the upper esophagus. Enteric tube tip Left upper abdomen. Lung bases limited but visualized portion,clear. IMPRESSION Limited radiograph for OG tube placement enteric tip below the left hemidiaphragm. 10:22 AM Rick Roman Jr., MD IMG DX ORDERABLE S * XR Chest PA or AP 1 view (08/10/2018 9:33 AM EDT) Anatomical Region Laterality Modality Chest N/A Digital Radiogra phy Impressions 08/10/2018 10:58 AM EDT No pneumothorax or large amount of pneumomediastinum. Small pneumopericardium. Peribronchial thickening may suggest bronchitis or asthma. No mediastinal shift. I have personally reviewed the image(s) and the residents interpretation and agree with the findings, Rachele Rodriguez MD at 08/10/2018 10:58 AM Narrative 08/10/2018 10:58 AM EDT EXAMINATION: XR CHEST PA OR AP 1 VIEW CLINICAL HISTORY: Likely acute asthma exacerbation. Had ? of pneumothorax. Also track pneumomediastinum TECHNIQUE: AP semiupright 35 degrees chest radiograph COMPARISON: CT chest 08/10/2018, 08/10/2018 radiograph FINDINGS: ET tube, appropriately positioned. She'll temp probe upper esophagus and enteric tube tip below the diaphragm. No pneumothorax or large the mediastinum. Small amount of air tracks within the right neck. Small amount of pneumopericardium is present. Prior nodular opacities on CT not well seen.. No focal opacity identified. Peribronchial peribronchial thickening consistent with patient's known asthma Procedure Note Rachele Rodriguez MD - 08/10/2018 EXAMINATION: XR CHEST PA OR AP 1 VIEW CLINICAL HISTORY: Likely acute asthma exacerbation. Had ? of pneumothorax.Also track pneumomediastinum TECHNIQUE: AP semiupright 35 degrees chest radiograph COMPARISON: CT chest 08/10/2018, 08/10/2018 radiograph FINDINGS: ET tube, appropriately positioned. She'll temp probe upper esophagus andenteric tube tip below the diaphragm. No pneumothorax or large the mediastinum. Small amount of air trackswithin the right neck. Small amount of pneumopericardium is present. Prior nodular opacities on CT not well seen.. No focal opacity identified.Peribronchial peribronchial thickening consistent with patient's known asthma IMPRESSION No pneumothorax or large amount of pneumomediastinum. Smallpneumopericardium. Peribronchial thickening may suggest bronchitis or asthma. No mediastinalshift. I have personally reviewed the image(s) and the residents interpretationand agree with the findings, Rachele Rodriguez MD at 08/10/2018 10:58 AM 10:58 AM Rick Roman Jr., MD IMG DX ORDERABLE S * Ab Comment (08/10/2018 9:30 AM EDT) Ab Information INTERPRETATION: The patient's specimen has an antibody that behaves as a cold agglutinin, with specificity anti-I. ??This is not capable of causing hemolysis, but will add about two hours to unit preparation time, as testing needs to be done with pre-warmed reagents. Aurelia Molina MD Transfusion Medicine Service 08/16/18 13:58 [facility] Comment: Aurelia Molina, Pathologist Verified:08/16/18 Blood specimen (specimen) Venous Draw / Unknown 08/10/2018 9:30 AM EDT 08/10/2018 9:35 AM EDT Narrative Resulting Agency Comment Spec In Lab Bronson Antony MD BLOOD BANK LAB ORDER CLARISSE [facility] [place] [address] * Antibody identification (08/10/2018 9:30 AM EDT) Ab Identified Anti-I [facility] Blood specimen (specimen) Venous Draw / Unknown 08/10/2018 9:30 AM EDT 08/10/2018 9:35 AM EDT Narrative Resulting Agency Comment Spec In Lab Bronson Antony MD BLOOD BANK LAB ORDER CLARISSE Performing Organization Address City/[facility] [address]/ZIP Co de Phone Number [facility] [place] [address] * Antibody screen manual (08/10/2018 9:30 AM EDT) AB Screen Interp Positive [facility] Blood specimen (specimen) Venous Draw / Unknown 08/10/2018 9:30 AM EDT 08/10/2018 9:35 AM EDT Narrative Resulting Agency Comment Spec In Lab Bronson Antony MD BLOOD BANK LAB ORDER CLARISSE Performing Organization Address City/[facility] [address]/ZIP Co de Phone Number [facility] [place] [address] * (ABNORMAL) Blood Gas Arterial (08/10/2018 9:13 AM EDT) pH, Arterial 7.15(Criti shirley) 7.35 - 7.45 [facility] Comment:Called by: KAILA, Read back by: Opal Knox, Date/Time:08/10/18 09:34. PCO2, Arterial 76(Critica l) 35 - 45 mmHg [facility] Comment:Called by: KAILA, Read back by: Opal Knox, Date/Time:08/10/18 09:34. PO2, Arterial 132(H) 85 - 104 mmHg [facility] Comment: Sample contains one or more air bubbles which may result in falsely elevated pO2, decreased pCO2 and increased pH. Bicarbonate, Arterial 26.0 20.0 - 26.0 mmol/L [facility] Base Excess, Arterial -2.7 -3.0 - 3.0 mmol/L [facility] Hgb Blood Gas 13.4(L) 13.7 - 16.5 gm/dL [facility] Oxyhemoglobin, Arterial 96.3 94.0 - 97.0 % [facility] Carboxyhemoglob in, Arterial 1.9 % [facility] Comment: Nonsmokers: ??0.5-1.5% COHB Smokers: ??Variable, but usually less than 10% Toxic: 20 - 30% COHB Lethal: ??Greater than 60% COHB Methemoglobin, Arterial 0.1 <=1.5 % [facility] Na Whole Blood 141 135 - 145 mmol/L [facility] K Whole Blood 4.4 3.5 - 5.0 mmol/L [facility] Comment: Please note: ??Patients with WBC >100,000 may have falsely elevated Potassium levels. ??Contact the Clinical Chemistry Laboratory if there are any questions. ICa Whole Blood 1.15 1.15 - 1.33 mmol/L [facility] Comment: Note: ??Total bilirubin higher than 20 mg/dL may lead to falsely low ionized calcium. CL Whole Blood 110(H) 98 - 107 mmol/L [facility] Gluc Whole Bld 157 65 - 199 mg/dL [facility] Comment:Diabetes: >=200 mg/d L plus symptoms. Lactate WB 1.4 0.5 - 2.2 mmol/L [facility] FIO2 Art 50 % [facility] PF Ratio Art 264 [facility] Blood specimen (specimen) Arterial Draw / Unknown 08/10/2018 9:13 AM EDT 08/10/2018 9:29 AM EDT Narrative Resulting Agency Comment Spec In Lab Bronson Antony MD CHEMISTRY ORDERABLES Performing Organization Address [facility] [address]/[facility] Co de Phone Number [facility] [place] [address] * EKG 12 Lead (08/10/2018 9:05 AM EDT) Ventricular rate 71 BPM MUSE SYSTEM Atrial Rate 71 BPM MUSE SYSTEM P-R Interval 158 ms MUSE SYSTEM QRS Duration 108 ms MUSE SYSTEM Q-T Interval 454 ms MUSE SYSTEM QTC Calculated (Bezet) 493 ms MUSE SYSTEM Calculated P [place] 82 degrees MUSE SYSTEM Calculated R [place] 79 degrees MUSE SYSTEM Calculated T [place] 62 degrees MUSE SYSTEM INTERPRETATION Normal sinus rhythm Prolonged QT Abnormal ECG No previous ECGs available Confirmed by MD BARROS DAVID ([id number]) on 08/10/2018 12:04:03 PM MUSE SYSTEM 08/10/2018 9:05 AM EDT 08/10/2018 12:04 PM EDT Rick Roman Jr., MD ECG ORDERABLES Performing Organization Address [facility] [address]/[facility] Co de Phone Number MUSE SYSTEM * ABORH Recheck Status (08/10/2018 9:04 AM EDT) ABORH Recheck Order Order Placed [facility] ABORH Type Recheck Complete [facility] Blood specimen (specimen) 08/10/2018 9:04 AM EDT 08/10/2018 9:05 AM EDT Narrative Resulting Agency Comment Spec In Lab Bronson Antony MD BLOOD BANK LAB ORDER CLARISSE Performing Organization Address [facility] [address]/[facility] Co de Phone Number [facility] [place] [address] * Antibody screen (08/10/2018 9:04 AM EDT) Ab Screen Interp Negative [facility] Expires at [id number] on: 08/13/2018 [facility] Blood specimen (specimen) 08/10/2018 9:04 AM EDT 08/10/2018 9:04 AM EDT Narrative Resulting Agency Comment Spec In Lab Bronson Antony MD BLOOD BANK LAB ORDER CLARISSE [facility] [place] [address] * ABO/Rh Typing (08/10/2018 9:04 AM EDT) Pathologist [facility] ABORH Type A Neg [facility] Blood specimen (specimen) 08/10/2018 9:04 AM EDT 08/10/2018 9:04 AM EDT Narrative Resulting Agency Comment Spec In Lab Bronson Antony MD BLOOD BANK LAB ORDER CLARISSE Performing Organization Address [facility] [address]/[facility] Co de Phone Number [facility] [place] [address] * Magnesium (08/10/2018 8:50 AM EDT) [facility] Magnesium 0.98 0.69 - 1.07 mmol/L [facility] Blood specimen (specimen) Venous Draw / Unknown 08/10/2018 8:50 AM EDT 08/10/2018 9:16 AM EDT Narrative Resulting Agency Comment Spec In Lab Bronson Antony MD CHEMISTRY ORDERABLES Performing Organization Address [facility] [address]/[facility] Co de Phone Number [facility] [place] [address] * (ABNORMAL) Differential, Automated (08/10/2018 8:50 AM EDT) [facility] Neutrophil % 90.1 % [facility] Neutrophil Absolute 14.47(H) 1.70 - 6.10 x10(3)/mc L [facility] Lymph % 5.0 % [facility] Lymphocytes Abs 0.8(L) 0.9 - 3.2 x10(3)/mc L [facility] Monocyte % 3.5 % [facility] Monocyte Abs 0.6 0.3 - 0.9 x10(3)/mc L [facility] Eos % 0.2 % [facility] Eosinophils Abs 0.0 0.0 - 0.4 x10(3)/[facility] Basophil % 0.2 % [facility] Baso Absolute 0.0 0.0 - 0.1 x10(3)/[facility] Immature Gran % 1.00 % [facility] Comment: Immature granulocytes(IG's)percentage and absolute count will include metamyelocytes, myelocytes, and promyelocytes. Blood smears from CBCs yielding IG's will be scanned manually for concordance. If this scan disagrees with the automated IG or if promyelocytes are noted, a manual differential will be performed. Immature Gran Absolute 0.16(H) 0.00 - 0.04 x10(3)/[facility] Blood specimen (specimen) 08/10/2018 8:50 AM EDT 08/10/2018 9:13 AM EDT Narrative Resulting Agency Comment Spec In Lab Bronson Antony MD HEMATOLOGY ORDERABLE S [facility] [place] [address] * (ABNORMAL) Hemogram (08/10/2018 8:50 AM EDT) White Blood Cell 16.1(H) 4.0 - 9.5 x10(3)/[facility] Red Blood Cell 4.37(L) 4.58 - 5.54 x10(6)/[facility] Hemoglobin 12.2(L) 13.7 - 16.5 gm/dL [facility] Hematocrit 37.1(L) 40.5 - 48.5 % [facility] Mean Cell Volume 84.9 82.9 - 93.1 fL [facility] Mean Cell Hemoglobin 27.9 27.5 - 32.1 pg [facility] Mean Cell Hemoglobin Concentration 32.9 32.0 - 35.7 gm/dL [facility] Platelet 307 145 - 357 x10(3)/mc L [facility] RDW Standard Deviation 42.5 36.0 - 45.0 fL [facility] RDW coefficient of variation 13.9(H) 11.4 - 13.8 % [facility] Mean Platelet Volume 10.4 7.6 - 12.9 fL [facility] NRBC% auto 0.0 % [facility] NRBC Absolute 0.000 0.000 - 0.000 x10(3)/mc L [facility] Blood specimen (specimen) 08/10/2018 8:50 AM EDT 08/10/2018 9:13 AM EDT Narrative Resulting Agency Comment Spec In Lab Bronson Antony MD HEMATOLOGY ORDERABLE S Performing Organization Address [facility] [address]/ZIP Co de Phone Number [facility] [place] [address] * (ABNORMAL) CK (08/10/2018 8:50 AM EDT) Creatine Kinase 348(H) 0 - 200 unit/L [facility] Blood specimen (specimen) 08/10/2018 8:50 AM EDT 08/10/2018 9:13 AM EDT Narrative Resulting Agency Comment Spec In Lab Rick Roman Jr., MD CHEMISTRY ORDERA BLES Performing Organization Address City/[facility] [address]/ZIP Co de Phone Number [facility] [place] [address] * Triglyceride (08/10/2018 8:50 AM EDT) Triglyceride 162 mg/dL [facility] Comment: Average Risk/Lower Risk: <150 mg/dL Borderline High Risk: 150-199 mg/dL High Risk: 200-499 mg/dL Very High Risk: >vp=913 mg/dL Blood specimen (specimen) 08/10/2018 8:50 AM EDT 08/10/2018 9:13 AM EDT Narrative Resulting Agency Comment Spec In Lab Rick Roman Jr., MD CHEMISTRY ORDERA JENNIFER [facility] [place] [address] * (ABNORMAL) CMP w/fasting Glucose (08/10/2018 8:50 AM EDT) Glucose Fasting 159(H) 65 - 99 mg/dL [facility] Comment: ?Fasting* Glucose Interpretive Criteria Normal ?65-99 mg/dL Impaired Fasting glucose ?100-125 mg/dL Consistent with Diabetes Mellitus ? >or= 126 mg/dL *Fasting is defined as no caloric intake for at least 8 hours In the absence of unequivocal hyperglycemia a plasma glucose value of >or= 126 mg/dL should be repeated on a subsequent day. Diagnosis and Classification of Diabetes Mellitus, Position Statement from the [place] Diabetes Association. ??Diabetes Care, Volume 33, Supplement 1, Oct 2009 Blood Urea Nitrogen 7(L) 10 - 20 mg/dL [facility] Creatinine 0.95 0.80 - 1.50 mg/dL [facility] Sodium 142 135 - 145 mmol/L [facility] Potassium 4.4 3.5 - 5.0 mmol/L [facility] Comment: Please note: ??Patients with WBC >100,000 may have falsely elevated Potassium levels. ??For accurate Potassium quantification in these patients send serum separator tube (gold top) for subsequent determinations. ??Contact the Clinical Chemistry Laboratory if there are any questions. Chloride 106 98 - 107 mmol/L [facility] Carbon Dioxide 28 22 - 31 mmol/L [facility] Anion Gap 8 5 - 15 mmol/L [facility] Calcium 8.0(L) 8.5 - 10.5 mg/dL [facility] Protein, Total 6.6 6.1 - 8.0 gm/dL [facility] Albumin 3.7 3.2 - 5.2 gm/dL [facility] Aspartate Aminotransferase 29 0 - 39 unit/L [facility] Alanine Aminotransferase 80(H) 0 - 55 unit/L [facility] Alkaline Phosphatase 64 40 - 120 unit/L [facility] Bilirubin, Total 0.6 0.2 - 1.3 mg/dL [facility] Est Glomerular Filtration Rate 106 >=60 mL/min/1. 73 m?? [facility] Comment: The eGFR was calculated using the CKD-EPI equation. As with all creatinine based estimates of kidney function, eGFR values calculated with the CKD-EPI equation are not accurate in patients with acute kidney failure, extremes of body mass or the acutely ill. [email or web address] eGFR 123 >=60 mL/min/1. 73 m?? [facility] Comment: The eGFR was calculated using the CKD-EPI equation. As with all creatinine based estimates of kidney function, eGFR values calculated with the CKD-EPI equation are not accurate in patients with acute kidney failure, extremes of body mass or the acutely ill. [email or web address] Blood specimen (specimen) 08/10/2018 8:50 AM EDT 08/10/2018 9:13 AM EDT Narrative Resulting Agency Comment Spec In Lab Rick Roman Jr., MD CHEMISTRY ORDERA JENNIFER [facility] [place] [address] * (ABNORMAL) Cardiac Enzymes (LEB/CGP) (08/10/2018 8:50 AM EDT) Troponin-T <0.01 0.00 - 0.00 ng/mL [facility] Comment: The 99th percentile for Troponin T is less than 0.01 ng/mL, any detectable cTnT concentration using this assay should be considered elevated. According to the third universal definition of myocardial infarction the following criteria with a clinical presentation consistent with acute myocardial ischemia meets the diagnosis for a myocardial infarction (NM). Detection of a rise and/or fall of cTnT, with at least one value greater than the 99th percentile (> or = 0.01) and with at least one of the following ?? Symptoms of ischemia ?? New or presumed new significant [id number] wave (ST-T) changes or new left bundle branch block (LBBB) ?? Development of pathologic Q waves in the ECG ?? Imaging evidence of new loss of viable myocardium or new regional wall motion abnormality ?? Identification of an intracoronary thrombus by angiography or autopsy Samples for cTnT testing should be obtained serially upon first assessment and again 3 to 6 hours later. If the clinical suspicion is high and previous samples have been negative an additional sample may be indicated. Reference: Third [place] Definition of Myocardial Infarction. Journal of the [place] College of Cardiology 2012;60:1581-98 Creatine Kinase 348(H) 0 - 200 unit/L [facility] Blood specimen (specimen) 08/10/2018 8:50 AM EDT 08/10/2018 9:13 AM EDT Narrative Resulting Agency Comment Spec In Lab Rick Roman Jr., MD CHEMISTRY ORDERA BLES [facility] [place] [address] * Respiratory Panel PCR (08/10/2018 8:48 AM EDT) Respiratory Panel Source METALS ANALYST Swab [facility] Respiratory Panel PCR Negative Negative [facility] Comment: Respiratory Panels are performed on the [employer], using multiplexed PCR nucleic acid detection. ??Negative results do not preclude respiratory infection and should not be used as the sole basis for diagnosis, treatment or other management decisions. Adenovirus Not Detected Not Detected [facility] Coronavirus HKU1 Not Detected Not Detected [facility] Coronavirus NL63 Not Detected Not Detected [facility] Coronavirus 229E Not Detected Not Detected [facility] Coronavirus OC43 Not Detected Not Detected [facility] Human Metapneumovirus Not Detected Not Detected [facility] Human Rhinovirus/Enterov irus Not Detected Not Detected [facility] Influenza A Not Detected Not Detected [facility] Influenza B Not Detected Not Detected [facility] Parainfluenza 1 Not Detected Not Detected [facility] Parainfluenza 2 Not Detected Not Detected [facility] Parainfluenza 3 Not Detected Not Detected [facility] Parainfluenza 4 Not Detected Not Detected [facility] Respiratory Syncytial Virus Not Detected Not Detected [facility] Bordetella pertussis Not Detected Not Detected [facility] Chlamydophila pneumoniae Not Detected Not Detected [facility] Mycoplasma pneumoniae Not Detected Not Detected [facility] Nasopharyngeal swab (specimen) 08/10/2018 8:48 AM EDT 08/10/2018 9:44 AM EDT Comment:Infectious Disease a pproval required; Approved by:->Pattie Zavala Narrative Resulting Agency Comment Spec In Lab Rachel Eugene MD MICROBIOLOGY - GENER AL ORDERABLES Performing Organization Address City/[facility] [address]/ZIP Co de Phone Number [facility] [place] [address] * Lower Respiratory Culture Tracheal Aspirate (08/10/2018 8:44 AM EDT) Lower Respiratory Culture Rare mixed bacterial morphotypes suggestive of normal upper respiratory luan [facility] Gram Stain Moderate Neutrophils seen No squamous epithelial cells seen Few mixed bacterial morphotypes suggestive of normal upper respiratory luan [facility] Specimen from trachea obtained by aspiration (specimen) 08/10/2018 8:44 AM EDT 08/10/2018 9:47 AM EDT Narrative Resulting Agency Comment Spec In Lab Rick Roman Jr., MD MICROBIOLOGY - G ENERAL ORDERABLES Performing Organization Address City/[facility] [address]/ZIP Co de Phone Number [facility] [place] [address] * POCT Glucose (08/10/2018 8:11 AM EDT) Glucose, POC 152 65 - 199 mg/dL [facility] Comment: Supplemental ranges: <140 mg/dL before meals <180 mg/dL all other times of the day Blood specimen (specimen) 08/10/2018 8:11 AM EDT 08/10/2018 8:11 AM EDT Rick Roman Jr., MD POINT OF CARE TE ST ORDERABLES [facility] [place] [address] * Request For 2nd Read CT Chest [...] CTA of the chest originally obtained at [facility]. MIPs were reviewed. COMPARISON: None FINDINGS: [...] outside CTA of the chest originallyobtained at [facility]. MIPs were reviewed. COMPARISON: None FINDINGS: [...] documented in this encounter Visit Diagnoses Diagnosis Acute respiratory failure- Primary Severe asthma with acute exacerbation, unspecified whether persistent Severe persistent asthma with status asthmaticus Unspecified asthma, with status asthmaticus Asthma with status asthmaticus Unspecified asthma, with status asthmaticus Essential hypertension Unspecified essential hypertension Pneumomediastinum Interstitial emphysema documented in this encounter Admitting Diagnoses Diagnosis Asthma Unspecified asthma documented in this encounter Administered Medications Inactive Administered Medications - up to 3 most recent administrations Medication Order MAR Action Action Date Dose Rate Site acetaminophen (TYLENOL) 650 mg/20.3 mL oral liquid 1,000 mg 1,000 mg, Oral, EVERY 8 HOURS SCHEDULED, First dose on 08/10/18 at 0900, Until Discontinued, May give PO or Per Tube, Maximum dose of acetaminophen is 4000 mg from all sources in 24 hours., Routine Given 08/11/2018 5:59 AM EDT 1,000 mg Given 08/10/2018 10:20 PM EDT 1,000 mg acetaminophen (TYLENOL) tablet 1,000 mg 1,000 mg, Oral, EVERY 8 HOURS SCHEDULED, First dose on 08/10/18 at 0900, Until Discontinued, May give PO or Per Tube, Maximum dose of acetaminophen is 4000 mg from all sources in 24 hours., Routine Given 08/12/2018 1:22 PM EDT 1,000 mg Given 08/12/2018 5:27 AM EDT 1,000 mg Given 08/11/2018 11:00 PM EDT 1,000 mg albuterol (PROVENTIL) nebulizer solution 2.5 mg 2.5 mg, Nebulization, EVERY 2 HOURS, First dose on Sun08/11/18 at 1630, Until Discontinued, Please administer immediately or simultaneously while stopping the continuous albuterol., Routine Given 08/12/2018 12:20 AM EDT 2.5 mg Given 08/11/2018 10:27 PM EDT 2.5 mg Given 08/11/2018 7:29 PM EDT 2.5 mg albuterol (PROVENTIL) nebulizer solution 2.5 mg 2.5 mg, Nebulization, EVERY 1 HOUR PRN, Starting on Sun08/11/18 at 1605, Until Sun08/13/18 at 1610, Wheezing, Shortness of Breath, between scheduled doses PRN, Routine albuterol (PROVENTIL) nebulizer solution 2.5 mg 2.5 mg, Nebulization, EVERY 4 HOURS SCHEDULED, First dose (after last modification) on Sun08/12/18 at 0400, Until Discontinued, Please administer immediately or simultaneously while stopping the continuous albuterol., Routine Given 08/13/2018 12:00 PM EDT 2.5 mg Given 08/13/2018 7:55 AM EDT 2.5 mg Given 08/13/2018 3:51 AM EDT 2.5 mg albuterol solution 100 mg/60 mL for CONTINUOUS nebulization 5 mg/hr (3 mL/hr), Nebulization, CONTINUOUS, Starting on 08/10/18 at 0900, Until Sun08/11/18 at 1607, Prepare by adding 20 mL of 5 mg/mL albuterol to 40 mL sodium chloride 0.9% Rate/Dose Verify 08/11/2018 3:47 PM EDT 5 mg/hr 3 mL/hr Rate/Dose Change 08/11/2018 1:05 PM EDT 5 mg/hr 3 mL/hr Rate/Dose Verify 08/11/2018 11:41 AM EDT 7.5 mg/hr 4.5 mL /hr barium sulfate (EZPAQUE) oral suspension 150 mL 150 mL, Oral, ONCE, 1 dose, On 08/12/18 at 1000, Routine Given 08/12/2018 10:00 AM EDT 150 mLs ceFEPime (MAXIPIME) 2g vial attach to sodium chloride 0.9% 100 mL Mini-Bag Plus 2 g, Intravenous, EVERY 8 HOURS, First dose (after last reorder) on 08/10/18 at 1430, Until Discontinued, Administer over 30 Minutes, Indication for (Active or Suspected): Bacteremia/Sepsis New Bag 08/11/2018 6:00 AM EDT 2 g 200 mL/hr New Bag 08/10/2018 10:21 PM EDT 2 g 200 mL/hr New Bag 08/10/2018 2:30 PM EDT 2 g 200 mL/hr cefTRIAXone (ROCEPHIN) 2 g vial attach to sodium chloride 0.9% 50 mL Mini-Bag Plus 2 g, Intravenous, EVERY 24 HOURS, 2 doses, First dose (after last modification) on Sun08/12/18 at 1400, Last dose on Sun08/13/18 at 1400, Administer over 30 Minutes, Indication for (Active or Suspected): Pneumonia (Community) New Bag 08/12/2018 1:22 PM EDT 2 g 100 mL/hr chlorhexidine (PERIDEX) 0.12 % oral solution 15 mL 15 mL, Oral, 2 TIMES DAILY, First dose on 08/10/18 at 0900, Until Discontinued, Swab oral cavity. Ventilator-associated pneumonia prophylaxis, Routine Given 08/10/2018 8:31 PM EDT 15 mLs Given 08/10/2018 9:00 AM EDT 15 mLs cisatracurium (NIMBEX) 200 mg in sodium chloride 0.9% 220 mL infusion 0-5 mcg/kg/min ? 137.9 kg (0-45.507 mL/hr, rounded to 0-45.5 mL/hr), Intravenous, CONTINUOUS, Starting on 08/10/18 at 0900, Until 08/10/18 at 2217, Please ensure that patient is sedated to a RASS of -5 with continuous analgesia and sedative agents prior to beginning paralytics. After bolus, Start at 0.5 mcg/kg/min and adjust by 1 mcg/kg/min every 15 minutes to a Train of Four 0 out of 4 or ventilator synchrony, maximum rate of 5 mcg/kg/min., Routine, Is patient sedated to a RASS of -5? Yes, Please select indication: Ventilator dyssynchrony, Please indicate the name of the attending or fellow authorizing this medication: Valorie New Bag 08/10/2018 4:00 PM EDT 0.5 mcg/kg/min 4.6 mL/hr cisatracurium (NIMBEX) injection 10 mg 10 mg, Intravenous, ONCE, 1 dose, On 08/10/18 at 0900, Please ensure that patient is sedated to a RASS of -5 with continuous analgesia and sedative agents prior to beginning paralytics., Routine, Is patient sedated to a RASS of -5? Yes, Please select indication: Ventilator dyssynchrony, Please indicate the name of the attending or fellow authorizing this medication: [place] Given 08/10/2018 4:07 PM EDT 10 mg dextrose 50% IV syringe 25-50 mL 25-50 mL (12.5-25 g), Intravenous, EVERY 1 HOUR PRN, Starting on 08/10/18 at 1758, Until 08/13/18 at 1610, Low blood sugar, For BG 50-70: 120 mL Juice or Regular (not diet) soda OR 12.5 gram (25 mL) Dextrose 50% IV OR, if no IV access, 1 mg Glucagon IM. Recheck BG in 30 minutes. May repeat juice, dextrose or glucagon once per episode For BG less than 50: 240 mL Juice or Regular (not diet) soda OR 25 grams (50 mL) Dextrose 50% IV OR, if no IV access, 1 mg Glucagon IM. Recheck BG in 30 minutes. May repeat juice, dextrose, or glucagon once per episode. To avoid extravasation, push Dextrose 50% SLOWLY (3 mL over 1 minute) in a patent, running IV, preferably a central line. For persistent hypoglycemia, consider longer-acting treatment for the duration of the active insulin., Routine doxycycline 100 mg vial attach to sodium chloride 0.9% 100 mL Mini-Bag Plus 100 mg, Intravenous, EVERY 12 HOURS, First dose on 08/10/18 at 0900, Until Discontinued, Administer over 60 Minutes, Warning Vesicant/Irritant Medication , Indication for (Active or Suspected): Pneumonia ([facility]) New Bag 08/13/2018 8:41 AM EDT 100 mg 100 mL/hr New Bag 08/12/2018 8:39 PM EDT 100 mg 100 mL/hr New Bag 08/12/2018 8:41 AM EDT 100 mg 100 mL/hr enoxaparin (LOVENOX) injection 40 mg 40 mg, Subcutaneous, EVERY 12 HOURS SCHEDULED (2 times per day), First dose (after last modification) on 08/12/18 at 2100, Until Discontinued, Routine Given 08/13/2018 8:04 AM EDT 40 mg Given 08/12/2018 8:39 PM EDT 40 mg famotidine (PEPCID) tablet 20 mg 20 mg, Oral, 2 TIMES DAILY, First dose (after last modification) on 08/10/18 at 2100, Until Discontinued, Routine Given 08/10/2018 9:00 PM EDT 20 mg fentaNYL 50 mcg/mL infusion 0-200 mcg/hr (0-4 mL/hr), Intravenous, CONTINUOUS, Starting on 08/10/18 at 0900, Until 08/10/18 at 1518, Pain Scale Goal Less than or equal to 3 or to patient verbalized goal. Initial Infusion rate: 50 mcg/hour; Adjust hourly rate by 50% AND bolus 50% of new hourly rate every 15 minutes to achieve goal. Rate not to exceed 200 mcg/hr. Pain assessment every 15 minutes initially and reassess pain 15 minutes after each bolus given. Pain assessment MUST be documented prior to rate change. Rate/Dose Change 08/10/2018 9:36 AM EDT 200 mcg/hr 4 mL/hr New Bag 08/10/2018 9:08 AM EDT 100 mcg/hr 2 mL/hr fentaNYL 50 mcg/mL infusion 0-400 mcg/hr (0-8 mL/hr), Intravenous, CONTINUOUS, Starting on 08/10/18 at 1545, Until 08/11/18 at 1349, Pain Scale Goal Less than or equal to 3 or to patient verbalized goal. Initial Infusion rate: 50 mcg/hour; Adjust hourly rate by 50% AND bolus 50% of new hourly rate every 15 minutes to achieve goal. Rate not to exceed 500 mcg/hr. Pain assessment every 15 minutes initially and reassess pain 15 minutes after each bolus given. Pain assessment MUST be documented prior to rate change. New Bag 08/11/2018 12:11 AM EDT 200 mcg /hr 4 mL/hr New Bag 08/10/2018 7:27 PM EDT 400 mcg/hr 8 mL/hr Rate/Dose Change 08/10/2018 4:00 PM EDT 350 mcg/hr 7 mL/hr fentaNYL bolus from bag 25 mcg 25 mcg, Intravenous, ONCE, 1 dose, On 08/10/18 at 0900, Initial bolus dose: IV once now followed by continuous infusion., Routine Bolus from Bag 08/10/2018 9:00 AM EDT 25 mcg fentaNYL bolus from bag 25-100 mcg 25-100 mcg, Intravenous, EVERY 15 MIN PRN, Starting on 08/10/18 at 0837, Until 08/10/18 at 1518, Pain, Refer to infusion order for Bolus instructions. Reassess pain 15 minutes after bolus given., Routine Bolus from Bag 08/10/2018 11:41 AM EDT 100 mcg fentaNYL bolus from bag 25-200 mcg 25-200 mcg, Intravenous, EVERY 15 MIN PRN, Starting on 08/10/18 at 1517, Until 08/11/18 at 1349, Pain, Refer to infusion order for Bolus instructions. Reassess pain 15 minutes after bolus given., Routine Bolus from Bag 08/10/2018 9:50 PM EDT 200 mcg Bolus from Bag 08/10/2018 9:00 PM EDT 200 mcg Bolus from Bag 08/10/2018 7:21 PM EDT 200 mcg glucagon (human recombinant) injection SolR 1 mg 1 mg, Intramuscular, EVERY 1 HOUR PRN, Starting on 08/10/18 at 1758, Until 08/13/18 at 1610, Low blood sugar, For BG 50-70: 120 mL Juice or Regular (not diet) soda OR 12.5 gram (25 mL) Dextrose 50% IV OR, if no IV access, 1 mg Glucagon IM. Recheck BG in 30 minutes. May repeat juice, dextrose or glucagon once per episode For BG less than 50: 240 mL Juice or Regular (not diet) soda OR 25 grams (50 mL) Dextrose 50% IV OR, if no IV access, 1 mg Glucagon IM. Recheck BG in 30 minutes. May repeat juice, dextrose, or glucagon once per episode. To avoid extravasation, push Dextrose 50% SLOWLY (3 mL over 1 minute) in a patent, running IV, preferably a central line. For persistent hypoglycemia, consider longer-acting treatment for the duration of the active insulin., Routine heparin (Porcine) subcutaneous injection 5,000 Units 5,000 Units, Subcutaneous, EVERY 8 HOURS SCHEDULED, First dose on 08/10/18 at 0900, Until Discontinued, Routine Given 08/10/2018 9:36 AM EDT 5,000 Unit s heparin (Porcine) subcutaneous injection 7,500 Units 7,500 Units, Subcutaneous, EVERY 8 HOURS SCHEDULED, First dose (after last modification) on 08/10/18 at 1400, Until Discontinued, Routine Given 08/12/2018 1:23 PM EDT 7,500 Units Given 08/12/2018 5:27 AM EDT 7,500 Units Given 08/11/2018 11:00 PM EDT 7,500 Units insulin lispro (HumaLOG) VIAL injection 1-4 Units 1-4 Units, Subcutaneous, EVERY 4 HOURS SCHEDULED, First dose on 08/10/18 at 2000, Until Discontinued, CORRECTION BOLUS Sensitive to insulin lean patient or total daily dose of all insulin needed to achieve glycemic control less than 30 units BG 140 - 160 Give 1 unit BG 161 - 200 Give 2 units BG 201 - 240 Give 3 units BG greater than 240, give 4 units and recheck BG in 2 hours. If less than 240 after two hours, give no insulin and resume prior schedule. If BG remains greater than 240, repeat 4 units (no more than three times) & call for new basal insulin orders. DO NOT hold if NPO, unless specifically told to do so., Routine Given 08/11/2018 8:02 AM EDT 1 Units Given 08/11/2018 3:50 AM EDT 2 Units Given 08/11/2018 12:33 AM EDT 2 Units L eft Upper Outer Quadrant insulin lispro (HumaLOG) VIAL injection 1-4 Units 1-4 Units, Subcutaneous, 3 TIMES DAILY BEFORE MEALS, First dose on 08/12/18 at 1630, Until Discontinued, CORRECTION BOLUS Sensitive to insulin lean patient or total daily dose of all insulin needed to achieve glycemic control less than 30 units BG 140 - 160 Give 1 unit BG 161 - 200 Give 2 units BG 201 - 240 Give 3 units BG greater than 240, give 4 units and recheck BG in 2 hours. If less than 240 after two hours, give no insulin and resume prior schedule. If BG remains greater than 240, repeat 4 units (no more than three times) & call for new basal insulin orders. DO NOT hold if NPO, unless specifically told to do so., Routine iohexol (OMNIPAQUE) 300 mg/mL solution 100 mL 100 mL, Oral, ONCE, 1 dose, On 08/12/18 at 1000, Warning Vesicant/Irritant Medication Do not administer or Y-site with lactated ringers., Routine Given 08/12/2018 10:00 AM EDT 100 mLs lactated Ringers 1,000 mL IV bolus at 1,000 mL/hr, Intravenous, ONCE, 1 dose, On 08/10/18 at 1130 New Bag 08/10/2018 11:30 AM EDT 1000 mL/hr lactated Ringers 2,000 mL IV bolus Intravenous, ONCE, 1 dose, On 08/10/18 at 1415, For a total of 3L from onset of hypotension (noon) today thank you! New Bag 08/10/2018 2:15 PM EDT lidocaine (XYLOCAINE) 10 mg/mL (1 %) injection 3 mg 3 mg (0.3 mL), Subcutaneous, ONCE PRN, 1 dose, Starting on 08/10/18 at 0813, Until Sun08/13/18 at 1610, for discomfort with PIV insertion, Routine lidocaine (XYLOCAINE) 2 % jelly Starting on 08/10/18 at 2148, 1 dose, Until Sun08/10/18 at 2200, [facility] lidocaine (XYLOCAINE) 2 % jelly Topical (Top), ONCE, On 08/10/18 at 2215, 1 dose Given 08/10/2018 10:00 PM EDT lisinopril (PRINIVIL;ZESTRIL) tablet 40 mg 40 mg, Oral, DAILY, First dose on Sun08/12/18 at 1530, Until Discontinued, Routine Given 08/13/2018 8:04 AM EDT 40 mg Given 08/12/2018 3:16 PM EDT 40 mg magnesium sulfate 1g in dextrose 5% 100mL 1 g, Intravenous, ONCE, 1 dose, On 08/10/18 at 1445, Administer over 60 Minutes New Bag 08/10/2018 2:45 PM EDT 1 g 100 mL/hr methylPREDNISolone sodium succinate (PF) (SOLU-Medrol) injection 40 mg 40 mg, Intravenous, EVERY 6 HOURS, First dose on 08/10/18 at 0900, Until Discontinued Given 08/12/2018 8:41 AM EDT 40 mg Given 08/12/2018 3:49 AM EDT 40 mg Given 08/11/2018 8:45 PM EDT 40 mg midazolam (PF) (VERSED) injection 5 mg 5 mg, Intravenous, ONCE, 1 dose, On 08/10/18 at 1545, If given subcutaneously, do not administer more than 2 mL as a single injection., Routine Given 08/10/2018 3:45 PM EDT 5 mg midazolam (VERSED) bolus from bag 1 mg 1 mg, Intravenous, EVERY 30 MIN PRN, Starting on 08/10/18 at 1147, Until 08/11/18 at 1349, Sedation, Refer to infusion order for Bolus instructions. Reassess within 30 minutes after bolus given., Routine Bolus from Bag 08/10/2018 9:50 PM EDT 5 mg Bolus from Bag 08/10/2018 7:28 PM EDT 1 mg midazolam 1 mg/mL (standard ADULT & Pedi greater than 20kg) infusion 0-10 mg/hr (0-10 mL/hr), Intravenous, CONTINUOUS, Starting on 08/10/18 at 1215, Until 08/11/18 at 1349, Initial bolus 1 mg midazolam with start of infusion. Titrate to sedation level of RASS Goal (-)5. Start at 1 mg/hr, adjust by 1 mg/hr every 30 minutes. Rate not to exceed 10 mg/hr. , , Change rate only after documenting RASS. Reassess sedation scores after every rate change. Call boiling house oiler if goal not achieved at maximum rate., Routine, Use of Midazolam for routine sedation is NOT recommended. Please indicate reason (Note - the need for low dose pressor, or slight increase in pressor is NOT a contraindication to propofoL or dexmedeTOMIDine): RASS target is -4, or -5 New Bag 08/11/2018 2:30 AM EDT 5 mg/hr 5 mL/hr Rate/Dose Change 08/10/2018 7:28 PM EDT 10 mg/hr 10 mL/h r Rate/Dose Change 08/10/2018 4:10 PM EDT 8 mg/hr 8 mL/hr NORepinephrine 16 mcg/mL (standard ADULT and Pedi greater than 20 kg) infusion 0-100 mcg/min (0-375 mL/hr), Intravenous, CONTINUOUS, Starting on 08/10/18 at 1445, Until 08/11/18 at 1349, Titrate to keep MAP greater than 60 mmHg. Start at 2 mcg/min and increase by 2 mcg/min every 3 minutes until goal reached. Do not exceed 200 mcg/min. Please wean off phenylephrine, Routine Rate/Dose Change 08/11/2018 6:00 AM EDT 5 mcg/min 18.8 mL/hr Rate/Dose Change 08/11/2018 5:23 AM EDT 10 mcg/min 37.5 mL /hr Rate/Dose Change 08/11/2018 5:10 AM EDT 15 mcg/min 56.3 mL /hr NORepinephrine NS (LEVOPHED) 4 mg/250 mL (16 mcg/mL) infusion 1 dose, Starting on 08/10/18 at 1248, Until 08/10/18 at 1400, [facility]: kalie override ondansetron (ZOFRAN) injection 4-8 mg 4-8 mg, Intravenous, EVERY 8 HOURS PRN, Starting on 08/12/18 at 1542, Until Tu08/13/18 at 1610, Nausea, Start with 4mg and if ineffective in 30 minutes, give an additional 4mg If multiple antiemetics are ordered, give ondansetron first. ondansetron (ZOFRAN) tablet 4-8 mg 4-8 mg, Oral, EVERY 8 HOURS PRN, Starting on 08/12/18 at 1542, Until Tu08/13/18 at 1610, Nausea, Vomiting, If multiple antiemetics are ordered, use ondansetron first. PO Preferred. If patient unable to take PO, may give IV if ordered. Start with 4mg and if ineffective in 45 minutes, give an additional 4mg. If unable to take PO, may give IV., Routine oxymetazoline (AFRIN) 0.05 % nasal spray 2 spray 2 spray, Each Nare, Administer over 3 Days, ONCE, 1 dose, On 08/10/18 at 2215, Sales Development Specialist recommended duration is 3 days., STAT Given 08/10/2018 10:15 PM EDT 2 sprays PHENYLephrine (CESAR-SYNEPHRINE) 20 mg in sodium chloride 250 mL (standard ADULT & Pedi greater than 20kg) infusion 0-180 mcg/min (0-135 mL/hr), Intravenous, CONTINUOUS, Starting on 08/10/18 at 1030, Until 08/11/18 at 1349, Titrate to maintain mean arterial pressure (MAP) greater than 60 mmHg. Start at 50 mcg/min and adjust dose by 25 mcg/min every 10 minutes. Do not exceed 180 mcg/min., Routine Rate/Dose Verify 08/10/2018 7:58 PM EDT 0 mcg/min 0 mL/hr Rate/Dose Change 08/10/2018 6:10 PM EDT 10 mcg/min 7.5 mL/ hr Rate/Dose Change 08/10/2018 5:30 PM EDT 20 mcg/min 15 mL/h r potassium chloride (K-DUR/KLOR-CON) extended release tablet 40 mEq 40 mEq, Oral, EVERY 4 HOURS, 2 doses, First dose on 08/10/18 at 1445, Last dose on 08/10/18 at 1845, Routine Given 08/10/2018 2:45 PM EDT 40 mEq potassium chloride (KAYCIEL) 20 mEq/15 mL oral solution 20-60 mEq 20-60 mEq, Per NG tube, EVERY 4 HOURS PRN, Starting on 08/10/18 at 2054, Until 08/11/18 at 1229, hypokalemia, For serum potassium: 3.9 - 4 mMol/L = 20 mEq. 3.6 - 3.8 mMol/L = 40 mEq. 3.3 - 3.5 mMol/L = 40 mEq. 2.8 - 3.2 mMol/L = 60 mEq. Less than 2.8 = Call physician, then begin potassium chloride replacement via central or peripheral IV route. See instructions for Potassium Protocol in online policies., Routine Given 08/11/2018 4:07 AM EDT 40 mEq potassium chloride 10 mEq in 100 mL 10 mEq, Intravenous, ONCE, 1 dose, On 08/10/18 at 1330, Administer over 60 Minutes, Warning Vesicant/Irritant Medication New Bag 08/10/2018 1:30 PM EDT 10 mEq 100 mL/hr potassium chloride 20 mEq in 100 mL 20 mEq, Intravenous, EVERY 1 HOUR PRN, Starting on 08/10/18 at 1726, Until 08/10/18 at 2054, Administer over 60 Minutes, hypokalemia, Administer 3 doses for a serum potassium (mMol/L) of 2.8 - 3.2 See instructions for Potassium Protocol in online policies. New Bag 08/10/2018 6:00 PM EDT 20 mEq 100 mL/hr New Bag 08/10/2018 5:58 PM EDT 20 mEq 100 mL/hr potassium phosphate 15 mMol in sodium chloride 0.9% 250 mL 15 mmol, Intravenous, ONCE, 1 dose, On 08/11/18 at 1415, Administer over 4 Hours, Administer over 4-6 hours New Bag 08/11/2018 2:24 PM EDT 15 mmol predniSONE (DELTASONE) tablet 40 mg 40 mg, Oral, DAILY, First dose (after last modification) on Sun08/14/18 at 0900, Until Discontinued, Routine predniSONE (DELTASONE) tablet 50 mg 50 mg, Oral, DAILY, First dose on Sun08/12/18 at 1400, Until Discontinued, Routine Given 08/13/2018 8:04 AM EDT 50 mg Given 08/12/2018 1:22 PM EDT 50 mg propofol (DIPRIVAN) infusion 0-50 mcg/kg/min ? 137.9 kg (0-41.37 mL/hr, rounded to 0-41.4 mL/hr), Intravenous, CONTINUOUS, Starting on 08/10/18 at 0900, Until 08/10/18 at 1516, Titrate to sedation level of RASS Goal (-)1 to 0 . Start at 20 mcg/kg/min, adjust rate by 10 mcg/kg/min every 3 minutes. Once stable, reassess patient every 30 minutes. Rate not to exceed 50 mcg/kg/minute. Change rate only after assessing and documenting RASS. Reassess sedation scores within 30 minutes after every rate change. If under sedated, increase rate by 10 mcg/kg/min. If over sedated, hold sedative until target RASS (-)1 to 0 achieved and then restart at 50% of previous rate. Call boiling house oiler if goal not achieved at maximum rate., Routine New Bag 08/10/2018 12:08 PM EDT 50 mcg/kg/min 41.4 mL/hr New Bag 08/10/2018 9:11 AM EDT 50 mcg/kg/min 41.4 mL/hr sodium chloride 0.9 % flush 5 mL 5 mL, Intravenous, EVERY 12 HOURS, First dose on 08/10/18 at 0900, Until Discontinued, Routine Given 08/13/2018 8:05 AM EDT 10 mLs Given 08/12/2018 8:39 PM EDT 5 mLs Given 08/12/2018 8:43 AM EDT 5 mLs sodium chloride 0.9 % flush 5-20 mL 5-20 mL, Intravenous, EVERY 1 MIN PRN, Starting on 08/10/18 at 0813, Until 08/13/18 at 1610, flush, Flush pertains to all indwelling lines. Flush per protocol found in the job aid using the link provided on this medication record., Routine sodium chloride 0.9% infusion 125 mL/hr, Intravenous, CONTINUOUS, Starting on 08/11/18 at 1245, Until 08/12/18 at 0630 New Bag 08/11/2018 10:21 PM EDT 125 mL/hr 125 mL/hr New Bag 08/11/2018 2:15 PM EDT 125 mL/hr 125 mL/hr sterile water 1,000 mL with sodium acetate 154 mEq infusion at 150 mL/hr, Intravenous, CONTINUOUS, Starting on 08/10/18 at 1700, Until Centuria 08/11/18 at 0259 New 08/11/2018 1:53 AM EDT 150 mL/hr New Bag 08/10/2018 5:00 PM EDT 150 mL/hr vancomycin (VANCOCIN) 1,750 mg in sodium chloride 0.9% 285 mL 1,750 mg, Intravenous, at 162.9 mL/hr, EVERY 8 HOURS, First dose on 08/10/18 at 2230, Until Discontinued, Maximum infusion rate is 1 gram/hour. If flushing of the face, neck, upper body, arms, and/or back occurs decrease infusion rate by 50% to reduce the severity of symptoms. This medication may have an associated drug lab level. Please see MAR for scheduled level. Warning Vesicant/Irritant Medication , Routine, Indication for (Active or Suspected): Bacteremia/Sepsis New Bag 08/11/2018 6:46 AM EDT 1,750 mg 162.9 mL/hr New Bag 08/11/2018 12:16 AM EDT 1,750 mg 162.9 mL/hr vancomycin (VANCOCIN) 3,000 mg in sodium chloride 0.9% 560 mL 3,000 mg, Intravenous, at 186.7 mL/hr, ONCE, 1 dose, On 08/10/18 at 1445, Maximum infusion rate is 1 gram/hour. If flushing of the face, neck, upper body, arms, and/or back occurs decrease infusion rate by 50% to reduce the severity of symptoms. This medication may have an associated drug lab level. Please see MAR for scheduled level. Warning Vesicant/Irritant Medication , STAT, Indication for (Active or Suspected): Bacteremia/Sepsis New Bag 08/10/2018 2:45 PM EDT 3,000 mg 186.7 mL/hr white petrolatum-mineral oil ophthalmic ointment Both Eyes, 2 TIMES DAILY, First dose on 08/10/18 at 0900, Until Discontinued Given 08/10/2018 8:37 PM EDT Given 08/10/2018 9:31 AM EDT documented in this encounter Active and Recently Administered Medications Times are shown in EDT. Scheduled Medication Order 08/11/2018 08/12/2018 08/13/2018 acetaminophen (TYLENOL) 650 mg/20.3 mL oral liquid 1,000 mg (CANCELED)(Linked Group 1) 1,000 mg, Oral, EVERY 8 HOURS SCHEDULED, First dose on 08/10/18 at 0900, Until Discontinued, May give PO or Per Tube, Maximum dose of acetaminophen is 4000 mg from all sources in 24 hours., Routine 0559 (Given - Provider: Tanner Marrero RN)1439 (See Alternative - Provider: Opal Knox, GIOVANY)2300 (See Alternative - Provider: Kimberly Zepeda, GIOVANY) 0527 (See Alternative - Provider: Kimberly Zepeda, GIOVANY)1322 (See Alternative - Provider: Agustín Fink RN) acetaminophen (TYLENOL) tablet 1,000 mg (CANCELED)(Linked Group 1) 1,000 mg, Oral, EVERY 8 HOURS SCHEDULED, First dose on 08/10/18 at 0900, Until Discontinued, May give PO or Per Tube, Maximum dose of acetaminophen is 4000 mg from all sources in 24 hours., Routine 0559 (See Alternative - Provider: Tanner Marrero RN)1439 (Not Given - Provider: pOal Knox RN - Reason: Patient/family refused)2300 (Given - Provider: Kimberly Zepeda, GIOVANY) 0527 (Given - Provider: Kimberly Zepeda, GIOVANY)1322 (Given - Provider: Agustín Fink, GIOVANY) albuterol (PROVENTIL) nebulizer solution 2.5 mg (CANCELED) 2.5 mg, Nebulization, EVERY 2 HOURS, First dose on Sun08/11/18 at 1630, Until Discontinued, Please administer immediately or simultaneously while stopping the continuous albuterol., Routine 1628 (Given - Provider: Rola Gibbons RT)1814 (Given - Provider: Rola Gibbons RT)1929 (Given - Provider: Tal Frankel RCP)2030 (Canceled Entry - Provider: Tal Frankel RCP - Reason: See comment)2227 (Given - Provider: Tal Frankel RCP) 0020 (Given - Provider: Tal Frankel RCP) albuterol (PROVENTIL) nebulizer solution 2.5 mg 2.5 mg, Nebulization, EVERY 4 HOURS SCHEDULED, First dose (after last modification) on Sun08/12/18 at 0400, Until Discontinued, Please administer immediately or simultaneously while stopping the continuous albuterol., Routine 0315 (Given - Provider: Tal Frankel RCP)0805 (Given - Provider: Jacquie Melgoza RRT)1217 (Given - Provider: Jacquie Melgoza RRT)1532 (Given - Provider: Jacquie Melgoza RRT)1955 (Given - Provider: Natali Aguillon RCP)2318 (Given - Provider: Radha Oliver, GIOVANY) 0351 (Given - Provider: Radha Oliver RN)0755 (Given - Provider: Carol Scott RN)1200 (Given - Provider: Carol Scott RN) barium sulfate (EZPAQUE) oral suspension 150 mL (COMPLETED) 150 mL, Oral, ONCE, 1 dose, On Sun08/12/18 at 1000, Routine 1000 (Given - Provider: Rick Paredes - Comment: [id number] 2018) ceFEPime (MAXIPIME) 2g vial attach to sodium chloride 0.9% 100 mL Mini-Bag Plus (CANCELED) 2 g, Intravenous, EVERY 8 HOURS, First dose (after last reorder) on 08/10/18 at 1430, Until Discontinued, Administer over 30 Minutes, Indication for (Active or Suspected): Bacteremia/Sepsis 0600 (New Bag - Provider: Tanner Marrero, RN)0630 (Stopped - Provider: Tanner Marrero RN) cefTRIAXone (ROCEPHIN) 2 g vial attach to sodium chloride 0.9% 50 mL Mini-Bag Plus 2 g, Intravenous, EVERY 24 HOURS, 2 doses, First dose (after last modification) on Sun08/12/18 at 1400, Last dose on Sun08/13/18 at 1400, Administer over 30 Minutes, Indication for (Active or Suspected): Pneumonia ([facility]) 1322 (New Bag - Provider: Agustín Fink RN)1352 (Stopped - Provider: Agustín Fink RN) 1400 (Due) doxycycline 100 mg vial attach to sodium chloride 0.9% 100 mL Mini-Bag Plus 100 mg, Intravenous, EVERY 12 HOURS, First dose on 08/10/18 at 0900, Until Discontinued, Administer over 60 Minutes, Warning Vesicant/Irritant Medication , Indication for (Active or Suspected): Pneumonia ([facility]) 0908 (New Bag - Provider: Opal Knox RN)1008 (Stopped - Provider: Opal Knox RN)2044 (New Bag - Provider: Francine Izaguirre RN)2144 (Stopped - Provider: Kimberly Zepeda RN) 08 (New Bag - Provider: Agustín Fink RN)09 (Stopped - Provider: Agustín Fink RN)2038 (New Bag - Provider: Jo Sanchez)2138 (Stopped - Provider: Jo Sanchez) 0841 (New Bag - Provider: Carol Scott RN)0941 (Stopped - Provider: Carol Scott RN) enoxaparin (LOVENOX) injection 40 mg 40 mg, Subcutaneous, EVERY 12 HOURS SCHEDULED (2 times per day), First dose (after last modification) on Sun08/12/18 at 2100, Until Discontinued, Routine 2038 (Given - Provider: Jo Sanchez) 0804 (Given - Provider: Carol Scott RN) heparin (Porcine) subcutaneous injection 7,500 Units (CANCELED) 7,500 Units, Subcutaneous, EVERY 8 HOURS SCHEDULED, First dose (after last modification) on 08/10/18 at 1400, Until Discontinued, Routine 0559 (Given - Provider: Tanner Marrero RN)1436 (Given - Provider: Opal Knox, GIOVANY)2300 (Given - Provider: Kimberly Zepeda RN) 0527 (Given - Provider: Kimberly Zepeda RN)1323 (Given - Provider: Agustín Fink RN) insulin lispro (HumaLOG) VIAL injection 1-4 Units (CANCELED)(Linked Group 2) 1-4 Units, Subcutaneous, EVERY 4 HOURS SCHEDULED, First dose on 08/10/18 at 2000, Until Discontinued, CORRECTION BOLUS Sensitive to insulin lean patient or total daily dose of all insulin needed to achieve glycemic control less than 30 units BG 140 - 160 Give 1 unit BG 161 - 200 Give 2 units BG 201 - 240 Give 3 units BG greater than 240, give 4 units and recheck BG in 2 hours. If less than 240 after two hours, give no insulin and resume prior schedule. If BG remains greater than 240, repeat 4 units (no more than three times) & call for new basal insulin orders. DO NOT hold if NPO, unless specifically told to do so., Routine 0033 (Given - Provider: Tanner Marrero RN - Comment: [phone])0350 (Given - Provider: Tanner Marrero RN - Comment: 167 mg/dl)0802 (Given - Provider: Opal Knox RN)1200 (Not Given - Provider: Opal Knox RN - Reason: Order parameters not met)1600 (Not Given - Provider: Opal Knox RN - Reason: Order parameters not met)2000 (Not Given - Provider: Jo Sanchez - Reason: Order parameters not met) 0000 (Not Given - Provider: Kimberly Zepeda RN - Reason: Order parameters not met)0400 (Not Given - Provider: Kimberly Zepeda RN - Reason: Order parameters not met)0800 (Not Given - Provider: Agustín Fink RN - Reason: Order parameters not met)1200 (Not Given - Provider: Agustín Fink RN - Reason: Order parameters not met) insulin lispro (HumaLOG) VIAL injection 1-4 Units(Linked Group 3) 1-4 Units, Subcutaneous, 3 TIMES DAILY BEFORE MEALS, First dose on Sun08/12/18 at 1630, Until Discontinued, CORRECTION BOLUS Sensitive to insulin lean patient or total daily dose of all insulin needed to achieve glycemic control less than 30 units BG 140 - 160 Give 1 unit BG 161 - 200 Give 2 units BG 201 - 240 Give 3 units BG greater than 240, give 4 units and recheck BG in 2 hours. If less than 240 after two hours, give no insulin and resume prior schedule. If BG remains greater than 240, repeat 4 units (no more than three times) & call for new basal insulin orders. DO NOT hold if NPO, unless specifically told to do so., Routine 1630 (Not Given - Provider: Agustín Fink RN - Reason: Order parameters not met) 0730 (Not Given - Provider: Radha Oliver RN - Reason: Order parameters not met)1130 (Not Given - Provider: Carol Scott RN - Reason: Order parameters not met) iohexol (OMNIPAQUE) 300 mg/mL solution 100 mL (COMPLETED) 100 mL, Oral, ONCE, 1 dose, On Sun08/12/18 at 1000, Warning Vesicant/Irritant Medication Do not administer or Y-site with lactated ringers., Routine 1000 (Given - Provider: Rick Paredes - Comment: [id number] [id number] may [id number] oct 2020) lisinopril (PRINIVIL;ZESTRIL) tablet 40 mg 40 mg, Oral, DAILY, First dose on Sun08/12/18 at 1530, Until Discontinued, Routine 1516 (Given - Provider: Agustín Fink RN) 0804 (Given - Provider: Carol Scott RN) methylPREDNISolone sodium succinate (PF) (SOLU-Medrol) injection 40 mg (CANCELED) 40 mg, Intravenous, EVERY 6 HOURS, First dose on Sun08/10/18 at 0900, Until Discontinued 0346 (Given - Provider: Tanner Marrero RN)0901 (Given - Provider: Opal Knox RN)1423 (Given - Provider: Opal Knox, GIOVANY)204 (Given - Provider: Francine Izaguirre, RN) 0349 (Given - Provider: Kimberly Zepeda RN)0841 (Given - Provider: Agustín Fink, GIOVANY) oxymetazoline (AFRIN) 0.05 % nasal spray 2 spray 2 spray, Each Nare, Administer over 3 Days, ONCE, 1 dose, On 08/10/18 at 2215, Sales Development Specialist recommended duration is 3 days., STAT potassium phosphate 15 mMol in sodium chloride 0.9% 250 mL (COMPLETED) 15 mmol, Intravenous, ONCE, 1 dose, On 08/11/18 at 1415, Administer over 4 Hours, Administer over 4-6 hours 1424 (New Bag - Provider: Opal Knox RN)1824 (Stopped - Provider: Opal Knox RN) predniSONE (DELTASONE) tablet 40 mg 40 mg, Oral, DAILY, First dose (after last modification) on Sun08/14/18 at 0900, Until Discontinued, Routine predniSONE (DELTASONE) tablet 50 mg (CANCELED) 50 mg, Oral, DAILY, First dose on Sun08/12/18 at 1400, Until Discontinued, Routine 1322 (Given - Provider: Agustín Fink RN) 0804 (Given - Provider: Carol Scott, GIOVANY) senna-docusate (PERICOLACE) 8.6-50 mg per tablet 2 tablet 2 tablet, Oral, 2 TIMES DAILY, First dose on Sun08/12/18 at 2100, Until Discontinued, Routine 2100 (Not Given - Provider: Jo Sanchez - Reason: Order parameters not met) 0900 (Hold - Provider: Carol Scott, GIOVANY - Reason: Patient/family refused) sodium chloride 0.9 % flush 5 mL 5 mL, Intravenous, EVERY 12 HOURS, First dose on 08/10/18 at 0900, Until Discontinued, Routine 09 (Given - Provider: Opal Knox RN)2050 (Given - Provider: Francine Izaguirre, GIOVANY) 0843 (Given - Provider: Augstín Fink RN)2038 (Given - Provider: Jo Sanchez) 0805 (Given - Provider: Carol Scott, GIOVANY) vancomycin (VANCOCIN) 1,750 mg in sodium chloride 0.9% 285 mL (CANCELED) 1,750 mg, Intravenous, at 162.9 mL/hr, EVERY 8 HOURS, First dose on 08/10/18 at 2230, Until Discontinued, Maximum infusion rate is 1 gram/hour. If flushing of the face, neck, upper body, arms, and/or back occurs decrease infusion rate by 50% to reduce the severity of symptoms. This medication may have an associated drug lab level. Please see MAR for scheduled level. Warning Vesicant/Irritant Medication , Routine, Indication for (Active or Suspected): Bacteremia/Sepsis 0016 (New Bag - Provider: Tanner Marrero, RN)0201 (Stopped - Provider: Tanner Marrero, RN)0646 (New Bag - Provider: Tanner Marrero RN)0831 (Stopped - Provider: Opal Knox RN) Continuous Medication Order 08/11/2018 08/12/2018 08/13/2018 albuterol solution 100 mg/60 mL for CONTINUOUS nebulization (CANCELED) 5 mg/hr (3 mL/hr), Nebulization, CONTINUOUS, Starting on 08/10/18 at 0900, Until 08/11/18 at 1607, Prepare by adding 20 mL of 5 mg/mL albuterol to 40 mL sodium chloride 0.9% 0000 (New Bag - Provider: Jo Meyer, CHRISTINA)0200 (Rate/Dose Verify - Provider: Jo Meyer, CHRISTINA)0446 (Rate/Dose Verify - Provider: Jo Meyer, CHRISTINA)0744 (Rate/Dose Verify - Provider: Rola Gibbons RT)0816 (New Bag - Provider: Rola Gibbons RT)1040 (Rate/Dose Change - Provider: Rola Gibbons RT)1141 (Rate/Dose Verify - Provider: Rola Gibbons RT)1305 (Rate/Dose Change - Provider: Rola Gibbons RT)1547 (Rate/Dose Verify - Provider: Rola Gibbons RT)1625 (Stopped - Provider: RT Edgar) fentaNYL 50 mcg/mL infusion (CANCELED)(Linked Group 4) 0-400 mcg/hr (0-8 mL/hr), Intravenous, CONTINUOUS, Starting on 08/10/18 at 1545, Until 08/11/18 at 1349, Pain Scale Goal Less than or equal to 3 or to patient verbalized goal. Initial Infusion rate: 50 mcg/hour; Adjust hourly rate by 50% AND bolus 50% of new hourly rate every 15 minutes to achieve goal. Rate not to exceed 500 mcg/hr. Pain assessment every 15 minutes initially and reassess pain 15 minutes after each bolus given. Pain assessment MUST be documented prior to rate change. 0011 (New Bag - Provider: Tanner Marrero RN - Comment: used mutliple boluses during bedside bronch, tubing ran dry, bag changed at this time, new tubing)0900 (Paused - Provider: Opal Knox, RN) midazolam 1 mg/mL (standard ADULT & Pedi greater than 20kg) infusion (CANCELED)(Linked Group 5) 0-10 mg/hr (0-10 mL/hr), Intravenous, CONTINUOUS, Starting on 08/10/18 at 1215, Until 08/11/18 at 1349, Initial bolus 1 mg midazolam with start of infusion. Titrate to sedation level of RASS Goal (-)5. Start at 1 mg/hr, adjust by 1 mg/hr every 30 minutes. Rate not to exceed 10 mg/hr. , , Change rate only after documenting RASS. Reassess sedation scores after every rate change. Call boiling house oiler if goal not achieved at maximum rate., Routine, Use of Midazolam for routine sedation is NOT recommended. Please indicate reason (Note - the need for low dose pressor, or slight increase in pressor is NOT a contraindication to propofoL or dexmedeTOMIDine): RASS target is -4, or -5 0230 (New Bag - Provider: Tanner Marrero RN - Comment: new bag)0900 (Paused - Provider: Opal Knox, GIOVANY) NORepinephrine 16 mcg/mL (standard ADULT and Pedi greater than 20 kg) infusion (CANCELED) 0-100 mcg/min (0-375 mL/hr), Intravenous, CONTINUOUS, Starting on 08/10/18 at 1445, Until 08/11/18 at 1349, Titrate to keep MAP greater than 60 mmHg. Start at 2 mcg/min and increase by 2 mcg/min every 3 minutes until goal reached. Do not exceed 200 mcg/min. Please wean off phenylephrine, Routine 0137 (New Bag - Provider: Tanner Marrero RN)0407 (New Bag - Provider: Tanner Marrero, RN)0510 (Rate/Dose Change - Provider: Susannah Blair, GIOVANY - Comment: Systoltic 150s, MAPs > 65)0523 (Rate/Dose Change - Provider: Susannah Blair RN - Comment: systolic 128, MAPs in the 80s)0600 (Rate/Dose Change - Provider: Tanner Marrero RN)0635 (Stopped - Provider: Tanner Marrero RN) sodium chloride 0.9% infusion (CANCELED) 125 mL/hr, Intravenous, CONTINUOUS, Starting on 08/11/18 at 1245, Until 08/12/18 at 0630 1415 (New Bag - Provider: Opal Knox RN)2221 (New Bag - Provider: Kimberly Zepeda RN) sterile water 1,000 mL with sodium acetate 154 mEq infusion (CANCELED) at 150 mL/hr, Intravenous, CONTINUOUS, Starting on 08/10/18 at 1700, Until Sun08/11/18 at 0259 0153 (New Bag - Provider: Susannah Blair, GIOVANY) PRN Medication Order 08/11/2018 08/12/2018 08/13/2018 albuterol (PROVENTIL) nebulizer solution 2.5 mg 2.5 mg, Nebulization, EVERY 1 HOUR PRN, Starting on 08/11/18 at 1605, Until 08/13/18 at 1610, Wheezing, Shortness of Breath, between scheduled doses PRN, Routine dextrose 50% IV syringe 25-50 mL(Linked Group 6) 25-50 mL (12.5-25 g), Intravenous, EVERY 1 HOUR PRN, Starting on 08/10/18 at 1758, Until 08/13/18 at 1610, Low blood sugar, For BG 50-70: 120 mL Juice or Regular (not diet) soda OR 12.5 gram (25 mL) Dextrose 50% IV OR, if no IV access, 1 mg Glucagon IM. Recheck BG in 30 minutes. May repeat juice, dextrose or glucagon once per episode For BG less than 50: 240 mL Juice or Regular (not diet) soda OR 25 grams (50 mL) Dextrose 50% IV OR, if no IV access, 1 mg Glucagon IM. Recheck BG in 30 minutes. May repeat juice, dextrose, or glucagon once per episode. To avoid extravasation, push Dextrose 50% SLOWLY (3 mL over 1 minute) in a patent, running IV, preferably a central line. For persistent hypoglycemia, consider longer-acting treatment for the duration of the active insulin., Routine glucagon (human recombinant) injection SolR 1 mg(Linked Group 6) 1 mg, Intramuscular, EVERY 1 HOUR PRN, Starting on 08/10/18 at 1758, Until Sun08/13/18 at 1610, Low blood sugar, For BG 50-70: 120 mL Juice or Regular (not diet) soda OR 12.5 gram (25 mL) Dextrose 50% IV OR, if no IV access, 1 mg Glucagon IM. Recheck BG in 30 minutes. May repeat juice, dextrose or glucagon once per episode For BG less than 50: 240 mL Juice or Regular (not diet) soda OR 25 grams (50 mL) Dextrose 50% IV OR, if no IV access, 1 mg Glucagon IM. Recheck BG in 30 minutes. May repeat juice, dextrose, or glucagon once per episode. To avoid extravasation, push Dextrose 50% SLOWLY (3 mL over 1 minute) in a patent, running IV, preferably a central line. For persistent hypoglycemia, consider longer-acting treatment for the duration of the active insulin., Routine lidocaine (XYLOCAINE) 10 mg/mL (1 %) injection 3 mg 3 mg (0.3 mL), Subcutaneous, ONCE PRN, 1 dose, Starting on 08/10/18 at 0813, Until Sun08/13/18 at 1610, for discomfort with PIV insertion, Routine ondansetron (ZOFRAN) injection 4-8 mg(Linked Group 7) 4-8 mg, Intravenous, EVERY 8 HOURS PRN, Starting on 08/12/18 at 1542, Until Sun08/13/18 at 1610, Nausea, Start with 4mg and if ineffective in 30 minutes, give an additional 4mg If multiple antiemetics are ordered, give ondansetron first. ondansetron (ZOFRAN) tablet 4-8 mg(Linked Group 7) 4-8 mg, Oral, EVERY 8 HOURS PRN, Starting on 08/12/18 at 1542, Until Sun08/13/18 at 1610, Nausea, Vomiting, If multiple antiemetics are ordered, use ondansetron first. PO Preferred. If patient unable to take PO, may give IV if ordered. Start with 4mg and if ineffective in 45 minutes, give an additional 4mg. If unable to take PO, may give IV., Routine potassium chloride (KAYCIEL) 20 mEq/15 mL oral solution 20-60 mEq (CANCELED) 20-60 mEq, Per NG tube, EVERY 4 HOURS PRN, Starting on 08/10/18 at 2054, Until 08/11/18 at 1229, hypokalemia, For serum potassium: 3.9 - 4 mMol/L = 20 mEq. 3.6 - 3.8 mMol/L = 40 mEq. 3.3 - 3.5 mMol/L = 40 mEq. 2.8 - 3.2 mMol/L = 60 mEq. Less than 2.8 = Call physician, then begin potassium chloride replacement via central or peripheral IV route. See instructions for Potassium Protocol in online policies., Routine 0407 (Given - Provider: Tanner Marrero RN - Comment: 3.6) simethicone (MYLICON) chewable tablet 40 mg 40 mg, Oral, EVERY 6 HOURS PRN, Starting on 08/12/18 at 1542, Until Sun08/13/18 at 1610, Cramping, Routine sodium chloride 0.9 % flush 5-20 mL 5-20 mL, Intravenous, EVERY 1 MIN PRN, Starting on 08/10/18 at 0813, Until Sun08/13/18 at 1610, flush, Flush pertains to all indwelling lines. Flush per protocol found in the job aid using the link provided on this medication record., Routine Linked Groups Order Group 1: acetaminophen (TYLENOL) tablet 1,000 mg (CANCELED)Jump to med 1,000 mg, Oral, EVERY 8 HOURS SCHEDULED, First dose on 08/10/18 at 0900, Until Discontinued, May give PO or Per Tube, Maximum dose of acetaminophen is 4000 mg from all sources in 24 hours., Routine Or acetaminophen (TYLENOL) 650 mg/20.3 mL oral liquid 1,000 mg (CANCELED)Jump to med 1,000 mg, Oral, EVERY 8 HOURS SCHEDULED, First dose on 08/10/18 at 0900, Until Discontinued, May give PO or Per Tube, Maximum dose of acetaminophen is 4000 mg from all sources in 24 hours., Routine Or acetaminophen (TYLENOL) suppository 975 mg (CANCELED) 975 mg, Rectal, EVERY 8 HOURS SCHEDULED, First dose on 08/10/18 at 0900, Until Discontinued, Maximum dose of acetaminophen is 4000 mg from all sources in 24 hours., Routine Group 2: POCT Fingerstick Glucose (CANCELED) Routine, EVERY 4 HOURS, First occurrence on Sun08/10/18 at 2000, Until Specified, Consider choosing EVERY 4 HOURS as frequency for: - Type 1 Diabetes - At least 24 hours after coming off an insulin drip - At least 24 hours after admission for DKA - Hypoglycemia unawareness - Patients who are otherwise unstable Select the same frequency for the correction bolus insulin order And insulin lispro (HumaLOG) VIAL injection 1-4 Units (CANCELED)Jump to med 1-4 Units, Subcutaneous, EVERY 4 HOURS SCHEDULED, First dose on 08/10/18 at 2000, Until Discontinued, CORRECTION BOLUS Sensitive to insulin lean patient or total daily dose of all insulin needed to achieve glycemic control less than 30 units BG 140 - 160 Give 1 unit BG 161 - 200 Give 2 units BG 201 - 240 Give 3 units BG greater than 240, give 4 units and recheck BG in 2 hours. If less than 240 after two hours, give no insulin and resume prior schedule. If BG remains greater than 240, repeat 4 units (no more than three times) & call for new basal insulin orders. DO NOT hold if NPO, unless specifically told to do so., Routine Group 3: POCT Fingerstick Glucose (CANCELED) Routine, 4 TIMES DAILY BEFORE MEALS & AT BEDTIME, First occurrence on Sun08/12/18 at 1700, Until Specified, Consider choosing FOUR TIMES A DAY BEFORE MEALS AND AT BEDTIME as frequency for: Patients who have good hypoglycemia awareness: -Patients who are eating meals during the day and sleeping at night -Patient who are otherwise stable And insulin lispro (HumaLOG) VIAL injection 1-4 UnitsJump to med 1-4 Units, Subcutaneous, 3 TIMES DAILY BEFORE MEALS, First dose on 08/12/18 at 1630, Until Discontinued, CORRECTION BOLUS Sensitive to insulin lean patient or total daily dose of all insulin needed to achieve glycemic control less than 30 units BG 140 - 160 Give 1 unit BG 161 - 200 Give 2 units BG 201 - 240 Give 3 units BG greater than 240, give 4 units and recheck BG in 2 hours. If less than 240 after two hours, give no insulin and resume prior schedule. If BG remains greater than 240, repeat 4 units (no more than three times) & call for new basal insulin orders. DO NOT hold if NPO, unless specifically told to do so., Routine Group 4: Assess (CANCELED) Routine, ONE TIME, On 08/10/18 at 1520, For 1 occurrence, Routine until specified. Reassess pain 15 minutes after initiating continuous infusion of fentaNYL And fentaNYL 50 mcg/mL infusion (CANCELED)Jump to med 0-400 mcg/hr (0-8 mL/hr), Intravenous, CONTINUOUS, Starting on 08/10/18 at 1545, Until 08/11/18 at 1349, Pain Scale Goal Less than or equal to 3 or to patient verbalized goal. Initial Infusion rate: 50 mcg/hour; Adjust hourly rate by 50% AND bolus 50% of new hourly rate every 15 minutes to achieve goal. Rate not to exceed 500 mcg/hr. Pain assessment every 15 minutes initially and reassess pain 15 minutes after each bolus given. Pain assessment MUST be documented prior to rate change. And fentaNYL bolus from bag 25-200 mcg (CANCELED) 25-200 mcg, Intravenous, EVERY 15 MIN PRN, Starting on 08/10/18 at 1517, Until 08/11/18 at 1349, Pain, Refer to infusion order for Bolus instructions. Reassess pain 15 minutes after bolus given., Routine Group 5: midazolam 1 mg/mL (standard ADULT & Pedi greater than 20kg) infusion (CANCELED)Jump to med 0-10 mg/hr (0-10 mL/hr), Intravenous, CONTINUOUS, Starting on 08/10/18 at 1215, Until 08/11/18 at 1349, Initial bolus 1 mg midazolam with start of infusion. Titrate to sedation level of RASS Goal (-)5. Start at 1 mg/hr, adjust by 1 mg/hr every 30 minutes. Rate not to exceed 10 mg/hr. , , Change rate only after documenting RASS. Reassess sedation scores after every rate change. Call boiling house oiler if goal not achieved at maximum rate., Routine, Use of Midazolam for routine sedation is NOT recommended. Please indicate reason (Note - the need for low dose pressor, or slight increase in pressor is NOT a contraindication to propofoL or dexmedeTOMIDine): RASS target is -4, or -5 And midazolam (VERSED) bolus from bag 1 mg (CANCELED) 1 mg, Intravenous, EVERY 30 MIN PRN, Starting on 08/10/18 at 1147, Until 08/11/18 at 1349, Sedation, Refer to infusion order for Bolus instructions. Reassess within 30 minutes after bolus given., Routine Group 6: dextrose 50% IV syringe 25-50 mLJump to med 25-50 mL (12.5-25 g), Intravenous, EVERY 1 HOUR PRN, Starting on 08/10/18 at 1758, Until 08/13/18 at 1610, Low blood sugar, For BG 50-70: 120 mL Juice or Regular (not diet) soda OR 12.5 gram (25 mL) Dextrose 50% IV OR, if no IV access, 1 mg Glucagon IM. Recheck BG in 30 minutes. May repeat juice, dextrose or glucagon once per episode For BG less than 50: 240 mL Juice or Regular (not diet) soda OR 25 grams (50 mL) Dextrose 50% IV OR, if no IV access, 1 mg Glucagon IM. Recheck BG in 30 minutes. May repeat juice, dextrose, or glucagon once per episode. To avoid extravasation, push Dextrose 50% SLOWLY (3 mL over 1 minute) in a patent, running IV, preferably a central line. For persistent hypoglycemia, consider longer-acting treatment for the duration of the active insulin., Routine Or glucagon (human recombinant) injection SolR 1 mgJump to med 1 mg, Intramuscular, EVERY 1 HOUR PRN, Starting on 08/10/18 at 1758, Until 08/13/18 at 1610, Low blood sugar, For BG 50-70: 120 mL Juice or Regular (not diet) soda OR 12.5 gram (25 mL) Dextrose 50% IV OR, if no IV access, 1 mg Glucagon IM. Recheck BG in 30 minutes. May repeat juice, dextrose or glucagon once per episode For BG less than 50: 240 mL Juice or Regular (not diet) soda OR 25 grams (50 mL) Dextrose 50% IV OR, if no IV access, 1 mg Glucagon IM. Recheck BG in 30 minutes. May repeat juice, dextrose, or glucagon once per episode. To avoid extravasation, push Dextrose 50% SLOWLY (3 mL over 1 minute) in a patent, running IV, preferably a central line. For persistent hypoglycemia, consider longer-acting treatment for the duration of the active insulin., Routine Group 7: ondansetron (ZOFRAN) tablet 4-8 mgJump to med 4-8 mg, Oral, EVERY 8 HOURS PRN, Starting on Sun08/12/18 at 1542, Until Sun08/13/18 at 1610, Nausea, Vomiting, If multiple antiemetics are ordered, use ondansetron first. PO Preferred. If patient unable to take PO, may give IV if ordered. Start with 4mg and if ineffective in 45 minutes, give an additional 4mg. If unable to take PO, may give IV., Routine Or ondansetron (ZOFRAN) injection 4-8 mgJump to med 4-8 mg, Intravenous, EVERY 8 HOURS PRN, Starting on Sun08/12/18 at 1542, Until Sun08/13/18 at 1610, Nausea, Start with 4mg and if ineffective in 30 minutes, give an additional 4mg If multiple antiemetics are ordered, give ondansetron first. documented in this encounter Care Teams It Systems Manager Relationship Specialty Start Date End Date Nataly Conklin, SOFTWARE RECRUITER [address] [place] [address] PCP - General Family Medicine 08/10/18 01/27/24 documented as of this encounter
--- OUTSIDE RECORDS SUMMARY | 2024-08-21 13:28 | XMS_ITS | Encounter Summary ---
Author Organization Formerly [facility] [place] [address] Care Team Providers Care Shampoo Person Name Role Phone Doug Mayfield DO Primary Care Provider [phone] Encounter Details Date Type Department Care Team (Late st Contact Info) Description 02/05/2013 Orders Only [place] [address] Rick Matthews MD [facility] [place] [address] Chromosome abnormality (Primary Dx) Social History Tobacco Use Types Packs/Day Years Used Date Smoking Tobacco: Never Assessed Sex and Gender Information Value Date Recorded Sex Assigned at Not on file Gender Identity Not on file Sexual Orientation Not on file documented as of this encounter Plan of Treatment Not on file documented as of this encounter Visit Diagnoses Diagnosis 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
[2024-08-21 13:59] LABS: Abs Immature Grans 0.02 10^3/uL (0.0-0.06); Absolute Basophil Count 0.02 10^3/uL (0.0-0.2); Absolute Lymphocyte Count 1.94 10^3/uL (1.2-3.4); Absolute Monocyte Count 0.32 10^3/uL (0.1-0.8); Absolute Neutrophil Count 3.25 10^3/uL (1.2-6.7); Basophils % 0.4 %; Eosinophils % 1.8 %; HCT 43.1 % (40.0-50.0); HGB 14.1 g/dL (13.5-17.5); Immature Grans % 0.4 %; Lymphocytes % 34.3 %; MCH 27.8 pg (27.0-33.0); MCHC 32.7 % (32.0-36.0); MCV 85 fL (80-95); MPV 10.1 fL (8.0-11.0); Monocytes % 5.7 %; Neutrophils % 57.4 %; Platelet Count 264 10^3/uL (130-400); RBC 5.08 10^6/uL (4.36-5.78); RDW 13.2 % (11.8-14.1); RDW-SD 41.6 fL; WBC 5.65 10^3/uL (4.4-10.8)
[2024-08-21] MEDS: Acetaminophen 500 MG TAB 1000 MG PO ×2 (14:09→21:32)
[2024-08-21 14:10] LABS: C-Reactive Protein < 0.50 mg/dL (<or=0.5)
[2024-08-21] MEDS: cefTRIAXone 2 GM/50 ML BAG IVPB (14:10)
[2024-08-21] MEDS: Enoxaparin 40 MG/0.4 ML SYR SC (14:11)
[2024-08-21] MEDS: metroNIDAZOLE 500 MG/100 ML BAG 100 MG IVPB ×2 (15:16→21:32)
--- NOTE | 2024-08-21 16:47 | ANES.PREOP_ITS ---
General Info Date of Service Date Performed: 08/22/24 Height: 6 ft 2 in Weight: 154.481 kg Body Mass Index (BMI): 43.7 Surgical Procedure: Operation Date: 08/22/24 07:40 Proposed Procedure Side Surgeon p Excision-Tessa Rectal Abscess Mary Jane Chau, DO Meds Allergies and Home Medications Allergies Allergy/AdvReac Type Severity Reaction Status Date / Time No Known Allergies Allergy Unverified 08/21/24 10:19 Home Medication ?Medication ?Instructions ?Recorded valsartan 320 mg tablet 320 mg PO DAILY 08/10/24 dextroamphetamine-amphetamine 10 10 mg PO DAILY PRN 08/21/24 mg tablet (Adderall) dextroamphetamine-amphetamine ER 10 mg PO DAILY PRN 08/21/24 10 mg 24hr capsule,extend release Current Visit Medications: Current Medications Generic Name Dose Route Start Last Admin Trade Name Freq PRN Reason Stop Dose Admin Acetaminophen 1,000 mg 08/21/24 14:00 08/21/24 14:09 Acetaminophen 500 Mg Tab PO 1,000 mg Q6H CHRIS Administration Amphetamine Aspartate/Amphetam Sulf 10 mg 08/21/24 13:01 Amphet Asp/Amphet/D-Amphet 10 Mg Tab PO DAILY PRN PRN Enoxaparin Sodium 40 mg 08/21/24 14:00 08/21/24 14:11 Enoxaparin 40 Mg/0.4 Ml Syr SC 40 mg Q24H CHRIS Administration Gabapentin 600 mg 08/22/24 06:00 Gabapentin 300 Mg Cap PO 08/22/24 23:59 PREOP CHRIS Sodium Chloride 1,000 mls @ 75 mls/hr 08/21/24 13:38 Saline 1000ml Bag IV INFUSION CHRIS Ceftriaxone Sodium/Dextrose 2 gm in 50 mls @ 100 mls/hr 08/21/24 14:00 08/21/24 14:10 Rocephin IVPB 100 mls/hr Q24H CHRSI Administration Metronidazole 500 mg in 100 mls @ 100 mls/hr 08/21/24 14:00 08/21/24 15:16 Flagyl IVPB 100 mls/hr Q8H CHRIS Administration IV Miscellaneous Supplies 1 each 08/21/24 13:00 Iv Access IV DIRECTED CHRIS Ketorolac Tromethamine 15 mg 08/21/24 13:02 Ketorolac 15 Mg/Ml Vial IVP 08/26/24 13:01 Q6H PRN PRN Morphine Sulfate 2 mg 08/21/24 12:57 Morphine 2 Mg/Ml Syr IVP Q1H PRN PRN Ondansetron HCl 4 mg 08/21/24 12:57 Ondansetron 4 Mg/2 Ml Vial IVP Q4H PRN PRN Sennosides 1 tab 08/21/24 13:02 Senna Tab PO BID PRN PRN Sodium Chloride 0 ml 08/21/24 12:57 Normal Saline Flush 10 Ml Syr IVP PRN PRN Sodium Chloride 0 ml 08/21/24 20:00 Normal Saline Flush 10 Ml Syr IVP BID CHRIS Sodium Chloride 0 ml 08/21/24 12:57 Normal Saline 10 Ml Vial IJ DIRECTED PRN Tramadol HCl 50 mg 08/21/24 13:02 Tramadol 50 Mg Tab PO Q4H PRN PRN Valsartan 320 mg 08/22/24 08:30 Valsartan 80 Mg Tab PO DAILY CHRIS PFSH Active Problems Active Problems: Problem Status Onset Code BMI 45.0-49.9, adult Acute Z68.42 Tessa-rectal abscess Acute K61.1 Pain, rectal Acute K62.89 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 Acute M21.41 Impingement of right ankle joint Acute M25.871 Severe persistent asthma Acute J45.50 Prediabetes Acute R73.03 Medical History Medical History Essential hypertension ADHD Hyperlipidemia Tobacco Smoking/Tobacco Use Status: Never Substance Use Substance use: Never Vital Signs and Lab Results Vital Signs Most Recent Vital Signs in EMR: Most Recent Vital Signs Temp Pulse Resp BP Pulse Ox 36.7 C 73 16 153/101 H 100 08/21/24 13:25 08/21/24 13:25 08/21/24 13:25 08/21/24 13:25 08/21/24 13:25 Lab Results 08/21/24 13:43 Blood Type / Crossmatch: 2 No Data to Display Complete Blood Count: 2 White Blood Count 5.65 10^3/uL (4.4-10.8) 08/21/24 13:43 Red Blood Count 5.08 10^6/uL (4.36-5.78) 08/21/24 13:43 Hemoglobin 14.1 g/dL (13.5-17.5) 08/21/24 13:43 Hematocrit 43.1 % (40.0-50.0) 08/21/24 13:43 Platelet Count 264 10^3/uL (130-400) 08/21/24 13:43 Venous Blood Lactate 1.40 mmol/L (0.9-1.7) 08/10/24 14:33 Complete Metabolic Panel: 2 Sodium 142 mmol/L (136-145) 08/10/24 14:33 Potassium 3.8 mmol/L (3.5-5.1) 08/10/24 14:33 Chloride 104 mmol/L (98-107) 08/10/24 14:33 Carbon Dioxide 27.2 mmol/L (21.0-32.0) 08/10/24 14:33 BUN 14 mg/dL (7-18) 08/10/24 14:33 Creatinine 0.9 mg/dL (0.70-1.30) 08/10/24 14:33 Est GFR (CKD-EPI 2020) 112.81 (mL/min/1.73m2) 08/10/24 14:33 Calcium 9.3 mg/dL (8.5-10.1) 08/10/24 14:33 Albumin 4.3 g/dL (3.4-5.0) 08/10/24 14:33 Glucose 94 mg/dL (74-106) 08/10/24 14:33 Hemoglobin A1c 5.8 % (<5.7) H 08/21/24 13:43 C-Reactive Protein < 0.50 mg/dL (<or=0.5) 08/21/24 13:43 Liver Function Panel: 2 Alanine Aminotransferase (ALT/SGPT) 46 U/L (16-63) 08/10/24 14: 33 Aspartate Amino Transf (AST/SGOT) 24 U/L (15-37) 08/10/24 14:33 Coagulation Panel: 2 No Data to Display Cardiac Panel: 2 No Data to Display Arterial Blood Gas: 2 No Data to Display Venous Blood Gas: 2 No Data to Display Pancreas Panel: 2 No Data to Display Thyroid Panel: 2 No Data to Display Infectious Disease: 2 No Data to Display Blood Cultures: 2 No Data to Display Toxicology Panel: 2 No Data to Display Anesthesia Assessment and Plan Anesthesia History Personal History: No History of Anesthesia Complications Family History: No Family History of Anesthesia Complications Exercise Tolerance Exercise Tolerance: Metabolic Equivalents>4 Cardiac & Pulmonary Exam Cardiac Exam: Normal S1/S2 Heart Sounds Pulmonary Exam: Clear Bilateral Breath Sounds Implantable Cardiac Device Does patient have a Pacemaker or an ICD?: No Airway Exam Known Difficult Airway: No Mallampati Class: 4 Mouth Opening: Narrow (< 3cm) Thyromental Distance: Greater than 3 cm Neck Range of Motion: Full ROM Neck Circumference: Thick Teeth Condition: Normal Dentition ASA Classification ASA Score: ASA 3 Emergency Case?: No NPO Status NPO Status: NPO Clears >2 hours, Solids >8 hours Anesthesia Plan Resuscitation Status: Full Code Anesthesia Technique: General Anesthesia Airway Planned: Endotracheal Tube Monitors Used: Standard Monitors Preoperative Comments:: 39 yo male for i/d perirectal abscess. Currently inpt getting metronidazole and ceftriaxone, also enoxaparin. Sig PMHx: HTN (valsartan), BMI >40, asthma (not an issues. was with pneumonia that he had 6 years ago. does not use regular inhalers). occ cannabis. Discussed spinal spinal vs general/ETT. Would prefer general.
[2024-08-21 20:14] LABS: Lab Add On Test DONE
[2024-08-21 20:26] LABS: Hemoglobin A1C 5.8 % (<5.7)
[2024-08-21 21:01] VITALS: BP 135/87; PULSE 70; RESP 18; TEMP 36.4; O2SAT 97
[2024-08-21] MEDS: Normal Saline Flush 10 ML SYR IVP (21:33)
[2024-08-22] VITALS (32 sets, daily range): BP systolic 102–139; BP diastolic 52–86; PULSE 67–82; RESP 11–26; TEMP 36.2–36.5; O2SAT 92–98; BMI 43.7
[2024-08-22] MEDS: Normal Saline 1,000 ML 75 ML IV (00:01)
[2024-08-22] MEDS: metroNIDAZOLE 500 MG/100 ML BAG 100 MG IVPB ×2 (06:03→15:05)
--- NOTE | 2024-08-22 08:35 | ROE_ITS ---
Date of service: 08/22/24 Time of Service: 08:35 Operative Note Operative Note DATE OF PROCEDURE: 08/22/24 PRE-OP DIAGNOSIS: Perirectal abscess POST-OP DIAGNOSIS: same PROCEDURE: Incision and drainage of perirectal abscess SURGEON: Mary Jane Chau ELECTRICIAN OUTSIDE: Meredith Lazar ANESTHESIA TYPE: Local By Surgeon and General LMA/ETT Refer to Anesthesia Record ESTIMATED BLOOD LOSS: 5 PATHOLOGY: other COMPLICATIONS: None Patient was transported to: PACU Patient's condition: stable Procedure Description: Patient is here today for incision and drainage of perirectal abscess. Informed consent is obtained explaining risks and benefits of the procedure including but not limited to: Bleeding, infection, pneumonia, blood clots, complications of anesthesia, chronic pain or numbness, damage to the sphincters resulting in stenosis or loss of control, need for repeat washouts, recurrence, and other on for told complications. Patient is brought to the operative room suite and placed supine position anesthesia is administered per the department of anesthesia. Patient is then placed in the prone position with all bony surfaces padded. Patient is prepped and draped in the usual sterile fashion using a Betadine scrub solution. He is already on antibiotics. Timeout is performed. 30cc of quarter percent Marcaine is used for local anesthetization. The abscess is localized at the 12 o'clock position and anatomical position. The Marcaine is instilled. A small usha is made with 11 blade. The abscess is about 1 x 2 cm. The cavity is explored. All loculations are broken up. Cultures are taken. It is irrigated with a series with a liter of saline. It is packed with half-inch plain packing. Patient Toller procedure well without complication transferred to cover room in stable condition.
[2024-08-22] MEDS: Bupivacaine 0.25% Pres-Free W/EPI 30 ML VIAL (08:43)
[2024-08-22] MEDS: HYDROmorphone 1 MG/ML SYR IVP ×2 (08:46→09:06)
--- NOTE | 2024-08-22 08:52 | W.ANESPOSTOP ---
Postoperative Evaluation Date, Time and Location Date Performed: 08/22/24 Time Performed: 08:52 Patient Location: PACU Vital Signs Most Recent Imported Vital Signs: Most Recent Vital Signs Temp Pulse Resp BP Pulse Ox 36.3 C L 74 16 115/85 96 08/22/24 08:28 08/22/24 07:11 08/22/24 07:11 08/22/24 07:11 08/22/24 07:11 Pain Score Most Recent Pain Score: Most Recent Pain Score Pain Level [Generalized] 0 08/22/24 04:17 Pain Level 0 08/22/24 07:11 Assessment Mental Status: Awake (Alert & Oriented to Patient Baseline) Airway and Respiratory Function: Patent airway with normal (patient baseline) respiratory exam Cardiovascular Function: Hemodynamically Stable Hydration Status: Adequately Hydrated Nausea & Vomiting: No Nausea or Vomiting Pain: Pain is tolerable per patient Peripheral Nerve Block: Patient did not receive a nerve block
[2024-08-22] MEDS: Valsartan 80 MG TAB 320 MG PO (11:52)
[2024-08-22] MEDS: Acetaminophen 500 MG TAB 1000 MG PO (11:52)
[2024-08-22] MEDS: Normal Saline Flush 10 ML SYR IVP ×2 (11:52→15:12)
--- NOTE | 2024-08-22 14:23 | CHAPLAIN ---
Efraín was up in the chair working on his laptop when I visited. 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 He was very pleasant and explained some of what he does for work and talked about issues around home inspection in the market today. His family had been in to visit and is very supportive, he said. I explained my role and offered support.
[2024-08-22] MEDS: Enoxaparin 40 MG/0.4 ML SYR SC (15:04)
[2024-08-22] MEDS: cefTRIAXone 2 GM/50 ML BAG IVPB (15:06)
[2024-08-22] MEDS: Ketorolac 15 MG/ML VIAL IVP (15:11)
--- NOTE | 2024-08-22 16:03 | W.PM.DS.N ---
Date of service: 08/22/24 Time of Service: 16:03 DS: Diagnosis Discharge Diagnosis (1) Prediabetes: Status: Acute (2) BMI 45.0-49.9, adult: Status: Acute (3) Tessa-rectal abscess: Status: Acute (4) Essential hypertension: (5) Hyperlipidemia: (6) ADHD: Discharge Plan Disposition Patient Disposition: Home Condition: Improving Discharge Details Reason For Visit: perirectal abscess Admit Date/Time: 08/21/24 12:58 Admit Provider: Mary Jane Chau Attending Provider: Mary Jane Chau Primary Care Provider: [facility] Course Hospital Course: see addendum Home Meds and New Rx's Prescriptions: New amoxicillin-pot clavulanate 875-125 mg tablet 1 tab PO BID 3 Days Qty: 6 0RF Rx Instructions: start am 11/9 yogurt daily while on antibiotics. will cause diarrhea tramadol 50 mg tablet 50 mg PO Q4H PRNQty: 10 0RF Rx Instructions: will cause constipation Continued dextroamphetamine-amphetamine [Adderall] 10 mg tablet 10 mg PO DAILY PRN dextroamphetamine-amphetamine 10 mg capsule,extended release 24hr 10 mg PO DAILY PRN Patient Comments: TAKE ONE CAPSULE BY MOUTH EVERY MORNING (SWALLOW WHOLE) valsartan 320 mg tablet 320 mg PO DAILY Patient Comments: TAKE ONE TABLET BY MOUTH EVERY DAY Discharge Instructions Additional Instructions: Home Care Instructions after Rectal Surgery Pain control:? Ibuprofen 600mg 6hrs (take w/ food. Do not take on an empty stomach) and Tylenol 1000mg by mouth (ibuprofen 400-600mg) every 8 hours.? Do not take if you have ulcers or sensitivity to aspirin.? Do not take Tylenol if you have hepatitis or liver failure. Alternate the Tylenol and ibuprofen.? Take pain meds continuously for the first 72hrs.? After 72hrs, you can take as needed if you are having pain. If you are having pain greater than a 7 while you are taking the Tylenol/ibuprofen and after using a warm water soak, use Ultram for pain control. Ultram is a mild narcotic. It will cause constipation. Do not drive for 8 hours after taking this medication. How to prevent constipation: The first bowel movement after surgery will be painful. Do not let yourself get constipated. Anesthesia does have a tendency to make people constipated. I would recommend taking a dose of MiraLAX tonight. If you do not have a bowel movement daily, use Milk of Magnesia or Miralax. You may have bleeding or drainage after rectal surgery; especially when you move your bowels. Use a sanitary napkin to collect the discharge. If you are passing large clots or having to change the pad more than every 4 hours, call the clinic or go to the ER. You are going to need to remove the packing in the morning. Get in the shower and get the area very wet. And then gently pull until its completely out. You may have some bleeding after removing the packing. You may experience spasms in the rectal muscles. This is normal after surgery and last for about two weeks. They can become more intense with bowel movements. The best remedy is to soak in a bathtub of plain warm water- no Epsom salts, essential oil or soap.? It takes about 10 minutes further the spasm to stop.? You may want to do this after BM as well. It is ok to shower. Avoid soap on the surgical area. Use a pillow to sit on. Follow a mild bland diet. Avoid alcohol, spicy food, citrus, and tomatoes. (What goes in, must come out). Avoid strenuous activity (running, jogging, and power walking, swimming, weight lifting) for 1-2 weeks. No lifting over 20 pounds for 1 weeks. We will decide on return to more strenuous activities at your follow-up appointment on Sunday With Dr. Chau on August 28. At Surgical [address] Gustafson. The office should call you on Sunday to schedule an appointment. If they have not called by Sunday please call the office. If you have any questions or concerns over the weekend, please call the mash filter press operator at an [facility]: [phone], and asked to speak to the surgeon on-call. Activity:: see above Equipment/Supplies:: No Equipment Needed Diet:: As Tolerated DS: Summary Time Spent with Patient providing and/or coordinating discharge services: Less than 30 minutes Status at Discharge Functional status at discharge: independent ambulation Overall status at discharge: patient is progressing back to baseline Mental Status: mental status grossly normal Speech and Movement: speech and movement normal Mood: congruent mood Affect: normal affect Quality:SDOH Health Related Social Needs: No Data to Display Exam Psych Mental Status: mental status grossly normal Speech and Movement: speech and movement normal Mood: congruent mood Affect: normal affect DS: Data Vitals/I&O Vitals and I&O: Vital Signs Temperature 36.5 C 08/22/24 16:00 Temperature Source Temporal Artery Scan 08/22/24 16:00 Pulse 82 08/22/24 16:00 Pulse Rhythm Regular 08/21/24 13:25 Pulse 73 08/22/24 09:26 Respiratory Rate 15 08/22/24 16:00 Respiratory Effort Normal 08/21/24 13:25 Respiratory Depth Normal 08/21/24 13:25 Respiratory Pattern Normal 08/21/24 13:25 Blood Pressure 130/77 08/22/24 16:00 Blood Pressure Mean 89 08/22/24 09:26 Pulse Oximetry 98 08/22/24 16:00 Respiratory End-tidal CO2 37 08/22/24 09:15 Oxygen Delivery Method Room Air 08/22/24 16:00 Oxygen Flow Rate 0 08/22/24 16:00 Pain Level 0 08/22/24 16:00 Intake & Output 08/21/24 08/22/24 08/22/24 23:59 11:59 23:59 Intake Total 250 / 250 1000.00 / 1010.00 1010.00 Output Total 500 / 500 Balance -250 / -250 1000.00 / 1010.00 0.00 Weight 154.481 kg Intake: IV 250 / 250 1000.00 / 1010.00 1010.00 Output: Urine 500 / 500 Other: Urine Color Yellow Urine Appearance Clear Comment voided in toilet Stool Characteristics Soft Formed Data Completed and Pending Labs on day of discharge: Labs from last 24 hours 08/21/24 13:43 Hemoglobin A1c 5.8 H Add-On Test Request DONE 08/22/24 08:13 Rectal Surgical Culture - Pending 08/22/24 08:13 Perirectal Anaerobic Culture - Pending Preliminary micro results at discharge 08/21/24 13:52 Blood Culture - Preliminary Blood NO GROWTH 24 HOURS 08/21/24 13:43 Blood Culture - Preliminary Blood NO GROWTH 24 HOURS 08/22/24 08:13 Surgical Culture - Pending Rectal 08/22/24 08:13 Anaerobic Culture - Pending Perirectal 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 (Acute) Impingement of right ankle joint (Acute) Severe persistent asthma (Acute) Prediabetes (Acute) Medical History Essential hypertension ADHD Hyperlipidemia Social History Smoking/Tobacco Use Status: Never Smoking risk assessment performed?: Yes Drug use: Never Housing: house Do you feel safe in your relationship?: Yes Time Spent with Patient Time Spent with Patient: <45 minutes Time was spent: preparing to see the patient(eg.review tests), obtaining and/or reviewing separately otained hiistory, ordering medications,tests, procedures, referring, communicating with other health career development specialist, indepentently interpreting results, counseling the patient, care coordination and other
--- NOTE | 2024-08-22 16:28 | W.PM.PROGNOT ---
Date of Service Date of service: 08/22/24 Time of Service: 16:28 Assessment and Plan Assessment and plan (1) Tessa-rectal abscess: Status: Acute Assessment and plan: Patient is doing well. He is tolerating regular diet. Pain has been easily controlled. He is up walking around. Patient would like to discharge home tonight. Prescriptions were called into [employer] [facility]. We discussed wound care, activity, and warning signs. I will see him in follow-up in clinic on . Subjective Subjective Interval history since last seen: Patient is seen and examined: they are doing well. THey have : no headaches. No CP or SOB. no productive cough. no dysuria. no leg pain or swelling. Patient has been able to tolerate a regular diet. He had minimal bleeding after the procedure. He has not moved his bowels since he has been in the hospital. Objective Last Vital Signs Temp 36.5 C 08/22/24 16:00 Pulse 82 08/22/24 16:00 Resp 15 08/22/24 16:00 BP 130/77 08/22/24 16:00 Pulse Ox 98 08/22/24 16:00 Laboratory Results - last 24 hr 08/21/24 13:43 Hemoglobin A1c 5.8 H Add-On Test Request DONE Time Spent with Patient Time Spent with Patient: 25-34 minutes Time was spent: preparing to see the patient(eg.review tests), obtaining and/or reviewing separately otained hiistory, ordering medications,tests, procedures, referring, communicating with other health ostomy care nurse, indepentently interpreting results, counseling the patient, care coordination and other
--- NOTE | 2024-08-22 16:39 | PDOC.CMPRO ---
Date of service: 08/22/24 Time of Service: 16:39 Care Management Progress Note Progress Note Text Progress Note Text: Efraín was a direct admit from Dr. Chau's office yesterday for repair of a perirectal abcess. Efraín had surgery this morning, and did very well. He is pleased to be going home, and feels ready. Efraín was given instructions on how to care for his wound, and feels that he can care for it himself. 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 He and his have 2 children and live in [place]. Discharge Potential Discharge Needs: PCP F/U Appt and Surgical F/U Appt Anticipated Barriers to Discharge: None Identified Patient/Family Education Needs: Review discharge instructions, discuss Ask Me Three Transportation: Private vehicle Plan: Rick will discharge home this evening in a private vehicle, with his . He will follow up with the Dr. Chau on 08/28 and continue per his plan of care. SDOH(Care Management) Screening Will the Patient Participate in the Screening?: Yes Do you worry about having a steady place to live?: no Problems where you live: no known problems In the past 12 months, have you had to go without electric, gas, oil or water in your home?: no Have you or anyone in your house had to go without enough food to eat?: no Has lack of transportation kept you from medical appointments or from doing things needed for daily living?: no Has anyone in your support network made you feel unsafe for any reason?: no
== END 2024-08-22 17:15 | disposition home or self-care (01) | DRG 345 ==
PROVIDERS: Admitting Provider Surgery; PCP Nurse Practitioner Family; Visit Provider Surgery
PROC: 0D9P0ZZ Drainage of Rectum, Open Approach (ICD-10-PCS; CPT 46040; principal; 2024-08-22 07:30)
DX: K61.1 Rectal abscess (principal); Z68.42 Body mass index [BMI] 45.0-49.9, adult; R73.03 Prediabetes; I10 Essential (primary) hypertension; E78.5 Hyperlipidemia, unspecified; M21.41 Flat foot [pes planus] (acquired), right foot; F90.9 Attention-deficit hyperactivity disorder, unspecified type; J45.50 Severe persistent asthma, uncomplicated; Z79.899 Other long term (current) drug therapy
CPT/HCPCS: 46040; 87040; 87077; J1650; 83036; 85025; 86140; 87070; 87075; 87186; 87205; J0696; J1100; J1171; J1836; J1885; J2250; J2405; J2704

== ENCOUNTER 2025-06-24 10:27 | Outpatient (REF) | payer MEDICAID, SELFPAY ==
[2025-06-24 16:24] LABS: ALT 54 U/L (16-63); AST 30 U/L (15-37); Albumin 4.1 g/dL (3.4-5.0); Alkaline Phosphatase 57 U/L (46-116); Anion Gap 7.8 mmol/L (3-11); BUN 16 mg/dL (7-18); Bilirubin, Total 0.4 mg/dL (0.2-1.0); CO2 27.2 mmol/L (21.0-32.0); Calcium 9.2 mg/dL (8.5-10.1); Calculated LDL 119 mg/dL (<100); Chloride 105 mmol/L (98-107); Cholesterol 177 mg/dL (<200); Estimated GFR 112.81 (mL/min/1.73m2); Glucose 101 mg/dL (74-106); HDL Cholesterol 41 mg/dL (>or=40); Potassium 4.3 mmol/L (3.5-5.1); Sodium 140 mmol/L (136-145); TSH (W/Ref FT4) 1.01 uIU/mL (0.36-3.74); Total Protein 7.1 g/dL (6.4-8.2); Triglyceride 87 mg/dL (<150)
[2025-06-24 17:06] LABS: Hemoglobin A1C 5.6 % (<5.7)
== END 2025-06-24 10:28 | disposition home or self-care (01) ==
LOC: NCHCN 10:27
PROVIDERS: PCP Nurse Practitioner Family; Visit Provider Nurse Practitioner Family
DX: R73.03 Prediabetes (principal); I10 Essential (primary) hypertension; E78.5 Hyperlipidemia, unspecified; Z68.41 Body mass index [BMI] 40.0-44.9, adult
CPT/HCPCS: 80053; 80061; 83036; 84443